=== PATIENT | female | born 1970 | race Caucasian/White ===

== ENCOUNTER → 2018-05-05 13:59 | Outpatient (CLI) | payer OTHER, SELFPAY ==
--- NOTE | 2018-05-05 | DI.MG.S_ITS ---
UNILATERAL RIGHT DIGITAL DIAGNOSTIC MAMMOGRAM 3D/2D SHORT-TERM FOLLOW-UP: 05/05/2018 CLINICAL: Patient returns for a 6 month follow up of the right breast. Comparison is made to exams dated: 11/04/2017 mammogram, 11/02/2017 mammogram, and 08/22/2016 mammogram - [facility]. The tissue of the right breast is heterogeneously dense. This may lower the sensitivity of mammography. There are stable grouped fine punctate calcifications in the right breast at 11 o'clock posterior depth. No other significant masses or calcifications are seen in the breast. IMPRESSION: PROBABLY BENIGN The stable grouped fine punctate calcifications in the right breast are probably benign. A follow-up mammogram in 6 months is recommended. A follow-up mammogram in 6 months is recommended to demonstrate stability. This exam was interpreted at Station ID: [id number]. NOTE: For mammograms, a report in lay terms will be sent to the patient. Approximately 15% of breast malignancies will not be visualized mammographically. In the management of a palpable breast mass, a negative mammogram must not discourage biopsy of a clinically suspicious lesion. Electronically Signed By: Yann vega/uzlma:05/05/2018 15:19:01 letter sent: Followup Recommended ACR BI-RADS Category 3: Probably benign [id number]
== END ==
PROVIDERS: PCP Internal Medicine; Visit Provider Internal Medicine
DX: R92.8 Other abnormal and inconclusive findings on diagnostic imaging of breast (principal)
CPT/HCPCS: 77065; G0279

== ENCOUNTER → 2018-11-08 10:10 | Outpatient (CLI) | payer OTHER, SELFPAY ==
--- NOTE | 2018-11-08 10:12 | DI.MG.S_ITS ---
BILATERAL DIGITAL DIAGNOSTIC MAMMOGRAM 3D/2D: 11/08/2018 CLINICAL: Short term follow up, due bilaterally. Comparison is made to exams dated: 05/05/2018 mammogram - [facility], 11/04/2017 mammogram, and 11/02/2017 mammogram - [facility]. The tissue of both breasts is heterogeneously dense. This may lower the sensitivity of mammography. There are stable grouped fine punctate calcifications in the right breast at 11 o'clock middle depth. No other significant masses, calcifications, or other findings are seen in either breast. IMPRESSION: PROBABLY BENIGN The stable grouped fine punctate calcifications in the right breast for one year and are probably benign. A follow-up mammogram in 12 months is recommended to document 2 years of stability. Screening left breast mammogram will be due at that time as well. This exam was interpreted at Station ID: [id number]. NOTE: For mammograms, a report in lay terms will be sent to the patient. Approximately 15% of breast malignancies will not be visualized mammographically. In the management of a palpable breast mass, a negative mammogram must not discourage biopsy of a clinically suspicious lesion. Electronically Signed By: Anoop Perez M.D. aty/:11/08/2018 11:01:13 letter sent: Followup Recommended ACR BI-RADS Category 3: Probably benign [id number]
== END ==
PROVIDERS: PCP Family Medicine; Visit Provider Family Medicine
DX: R92.1 Mammographic calcification found on diagnostic imaging of breast (principal)
CPT/HCPCS: 77066; G0279

== ENCOUNTER → 2019-03-07 10:20 | Outpatient (CLI) | payer OTHER, SELFPAY ==
[2019-03-07 11:13] LABS: Cholesterol 178 mg/dL (140-199); Glucose 98 mg/dL (70-100); HDL Cholesterol 90 mg/dL (40-60); LDL Cholesterol Calculated 77 mg/dL (<100); Triglycerides 56 mg/dL (35-150)
== END ==
PROVIDERS: PCP Family Medicine; Visit Provider Family Medicine
DX: Z13.220 Encounter for screening for lipoid disorders (principal); Z13.1 Encounter for screening for diabetes mellitus
CPT/HCPCS: 36415; 80061; 82947

== ENCOUNTER 2019-07-15 08:39 | Day surgery (SDC) | payer OTHER, SELFPAY ==
[2019-07-15 09:04] VITALS: BP 127/76; PULSE 94; RESP 18; TEMP 37.2; O2SAT 100; BMI 23.6
[2019-07-15] MEDS: SODIUM CHLORIDE 0.9% 1,000 ML 200 ML IV (09:35)
--- NOTE | 2019-07-15 10:36 | PM.HP.1 ---
History of Present Illness History of Present Illness Date Patient Seen: 07/15/19 Time Patient Seen: 10:36 Chief complaint: [id number] Narrative: This is a 49-year-old woman with personal history of prior colonoscopy which she said was done because her grandfather had colon cancer. She does not have any primary relatives with colon cancer colon polyps that she knows of. She does not know what was found on her prior colonoscopy but she was told to have 1 again in 5 years. She denies any hematochezia, melena, or unexplained weight loss. ROS: Thirteen system review is negative other than as mentioned below and in HPI. PE: GENERAL: Well groomed and cooperative. Appears stated age. Answers questions promptly and appropriately. Vital signs noted. HENT: Normocephalic, atraumatic. Hearing intact. Oral mucosa is pink and moist. EYES: Conjunctiva pink, sclera white, no periorbital swelling. CARDIOVASCULAR: Regular rate. No pedal edema. RESPIRATORY: Normal respiratory rate, breathing comfortably on room air. GASTROINTESTINAL: Abdomen soft and non-distended GENITALURINARY: No flank tenderness. MUSCULOSKELETAL: Equal tone and mass bilaterally. SKIN: Warm, dry, soft, appropriate color for ethnicity. No other lesions, rashes, or wounds. NEURO: Alert and Oriented X 3. No gross sensory deficits, or cognitive issues. PSYCH: Appropriate affect and mood. Patient History Medical History Acne (Chronic 11/22/14) Allergic rhinitis (11/22/14) Asthma (Chronic 11/22/14) Attention deficit disorder (Chronic 11/22/14) Depression (Chronic 11/22/14) Gastroesophageal reflux disease (Chronic 11/22/14) History of chronic back pain (Chronic 11/22/14) Surgical History History of spinal fusion Status post cholecystectomy Status post hysterectomy Family & Social History Family History Father Age: 80 Hypertension FH: prostate cancer Grandfather Disease of colon Grandmother Asthma Mother Age: 77 High cholesterol Sleep apnea Social History: household members none lives independently Yes caregiver/support person No Tobacco & Substance use: Smoking Status Never smoker alcohol intake current Meds Home Medications and Allergies Home Medications Medication Instructions Recorded Confirmed Type docusate sodium 600 mg PO QDAY #0 08/27/11 07/15/19 History sumatriptan succinate 25 mg tablet 25 mg PO PRN PRN #30 tab 03/29/18 07/15/19 Rx atomoxetine [Strattera] 40 mg PO QDAY #90 cap 10/22/18 07/15/19 Rx citalopram [Celexa] 40 mg PO Q DAY #90 tab 10/22/18 07/15/19 Rx albuterol sulfate 90 mcg/actuation 2 puff INHALATION SEE INSTRUCTIONS 11/23/18 07/15/19 Rx aerosol inhaler PRN #1 inh epinephrine 0 IJ PRN PRN #2 dose 11/23/18 02/26/19 Rx minocycline 100 mg capsule 100 mg PO BID #60 cap 01/17/19 07/15/19 Rx albuterol sulfate 1.25 mg/3 mL 1.25 mg INHALATION Q4-6H PRN #75 ml 03/04/19 07/15/19 Rx solution for nebulization disabled parking permit #1 ea 03/04/19 03/04/19 Rx gabapentin 300 mg capsule 300 mg PO QID cap 03/04/19 07/15/19 History ranitidine HCl 150 mg capsule 150 mg PO BID #180 cap 03/04/19 07/15/19 Rx omeprazole 20 mg tablet,delayed 20 mg PO BID #180 tab 04/07/19 Rx release gabapentin [Neurontin] 200 mg PO BID 07/15/19 07/15/19 History naproxen 250 mg PO BID PRN 07/15/19 07/15/19 History Allergies Allergy/AdvReac Type Severity Reaction Status Date / Time peanut [PEANUT] Allergy Severe ANAPHYLAXIS Verified 07/15/19 08:52 Sulfa (Sulfonamide Allergy Severe HIVES Verified 07/15/19 08:52 Antibiotics) [SULFA (SULFONAMIDE ANTIBIOTICS)] propofol [PROPOFOL] Allergy Unknown Verified 07/15/19 08:52 tree nut [TREE NUT] Allergy Unknown Verified 07/15/19 08:52 metoclopramide AdvReac Severe EPS Verified 07/15/19 08:52 [METOCLOPRAMIDE] SYMPTOMS hydrocodone [HYDROCODONE] AdvReac Mild STRANGE Verified 07/15/19 08:52 FEELING meperidine [MEPERIDINE] AdvReac Mild FEELS WEIRD Verified 07/15/19 08:52 morphine [MORPHINE] AdvReac Mild SPACEY Verified 07/15/19 08:52 FRESH FRUIT Allergy Unknown Uncoded 07/15/19 08:52 Exam Vital Signs (past 8 hours): - 07/15/19 09:04 Temperature 98.9 F Pulse Rate 94 H Respiratory Rate 18 Blood Pressure 127/76 Pulse Oximetry 100 Oxygen Delivery Method Room Air Assessment & Plan Assessment and plan (1) Colon cancer screening: Current visit: Yes Status: Acute Assessment & Plan narrative: Risk and benefit of colon cancer screening with colonoscopy and possible polypectomy were discussed. Including risk of bleeding, perforation, need for additional procedures. The patient desires to proceed with her colonoscopy procedure. Time Spent With Patient Time with patient: 15-24 minutes
--- NOTE | 2019-07-15 10:39 | PM.OP.ENDO ---
Operative Date/Time/Diagnoses Date of procedure: 07/15/19 Time of procedure: 10:39 Pre-op diagnosis: Colon cancer screening Procedure & Clinicians Study performed: Colonoscopy Same procedure as scheduled: Yes Indications: Screening for colon cancer Surgeon: Madeline Escalante Procedure Notes SCOAP/Timeout: Performed Procedure in detail: The patient was brought to the room and placed in left lateral decubitus position with all bony prominences padded. A time-out was performed and then the patient was given procedural sedation starting with 3 mg of Versed and 100 mcg of fentanyl. Vitals were monitored throughout the procedure and remained stable. Once adequately sedated the procedure was begun. A rectal exam was performed revealing low-grade external hemorrhoids. The colonoscope was then introduced to the rectum and advanced to the cecum in the usual fashion. The prep was poor in about 40% of the colon. An extra 20 minutes of the procedure was taken up with irrigating and suctioning out clumps of stool. Colon was very tortuous, with many tight turns.The cecum was identified by the appendiceal orifice, the mucosal try fold, and the ileocecal valve. The scope was then retracted while rotating side to side and examining each mucosal fold. Patient had some mild diverticulosis in the sigmoid colon with scattered small mouthed diverticula. At the conclusion procedure retroflexion was performed and grade 2 internal hemorrhoids without stigmata of bleeding were seen. The scope was then withdrawn from the rectum the procedure was concluded. The patient tolerated the procedure well was transferred to the PACU in stable condition. Total of 6 mg of Versed and 250 micro g of fentanyl was used for the procedure. Scope withdrawal time: 13 Sedation minutes: 45 Findings: diverticulosis and internal hemorrhoids Specimen(s): none sent Complications: none Impression: Tortuous colon with areas of poor prep which may reduce visibility of small polyps which could be missed. Post-procedure Recommendations: Colonscopy in 5 years (Due to inadequate prep to visualize small polyps) Plan for aftercare: Repeat colonoscopy in 5 years due to the possibility of missing small polyps due to inadequate prep. I recommended 2 day prep to ensure adequate clean out. Follow up: as needed Disposition: PACU
[2019-07-15] MEDS: MIDAZOLAM 5 MG/5 ML VIAL IV ×2 (10:51→10:59)
[2019-07-15] MEDS: fentaNYL 250 MCG/5 ML INJ IV (10:59)
[2019-07-15 11:20] VITALS: BP 113/68; PULSE 86; RESP 16; TEMP 36.8; O2SAT 100
[2019-07-15 11:25] VITALS: BP 118/67; PULSE 85; RESP 14; O2SAT 100
[2019-07-15 11:29] VITALS: BP 116/67; PULSE 85; RESP 12; TEMP 36.4; O2SAT 100
== END 2019-07-15 11:49 | disposition home or self-care (01) ==
LOC: ENDO 08:41
PROVIDERS: PCP Family Medicine; Visit Provider Surgery
PROC: 0DJD8ZZ Inspection of Lower Intestinal Tract, Via Natural or Artificial Opening Endoscopic (ICD-10-PCS; CPT 45378; principal; 2019-07-15 10:45)
DX: Z12.11 Encounter for screening for malignant neoplasm of colon (principal); K57.30 Diverticulosis of large intestine without perforation or abscess without bleeding; K64.1 Second degree hemorrhoids
CPT/HCPCS: G0121; 99152; 99153; J2250; J3010

== ENCOUNTER → 2019-11-28 09:39 | Outpatient (CLI) | payer OTHER, MEDICAID, SELFPAY ==
--- NOTE | 2019-11-28 09:40 | DI.MG.S_ITS ---
BILATERAL DIGITAL DIAGNOSTIC MAMMOGRAM 3D/2D: 11/28/2019 CLINICAL: Additional evaluation requested from prior study. Comparison is made to exams dated: 11/08/2018 mammogram, 05/05/2018 mammogram - [facility], 11/04/2017 mammogram, 11/02/2017 mammogram, 08/22/2016 mammogram, and 08/21/2015 mammogram - [facility]. The tissue of both breasts is heterogeneously dense. This may lower the sensitivity of mammography. There are stable grouped fine punctate calcifications in the right breast at 11 o'clock middle depth. These are seen in additional views and are stable since 11/02/2017. No other significant masses, calcifications, or other findings are seen in either breast. IMPRESSION: Stable grouped fine punctate calcifications in the right breast since 11/02/2017 are benign. There is no mammographic evidence of malignancy. Return to annual mammogram screening schedule is recommended. This exam was interpreted at Station ID: [id number]. NOTE: For mammograms, a report in lay terms will be sent to the patient. Approximately 15% of breast malignancies will not be visualized mammographically. In the management of a palpable breast mass, a negative mammogram must not discourage biopsy of a clinically suspicious lesion. Electronically Signed By: Jesse Joe M.D. slc/:11/28/2019 10:21:12 letter sent: Normal Exam ACR BI-RADS Category 2: Benign Finding(s) 3342F
== END ==
PROVIDERS: PCP Family Medicine; Referring Provider Family Medicine; Visit Provider Family Medicine
DX: R92.1 Mammographic calcification found on diagnostic imaging of breast (principal)
CPT/HCPCS: 77066; G0279

== ENCOUNTER 2020-06-10 17:42 | Emergency (ER) | payer OTHER, MEDICAID, SELFPAY ==
[2020-06-10 17:50] VITALS: BP 150/80; PULSE 84; RESP 16; O2SAT 100; BMI 22.8
--- NOTE | 2020-06-10 17:56 | DI.RAD.S_ITS ---
PROCEDURE: XR WRIST LT MIN 3V INDICATIONS: injury/swelling TECHNIQUE: 4 views of the wrist were acquired. COMPARISON: None. FINDINGS: Bones: No fractures or dislocations. No suspicious bony lesions. Scaphoid view: The scaphoid is intact. Soft tissues: No suspicious soft tissue calcifications. IMPRESSION: No acute osseous abnormality. If the symptoms persist with conservative management, consider cross sectional imaging such as CT or MRI for further assessment. Dictated by: Obie Edmond M.D. on 06/10/2020 at 18:08 Approved by: Obie Edmond M.D. on 06/10/2020 at 18:09
--- NOTE | 2020-06-10 18:26 | ED_ITS ---
HPI - Extremity Injury (Upper) General Chief Complaint: Extremity Injury, Upper Stated Complaint: fall, left arm injured Time Seen by Provider: 06/10/20 18:08 Source: patient Mode of arrival: Ambulatory Limitations: no limitations History of Present Illness HPI narrative: Patient here for complaints of injury and pain to the left wrist as well as left lower back. History of had back surgery and does have a pain m anagement provider here locally that does pain shortness for her. Today she was hiking and tripped groove use and fell forward posting on her left hand and wrist. Complains of left wrist pain with abrasion to the volar surface. She states she did not hit her back but when she landed she strained her lower back. No numbness tingling or weakness to the legs or feet. No bowel or bladder incontinence. No saddle paresthesia. Has full active range of motion at the wrist. Denies any other injuries. Related Data Home Medications Medication Instructions Recorded Confirmed docusate sodium 600 mg PO QDAY #0 08/27/11 07/15/19 naproxen 250 mg PO BID PRN 07/15/19 07/15/19 famotidine 20 mg tablet 20 mg PO DAILY 11/14/19 11/14/19 gabapentin 100 mg capsule 300 mg PO TID PRN cap 11/14/19 11/14/19 Previous Rx's Medication Instructions Recorded epinephrine 0 IJ PRN PRN #2 dose 11/23/18 minocycline 100 mg capsule 100 mg PO BID #60 cap 01/17/[address] #1 ea 03/04/19 atomoxetine 40 mg capsule 40 mg PO QDAY #90 cap 10/07/19 citalopram 40 mg tablet 40 mg PO Q DAY #90 tab 10/07/19 albuterol sulfate 1.25 mg/3 mL 1.25 mg INHALATION Q4-6H PRN #75 ml 11/14/19 solution for nebulization inhalational spacing device #1 each 11/14/19 sumatriptan succinate 25 mg tablet 25 mg PO PRN PRN #30 tab 12/20/19 albuterol sulfate 90 mcg/actuation See Rx Instructions .ROUTE 03/26/20 aerosol inhaler .COMPLEX #18 gram gabapentin 300 mg capsule See Rx Instructions .ROUTE 06/05/20 .COMPLEX #120 cap baclofen 10 mg PO BEDTIME #7 tab 06/10/20 Allergies Allergy/AdvReac Type Severity Reaction Status Date / Time peanut [PEANUT] Allergy Severe ANAPHYLAXIS Verified 11/14/19 11:07 Sulfa (Sulfonamide Allergy Severe HIVES Verified 11/14/19 11:07 Antibiotics) [SULFA (SULFONAMIDE ANTIBIOTICS)] propofol [PROPOFOL] Allergy Unknown Verified 11/14/19 11:07 tree nut [TREE NUT] Allergy Unknown Verified 11/14/19 11:07 metoclopramide AdvReac Severe EPS Verified 11/14/19 11:07 [METOCLOPRAMIDE] SYMPTOMS hydrocodone [HYDROCODONE] AdvReac Mild STRANGE Verified 11/14/19 11:07 FEELING meperidine [MEPERIDINE] AdvReac Mild FEELS WEIRD Verified 11/14/19 11:07 morphine [MORPHINE] AdvReac Mild SPACEY Verified 11/14/19 11:07 FRESH FRUIT Allergy Unknown Uncoded 11/14/19 11:07 Review of Systems Review of Systems Narrative: GENERAL: Denies chills, fatigue, malaise, fever, sweats. HEENT: Denies sinus pain, ear pain, sore throat, difficulty swallowing, dizziness. RESPIRATORY: Denies dyspnea, cough, wheezing, hemoptysis, sputum. CARDIOVASCULAR: Denies chest pain, palpitations, orthopnea, edema, GASTROINTESTINAL: Denies nausea, vomiting, abdominal pain, diarrhea, constipation, melena. : Denies dysuria, frequency, incontinence, hematuria, urinary retention. MUSCULOSKELETAL: denies weakness, complains of joint pain, or bony pain, complains of muscle strain/pain SKIN: Denies rash, skin lesions, has abrasion NEUROLOGIC: Denies weakness, numbness or tingling PSYCHIATRIC: No concerning psychosocial issues. ROS Unobtainable: All systems reviewed & are unremarkable except as noted in HPI and below Patient History Medical History Acne (Chronic 11/22/14) Allergic rhinitis (11/22/14) Asthma (Chronic 11/22/14) Attention deficit disorder (Chronic 11/22/14) Depression (Chronic 11/22/14) Gastroesophageal reflux disease (Chronic 11/22/14) History of chronic back pain (Chronic 11/22/14) Surgical History History of spinal fusion Status post cholecystectomy Status post hysterectomy Family History Father Age: 81 Hypertension FH: prostate cancer Grandfather Disease of colon Grandmother Asthma Mother Age: 77 High cholesterol Sleep apnea Social History marital status: unmarried,single number of children: 1 household members: none lives independently: Yes caregiver/support person: No housing: house Smoking Status: Never smoker second hand exposure: No alcohol intake: current substance use type: does not use Smoking Status: Never smoker Substance Use Type: does not use Exam Narrative Exam Narrative: GENERAL: patient appears stated age. Well-nourished, well-d eveloped patient, in no distress, not toxic HEAD: Atraumatic. Normocephalic. EYES: Pupils equal round and reactive. Extraocular motions intact. No scleral icterus. No injection or drainage. ENT: Nose without bleeding, purulent drainage. Throat without erythema, tonsillar hypertrophy or exudate. Airway patent. NECK: Trachea midline. Non tender EXTREMITIES: Examination left upper extremity nontender shoulder and elbow. There is small abrasion at the volar surface of the wrist. Strong tugboat mate in radial pulse. Hand is soft and pink. Light touch intact to thumb and fingers. Able to bring thumb across and touch the palm. Full active range of motion at the wrist/supination pronation flexion extension. Mild diffuse tenderness to the wrist, no gross deformity BACK: No midline tenderness or step-off. There is reproducible left low paralumbar/parasacral muscle tenderness. Pain with leaning forward and doing side bends. NEURO: AOx4. SKIN: No rash or erythema of visible areas PSYCH: Not anxious, is cooperative Initial Vital Signs Initial Vital Signs: Vital Signs Pulse Rate 84 06/10/20 17:50 Respiratory Rate 16 06/10/20 17:50 Blood Pressure 150/80 H 06/10/20 17:50 Pulse Oximetry 100 06/10/20 17:50 Procedures Orthopedic Splinting/Casting Injury #1: Side: left Upper Extremity Injury Location: wrist Upper Extremity Immobilizer: wrist splint Post splinting neuro exam: intact Post splinting vascular exam: intact Placed by: Nursing Course Orders Ordered: ED Orders 06/10/20 17:56 XR wrist LT min 3V Stat Discontinued Medications Bacitracin (Bacitracin) 1 applic TOP NOW ONE Stop: 06/10/20 18:24 Last Admin: 06/10/20 18:35 Dose: 1 applic Documented by: JANNA Diphtheria/Tetanus/Acell Pertussis (Adacel) 0.5 ml IM .ONCE ONE Stop: 06/10/20 18:26 Last Admin: 06/10/20 18:35 Dose: 0.5 ml Documented by: JANNA Reevaluation(s) Reevaluation #1: Spoke with patient results, mother at bedside. Understands to return if not improving sent in 10 days or follow-up with her orthopedic surgeon. She does have 1 she states. May need repeat x-ray or MRI Time: 18:36 Vital Signs Vital signs: Vital Signs - 8 hr 06/10/20 17:50 Pulse Rate 84 Respiratory Rate 16 Blood Pressure 150/80 H Pulse Oximetry 100 MDM - Extremity Injury (Upper) Differential Diagnosis Differential diagnosis: Likely sprain and strain of wrist, fracture of wrist and other (Lumbar strain/abrasion) Imaging Data Extremity x-ray #1: Radiologist's Impression: [address] [address] XRay Report Signed Patient: Arabella Hameed [facility]#: [id number] : 1970Acct:[id number] Age/Sex: 50 / FDate of Service: 06/10/20 Loc: ED Accession Number: [id number] Procedure: XR wrist LT min 3V Ordering Provider: Moshe Andino D.O. PROCEDURE: XR WRIST LT MIN 3V INDICATIONS: injury/swelling TECHNIQUE: 4 views of the wrist were acquired. COMPARISON: None. FINDINGS: Bones: No fractures or dislocations. No suspicious bony lesions. Scaphoid view: The scaphoid is intact. Soft tissues: No suspicious soft tissue calcifications. IMPRESSION: No acute osseous abnormality. If the symptoms persist with conservative management, consider cross sectional imaging such as CT or MRI for further assessment. Dictated by: Obie Edmond M.D. on 06/10/2020 at 18:08 Approved by: Obie Edmond M.D. on 06/10/2020 at 18:09 [facility] Narrative Medical decision making narrative: Reviewed with patient and mother x-ray results. They understand occult fracture/small fractures may not be seen on day 1. May need MRI or repeat x-ray if not improved in 7-10 days. Discharge Plan Departure Patient Disposition: Home Clinical Impression: Sprain and strain of wrist Lumbar strain Qualifiers: Encounter type: initial encounter Qualified Code(s): S39.012A - Strain of muscle, fascia and tendon of lower back, initial encounter Discharge Date/Time: 06/10/20 18:42 Instructions: DI for Wrist Sprain, DI for Abrasion, DI for Back Strain or Sprain Activity Restrictions/Additional Instructions: See your orthopedic doctor this week for recheck. Call tomorrow for office time. Return if worse or not improving 7-10 days. May need repeat x-ray or MRI of the wrist. Use wrist splint for comfort. Change dressing twice day with warm soap and water and topical antibiotic for the skin wound. Your prescription for baclofen has been sent to your [facility] Prescriptions: New baclofen 10 mg tablet 10 mg PO BEDTIME Qty: 7 RF: 0 No Action famotidine [Pepcid] 20 mg tablet 20 mg PO DAILY RF: 0 albuterol sulfate 1.25 mg/3 mL solution for nebulization 1.25 mg INHALATION Q4-6H PRN (Reason: shortness of breath or wheezing) Qty: 75 RF: 2 (DME) Babak Aerosol [employer]man Enhancer Spacer See Rx Instructions .ROUTE .MEDSUPPLY Qty: 1 RF: 0 (DME) disabled parking permit Qty: 1 RF: 0 docusate sodium 250 MG capsule 600 mg PO QDAY Qty: 0 RF: 0 epinephrine 0.3 mg/0.3 mL auto-injector 0 IJ PRN PRNQty: 2 RF: 2 minocycline [Minocin] 100 mg capsule 100 mg PO BID Qty: 60 RF: 2 atomoxetine [Strattera] 40 mg capsule 40 mg PO QDAY Qty: 90 RF: 3 citalopram [Celexa] 40 mg tablet 40 mg PO Q DAY Qty: 90 RF: 3 sumatriptan succinate [Imitrex] 25 mg tablet 25 mg PO PRN PRN (Reason: migraine headache) Qty: 30 RF: 2 albuterol sulfate 90 mcg/actuation HFA aerosol inhaler See Rx Instructions .ROUTE .COMPLEX Qty: 18 RF: 1 gabapentin 300 mg capsule See Rx Instructions .ROUTE .COMPLEX Qty: 120 RF: 0 naproxen 250 mg Tablet 250 mg PO BID PRN (Reason: Pain (Scale Score 4-6)) RF: 0 gabapentin [Neurontin] 100 mg capsule 300 mg PO TID PRNRF: 0 Referrals: Svetlana Oliveira MD [Primary Care Provider] -
[2020-06-10] MEDS: TET,DIPH,PERTUSS(ACELL),VAC/PF 0.5 ML SYRINGE IM (18:35)
[2020-06-10] MEDS: BACITRACIN OINT 0.9 GM PCKT 1 APPLIC TOP (18:35)
== END 2020-06-10 18:42 | disposition home or self-care (01) ==
PROVIDERS: Emergency Provider Emergency Medicine; PCP Family Medicine
DX: S63.502A Unspecified sprain of left wrist, initial encounter (principal); S66.912A Strain of unspecified muscle, fascia and tendon at wrist and hand level, left hand, initial encounter; S39.012A Strain of muscle, fascia and tendon of lower back, initial encounter; W19.XXXA Unspecified fall, initial encounter; Z23 Encounter for immunization
CPT/HCPCS: 73110; 90471; 99283; 90715

== ENCOUNTER → 2020-07-31 14:12 | Outpatient (CLI) | payer OTHER, MEDICAID, SELFPAY ==
--- NOTE | 2020-07-31 14:13 | DI.RAD.S_ITS ---
PROCEDURE: XR THORACIC SPINE 3V INDICATIONS: history of chronic back pain TECHNIQUE: 3 views of the thoracic spine were acquired. COMPARISON: [facility], THORACIC SPINE 3 VIEWS, 08/28/2017, 11:21. [facility], THORACIC SPINE 2 VIEWS, 11/05/2008, 21:27. FINDINGS: Bones: No fractures or dislocations. Prior spine fusion crossing the thoracolumbar junction and extending into the lumbar spine is partially visualized, without foreign exchange trader time No suspicious bony lesions. Twelve pairs of ribs are noted, and appear intact where visualized. Soft tissues: No paravertebral stripe thickening. IMPRESSION: Mild degenerative disc disease again noted along the thoracic spine in this patient with prior posterior fusion procedure crossing the thoracolumbar junction. No appreciable change from 08/28/17. Dictated by: Saman Bañuelos M.D. on 08/01/2020 at 12:20 Approved by: Saman Bañuelos M.D. on 08/01/2020 at 12:21
== END ==
PROVIDERS: PCP Family Medicine; Referring Provider Family Medicine; Visit Provider Physical Medicine & Rehabilitation
DX: M54.9 Dorsalgia, unspecified (principal); M51.34 Other intervertebral disc degeneration, thoracic region; G89.29 Other chronic pain; Z98.1 Arthrodesis status
CPT/HCPCS: 72072

== ENCOUNTER 2020-08-08 10:29 | Emergency (ER) | payer OTHER, MEDICAID, SELFPAY ==
[2020-08-08 10:33] VITALS: BP 137/78; PULSE 94; RESP 14; TEMP 36.7; O2SAT 98; BMI 22.8
--- NOTE | 2020-08-08 10:40 | DI.RAD.S_ITS ---
PROCEDURE: XR ANKLE LT MIN 3V INDICATIONS: ankle pain TECHNIQUE: 3 views of the ankle were acquired. COMPARISON: None. FINDINGS: Bones: No fractures or dislocations. Small well corticated ossicle adjacent to the distal fibular tip seen on the frontal projection only. Ankle mortise is normally aligned. No suspicious bony lesions. Soft tissues: No tibiotalar joint effusion. Achilles tendon appears normal. IMPRESSION: No definite acute osseous abnormality. Small well corticated ossicle adjacent to the fibular tip may be sequelae of prior trauma. Dictated by: Jesse Joe M.D. on 08/08/2020 at 11:04 Approved by: Jesse Joe M.D. on 08/08/2020 at 11:07
--- NOTE | 2020-08-08 10:48 | ED_ITS ---
HPI - Extremity Injury (Lower) General Chief Complaint: Extremity Injury, Lower Stated Complaint: left ankle injury x6 days Time Seen by Provider: 08/08/20 10:35 Source: patient Mode of arrival: Ambulatory Limitations: no limitations History of Present Illness HPI Narrative: Patient is a 50-year-old female who presents with left ankle pain ongoing for the last 6 days. She states that she fell off a curb initially she had swelling over the lateral malleoli she ice and took Aleve which seemed to help but now she has noticed some bruising and it is still sore. She denies numbness or tingling or any other injury including her knee. MD complaint: ankle injury Onset (ago): day(s) (6) Related Data Home Medications Medication Instructions Recorded Confirmed docusate sodium 600 mg PO QDAY #0 08/27/11 07/15/19 naproxen 250 mg PO BID PRN 07/15/19 07/15/19 famotidine 20 mg tablet 20 mg PO DAILY 11/14/19 11/14/19 gabapentin 100 mg capsule 300 mg PO TID PRN cap 11/14/19 11/14/19 Previous Rx's Medication Instructions Recorded epinephrine 0 IJ PRN PRN #2 dose 11/23/18 minocycline 100 mg capsule 100 mg PO BID #60 cap 01/17/[address] #1 ea 03/04/19 atomoxetine 40 mg capsule 40 mg PO QDAY #90 cap 10/07/19 citalopram 40 mg tablet 40 mg PO Q DAY #90 tab 10/07/19 albuterol sulfate 1.25 mg/3 mL 1.25 mg INHALATION Q4-6H PRN #75 ml 11/14/19 solution for nebulization inhalational spacing device #1 each 11/14/19 sumatriptan succinate 25 mg tablet 25 mg PO PRN PRN #30 tab 12/20/19 albuterol sulfate 90 mcg/actuation See Rx Instructions .ROUTE 03/26/20 aerosol inhaler .COMPLEX #18 gram baclofen 10 mg PO BEDTIME #7 tab 06/10/20 gabapentin 300 mg capsule See Rx Instructions .ROUTE 08/03/20 .COMPLEX #120 cap Allergies Allergy/AdvReac Type Severity Reaction Status Date / Time peanut [PEANUT] Allergy Severe ANAPHYLAXIS Verified 08/08/20 10:40 Sulfa (Sulfonamide Allergy Severe HIVES Verified 08/08/20 10:40 Antibiotics) [SULFA (SULFONAMIDE ANTIBIOTICS)] propofol [PROPOFOL] Allergy Unknown Verified 08/08/20 10:40 tree nut [TREE NUT] Allergy Unknown Verified 08/08/20 10:40 metoclopramide AdvReac Severe EPS Verified 08/08/20 10:40 [METOCLOPRAMIDE] SYMPTOMS hydrocodone [HYDROCODONE] AdvReac Mild STRANGE Verified 08/08/20 10:40 FEELING meperidine [MEPERIDINE] AdvReac Mild FEELS WEIRD Verified 08/08/20 10:40 morphine [MORPHINE] AdvReac Mild SPACEY Verified 08/08/20 10:40 FRESH FRUIT Allergy Unknown Uncoded 08/02/20 10:52 Review of Systems Review of Systems Narrative: GENERAL: Denies chills,fever HEENT: Denies throat pain RESPIRATORY: Denies dyspnea, cough, wheezing CARDIOVASCULAR: Denies chest pain, palpitations GASTROINTESTINAL: Denies nausea, vomiting MUSCULOSKELETAL: See HPI SKIN: No rash, no laceration, no pruritus NEUROLOGIC: Denies weakness, dizziness, headache, numbness 8 point review of systems is negative except for those stated above and HPI Patient History Medical History (Updated 08/08/20 @ 11:18 by Evelyn Mccrary DO) Acne (11/22/14) Allergic rhinitis (11/22/14) Asthma (11/22/14) Attention deficit disorder (11/22/14) Depression (11/22/14) Gastroesophageal reflux disease (11/22/14) History of chronic back pain (11/22/14) Myofascial pain on left side Surgical History History of spinal fusion Status post cholecystectomy Status post hysterectomy Family History Father Age: 81 Hypertension FH: prostate cancer Grandfather Disease of colon Grandmother Asthma Mother Age: 78 High cholesterol Sleep apnea Social History marital status: unmarried,single number of children: 1 household members: none lives independently: Yes caregiver/support person: No housing: house Smoking Status: Never smoker second hand exposure: No alcohol intake: current substance use type: does not use Smoking Status: Never smoker alcohol intake frequency: holidays/special occasions only Substance Use Type: does not use Exam Initial Vital Signs Initial Vital Signs: Vital Signs Temperature 98.1 F 08/08/20 10:33 Pulse Rate 94 H 08/08/20 10:33 Respiratory Rate 14 08/08/20 10:33 Blood Pressure 137/78 08/08/20 10:33 Pulse Oximetry 98 08/08/20 10:33 GENERAL: Well-appearing, well-nourished and in no acute distress. CARDIOVASCULAR: peripheral pulses in tact, cap refill <2 sec RESPIRATORY: No respiratory distress, speaks in full sentences without difficulty EXTREMITIES: Normal range of motion, no clubbing or edema. Neurovascularly intact Left ankle contusion noted inferior the lateral malleoli no significant swelling distal pedal pulse intact. Able to off plantar and dorsiflex without issue no pain with inversion or eversion. NEUROLOGICAL: Cranial nerves II through XII grossly intact. Normal gait and speech. SKIN: Warm, dry, no petechiae, no rashes or lesions. Course Orders Ordered: ED Orders 08/08/20 10:40 XR ankle LT min 3V Stat Vital Signs Vital signs: Vital Signs - 8 hr 08/08/20 10:33 Temperature 98.1 F Pulse Rate 94 H Respiratory Rate 14 Blood Pressure 137/78 Pulse Oximetry 98 MDM - Extremity Injury (Lower) Imaging Data Extremity x-ray #1: Radiologist's Impression: PROCEDURE: XR ANKLE LT MIN 3V INDICATIONS: ankle pain TECHNIQUE: 3 views of the ankle were acquired. COMPARISON: None. FINDINGS: Bones: No fractures or dislocations. Small well corticated ossicle adjacent to the distal fibular tip seen on the frontal projection only. Ankle mortise is normally aligned. No suspicious bony lesions. Soft tissues: No tibiotalar joint effusion. Achilles tendon appears normal. IMPRESSION: No definite acute osseous abnormality. Small well corticated ossicle adjacent to the fibular tip may be sequelae of prior trauma. Dictated by: Jesse Joe M.D. on 08/08/2020 at 11:04 Discharge Plan Departure Patient Disposition: Home Clinical Impression: Left ankle sprain Qualifiers: Encounter type: initial encounter Involved ligament of ankle: other ligament Qualified Code(s): S93.492A - Sprain of other ligament of left ankle, initial encounter Instructions: Ankle Sprain Activity Restrictions/Additional Instructions: *You have been diagnosed with left ankle sprain *What to do: Increase activity as tolerated wear ankle brace as needed. Elevate, ice 20-30 minutes *Continue to take medications as directed *Follow up with your primary care provider in 2-3 days *Return to ER if you should have inability to walk, increased pain, numbness or tingling or any new, worsening or concerning symptoms Prescriptions: No Action famotidine [Pepcid] 20 mg tablet 20 mg PO DAILY RF: 0 albuterol sulfate 1.25 mg/3 mL solution for nebulization 1.25 mg INHALATION Q4-6H PRN (Reason: shortness of breath or wheezing) Qty: 75 RF: 2 (DME) Babak Aerosol [place] Enhancer Spacer See Rx Instructions .ROUTE .MEDSUPPLY Qty: 1 RF: 0 (DME) disabled parking permit Qty: 1 RF: 0 docusate sodium 250 MG capsule 600 mg PO QDAY Qty: 0 RF: 0 epinephrine 0.3 mg/0.3 mL auto-injector 0 IJ PRN PRNQty: 2 RF: 2 minocycline [Minocin] 100 mg capsule 100 mg PO BID Qty: 60 RF: 2 atomoxetine [Strattera] 40 mg capsule 40 mg PO QDAY Qty: 90 RF: 3 citalopram [Celexa] 40 mg tablet 40 mg PO Q DAY Qty: 90 RF: 3 sumatriptan succinate [Imitrex] 25 mg tablet 25 mg PO PRN PRN (Reason: migraine headache) Qty: 30 RF: 2 albuterol sulfate 90 mcg/actuation HFA aerosol inhaler See Rx Instructions .ROUTE .COMPLEX Qty: 18 RF: 1 gabapentin 300 mg capsule See Rx Instructions .ROUTE .COMPLEX Qty: 120 RF: 0 baclofen 10 mg tablet 10 mg PO BEDTIME Qty: 7 RF: 0 naproxen 250 mg Tablet 250 mg PO BID PRN (Reason: Pain (Scale Score 4-6)) RF: 0 gabapentin [Neurontin] 100 mg capsule 300 mg PO TID PRNRF: 0 Referrals: Svetlana Oliveira MD [Primary Care Provider] -
== END 2020-08-08 11:30 | disposition home or self-care (01) ==
PROVIDERS: Emergency Provider Emergency Medicine; PCP Family Medicine
DX: S93.492A Sprain of other ligament of left ankle, initial encounter (principal); W19.XXXA Unspecified fall, initial encounter
CPT/HCPCS: 73610; 99281; 99283

== ENCOUNTER → 2020-10-31 15:18 | Outpatient (CLI) | payer OTHER, MEDICAID, SELFPAY ==
--- NOTE | 2020-10-31 | DI.MRI.S_ITS ---
PROCEDURE: MR ANKLE LT WO CON INDICATIONS: Sprain of unspecified ligament of left ankle, initial encoun TECHNIQUE: Noncontrast sagittal T1 spin echo and T2 fast spin echo with fat saturation, axial proton density fast spin echo and T2 fast spin echo with fat saturation, coronal T1 spin echo and T2 fast spin echo with fat saturation through the ankle/hindfoot. COMPARISON: None. FINDINGS: Image quality: Excellent. Bones and joints: Mild edema involving lateral periphery of lateral malleolus is seen without discrete fracture line. No other area of abnormal marrow signal. No fracture or dislocation. No hindfoot coalitions. No osteochondral injuries of the talar dome. No pathologic joint effusions. Medial structures: The posterior tibialis, flexor digitorum longus, and flexor hallucis longus tendons are intact. The posterior tibial neurovascular bundle appears normal within the tarsal tunnel, without extrinsic mass effect. The deep layer (anterior and posterior tibiotalar ligaments) and superficial layer (tibionavicular, tibiospring, and tibiocalcaneal ligaments) of the deltoid ligament appear normal. The spring ligament components (superomedial calcaneonavicular, medioplantar oblique calcaneonavicular, and inferoplantar longitudinal ligaments) are intact. Lateral structures: The anterior talofibular is attenuated in appearance with extensive T2 hyperintense signal suggestive of moderate to high-grade partial-thickness tear. The calcaneofibular, and posterior talofibular ligaments appear intact. More superiorly, the anterior and posterior tibiofibular ligaments appear intact, as is the intermalleolar ligament. The tibiofibular syndesmosis is normal in width at 2 mm or less. The peroneus longus and brevis tendons demonstrate normal location and morphology. Adjacent bony peroneal tubercle and retrotrochlear prominence are normal in size. The sinus tarsi demonstrates normal fatty signal, without edema, fibrosis, or cyst formation. Visualized sinus tarsi components (cervical ligament, interosseous talocalcaneal ligament, roots of the inferior extensor retinaculum) appear normal. The calcaneonavicular and calcaneocuboid components of the bifurcate ligament appear intact. The dorsal calcaneocuboid ligament appears intact. Anterior structures: The tibialis anterior, extensor hallucis longus, and extensor digitorum longus tendons appear intact. The dorsal talonavicular ligament appears intact. Posterior and plantar structures: Achilles tendon is intact. Medial and lateral bands of the plantar fascia are of normal thickness. No abductor digiti quinti muscle atrophy to suggest Powell neuropathy. IMPRESSION: 1. Mild contusion involving lateral periphery of lateral malleolus. No acute fracture or dislocation. Small amount of joint fluid, no gross loose body. 2. Medial ankle tendons and ligaments are intact. 3. Lateral ankle tendons are intact. Moderate to high-grade partial-thickness tear involving anterior talofibular ligament is seen. Posterior talofibular ligament and calcaneal fibular ligament are grossly intact. 4. Extensor tendons and Achilles tendon are intact. Plantar fascia is within normal limits. Dictated by: Ernie Lay M.D. on 10/31/2020 at 17:04 Approved by: Ernie Lay M.D. on 10/31/2020 at 17:08
== END ==
PROVIDERS: PCP Family Medicine; Referring Provider Orthopaedic Surgery; Visit Provider Orthopaedic Surgery
DX: S93.492A Sprain of other ligament of left ankle, initial encounter (principal); S90.02XA Contusion of left ankle, initial encounter
CPT/HCPCS: 73721

== ENCOUNTER → 2020-12-03 17:11 | Outpatient (CLI) | payer OTHER, MEDICAID, SELFPAY ==
--- NOTE | 2020-12-03 | DI.MG.S_ITS ---
BILATERAL DIGITAL SCREENING MAMMOGRAM 3D/2D WITH CAD: 12/03/2020 CLINICAL: Routine screening. Comparison is made to exams dated: 11/28/2019 mammogram, 11/08/2018 mammogram, 05/05/2018 mammogram - [facility], and 11/04/2017 mammogram - [facility]. There are scattered fibroglandular elements in both breasts. Current study was also evaluated with a Computer Aided Detection (CAD) system. No significant masses, calcifications, or other findings are seen in either breast. There has been no significant interval change. IMPRESSION: NEGATIVE There is no mammographic evidence of malignancy. A 1 year screening mammogram is recommended. This exam was interpreted at Station ID: [id number]. NOTE: For mammograms, a report in lay terms will be sent to the patient. Approximately 15% of breast malignancies will not be visualized mammographically. In the management of a palpable breast mass, a negative mammogram must not discourage biopsy of a clinically suspicious lesion. Electronically Signed By: Cheryle augustine/zulma:12/04/2020 08:39:46 letter sent: Normal Exam ACR BI-RADS Category 1: Negative [id number]
== END ==
PROVIDERS: PCP Family Medicine; Referring Provider Family Medicine; Visit Provider Family Medicine
DX: Z12.31 Encounter for screening mammogram for malignant neoplasm of breast (principal)
CPT/HCPCS: 77063; 77067

== ENCOUNTER → 2021-03-01 14:34 | Outpatient (CLI) | payer OTHER, MEDICAID, SELFPAY ==
[2021-03-01 15:50] LABS: Add Manual Diff / Slide Review NO; Basophils Absolute Auto 0 /uL (0-100); Basophils Percent Auto 0.9 % (0-2); Eosinophils Absolute Auto 300 /uL (0-450); Eosinophils Percent Auto 5.2 % (2-4); Hematocrit 44.9 % (36-46); Hemoglobin 15.1 g/dL (12.0-16.0); Lymphocytes Absolute Auto 1200 /uL (1100-4500); Lymphocytes Percent Auto 24.4 % (25-40); Mean Corpuscular HGB Conc 33.6 % (30-36); Mean Corpuscular Hemoglobin 31.6 PG (26-34); Mean Corpuscular Volume 93.9 fL (80-100); Monocytes Absolute Auto 300 /uL (0-900); Neutrophils Absolute Auto 3200 /uL (1500-7000); Neutrophils Percent Auto 63.5 % (50-75); Platelet Count 245 X10^3/uL (150-400); Red Blood Cell Count 4.79 X10^6/uL (4.0-5.2); Red Cell Distribution Width 14.1 % (11.6-14.8)
[2021-03-01 16:22] LABS: Alanine Aminotransferase 23 IU/L (<35); Albumin 4.2 g/dL (3.5-5.0); Albumin Globulin Ratio 1.5 (1.0-2.8); Alkaline Phosphatase 62 U/L (38-126); Aspartate Aminotransferase 32 IU/L (14-36); BUN Creatinine Ratio 25.9 (6-22); Bilirubin Total 0.6 mg/dL (0.2-1.3); Blood Urea Nitrogen 14 mg/dL (7-17); Calcium 10.4 mg/dL (8.4-10.2); Carbon Dioxide 31 mmol/L (22-32); Chloride 99 mmol/L (98-107); Estimated Glomerular Filt Rate > 60.0 mL/min (>60); Globulin 2.8 g/dL (1.7-4.1); Glucose 98 mg/dL (70-100); HEMOLYSIS < 15 (0-50); Potassium 4.7 mmol/L (3.4-5.1); Sodium 135 mmol/L (137-145)
== END ==
PROVIDERS: PCP Family Medicine; Referring Provider Family Medicine; Visit Provider Family Medicine
DX: R53.83 Other fatigue (principal); I10 Essential (primary) hypertension
CPT/HCPCS: 80053; 84443; 85025

== ENCOUNTER → 2021-05-09 11:49 | Outpatient (CLI) | payer OTHER, MEDICAID, SELFPAY ==
--- NOTE | 2021-05-09 11:52 | DI.RAD.S_ITS ---
PROCEDURE: XR THORACIC SPINE 3V INDICATIONS: monitoring TECHNIQUE: 3 views of the thoracic spine were acquired. COMPARISON: [facility], CT, L-SPINE WITHOUT CONTRAST, 10/20/2017, 9:27. [facility], CR, XR THORACIC SPINE 3V, 07/31/2020, 13:14. FINDINGS: Bones: L1 corpectomy, strut cage and posterior supporting stephanie and screw instrumentation extending from T11 through L3 all in good position. No evidence of hardware failure loosening. Disc space narrowing and anterior osteophytes present at T9-10 and T10-11. Convex left cervical thoracic scoliotic curvature Soft tissues: No paravertebral stripe thickening. IMPRESSION: L1 corpectomy, cage strut graft, posterior stephanie and screw construct all in good position without evidence of hardware failure or loosening Stable degenerative disc disease at T9-10 and T10-11. Cervical thoracic levoscoliosis stable Approved by: Bhavik Red M.D. on 05/09/2021 at 15:03
--- NOTE | 2021-05-09 11:52 | DI.RAD.S_ITS ---
PROCEDURE: XR LUMBAR SPINE 2-3V INDICATIONS: monitoring TECHNIQUE: 3 views of the lumbar spine were acquired. COMPARISON: [facility], , L-SPINE 2-3 VIEWS, 08/28/2017, 11:22. FINDINGS: Bones: L1 corpectomy and cages strut graft noted in good position. The T12-L1 and L1-L2 discectomy and fusion with good graft incorporation. Posterior stephanie and screw instrumentation extends from T11 through L2. No evidence of hardware failure or loosening. Disc space narrowing and hypertrophic facet joints present at L4-5 and L5-S1. Soft tissues: Overlying bowel gas pattern is normal. No suspicious soft tissue calcifications. Surgical clips noted in the upper quadrant. Moderate fecal debris throughout the colon IMPRESSION: L1 corpectomy and associated instrumentation in good position. No evidence of hardware failure or loosening. Approved by: Bhavik Red M.D. on 05/09/2021 at 15:04
[2021-05-09 14:32] LABS: TSH w/ Reflex to FT4 1.66 uIU/mL (0.47-4.68)
== END ==
PROVIDERS: PCP Nurse Practitioner Family; Referring Provider Nurse Practitioner Family; Visit Provider Nurse Practitioner Family
DX: Z87.39 Personal history of other diseases of the musculoskeletal system and connective tissue (principal); E04.9 Nontoxic goiter, unspecified; Z98.1 Arthrodesis status
CPT/HCPCS: 36415; 72072; 72100; 84443

== ENCOUNTER → 2021-05-30 09:49 | Outpatient (CLI) | payer OTHER, MEDICAID, SELFPAY ==
--- NOTE | 2021-05-30 09:50 | DI.US.S_ITS ---
PROCEDURE: US THYROID INDICATIONS: ENLARGED THYROID TECHNIQUE: Real-time scanning was performed of the thyroid gland, with image documentation. COMPARISON: None. FINDINGS: Right: Thyroid lobe measures 4.6 x 1.2 x 1.3 cm, and is homogeneous in echotexture. Left: Thyroid lobe measures 4.3 x 1.0 x 1.9 cm, and is homogenous in echotexture. Sub 5 mm left thyroid nodule. Isthmus: 1.3 mm thick. Nodule number: 1 Location: Right inferior Size: 1.0 x 0.7 x 0.8 cm. Composition: Solid Echogenicity: Predominantly isoechoic Shape: wider than tall. Margins: Smooth Echogenic foci: Internal punctate echogenic foci Total points: 6 ACR TI-RADS category: Moderately suspicious IMPRESSION: Moderately suspicious 1 cm right thyroid nodule. Recommend continued followup ultrasound as detailed below. ACR TI-RADS definitions and recommendations: TI-RADS 1 (benign): 0 points. FNA not needed. TI-RADS 2 (not suspicious): 2 points. FNA not needed. TI-RADS 3 (mildly suspicious): 3 points. * FNA if 2.5 cm or larger, follow up if 1.5 cm or larger (at 1, 3, and 5 years). TI-RADS 4 (moderately suspicious): 4-6 points. * FNA if 1.5 cm or larger, follow up if 1 cm or larger (at 1, 2, 3, and 5 years). TI-RADS 5 (highly suspicious): 7 points or more. * FNA if 1 cm or larger, follow up if 0.5 cm or larger (every year for 5 years). Dictated by: Roberto Carlos Clinton [facility] Interpreted: Janice Macias MD on 05/30/2021 at 16:44 Transcribed by: DARYN on 05/30/2021 at 16:46 Approved by: Janice Macias M.D. on 05/30/2021 at 21:50
== END ==
PROVIDERS: PCP Nurse Practitioner Family; Referring Provider Nurse Practitioner Family; Visit Provider Nurse Practitioner Family
DX: E04.1 Nontoxic single thyroid nodule (principal)
CPT/HCPCS: 76536

== ENCOUNTER → 2021-11-15 17:14 | Outpatient (CLI) | payer OTHER, MEDICAID, SELFPAY ==
--- NOTE | 2021-11-15 17:16 | DI.MRI.S_ITS ---
PROCEDURE: MR THORACIC SPINE WO CON INDICATIONS: PLEURODYNIA,ARTHRODESIS STATUS,PAIN ABOVE FUSION TECHNIQUE: Noncontrast sagittal T1 spine echo and T2 fast spin echo, sagittal STIR, axial T1 and T2 fast spin echo through the thoracic spine. COMPARISON: [facility], CR, XR THORACIC SPINE 3V, 05/09/2021, 12:16. FINDINGS: Image quality: Excellent. Alignment and Curvature: Convex left cervical thoracic scoliotic curvature. There is normal bony alignment in AP plane. Again noted is L1 corpectomy and posterior lateral fixation hardware extending from T11 through below the level of imaging, which on previous imaging extends through L3. Bone Marrow: Marrow is of normal overall signal. No acute vertebral body compression fractures. Spinal Cord: Visualized spinal cord is normal in size and signal. Paraspinous Soft Tissues: No paravertebral masses. Miscellaneous: On axial images, central canal and foramina appear widely patent at all scanned levels. At T10-T11, there is posterior disc osteophyte complex indenting on the ventral cord without significant canal stenosis. IMPRESSION: 1. Remote L1 corpectomy and posterior lateral fusion hardware extending from T11 through L3. 2. At T10-T11, there is posterior disc plus osteophyte indenting on the cord without canal stenosis. 3. No evidence of canal stenosis or foraminal stenosis in the thoracic spine. Dictated by: Vinay Briseno M.D. on 11/16/2021 at 1:10 Approved by: Vinay Briseno M.D. on 11/16/2021 at 1:16
== END ==
PROVIDERS: PCP Nurse Practitioner Family; Referring Provider Physical Medicine & Rehabilitation; Visit Provider Physical Medicine & Rehabilitation
DX: R07.81 Pleurodynia (principal); Z98.1 Arthrodesis status
CPT/HCPCS: 72146

== ENCOUNTER → 2021-11-27 09:15 | Outpatient (CLI) | payer OTHER, MEDICAID, SELFPAY ==
[2021-11-27 10:42] LABS: Hematocrit 40.3 % (36-46); Hemoglobin 13.3 g/dL (12.0-16.0); Mean Corpuscular Hemoglobin 31.8 PG (26-34); Mean Corpuscular Volume 96.2 fL (80-100); Platelet Count 219 X10^3/uL (150-400); Red Blood Cell Count 4.19 X10^6/uL (4.0-5.2); Red Cell Distribution Width 14.4 % (11.6-14.8)
[2021-11-27 10:57] LABS: Alanine Aminotransferase 23 IU/L (<35); Albumin 4.3 g/dL (3.5-5.0); Albumin Globulin Ratio 1.6 (1.0-2.8); Alkaline Phosphatase 45 U/L (38-126); Aspartate Aminotransferase 28 IU/L (14-36); BUN Creatinine Ratio 25.9 (6-22); Bilirubin Total 0.5 mg/dL (0.2-1.3); Blood Urea Nitrogen 14 mg/dL (7-17); Calcium 9.7 mg/dL (8.4-10.2); Carbon Dioxide 34 mmol/L (22-32); Chloride 102 mmol/L (98-107); Cholesterol 203 mg/dL (140-199); Estimated Glomerular Filt Rate > 60.0 mL/min (>60); Globulin 2.7 g/dL (1.7-4.1); Glucose 91 mg/dL (70-100); HDL Cholesterol 93 mg/dL (40-60); HEMOLYSIS < 15 (0-50); LDL Cholesterol Calculated 99 mg/dL (<100); Potassium 4.1 mmol/L (3.4-5.1); Sodium 138 mmol/L (137-145); Triglycerides 54 mg/dL (35-150)
[2021-11-27 11:25] LABS: TSH w/ Reflex to FT4 1.37 uIU/mL (0.47-4.68)
== END ==
PROVIDERS: PCP Nurse Practitioner Family; Referring Provider Nurse Practitioner Family; Visit Provider Nurse Practitioner Family
DX: F32.9 Major depressive disorder, single episode, unspecified (principal); Z13.6 Encounter for screening for cardiovascular disorders; Z00.00 Encounter for general adult medical examination without abnormal findings; J45.909 Unspecified asthma, uncomplicated
CPT/HCPCS: 36415; 80053; 80061; 84443; 85027

== ENCOUNTER → 2021-12-09 15:01 | Outpatient (CLI) | payer OTHER, MEDICAID, SELFPAY ==
--- NOTE | 2021-12-09 | DI.MG.S_ITS ---
BILATERAL DIGITAL SCREENING MAMMOGRAM 3D/2D WITH CAD: 12/09/2021 CLINICAL: Routine screening. Comparison is made to exams dated: 12/03/2020 mammogram, 11/28/2019 mammogram, and 11/08/2018 mammogram - [facility]. There are scattered fibroglandular elements in both breasts. Current study was also evaluated with a Computer Aided Detection (CAD) system. There is an irregular high density asymmetry in the right breast at 11 o'clock anterior depth. This is increased in size. No other significant masses, calcifications, or other findings are seen in either breast. IMPRESSION: INCOMPLETE: NEEDS ADDITIONAL IMAGING EVALUATION The irregular high density asymmetry in the right breast is indeterminate. Additional views with possible ultrasound are recommended. This exam was interpreted at Station ID: [id number]. NOTE: For mammograms, a report in lay terms will be sent to the patient. Approximately 15% of breast malignancies will not be visualized mammographically. In the management of a palpable breast mass, a negative mammogram must not discourage biopsy of a clinically suspicious lesion. Electronically Signed By: Cheryle augustine/zulma:12/10/2021 08:48:09 letter sent: Additional Imaging Needed ACR BI-RADS Category 0: Incomplete [id number]
== END ==
PROVIDERS: PCP Nurse Practitioner Family; Referring Provider Nurse Practitioner Family; Visit Provider Nurse Practitioner Family
DX: Z12.31 Encounter for screening mammogram for malignant neoplasm of breast (principal)
CPT/HCPCS: 77063; 77067

== ENCOUNTER → 2022-01-23 09:10 | Outpatient (CLI) | payer OTHER, MEDICAID, SELFPAY ==
--- NOTE | 2022-01-23 | DI.MG.S_ITS ---
UNILATERAL RIGHT DIGITAL DIAGNOSTIC MAMMOGRAM 3D/2D WITH ADDITIONAL VIEWS: 01/23/2022 CLINICAL: Additional evaluation requested from prior study. Comparison is made to exams dated: 12/09/2021 mammogram, 12/03/2020 mammogram, and 11/28/2019 mammogram - [facility]. There are scattered fibroglandular elements in right breast. The previously described irregular high density asymmetry in the right breast at 11 o'clock anterior depth is not confirmed in additional views and appears much less prominent and decreased in size. No other significant masses or calcifications are seen in the breast. IMPRESSION: INCOMPLETE: NEEDS ADDITIONAL IMAGING EVALUATION The irregular high density asymmetry in the right breast is indeterminate. An ultrasound is recommended for further evaluation and is scheduled to immediately follow this examination. This exam was interpreted at Station ID: [id number]. NOTE: For mammograms, a report in lay terms will be sent to the patient. Approximately 15% of breast malignancies will not be visualized mammographically. In the management of a palpable breast mass, a negative mammogram must not discourage biopsy of a clinically suspicious lesion. Electronically Signed By: Anoop Perez M.D. aty/:01/23/2022 10:31:59 ACR BI-RADS Category 0: Incomplete [id number]
--- NOTE | 2022-01-23 09:47 | DI.US.S_ITS ---
LIMITED ULTRASOUND OF RIGHT BREAST: 01/23/2022 No prior exams were available for comparison. Real-time ultrasound of the right breast 8-10 o'clock region was performed. Nassar scale images of the real-time examination were reviewed. No significant abnormalities were seen sonographically in the right breast. IMPRESSION: NEGATIVE There is no sonographic evidence of malignancy. There is no abnormality seen in the right breast to correspond with the mammography finding which is consistent with normal fibroglandular tissue. A 1 year screening mammogram is recommended. Findings and recommendations were conveyed to the patient during today's evaluation. This exam was interpreted at Station ID: [id number]. Electronically Signed By: Anoop Perez M.D. aty/:01/23/2022 11:17:57 letter sent: Normal Exam Ultrasound BI-RADS: 1 Negative
== END ==
PROVIDERS: PCP Registered Nurse Diabetes Educator; Referring Provider Nurse Practitioner Family; Visit Provider Nurse Practitioner Family
DX: R92.8 Other abnormal and inconclusive findings on diagnostic imaging of breast (principal); N64.89 Other specified disorders of breast
CPT/HCPCS: 76642; 77065; G0279

== ENCOUNTER → 2022-05-19 09:40 | Outpatient (CLI) | payer OTHER, MEDICAID, SELFPAY ==
--- NOTE | 2022-05-19 09:41 | DI.US.S_ITS ---
PROCEDURE: US THYROID INDICATIONS: monitoring TECHNIQUE: Real-time scanning was performed of the thyroid gland, with image documentation. COMPARISON: [facility], US, US THYROID, 05/30/2021, 10:26. FINDINGS: Right: Thyroid lobe measures 4.7 x 1.1 x 1.6 cm, and is homogeneous in echotexture. Left: Thyroid lobe measures 4.1 x 0.9 x 1.9 cm, and is homogenous in echotexture. Isthmus: 1.5 mm thick. Nodule number: 1 Location: Left superior pole Size: 6 x 3 x 4 mm, previously 5 x 3 x 5 mm. Composition: Predominantly solid Echogenicity: Isoechoic Shape: wider than tall. Margins: Smooth Echogenic foci: Punctate Total points: 6 ACR TI-RADS category: 4. Moderately suspicious. FNA if greater than 1.5 centimeter; follow if greater than 1 centimeter at 1 year. Nodule number: 2 Location: Right inferior Size: 17 x 9 x 10 mm, previously 10 x 7 x 8 mm. Composition: Solid Echogenicity: Hypoechoic Shape: wider than tall. Margins: Lobulated Echogenic foci: Punctate and peripheral calcifications Total points: 11 ACR TI-RADS category: 5. Highly suspicious. FNA if greater than 1 centimeter. IMPRESSION: 1. TI-RADS 5 (highly suspicious) right inferior pole nodule with interval growth and punctate calcifications. Recommend FNA. 2. Recommend continued observation of left superior pole nodule. ACR TI-RADS definitions and recommendations: TI-RADS 1 (benign): 0 points. FNA not needed. TI-RADS 2 (not suspicious): 2 points. FNA not needed. TI-RADS 3 (mildly suspicious): 3 points. * FNA if 2.5 cm or larger, follow up if 1.5 cm or larger (at 1, 3, and 5 years). TI-RADS 4 (moderately suspicious): 4-6 points. * FNA if 1.5 cm or larger, follow up if 1 cm or larger (at 1, 2, 3, and 5 years). TI-RADS 5 (highly suspicious): 7 points or more. * FNA if 1 cm or larger, follow up if 0.5 cm or larger (every year for 5 years). Dictated by: Paul Luu M.D. on 05/19/2022 at 11:16 Approved by: Paul Luu M.D. on 05/19/2022 at 11:22
== END ==
PROVIDERS: PCP Registered Nurse Diabetes Educator; Referring Provider Registered Nurse Diabetes Educator; Visit Provider Nurse Practitioner Family
DX: E04.2 Nontoxic multinodular goiter (principal)
CPT/HCPCS: 76536

== ENCOUNTER → 2022-06-05 13:31 | Outpatient (CLI) | payer OTHER, MEDICAID, SELFPAY ==
--- NOTE | 2022-06-05 13:31 | DI.US.S_ITS ---
PROCEDURE: US SOFT TISSUE HEAD AND NECK INDICATIONS: right inferior pole nodule FNA TECHNIQUE: Real-time scanning was performed of the neck region of interest, with image documentation. COMPARISON: CR, XR THORACIC SPINE 3V, 05/09/2021, 12:16. [facility], US, US THYROID, 05/30/2021, 10:26. [facility], US, US THYROID, 05/19/2022, 10:00. FINDINGS: The patient was here for ultrasound-guided fine-needle aspiration biopsy of a right inferior thyroid nodule. The nodule measures 1.0 x 0.8 x 0.9 cm, and demonstrates isodose echotexture with possible foci of calcification (TI-RADS total point.6). Because of its inferior location and small size, it is challenging to perform ultrasound-guided biopsy. After discussing with the patient, the biopsy is on hold. I will recommend a radionuclide I-123 thyroid scan. IMPRESSION: 1. Because of its inferior location and small size, ultrasound-guided biopsy of the right inferior thyroid nodule would be challenging. The nodule has been stable since the exam dated 05/30/2021. After discussing with the patient, the scheduled biopsy was on hold. I recommend a I-123 radionuclide thyroid scan to further evaluate the nodule. If the nodule is hot, it would suggest a benign nodule such as a thyroid adenoma. In the case, the nodules can be followed by ultrasound in 12 months. If the nodule is cold, it would indicate increased potential for malignancy and ultrasound-guided biopsy can be reconsidered. Dictated by: Janice Macias M.D. on 06/05/2022 at 17:13 Approved by: Janice Macias M.D. on 06/05/2022 at 17:27
== END ==
PROVIDERS: PCP Registered Nurse Diabetes Educator; Referring Provider Registered Nurse Diabetes Educator; Visit Provider Registered Nurse Diabetes Educator
DX: E04.1 Nontoxic single thyroid nodule (principal)
CPT/HCPCS: 76536

== ENCOUNTER → 2022-06-19 09:38 | Outpatient (CLI) | payer OTHER, MEDICAID, SELFPAY ==
--- NOTE | 2022-06-19 | DI.NM.S_ITS ---
PROCEDURE: NM UPTAKE AND SCAN RADIOPHARMACEUTICAL: 0.36 ?Ci I-123 sodium iodide by mouth. INDICATIONS: Nontoxic single thryoid nodule, Nontoxic goiter TECHNIQUE: I-123 sodium iodide was administered orally. Anterior neck images were obtained, and iodine uptake by the thyroid gland calculated using typist's software. COMPARISON: None. FINDINGS: Morphology: The thyroid gland has normal morphology and uniform activity. No 'cold' or 'hot' thyroid nodules are identified. Uptake: 6 hour thyroid uptake is 8.3 % ; normal ranges are from 6-18%. 24 hour thyroid uptake is 16.1% ; normal ranges are from 10-30%. IMPRESSION: Normal 6 and 24 hour uptake. Dictated by: Johanne Ackerman M.D. on 06/20/2022 at 13:21 Approved by: Johanne Ackerman M.D. on 06/20/2022 at 13:22
== END ==
PROVIDERS: PCP Registered Nurse Diabetes Educator; Referring Provider Registered Nurse Diabetes Educator; Visit Provider Registered Nurse Diabetes Educator
DX: E04.1 Nontoxic single thyroid nodule (principal)
CPT/HCPCS: 78014; A9516

== ENCOUNTER → 2022-10-02 14:53 | Outpatient (CLI) | payer OTHER, MEDICAID, SELFPAY ==
--- NOTE | 2022-10-02 14:55 | DI.RAD.S_ITS ---
PROCEDURE: XR CHEST 2V INDICATIONS: post covid chronic cough >2 months TECHNIQUE: 2 views of the chest were acquired. COMPARISON: [facility], , CHEST 2 VIEW, 10/30/2012, 12:43. FINDINGS: Surgical changes and devices: Posterior cervix posterior thoracolumbar fixation hardware is intact. Lungs and pleura: Lungs are clear. No pleural effusions or pneumothorax. Mediastinum: Mediastinal contours are normal. Heart size is normal. Bones and chest wall: No suspicious bony abnormalities. Soft tissues appear unremarkable. IMPRESSION: No acute cardiopulmonary findings. Dictated by: Concha Cavazos M.D. on 10/02/2022 at 16:46 Approved by: Concha Cavazos M.D. on 10/02/2022 at 16:46
== END ==
PROVIDERS: PCP Registered Nurse Diabetes Educator; Referring Provider Registered Nurse Diabetes Educator; Visit Provider Registered Nurse Diabetes Educator
DX: R05.3 Chronic cough (principal); U09.9 Post COVID-19 condition, unspecified
CPT/HCPCS: 71046

== ENCOUNTER → 2022-12-08 10:02 | Outpatient (CLI) | payer OTHER, MEDICAID, SELFPAY ==
[2022-12-08 11:13] LABS: Hematocrit 41.4 % (36-46); Hemoglobin 13.7 g/dL (12.0-16.0); Mean Corpuscular HGB Conc 33.1 % (30-36); Mean Corpuscular Hemoglobin 31.1 PG (26-34); Platelet Count 239 X10^3/uL (150-400); Red Cell Distribution Width 13.8 % (11.6-14.8); White Blood Cell Count 3.5 X10^3/uL (4.5-11.0)
[2022-12-08 11:30] LABS: Alanine Aminotransferase 32 IU/L (<35); Albumin 4.1 g/dL (3.5-5.0); Albumin Globulin Ratio 1.5 (1.0-2.8); Alkaline Phosphatase 61 U/L (38-126); Aspartate Aminotransferase 37 IU/L (14-36); BUN Creatinine Ratio 26.5 (6-22); Bilirubin Total 0.6 mg/dL (0.2-1.3); Blood Urea Nitrogen 13 mg/dL (7-17); Calcium 9.3 mg/dL (8.4-10.2); Carbon Dioxide 31 mmol/L (22-32); Chloride 103 mmol/L (98-107); Cholesterol 198 mg/dL (140-199); Estimated Glomerular Filt Rate > 60 mL/min (>60); Globulin 2.8 g/dL (1.7-4.1); Glucose 82 mg/dL (70-100); HDL Cholesterol 100 mg/dL (40-60); HEMOLYSIS 16 (0-50); LDL Cholesterol Calculated 89 mg/dL (<100); Potassium 4.4 mmol/L (3.4-5.1); Sodium 139 mmol/L (137-145); Total Protein 6.9 g/dL (6.3-8.2); Triglycerides 45 mg/dL (35-150)
[2022-12-08 12:11] LABS: TSH w/ Reflex to FT4 0.99 uIU/mL (0.47-4.68)
== END ==
PROVIDERS: PCP Registered Nurse Diabetes Educator; Referring Provider Registered Nurse Diabetes Educator; Visit Provider Registered Nurse Diabetes Educator
DX: Z51.81 Encounter for therapeutic drug level monitoring (principal); Z00.00 Encounter for general adult medical examination without abnormal findings
CPT/HCPCS: 80053; 80061; 84443; 85027

== ENCOUNTER → 2022-12-22 10:19 | Outpatient (CLI) | payer OTHER, MEDICAID, SELFPAY | PROVIDERS: PCP Registered Nurse Diabetes Educator; Visit Provider Registered Nurse | DX: R30.0 Dysuria (principal) | CPT/HCPCS: 87077; 87086; 87186 ==

== ENCOUNTER → 2023-01-22 13:36 | Outpatient (CLI) | payer OTHER, MEDICAID, SELFPAY ==
--- NOTE | 2023-01-22 13:37 | DI.RAD.S_ITS ---
PROCEDURE: XR THORACIC SPINE 3V INDICATIONS: RIB PAIN TECHNIQUE: 3 views of the thoracic spine were acquired. COMPARISON: [facility], CR, XR LUMBAR SPINE MIN 4V, 01/22/2023, 13:34. [facility], CR, XR THORACIC SPINE 3V, 05/09/2021, 12:16. [facility], CR, XR THORACIC SPINE 3V, 07/31/2020, 13:14. FINDINGS: Bones: T11-L3 pedicle screw fixation with L1 prosthesis. No fractures or dislocations. No suspicious bony lesions. Moderate degenerative changes in the thoracic spine and lower cervical spine. 12 pairs of ribs are noted, and appear intact where visualized. Soft tissues: No paravertebral stripe thickening. Cholecystectomy clips. Visualized portions of the lung are clear. IMPRESSION: No thoracic spine compression fracture. Dictated by: Jesse Joe M.D. on 01/22/2023 at 14:20 Approved by: Jesse Joe M.D. on 01/22/2023 at 14:22
--- NOTE | 2023-01-22 13:37 | DI.RAD.S_ITS ---
PROCEDURE: XR LUMBAR SPINE MIN 4V INDICATIONS: BACK PAIN TECHNIQUE: 5 views of the lumbar spine were acquired, including bilateral oblique views. COMPARISON: [facility], CR, XR THORACIC SPINE 3V, 01/22/2023, 13:34. [facility], CR, XR LUMBAR SPINE 2-3V, 05/09/2021, 12:16. [facility], CR, L-SPINE 2-3 VIEWS, 08/28/2017, 11:22. FINDINGS: Bones: T11-L3 pedicle screw fixation with L1 prosthesis. Hardware is stable. No hardware fracture. 5 nonrib-bearing vertebrae are present. Small vertebral body osteophytes. Minimal scoliosis. No vertebral body compression fractures. No suspicious bony lesions. Soft tissues: Somewhat prominent stool in the colon. No suspicious soft tissue calcifications. Cholecystectomy clips. Oblique images: No pars defects. IMPRESSION: No compression fracture. Stable T11-L3 fixation. Prominent stool in the colon. Dictated by: Jesse Joe M.D. on 01/22/2023 at 14:23 Approved by: Jesse Joe M.D. on 01/22/2023 at 14:25
== END ==
PROVIDERS: PCP Registered Nurse Diabetes Educator; Referring Provider Physical Medicine & Rehabilitation; Visit Provider Physical Medicine & Rehabilitation
DX: M47.814 Spondylosis without myelopathy or radiculopathy, thoracic region (principal); M47.812 Spondylosis without myelopathy or radiculopathy, cervical region; R07.81 Pleurodynia; M54.9 Dorsalgia, unspecified; Z98.1 Arthrodesis status
CPT/HCPCS: 72072; 72110

== ENCOUNTER → 2023-01-28 13:02 | Outpatient (CLI) | payer OTHER, MEDICAID, SELFPAY ==
--- NOTE | 2023-01-28 | DI.MG.S_ITS ---
BILATERAL DIGITAL SCREENING MAMMOGRAM 3D/2D WITH CAD: 01/28/2023 CLINICAL: Routine screening. Comparison is made to exams dated: 01/23/2022 mammogram, 12/09/2021 mammogram, 12/03/2020 mammogram, and 11/28/2019 mammogram - [facility]. There are scattered areas of fibroglandular density in both breasts (category b / 25%-50% glandular tissue). Current study was also evaluated with a Computer Aided Detection (CAD) system. There is an asymmetry in the right breast posterior depth superior region seen on the mediolateral oblique view only. Finding is seen only on tomography. No other significant masses, calcifications, or other findings are seen in either breast. IMPRESSION: INCOMPLETE: NEEDS ADDITIONAL IMAGING EVALUATION The asymmetry in the right breast is indeterminate. Additional views with possible ultrasound are recommended. Based on the Tyrer Cuzick model (a risk assessment model) the patient's lifetime risk is 5.4% and her 10 year risk is 1.5%. According to the ACR, ACS, and NCCN guidelines, an annual breast MRI exam along with mammogram is recommended if the patient's lifetime risk is 20% or greater. This exam was interpreted at Station ID: [id number]. NOTE: For mammograms, a report in lay terms will be sent to the patient. Approximately 15% of breast malignancies will not be visualized mammographically. In the management of a palpable breast mass, a negative mammogram must not discourage biopsy of a clinically suspicious lesion. Electronically Signed By: Guido Villaseñor M.D. lc/:01/28/2023 14:27:33 letter sent: Additional Imaging Needed ACR BI-RADS Category 0: Incomplete 3340F
== END ==
PROVIDERS: PCP Registered Nurse Diabetes Educator; Referring Provider Registered Nurse Diabetes Educator; Visit Provider Registered Nurse Diabetes Educator
DX: Z12.31 Encounter for screening mammogram for malignant neoplasm of breast (principal)
CPT/HCPCS: 77063; 77067

== ENCOUNTER → 2023-02-12 11:43 | Outpatient (CLI) | payer OTHER, MEDICAID, SELFPAY ==
--- NOTE | 2023-02-12 11:44 | DI.US.S_ITS ---
LIMITED ULTRASOUND OF RIGHT BREAST: 02/12/2023 CLINICAL: Additional views of right breast. Comparison is made to exams dated: 02/12/2023 mammogram, 01/28/2023 mammogram, 01/23/2022 ultrasound, 01/23/2022 mammogram, 12/09/2021 mammogram, and 12/03/2020 mammogram - [facility]. Real-time ultrasound of the right breast was performed. Nassar scale images of the real-time examination were reviewed. No significant abnormalities were seen sonographically in the right breast. IMPRESSION: PROBABLY BENIGN There is no abnormality seen in the right breast to correspond with the mammography finding in the upper outer quadrant (asymmetry on screening mammogram on MLO view superior region posterior depth, possibly lower on the true lateral view). A follow-up mammogram in 6 months is recommended to demonstrate stability. This exam was interpreted at Station ID: [id number]. Electronically Signed By: Guido Villaseñor M.D. lc/:02/12/2023 12:42:30 letter sent: Followup Recommended Ultrasound BI-RADS: 3 Probably benign
--- NOTE | 2023-02-12 11:44 | DI.MG.S_ITS ---
UNILATERAL RIGHT DIGITAL DIAGNOSTIC MAMMOGRAM 3D/2D WITH ADDITIONAL VIEWS: 02/12/2023 CLINICAL: Additional evaluation requested from prior study. Comparison is made to exams dated: 01/28/2023 mammogram, 01/23/2022 ultrasound, 01/23/2022 mammogram, 12/09/2021 mammogram, and 12/03/2020 mammogram - [facility]. There are scattered areas of fibroglandular density in the right breast (category b / 25%-50% glandular tissue). There is an asymmetry in the right breast posterior depth superior region seen on the mediolateral oblique view only on screening mammogram, possibly lower on true lateral view. Finding is seen better on tomography. No other significant masses or calcifications are seen in the breast. IMPRESSION: INCOMPLETE: NEEDS ADDITIONAL IMAGING EVALUATION There is an asymmetry in the right breast posterior depth superior region seen on the mediolateral oblique view only on screening mammogram, possibly lower on true lateral view. Finding is seen better on tomography. Ultrasound is recommended. Based on the Tyrer Cuzick model (a risk assessment model) the patient's lifetime risk is 5.4% and her 10 year risk is 1.5%. According to the ACR, ACS, and NCCN guidelines, an annual breast MRI exam along with mammogram is recommended if the patient's lifetime risk is 20% or greater. This exam was interpreted at Station ID: [id number]. NOTE: For mammograms, a report in lay terms will be sent to the patient. Approximately 15% of breast malignancies will not be visualized mammographically. In the management of a palpable breast mass, a negative mammogram must not discourage biopsy of a clinically suspicious lesion. Electronically Signed By: Guido Villaseñor M.D. lc/:02/12/2023 12:40:37 ACR BI-RADS Category 0: Incomplete 3340F
== END ==
PROVIDERS: PCP Registered Nurse Diabetes Educator; Referring Provider Registered Nurse Diabetes Educator; Visit Provider Registered Nurse Diabetes Educator
DX: R92.8 Other abnormal and inconclusive findings on diagnostic imaging of breast (principal)
CPT/HCPCS: 76642; 77065; G0279

== ENCOUNTER → 2023-05-20 11:43 | Outpatient (CLI) | payer OTHER, MEDICAID, SELFPAY ==
--- NOTE | 2023-05-20 11:44 | DI.RAD.S_ITS ---
PROCEDURE: XR THORACIC SPINE 3V INDICATIONS: fall on back 3 days ago, pain posterior ribs TECHNIQUE: 3 views of the thoracic spine were acquired. COMPARISON: [facility], CR, XR THORACIC SPINE 3V, 01/22/2023, 13:34. FINDINGS: Bones: No fractures or dislocations. No suspicious bony lesions. 12 pairs of ribs are noted, and appear intact where visualized. Partially visualized thoracolumbar posterior spinal fusion hardware with inter vertebral body disc spacing. Hardware is intact were visualized. Soft tissues: No paravertebral stripe thickening. Right upper quadrant cholecystectomy clips. IMPRESSION: No acute osseous abnormality. Dictated by: Olena Carranza M.D. on 05/20/2023 at 16:44 Approved by: Olena Carranza M.D. on 05/20/2023 at 16:49
--- NOTE | 2023-05-20 11:44 | DI.RAD.S_ITS ---
PROCEDURE: XR RIBS LT MIN 3V W CXR1V INDICATIONS: fall on back 3 days ago, sharp pain posterior left ribs TECHNIQUE: 3 views of the right ribs were acquired, along with a single view chest. COMPARISON: None. FINDINGS: Surgical changes and devices: None. Bones and chest wall: No fractures or dislocations. No suspicious bony lesions. Overlying soft tissues appear unremarkable. Partially visualized thoracolumbar spinal hardware fusion. Lungs and pleura: No pleural effusions or pneumothorax. Lungs appear clear. Mediastinum: Mediastinal contours appear normal. Heart size is normal. IMPRESSION: No acute displaced rib on the right. Dictated by: Olena Carranza M.D. on 05/20/2023 at 16:49 Approved by: Olena Carranza M.D. on 05/20/2023 at 16:50
== END ==
PROVIDERS: Family Provider Registered Nurse Diabetes Educator; PCP Registered Nurse Diabetes Educator; Referring Provider Physician Assistant; Visit Provider Physician Assistant
DX: S29.9XXA Unspecified injury of thorax, initial encounter (principal); W19.XXXA Unspecified fall, initial encounter
CPT/HCPCS: 71101; 72072

== ENCOUNTER 2023-06-09 08:45 | Outpatient (RCR) | payer OTHER, MEDICAID, SELFPAY ==
--- NOTE | 2023-03-19 17:58 | PT.OIE ---
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) Arthrodesis status (03/17/23) Past Medical History (Last Updated 01/28/23 @ 11:34 by Jose Dyer DO) Abnormal mammogram of right breast (11/2021) Acne (11/22/14) Allergic rhinitis (11/22/14) Ankle pain (~2019) Asthma (11/22/14) Attention deficit disorder (11/22/14) Chicken pox (~1986) Chronic back pain (~2008) Degenerative joint disease of knee Depression (11/22/14) Dyslexia Enlarged thyroid (04/2021) Gastroesophageal reflux disease (11/22/14) Headache (~1986) Heartburn (~1999) History of chronic back pain (11/22/14) History of developmental delay HNP (herniated nucleus pulposus), thoracic Migraines (~2008) Mild persistent asthma Myofascial pain on left side (~1999) Rib pain on left side Thyroid nodule (05/2021) Varicose veins of right lower extremity Past Surgical History (Last Reviewed 01/28/23 @ 11:20 by Jose Dyer DO) Anesthesia History of knee surgery (~1986) History of spinal fusion (~2008) Status post cholecystectomy (~2003) Status post hysterectomy Visit Care Team Role Provider Type RAYA Ruelas Family Provider Advanced Flanger Primary Care Provider Specialty: Medical Address: [address] [place] [address] Email: [email or web address] Jose Dyer DO Attending Provider Physician Referring Provider Specialty: Physiatry Pain Management Address: [address] [place] [address] Email: [email or web address] Physical Therapy Initial Evaluation PT-OP-A Visit Information Start: 03/17/23 09:04 Freq: Status: Active Protocol: Document 03/17/23 12:15 [facility] (Rec: 03/17/23 17:37 [facility] [id number]) Out-Patient Physical Therapy Visit Information Visit Information Visit Type Initial Evaluation Visit Start Time 12:15 Visit Stop Time 13:00 Total Visit Minutes 45 Visit Number 1 Evaluation Information Evaluation Date 03/17/23 PT-OP-B Current Condition Start: 03/17/23 09:04 Freq: Status: Active Protocol: Document 03/17/23 12:15 [facility] (Rec: 03/17/23 13:04 [facility] [id number]) Current Condition History of Current Condition Onset Date 2008 with recent exacerbation of her left-sided thoracic pain Current Complaints left sided thoracic pain and low back pain History of Current Condition In 2008 she fractured her back at L1 from falling while rollar skating. She was flown to [facility] and she underwent two spinal surgeries . She had a chest tube put in and this is where the pain is in her thoracic spine, SHe has scar tissue in this region. Pt notes when it is really irritated and pain ful where the scar tissue is it feels like it feels like her lungs are working hard. She uses an inhaler. Heat feels good on her back. Pt notes with walking if she is walking on the flat surface its okay but hills are not. Sitting for too long will irritate her back or if she is positioned wrong when she is sleeping PT-OP-C Subjective Start: 03/17/23 09:04 Freq: Status: Active Protocol: Document 03/17/23 12:15 [facility] (Rec: 03/19/23 17:40 [facility] [id number]) OP-PT Pain Assessment Location left thoracic pain over incision Intensity 7 Scale Used Numeric (0 - 10) PT-OP-J Posture/Palpation/Skin Start: 03/17/23 09:04 Freq: Status: Active Protocol: Document 03/17/23 12:15 [facility] (Rec: 03/19/23 17:40 [facility] [id number]) Posture Evaluation Comments Posture Comments forward shoulder posture Palpation Assessment Location left thoracic incision Palpation Findings Spasm,Muscle Guarding Palpation Details scar tissue tightness from the scar where chest tube was placed PT-OP-K Range of Motion Start: 03/18/23 11:24 Freq: Status: Active Protocol: Document 03/17/23 12:15 [facility] (Rec: 03/18/23 11:26 [facility] [id number]) Lumbar Spine Range of Motion Lumbar Spine Active Flexion 90 Extension 30 Rotation Left 45 Rotation Right 25 Lateral Flexion Left 30 Lateral Flexion Right 20 Hip Goniometric Range of Motion Hip Left Hip ROM WFL No Testing Position Supine Internal Rotation 5 External Rotation 30 Right Hip ROM WFL No Internal Rotation 8 External Rotation 30 PT-OP-M Strength Start: 03/17/23 09:04 Freq: Status: Active Protocol: Document 03/17/23 12:15 [facility] (Rec: 03/18/23 11:24 [facility] [id number]) Trunk Strength Trunk Manual Muscle Testing Flexion 3 Fair Extension 3 Fair Core Stabilization decreased core stabilization and trunk control Scapula Strength Scapula Manual Muscle Testing Right Adduction 3+ Fair+ Left Adduction 3 Fair Ankle/Foot Strength Ankle and Foot Manual Muscle Testing Right Dorsiflexion (L4) 3+ Fair+ Left Dorsiflexion (L4) 3+ Fair+ PT-OP-Q Treatments Start: 03/17/23 09:04 Freq: Status: Active Protocol: Document 03/17/23 12:15 [facility] (Rec: 03/17/23 17:40 [facility] [id number]) Therapeutic Exercises Sitting Exercises seated scapular retraction Reps/Minutes x 10 reps holding 5 seconds seated sidebend stretch Reps/Minutes x 5 reps holding 30 sec each side Other Exercises quadruped sidebends Reps/Minutes x 10 each tyra pose stretch Comments hold 1-2 min quadruped cat cow Reps/Minutes x 10 reps Manual Therapy Treatment Soft Tissue Mobilization scar tissue massage around the left posterior chest wall along chest tube incision Body Location scar tissue release Mobilization Type Myofascial Release,Other Intensity/Depth Superficial Comments scar tissue surrounding the scar more so distally PT-OP-T Assessment and Plan Start: 03/17/23 09:04 Freq: Status: Active Protocol: Document 03/17/23 12:15 [facility] (Rec: 03/18/23 11:16 [facility] [id number]) Physical Therapy Assessment Rehab Potential Rehabilitation Potential Excellent Evaluation Complexity Number of Personal Factors/Comorbidities 0 Number of Body Systems Impaired 1-2 Clinical Presentation at Evaluation Stable Impairments Impairments Activity Tolerance,Functional Activities,Functional Mobility ,Pain,Posture,Soft Tissue Mobility,Strength,Tone Goals 3 Impairment pain rated 7/10 in the thoracic region of her scar and low back Assisted Goal (LTG) Pt reports a reduction in pain by to 4 or less on the pain scale LTG Duration 12 weeks 2 Impairment Decreased strength of the posterior trunk and postural muscles Assisted Goal (LTG) Arabella presents with improved postural strength LTG Duration 12 weeks 1 Impairment postural habits that may be contributing to pain symptoms Short Term Goal (STG) Arabella is educated on a stretching program for the anterior chest to help reduce forward shoulder posture and stress on the thoracic spine STG Duration 4 weeks Prosthetic Aide Goal (LTG) Arabella is Ind with a HEP for anterior chest opening stretches LTG Duration 12 weeks Assessment Summary Assessment Christa is a 52 year old female referred to PT with lumbar and thoracic pain. Her pain is rated a 7/10. She has recently experienced a flare up of left sided thoracic pain after traveling to [place]. She has a history of a Lumbar fracture L1 with T11- L3 pedicle screw fixation with L1 prosthesis in 2008 resulting from a fall while rollar skating. She was flown to [facility] and underwent two spinal surgeries. She also had a chest tube put in during this time and this scar is currently where her pain is in the left thoracic spine. Arabella reports feeling as if this area becomes painful and restricted her lungs have to work harder. She does use an inhaler. She has been treated by Dr Dyer and has done well with previous left sided thoracic myofascial trigger point injections. With exam today there is tenderness over the left thoracic incision and muscle guarding as well as scar tissue present. Arabella also presents with postural habits creating forward shoulder posture and has weakness of the thoracic extensors and postural muscles as well as core weakness. Treatment will work on MFR techniques for the scar pain she is experiencing as well as working on stretches for her posture and core stabilization to see if we can decrease the myofascial guarding that maybe contributing to her pain . Physical Therapy Plan Frequency and Duration Frequency of Treatment 1x/Week Duration of treatment (weeks) 12 Plan of Care Start Date 03/17/23 Plan of Care End Date 06/09/23 Therapeutic Interventions Therapeutic Interventions Home Exercise Program,Manual Therapy,Neuromuscular Re- education,Patient/Caregiver Education,Self-Care/Home Management,Soft Tissue Mobilization,Therapeutic Exercises Next Visit Focus/Plan Next Note Type Treatment Note Next Visit Plan Review stretches given at initial evaluation, scar tissue massage over the left thoracic scar, begin spinal stabilization exercises
--- NOTE | 2023-03-19 17:58 | PT.OPPOC ---
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) Arthrodesis status (03/17/23) Visit Care Team Role Provider Type RAYA Ruelas Family Provider Advanced Clinical Team Manager Primary Care Provider Specialty: Medical Address: [address] [place] [address], [id number] Email: [email or web address] Jose Dyer DO Attending Provider Physician Referring Provider Specialty: Physiatry Pain Management Address: [address] [place], [address] Email: [email or web address] Plan Of Care PT-OP-T Assessment and Plan Start: 03/17/23 09:04 Freq: Status: Active Protocol: Document 03/17/23 12:15 [facility] (Rec: 03/18/23 11:16 [facility] [id number]) Physical Therapy Assessment Rehab Potential Rehabilitation Potential Excellent Evaluation Complexity Number of Personal Factors/Comorbidities 0 Number of Body Systems Impaired 1-2 Clinical Presentation at Evaluation Stable Impairments Impairments Activity Tolerance,Functional Activities,Functional Mobility ,Pain,Posture,Soft Tissue Mobility,Strength,Tone Goals 3 Impairment pain rated 7/10 in the thoracic region of her scar and low back Supervisor Chemical Goal (LTG) Pt reports a reduction in pain by to 4 or less on the pain scale LTG Duration 12 weeks 2 Impairment Decreased strength of the posterior trunk and postural muscles Supervisor Chemical Goal (LTG) Arabella presents with improved postural strength LTG Duration 12 weeks 1 Impairment postural habits that may be contributing to pain symptoms Short Term Goal (STG) Arabella is educated on a stretching program for the anterior chest to help reduce forward shoulder posture and stress on the thoracic spine STG Duration 4 weeks [facility] Goal (LTG) Arabella is Ind with a HEP for anterior chest opening stretches LTG Duration 12 weeks Assessment Summary Assessment Christa is a 52 year old female referred to PT with lumbar and thoracic pain. Her pain is rated a 7/10. She has recently experienced a flare up of left sided thoracic pain after traveling to [place]. She has a history of a Lumbar fracture L1 with T11- L3 pedicle screw fixation with L1 prosthesis in 2008 resulting from a fall while roller skating. She was flown to [facility] and underwent two spinal surgeries. She also had a chest tube put in during this time and this scar is currently where her pain is in the left thoracic spine. Arabella reports feeling as if this area becomes painful and restricted her lungs have to work harder. She does use an inhaler. She has been treated by Dr Dyer and has done well with previous left sided thoracic myofascial trigger point injections. With exam today there is tenderness over the left thoracic incision and muscle guarding as well as scar tissue present. Arabella also presents with postural habits creating forward shoulder posture and has weakeness of the thoracic extensors and postural muscles as well as core weakness. Treatment will work on MFR techniques for the scar pain she is experiencing as well as working on stretches for her posture and core stabilization to see if we can decrease the myofascial guarding that maybe contributing to her pain . Physical Therapy Plan Frequency and Duration Frequency of Treatment 1x/Week Duration of treatment (weeks) 12 Plan of Care Start Date 03/17/23 Plan of Care End Date 06/09/23 Therapeutic Interventions Therapeutic Interventions Home Exercise Program,Manual Therapy,Neuromuscular Re- education,Patient/Caregiver Education,Self-Care/Home Management,Soft Tissue Mobilization,Therapeutic Exercises Next Visit Focus/Plan Next Note Type Treatment Note Next Visit Plan Review stretches given at initial evaluation, scar tissue massage over the left thoracic scar, begin spinal stabilization exercises Plan of Care Dates Plan of Care Start Date 03/17/23 Plan of Care End Date 06/09/23 Electronically Signed by: Tamika Ascencio, PT 03/19/23 1177 If you are in agreement with this Plan of Care, please return a signed and dated copy. I have reviewed this Plan of Care and certify that the skilled therapy services above are required to meet the patient?s needs. Physician Signature Date Printed Name and Credentials Clinical Instructor Signature Printed Name and Credentials
--- NOTE | 2023-04-09 14:32 | PT.OTN ---
Current Diagnoses Other intervertebral disc displacement, thoracic region (04/09/23) Arthrodesis status (04/09/23) Physical Therapy Treatment Note PT-OP-A Visit Information Start: 03/17/23 09:04 Freq: Status: Active Protocol: Document 04/09/23 12:30 [facility] (Rec: 04/12/23 14:30 [facility] [id number]) Out-Patient Physical Therapy Visit Information Visit Information Visit Type Treatment Note Visit Start Time 12:30 Visit Stop Time 13:15 Total Visit Minutes 45 Visit Number 2 PT-OP-B Current Condition Start: 03/17/23 09:04 Freq: Status: Active Protocol: Document 03/17/23 12:15 [facility] (Rec: 03/17/23 13:04 [facility] [id number]) Current Condition History of Current Condition Onset Date 2008 with recent exacerbation of her left-sided thoracic pain Current Complaints left sided thoracic pain and low back pain History of Current Condition In 2008 she fractured her back at L1 from falling while rollar skating. She was flown to [facility] and she underwent two spinal surgeries . She had a chest tube put in and this is where the pain is in her thoracic spine, SHe has scar tissue in this region. Pt notes when it is really irritated and pain ful where the scar tissue is it feels like it feels like her lungs are working hard. She uses an inhaler. Heat feels good on her back. Pt notes with walking if she is walking on the flat surface its okay but hills are not. Sitting for too long will irritate her back or if she is positioned wrong when she is sleeping PT-OP-C Subjective Start: 03/17/23 09:04 Freq: Status: Active Protocol: Document 04/09/23 12:30 [facility] (Rec: 04/12/23 14:30 [facility] [id number]) OP-PT Subjective Patient Comments Patient Comments Arabella notes she has been trying to do the exercises given to her at her first visit Patient Reported Progress Same PT-OP-J Posture/Palpation/Skin Start: 03/17/23 09:04 Freq: Status: Active Protocol: Document 03/17/23 12:15 [facility] (Rec: 03/19/23 17:40 [facility] [id number]) Posture Evaluation Comments Posture Comments forward shoulder posture Palpation Assessment Location left thoracic incision Palpation Findings Spasm,Muscle Guarding Palpation Details scar tissue tightness from the scar where chest tube was placed PT-OP-K Range of Motion Start: 03/18/23 11:24 Freq: Status: Active Protocol: Document 03/17/23 12:15 [facility] (Rec: 03/18/23 11:26 [facility] [id number]) Lumbar Spine Range of Motion Lumbar Spine Active Flexion 90 Extension 30 Rotation Left 45 Rotation Right 25 Lateral Flexion Left 30 Lateral Flexion Right 20 Hip Goniometric Range of Motion Hip Left Hip ROM WFL No Testing Position Supine Internal Rotation 5 External Rotation 30 Right Hip ROM WFL No Internal Rotation 8 External Rotation 30 PT-OP-M Strength Start: 03/17/23 09:04 Freq: Status: Active Protocol: Document 03/17/23 12:15 [facility] (Rec: 03/18/23 11:24 [facility] [id number]) Trunk Strength Trunk Manual Muscle Testing Flexion 3 Fair Extension 3 Fair Core Stabilization decreased core stabilization and trunk control Scapula Strength Scapula Manual Muscle Testing Right Adduction 3+ Fair+ Left Adduction 3 Fair Ankle/Foot Strength Ankle and Foot Manual Muscle Testing Right Dorsiflexion (L4) 3+ Fair+ Left Dorsiflexion (L4) 3+ Fair+ PT-OP-Q Treatments Start: 03/17/23 09:04 Freq: Status: Active Protocol: Document 04/09/23 12:32 [facility] (Rec: 04/09/23 13:11 [facility] [id number]) Therapeutic Exercises Sitting Exercises seated scapular retraction Reps/Minutes 3 x 10 reps level 1 TB Comments added in resistance level 1 TB seated sidebend stretch Reps/Minutes x 5 reps holding 30 sec each side Other Exercises standing pec stretch in doorway Reps/Minutes 2 xms holding 30 sec each modified down dog Reps/Minutes hold 1-2 min quadruped sidebends Reps/Minutes x 10 each tyra pose stretch Comments hold 1-2 min quadruped cat cow Reps/Minutes x 10 reps Manual Therapy Treatment Soft Tissue Mobilization scar tissue massage around the left posterior chest wall along chest tube incision Body Location scar tissue release Mobilization Type Myofascial Release,Other Intensity/Depth Superficial Comments scar tissue surrounding the scar more so distally Manual Techniques sidelying scapular mobilizations Body Location left scapula Body Position Sidelying Comments worked on scapula upward rotation and protraction/ retraction PT-OP-T Assessment and Plan Start: 03/17/23 09:04 Freq: Status: Active Protocol: Document 04/09/23 12:30 [facility] (Rec: 04/12/23 14:30 [facility] [id number]) Physical Therapy Assessment Goals 3 Impairment pain rated 7/10 in the thoracic region of her scar and low back Intermediate Goal (LTG) Pt reports a reduction in pain by to 4 or less on the pain scale LTG Duration 12 weeks 2 Impairment Decreased strength of the posterior trunk and postural muscles Intermediate Goal (LTG) Arabella presents with improved postural strength LTG Duration 12 weeks 1 Impairment postural habits that may be contributing to pain symptoms Short Term Goal (STG) Arabella is educated on a stretching program for the anterior chest to help reduce forward shoulder posture and stress on the thoracic spine STG Duration 4 weeks Intermediate Goal (LTG) Arabella is Ind with a HEP for anterior chest opening stretches LTG Duration 12 weeks Assessment Summary Assessment I worked on sidelying scapular mobility today and scar tissue work along her incision . I added in exercises for sidebending her body and opening up her anterior chest. She tolerated treatment well today Physical Therapy Plan Frequency and Duration Frequency of Treatment 1x/Week Duration of treatment (weeks) 12 Plan of Care Start Date 03/17/23 Plan of Care End Date 06/09/23 Therapeutic Interventions Therapeutic Interventions Home Exercise Program,Manual Therapy,Neuromuscular Re- education,Patient/Caregiver Education,Self-Care/Home Management,Soft Tissue Mobilization,Therapeutic Exercises Next Visit Focus/Plan Next Note Type Treatment Note Next Visit Plan Review stretches and HEP, scar tissue massage over the left thoracic scar, sidelying scapular mobility for protraction/retraction and scapular upward rotation
--- NOTE | 2023-04-16 10:17 | PT.OTN ---
Current Diagnoses Other intervertebral disc displacement, thoracic region (04/16/23) Arthrodesis status (04/16/23) Physical Therapy Treatment Note PT-OP-A Visit Information Start: 03/17/23 09:04 Freq: Status: Active Protocol: Document 04/16/23 09:32 [facility] (Rec: 04/16/23 10:17 [facility] [id number]) Out-Patient Physical Therapy Visit Information Visit Information Visit Type Treatment Note Visit Start Time 09:30 Visit Stop Time 10:15 Total Visit Minutes 45 Visit Number 3 PT-OP-B Current Condition Start: 03/17/23 09:04 Freq: Status: Active Protocol: Document 03/17/23 12:15 [facility] (Rec: 03/17/23 13:04 [facility] [id number]) Current Condition History of Current Condition Onset Date 2008 with recent exacerbation of her left-sided thoracic pain Current Complaints left sided thoracic pain and low back pain History of Current Condition In 2008 she fractured her back at L1 from falling while rollar skating. She was flown to [facility] and she underwent two spinal surgeries . She had a chest tube put in and this is where the pain is in her thoracic spine, SHe has scar tissue in this region. Pt notes when it is really irritated and pain ful where the scar tissue is it feels like it feels like her lungs are working hard. She uses an inhaler. Heat feels good on her back. Pt notes with walking if she is walking on the flat surface its okay but hills are not. Sitting for too long will irritate her back or if she is positioned wrong when she is sleeping PT-OP-C Subjective Start: 03/17/23 09:04 Freq: Status: Active Protocol: Document 04/16/23 09:32 [facility] (Rec: 04/16/23 10:17 [facility] [id number]) OP-PT Subjective Patient Comments Patient Comments pt notes she woke up early and mornings are rough PT-OP-J Posture/Palpation/Skin Start: 03/17/23 09:04 Freq: Status: Active Protocol: Document 03/17/23 12:15 [facility] (Rec: 03/19/23 17:40 [facility] [id number]) Posture Evaluation Comments Posture Comments forward shoulder posture Palpation Assessment Location left thoracic incision Palpation Findings Spasm,Muscle Guarding Palpation Details scar tissue tightness from the scar where chest tube was placed PT-OP-K Range of Motion Start: 03/18/23 11:24 Freq: Status: Active Protocol: Document 03/17/23 12:15 [facility] (Rec: 03/18/23 11:26 [facility] [id number]) Lumbar Spine Range of Motion Lumbar Spine Active Flexion 90 Extension 30 Rotation Left 45 Rotation Right 25 Lateral Flexion Left 30 Lateral Flexion Right 20 Hip Goniometric Range of Motion Hip Left Hip ROM WFL No Testing Position Supine Internal Rotation 5 External Rotation 30 Right Hip ROM WFL No Internal Rotation 8 External Rotation 30 PT-OP-M Strength Start: 03/17/23 09:04 Freq: Status: Active Protocol: Document 03/17/23 12:15 [facility] (Rec: 03/18/23 11:24 [facility] [id number]) Trunk Strength Trunk Manual Muscle Testing Flexion 3 Fair Extension 3 Fair Core Stabilization decreased core stabilization and trunk control Scapula Strength Scapula Manual Muscle Testing Right Adduction 3+ Fair+ Left Adduction 3 Fair Ankle/Foot Strength Ankle and Foot Manual Muscle Testing Right Dorsiflexion (L4) 3+ Fair+ Left Dorsiflexion (L4) 3+ Fair+ PT-OP-Q Treatments Start: 03/17/23 09:04 Freq: Status: Active Protocol: Document 04/16/23 09:32 [facility] (Rec: 04/16/23 10:17 [facility] [id number]) Therapeutic Exercises Other Exercises standing shoulder extension Reps/Minutes 2 x 10 reps level 1 standing rows Reps/Minutes 2 x 10 level 2 TB quadruped sidebends Reps/Minutes x 10 each quadruped cat cow Reps/Minutes x 10 reps Manual Therapy Treatment Soft Tissue Mobilization scar tissue massage around the left posterior chest wall along chest tube incision Body Location scar tissue release Mobilization Type Myofascial Release,Other Intensity/Depth Superficial Comments scar tissue surrounding the scar more so distally Manual Techniques sidelying scapular mobilizations Body Location left scapula Body Position Sidelying Comments worked on scapula upward rotation and protraction/ retraction PT-OP-T Assessment and Plan Start: 03/17/23 09:04 Freq: Status: Active Protocol: Document 04/16/23 09:32 [facility] (Rec: 04/16/23 10:17 [facility] [id number]) Physical Therapy Assessment Assessment Summary Assessment added in foam roll stretches and Arabella really liked this. SHe has a yoga mat at home that she will roll up for her stretches Physical Therapy Plan Frequency and Duration Frequency of Treatment 1x/Week Duration of treatment (weeks) 12 Plan of Care Start Date 03/17/23 Plan of Care End Date 06/09/23 Next Visit Focus/Plan Next Note Type Treatment Note Next Visit Plan Review stretches and HEP, scar tissue massage over the left thoracic scar, sidelying scapular mobility for protraction/retraction and scapular upward rotation
--- NOTE | 2023-04-28 15:53 | PT.OTN ---
Current Diagnoses Other intervertebral disc displacement, thoracic region (04/28/23) Arthrodesis status (04/28/23) Physical Therapy Treatment Note PT-OP-A Visit Information Start: 03/17/23 09:04 Freq: Status: Active Protocol: Document 04/28/23 15:03 [facility] (Rec: 04/28/23 15:53 [facility] [id number]) Out-Patient Physical Therapy Visit Information Visit Information Visit Type Treatment Note Visit Start Time 13:00 Visit Stop Time 13:45 Total Visit Minutes 45 Visit Number 4 PT-OP-B Current Condition Start: 03/17/23 09:04 Freq: Status: Active Protocol: Document 03/17/23 12:15 [facility] (Rec: 03/17/23 13:04 [facility] [id number]) Current Condition History of Current Condition Onset Date 2008 with recent exacerbation of her left-sided thoracic pain Current Complaints left sided thoracic pain and low back pain History of Current Condition In 2008 she fractured her back at L1 from falling while rollar skating. She was flown to [facility] and she underwent two spinal surgeries . She had a chest tube put in and this is where the pain is in her thoracic spine, SHe has scar tissue in this region. Pt notes when it is really irritated and pain ful where the scar tissue is it feels like it feels like her lungs are working hard. She uses an inhaler. Heat feels good on her back. Pt notes with walking if she is walking on the flat surface its okay but hills are not. 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 She is feeling sore and tired. PT-OP-J Posture/Palpation/Skin Start: 03/17/23 09:04 Freq: Status: Active Protocol: Document 03/17/23 12:15 [facility] (Rec: 03/19/23 17:40 [facility] [id number]) Posture Evaluation Comments Posture Comments forward shoulder posture Palpation Assessment Location left thoracic incision Palpation Findings Spasm,Muscle Guarding Palpation Details scar tissue tightness from the scar where chest tube was placed PT-OP-K Range of Motion Start: 03/18/23 11:24 Freq: Status: Active Protocol: Document 03/17/23 12:15 [facility] (Rec: 03/18/23 11:26 [facility] [id number]) Lumbar Spine Range of Motion Lumbar Spine Active Flexion 90 Extension 30 Rotation Left 45 Rotation Right 25 Lateral Flexion Left 30 Lateral Flexion Right 20 Hip Goniometric Range of Motion Hip Left Hip ROM WFL No Testing Position Supine Internal Rotation 5 External Rotation 30 Right Hip ROM WFL No Internal Rotation 8 External Rotation 30 PT-OP-M Strength Start: 03/17/23 09:04 Freq: Status: Active Protocol: Document 03/17/23 12:15 [facility] (Rec: 03/18/23 11:24 [facility] [id number]) Trunk Strength Trunk Manual Muscle Testing Flexion 3 Fair Extension 3 Fair Core Stabilization decreased core stabilization and trunk control Scapula Strength Scapula Manual Muscle Testing Right Adduction 3+ Fair+ Left Adduction 3 Fair Ankle/Foot Strength Ankle and Foot Manual Muscle Testing Right Dorsiflexion (L4) 3+ Fair+ Left Dorsiflexion (L4) 3+ Fair+ PT-OP-Q Treatments Start: 03/17/23 09:04 Freq: Status: Active Protocol: Document 04/28/23 15:03 [facility] (Rec: 04/28/23 15:53 [facility] [id number]) Therapeutic Exercises Supine Exercises foam roll stretch Reps/Minutes 5 min Comments shoulder flexion, abduction, pec stretch Sitting Exercises seated scapular retraction Reps/Minutes 3 x 10 reps level 1 TB Comments added in resistance level 1 TB Other Exercises standing shoulder extension Reps/Minutes 2 x 10 reps level 1 standing rows Reps/Minutes 2 x 10 level 2 TB quadruped sidebends Reps/Minutes x 10 each tyra pose stretch Comments hold 1-2 min quadruped cat cow Reps/Minutes x 10 reps Manual Therapy Treatment Soft Tissue Mobilization scar tissue massage around the left posterior chest wall along chest tube incision Body Location scar tissue release Mobilization Type Myofascial Release,Other Intensity/Depth Superficial Comments scar tissue surrounding the scar more so distally Manual Techniques sidelying scapular mobilizations Body Location left scapula Body Position Sidelying Comments worked on scapula upward rotation and protraction/ retraction PT-OP-T Assessment and Plan Start: 03/17/23 09:04 Freq: Status: Active Protocol: Document 04/28/23 15:03 [facility] (Rec: 04/28/23 15:53 [facility] [id number]) Physical Therapy Assessment Assessment Summary Assessment 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 She notes she felt good after all the stretches today to open up her chest Physical Therapy Plan Frequency and Duration Frequency of Treatment 1x/Week Duration of treatment (weeks) 12 Plan of Care Start Date 03/17/23 Plan of Care End Date 06/09/23 Therapeutic Interventions Therapeutic Interventions Home Exercise Program,Manual Therapy,Neuromuscular Re- education,Patient/Caregiver Education,Self-Care/Home Management,Soft Tissue Mobilization,Therapeutic Exercises Next Visit Focus/Plan Next Note Type Treatment Note Next Visit Plan continue working on opening up the anterior chest with stretches and thoracic stabilization exercises. Continue with manual therapy work over the scar tissue
--- NOTE | 2023-05-07 11:21 | PT.OTN ---
Current Diagnoses Other intervertebral disc displacement, thoracic region (05/07/23) Arthrodesis status (05/07/23) Physical Therapy Treatment Note PT-OP-A Visit Information Start: 03/17/23 09:04 Freq: Status: Active Protocol: Document 05/07/23 10:34 [facility] (Rec: 05/07/23 11:21 [facility] [id number]) Out-Patient Physical Therapy Visit Information Visit Information Visit Type Treatment Note Visit Start Time 10:30 Visit Stop Time 11:15 Total Visit Minutes 45 Visit Number 5 PT-OP-B Current Condition Start: 03/17/23 09:04 Freq: Status: Active Protocol: Document 03/17/23 12:15 [facility] (Rec: 03/17/23 13:04 [facility] [id number]) Current Condition History of Current Condition Onset Date 2008 with recent exacerbation of her left-sided thoracic pain Current Complaints left sided thoracic pain and low back pain History of Current Condition In 2008 she fractured her back at L1 from falling while rollar skating. She was flown to [facility] and she underwent two spinal surgeries . She had a chest tube put in and this is where the pain is in her thoracic spine, SHe has scar tissue in this region. Pt notes when it is really irritated and pain ful where the scar tissue is it feels like it feels like her lungs are working hard. She uses an inhaler. Heat feels good on her back. Pt notes with walking if she is walking on the flat surface its okay but hills are not. Sitting for too long will irritate her back or if she is positioned wrong when she is sleeping PT-OP-C Subjective Start: 03/17/23 09:04 Freq: Status: Active Protocol: Document 05/07/23 10:34 [facility] (Rec: 05/07/23 11:21 [facility] [id number]) OP-PT Subjective Patient Comments Patient Comments pt hasd been doing her stretches and feels a little looser PT-OP-J Posture/Palpation/Skin Start: 03/17/23 09:04 Freq: Status: Active Protocol: Document 03/17/23 12:15 [facility] (Rec: 03/19/23 17:40 [facility] [id number]) Posture Evaluation Comments Posture Comments forward shoulder posture Palpation Assessment Location left thoracic incision Palpation Findings Spasm,Muscle Guarding Palpation Details scar tissue tightness from the scar where chest tube was placed PT-OP-K Range of Motion Start: 03/18/23 11:24 Freq: Status: Active Protocol: Document 03/17/23 12:15 [facility] (Rec: 03/18/23 11:26 [facility] [id number]) Lumbar Spine Range of Motion Lumbar Spine Active Flexion 90 Extension 30 Rotation Left 45 Rotation Right 25 Lateral Flexion Left 30 Lateral Flexion Right 20 Hip Goniometric Range of Motion Hip Left Hip ROM WFL No Testing Position Supine Internal Rotation 5 External Rotation 30 Right Hip ROM WFL No Internal Rotation 8 External Rotation 30 PT-OP-M Strength Start: 03/17/23 09:04 Freq: Status: Active Protocol: Document 03/17/23 12:15 [facility] (Rec: 03/18/23 11:24 [facility] [id number]) Trunk Strength Trunk Manual Muscle Testing Flexion 3 Fair Extension 3 Fair Core Stabilization decreased core stabilization and trunk control Scapula Strength Scapula Manual Muscle Testing Right Adduction 3+ Fair+ Left Adduction 3 Fair Ankle/Foot Strength Ankle and Foot Manual Muscle Testing Right Dorsiflexion (L4) 3+ Fair+ Left Dorsiflexion (L4) 3+ Fair+ PT-OP-Q Treatments Start: 03/17/23 09:04 Freq: Status: Active Protocol: Document 05/07/23 10:34 [facility] (Rec: 05/07/23 11:21 [facility] [id number]) Therapeutic Exercises Supine Exercises foam roll stretch Reps/Minutes 5 min Comments shoulder flexion, abduction, pec stretch Other Exercises standing shoulder extension Reps/Minutes 2 x 10 reps level 1 standing rows Reps/Minutes 2 x 10 level 2 TB standing pec stretch in doorway Reps/Minutes 2 xms holding 30 sec each modified down dog Reps/Minutes hold 1-2 min quadruped sidebends Reps/Minutes x 10 each tyra pose stretch Comments hold 1-2 min quadruped cat cow Reps/Minutes x 10 reps Manual Therapy Treatment Soft Tissue Mobilization scar tissue massage around the left posterior chest wall along chest tube incision Body Location scar tissue release Mobilization Type Myofascial Release,Other Intensity/Depth Superficial Comments scar tissue surrounding the scar more so distally Manual Techniques sidelying scapular mobilizations Body Location left scapula Body Position Sidelying Comments worked on scapula upward rotation and protraction/ retraction PT-OP-T Assessment and Plan Start: 03/17/23 09:04 Freq: Status: Active Protocol: Document 05/07/23 10:34 [facility] (Rec: 05/07/23 11:21 [facility] [id number]) Physical Therapy Assessment Goals 3 Impairment pain rated 7/10 in the thoracic region of her scar and low back Snf Goal (LTG) Pt reports a reduction in pain by to 4 or less on the pain scale LTG Duration 12 weeks 2 Impairment Decreased strength of the posterior trunk and postural muscles Snf Goal (LTG) Arabella presents with improved postural strength LTG Duration 12 weeks 1 Impairment postural habits that may be contributing to pain symptoms Short Term Goal (STG) Arabella is educated on a stretching program for the anterior chest to help reduce forward shoulder posture and stress on the thoracic spine STG Duration 4 weeks Snf Goal (LTG) Arabella is Ind with a HEP for anterior chest opening stretches LTG Duration 12 weeks Assessment Summary Assessment arabella is doing much better with being able to move through her stretches, 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 but even with that is moving a little better Physical Therapy Plan Frequency and Duration Frequency of Treatment 1x/Week Duration of treatment (weeks) 12 Plan of Care Start Date 03/17/23 Plan of Care End Date 06/09/23 Therapeutic Interventions Therapeutic Interventions Home Exercise Program,Manual Therapy,Neuromuscular Re- education,Patient/Caregiver Education,Self-Care/Home Management,Soft Tissue Mobilization,Therapeutic Exercises Next Visit Focus/Plan Next Note Type Treatment Note Next Visit Plan continue working on opening up the anterior chest with stretches and thoracic stabilization exercises. Continue with manual therapy work over the scar tissue
--- NOTE | 2023-05-12 14:07 | PT.OTN ---
Current Diagnoses Other intervertebral disc displacement, thoracic region (05/12/23) Arthrodesis status (05/12/23) Physical Therapy Treatment Note PT-OP-A Visit Information Start: 03/17/23 09:04 Freq: Status: Active Protocol: Document 05/12/23 13:23 [facility] (Rec: 05/12/23 14:06 [facility] [id number]) Out-Patient Physical Therapy Visit Information Visit Information Visit Type Treatment Note Visit Start Time 15:15 Visit Stop Time 16:00 Total Visit Minutes 45 Visit Number 6 PT-OP-B Current Condition Start: 03/17/23 09:04 Freq: Status: Active Protocol: Document 03/17/23 12:15 [facility] (Rec: 03/17/23 13:04 [facility] [id number]) Current Condition History of Current Condition Onset Date 2008 with recent exacerbation of her left-sided thoracic pain Current Complaints left sided thoracic pain and low back pain History of Current Condition In 2008 she fractured her back at L1 from falling while rollar skating. She was flown to [facility] and she underwent two spinal surgeries . She had a chest tube put in and this is where the pain is in her thoracic spine, SHe has scar tissue in this region. Pt notes when it is really irritated and pain ful where the scar tissue is it feels like it feels like her lungs are working hard. She uses an inhaler. Heat feels good on her back. Pt notes with walking if she is walking on the flat surface its okay but hills are not. Sitting for too long will irritate her back or if she is positioned wrong when she is sleeping PT-OP-C Subjective Start: 03/17/23 09:04 Freq: Status: Active Protocol: Document 05/12/23 13:23 [facility] (Rec: 05/12/23 14:06 [facility] [id number]) OP-PT Subjective Patient Comments Patient Comments pt notes she has asthma and she can feel the lungs working harder with the smoke in the air and making the area on the left side scar over rib cage sore PT-OP-J Posture/Palpation/Skin Start: 03/17/23 09:04 Freq: Status: Active Protocol: Document 03/17/23 12:15 [facility] (Rec: 03/19/23 17:40 [facility] [id number]) Posture Evaluation Comments Posture Comments forward shoulder posture Palpation Assessment Location left thoracic incision Palpation Findings Spasm,Muscle Guarding Palpation Details scar tissue tightness from the scar where chest tube was placed PT-OP-K Range of Motion Start: 03/18/23 11:24 Freq: Status: Active Protocol: Document 03/17/23 12:15 [facility] (Rec: 03/18/23 11:26 [facility] [id number]) Lumbar Spine Range of Motion Lumbar Spine Active Flexion 90 Extension 30 Rotation Left 45 Rotation Right 25 Lateral Flexion Left 30 Lateral Flexion Right 20 Hip Goniometric Range of Motion Hip Left Hip ROM WFL No Testing Position Supine Internal Rotation 5 External Rotation 30 Right Hip ROM WFL No Internal Rotation 8 External Rotation 30 PT-OP-M Strength Start: 03/17/23 09:04 Freq: Status: Active Protocol: Document 03/17/23 12:15 [facility] (Rec: 03/18/23 11:24 [facility] [id number]) Trunk Strength Trunk Manual Muscle Testing Flexion 3 Fair Extension 3 Fair Core Stabilization decreased core stabilization and trunk control Scapula Strength Scapula Manual Muscle Testing Right Adduction 3+ Fair+ Left Adduction 3 Fair Ankle/Foot Strength Ankle and Foot Manual Muscle Testing Right Dorsiflexion (L4) 3+ Fair+ Left Dorsiflexion (L4) 3+ Fair+ PT-OP-Q Treatments Start: 03/17/23 09:04 Freq: Status: Active Protocol: Document 05/12/23 13:23 [facility] (Rec: 05/12/23 14:06 [facility] [id number]) Therapeutic Exercises Supine Exercises diaphragmatic breathing Reps/Minutes x 10 reps Comments cues to let the belly rise foam roll stretch Reps/Minutes 5 min Comments shoulder flexion, abduction, pec stretch Other Exercises standing shoulder extension Reps/Minutes 2 x 10 reps level 1 standing rows Reps/Minutes 2 x 10 level 2 TB standing pec stretch in doorway Reps/Minutes 2 xms holding 30 sec each quadruped sidebends Reps/Minutes x 10 each tyra pose stretch Comments hold 1-2 min quadruped cat cow Reps/Minutes x 10 reps Manual Therapy Treatment Soft Tissue Mobilization scar tissue massage around the left posterior chest wall along chest tube incision Body Location scar tissue release Mobilization Type Myofascial Release,Other Intensity/Depth Superficial Comments scar tissue surrounding the scar more so distally PT-OP-T Assessment and Plan Start: 03/17/23 09:04 Freq: Status: Active Protocol: Document 05/12/23 13:23 [facility] (Rec: 05/12/23 14:06 [facility] [id number]) Physical Therapy Assessment Assessment Summary Assessment Arabella is tolerating addition of new exercises well. I added in diaphragmatic breathing today as she tends to breath with upper chest. THis was challenging for her Physical Therapy Plan Frequency and Duration Frequency of Treatment 1x/Week Duration of treatment (weeks) 12 Plan of Care Start Date 03/17/23 Plan of Care End Date 06/09/23 Therapeutic Interventions Therapeutic Interventions Home Exercise Program,Manual Therapy,Neuromuscular Re- education,Patient/Caregiver Education,Self-Care/Home Management,Soft Tissue Mobilization,Therapeutic Exercises Next Visit Focus/Plan Next Note Type Treatment Note Next Visit Plan review diaphragmatic breathing next visit and continue working on upper chest stretching and scapula stabilization exercises
--- NOTE | 2023-05-20 11:01 | PT.OTN ---
Current Diagnoses Other intervertebral disc displacement, thoracic region (05/20/23) Arthrodesis status (05/20/23) Physical Therapy Treatment Note PT-OP-A Visit Information Start: 03/17/23 09:04 Freq: Status: Active Protocol: Document 05/20/23 10:30 [facility] (Rec: 05/20/23 10:58 [facility] [id number]) Out-Patient Physical Therapy Visit Information Visit Information Visit Type Treatment Note Visit Start Time 10:30 Visit Stop Time 10:50 Total Visit Minutes 20 Visit Number 7 PT-OP-B Current Condition Start: 03/17/23 09:04 Freq: Status: Active Protocol: Document 03/17/23 12:15 [facility] (Rec: 03/17/23 13:04 [facility] [id number]) Current Condition History of Current Condition Onset Date 2008 with recent exacerbation of her left-sided thoracic pain Current Complaints left sided thoracic pain and low back pain History of Current Condition In 2008 she fractured her back at L1 from falling while rollar skating. She was flown to [facility] and she underwent two spinal surgeries . She had a chest tube put in and this is where the pain is in her thoracic spine, SHe has scar tissue in this region. Pt notes when it is really irritated and pain ful where the scar tissue is it feels like it feels like her lungs are working hard. She uses an inhaler. Heat feels good on her back. Pt notes with walking if she is walking on the flat surface its okay but hills are not. Sitting for too long will irritate her back or if she is positioned wrong when she is sleeping PT-OP-C Subjective Start: 03/17/23 09:04 Freq: Status: Active Protocol: Document 05/20/23 10:30 [facility] (Rec: 05/20/23 10:58 [facility] [id number]) OP-PT Subjective Patient Comments Patient Comments pt notes [place] the [place] and was standing on a log with her sister when her sister fell and pulled her hand which caused Arabella to fall landing on her back hitting lose rocks below. She reports she is sore in the area of her scar and feels swollen PT-OP-J Posture/Palpation/Skin Start: 03/17/23 09:04 Freq: Status: Active Protocol: Document 03/17/23 12:15 [facility] (Rec: 03/19/23 17:40 [facility] [id number]) Posture Evaluation Comments Posture Comments forward shoulder posture Palpation Assessment Location left thoracic incision Palpation Findings Spasm,Muscle Guarding Palpation Details scar tissue tightness from the scar where chest tube was placed PT-OP-K Range of Motion Start: 03/18/23 11:24 Freq: Status: Active Protocol: Document 03/17/23 12:15 [facility] (Rec: 03/18/23 11:26 [facility] [id number]) Lumbar Spine Range of Motion Lumbar Spine Active Flexion 90 Extension 30 Rotation Left 45 Rotation Right 25 Lateral Flexion Left 30 Lateral Flexion Right 20 Hip Goniometric Range of Motion Hip Left Hip ROM WFL No Testing Position Supine Internal Rotation 5 External Rotation 30 Right Hip ROM WFL No Internal Rotation 8 External Rotation 30 PT-OP-M Strength Start: 03/17/23 09:04 Freq: Status: Active Protocol: Document 03/17/23 12:15 [facility] (Rec: 03/18/23 11:24 [facility] [id number]) Trunk Strength Trunk Manual Muscle Testing Flexion 3 Fair Extension 3 Fair Core Stabilization decreased core stabilization and trunk control Scapula Strength Scapula Manual Muscle Testing Right Adduction 3+ Fair+ Left Adduction 3 Fair Ankle/Foot Strength Ankle and Foot Manual Muscle Testing Right Dorsiflexion (L4) 3+ Fair+ Left Dorsiflexion (L4) 3+ Fair+ PT-OP-Q Treatments Start: 03/17/23 09:04 Freq: Status: Active Protocol: Document 05/12/23 13:23 [facility] (Rec: 05/12/23 14:06 [facility] [id number]) Therapeutic Exercises Supine Exercises diaphragmatic breathing Reps/Minutes x 10 reps Comments cues to let the belly rise foam roll stretch Reps/Minutes 5 min Comments shoulder flexion, abduction, pec stretch Other Exercises standing shoulder extension Reps/Minutes 2 x 10 reps level 1 standing rows Reps/Minutes 2 x 10 level 2 TB standing pec stretch in doorway Reps/Minutes 2 xms holding 30 sec each quadruped sidebends Reps/Minutes x 10 each tyra pose stretch Comments hold 1-2 min quadruped cat cow Reps/Minutes x 10 reps Manual Therapy Treatment Soft Tissue Mobilization scar tissue massage around the left posterior chest wall along chest tube incision Body Location scar tissue release Mobilization Type Myofascial Release,Other Intensity/Depth Superficial Comments scar tissue surrounding the scar more so distally PT-OP-R Modalities Start: 05/20/23 10:58 Freq: Status: Active Protocol: Document 05/20/23 10:30 [facility] (Rec: 05/20/23 10:59 [facility] [id number]) Ultrasound Therapy Treatment left posterior lateral lats and parspinals Patient Position Sidelying Coupling Medium Ultrasound Gel Applicator Size (cm2) 5 Mode Setting Continuous Duty Cycle 100% Intensity Setting (w/cm2) 1.5 PT-OP-T Assessment and Plan Start: 03/17/23 09:04 Freq: Status: Active Protocol: Document 05/20/23 10:30 [facility] (Rec: 05/20/23 10:58 [facility] [id number]) Physical Therapy Assessment Assessment Summary Assessment Arabella did present with increased swelling over the left posterior lateral rib cage. No bruising noted other than one small 1/2 bruise near incision. A trial of ultrasound was performed to try and relax the posterior left intercostals and paraspinals. Arabella tolerated this well however after the ultrasound she felt she needed to head to the ER for imaging and to hold off on PT. PT was then stopped and pt went to ER. Physical Therapy Plan Frequency and Duration Frequency of Treatment 1x/Week Duration of treatment (weeks) 12 Plan of Care Start Date 03/17/23 Plan of Care End Date 06/09/23 Therapeutic Interventions Therapeutic Interventions Home Exercise Program,Manual Therapy,Neuromuscular Re- education,Patient/Caregiver Education,Self-Care/Home Management,Soft Tissue Mobilization,Therapeutic Exercises Modalities Ultrasound Next Visit Focus/Plan Next Note Type Treatment Note Next Visit Plan Check in with how Arabella is doing after being seen in the ER for her fall and lateral rib cage pain, resume PT if pt is able to next visit
--- NOTE | 2023-05-27 13:05 | PT.OTN ---
Current Diagnoses Other intervertebral disc displacement, thoracic region (05/27/23) Arthrodesis status (05/27/23) Physical Therapy Treatment Note PT-OP-A Visit Information Start: 03/17/23 09:04 Freq: Status: Active Protocol: Document 05/27/23 11:15 [facility] (Rec: 05/27/23 12:56 [facility] [id number]) Out-Patient Physical Therapy Visit Information Visit Information Visit Type Treatment Note Visit Start Time 11:15 Visit Stop Time 12:00 Total Visit Minutes 45 Visit Number 8 Evaluation Information Evaluation Date 03/17/23 PT-OP-B Current Condition Start: 03/17/23 09:04 Freq: Status: Active Protocol: Document 03/17/23 12:15 [facility] (Rec: 03/17/23 13:04 [facility] [id number]) Current Condition History of Current Condition Onset Date 2008 with recent exacerbation of her left-sided thoracic pain Current Complaints left sided thoracic pain and low back pain History of Current Condition In 2008 she fractured her back at L1 from falling while rollar skating. She was flown to [facility] and she underwent two spinal surgeries . She had a chest tube put in and this is where the pain is in her thoracic spine, SHe has scar tissue in this region. Pt notes when it is really irritated and pain ful where the scar tissue is it feels like it feels like her lungs are working hard. She uses an inhaler. Heat feels good on her back. Pt notes with walking if she is walking on the flat surface its okay but hills are not. Sitting for too long will irritate her back or if she is positioned wrong when she is sleeping PT-OP-C Subjective Start: 03/17/23 09:04 Freq: Status: Active Protocol: Document 05/27/23 11:15 [facility] (Rec: 05/27/23 12:56 [facility] [id number]) OP-PT Subjective Patient Comments Patient Comments Arabella reports she was seen in urgent care and Xrays were taken. She was cleared with no fractures or any disruption to her hardware in her back. She is still feeling sore from her fall but is doing better knowing she didn't do any damage PT-OP-J Posture/Palpation/Skin Start: 03/17/23 09:04 Freq: Status: Active Protocol: Document 03/17/23 12:15 [facility] (Rec: 03/19/23 17:40 [facility] [id number]) Posture Evaluation Comments Posture Comments forward shoulder posture Palpation Assessment Location left thoracic incision Palpation Findings Spasm,Muscle Guarding Palpation Details scar tissue tightness from the scar where chest tube was placed PT-OP-K Range of Motion Start: 03/18/23 11:24 Freq: Status: Active Protocol: Document 03/17/23 12:15 [facility] (Rec: 03/18/23 11:26 [facility] [id number]) Lumbar Spine Range of Motion Lumbar Spine Active Flexion 90 Extension 30 Rotation Left 45 Rotation Right 25 Lateral Flexion Left 30 Lateral Flexion Right 20 Hip Goniometric Range of Motion Hip Left Hip ROM WFL No Testing Position Supine Internal Rotation 5 External Rotation 30 Right Hip ROM WFL No Internal Rotation 8 External Rotation 30 PT-OP-M Strength Start: 03/17/23 09:04 Freq: Status: Active Protocol: Document 03/17/23 12:15 [facility] (Rec: 03/18/23 11:24 [facility] [id number]) Trunk Strength Trunk Manual Muscle Testing Flexion 3 Fair Extension 3 Fair Core Stabilization decreased core stabilization and trunk control Scapula Strength Scapula Manual Muscle Testing Right Adduction 3+ Fair+ Left Adduction 3 Fair Ankle/Foot Strength Ankle and Foot Manual Muscle Testing Right Dorsiflexion (L4) 3+ Fair+ Left Dorsiflexion (L4) 3+ Fair+ PT-OP-Q Treatments Start: 03/17/23 09:04 Freq: Status: Active Protocol: Document 05/27/23 11:15 [facility] (Rec: 05/27/23 12:58 [facility] [id number]) Therapeutic Exercises Supine Exercises diaphragmatic breathing Reps/Minutes x 10 reps cues in inhale x 4 exhale x 4 counts Comments worked on lateral rib cage expansion foam roll stretch Reps/Minutes 5 min Comments shoulder flexion, abduction, pec stretch Manual Therapy Treatment Soft Tissue Mobilization scar tissue massage around the left posterior chest wall along chest tube incision Body Location scar tissue release Mobilization Type Myofascial Release,Other Intensity/Depth Superficial Comments scar tissue surrounding the scar more so distally PT-OP-R Modalities Start: 05/20/23 10:58 Freq: Status: Active Protocol: Document 05/20/23 10:30 [facility] (Rec: 05/20/23 10:59 [facility] [id number]) Ultrasound Therapy Treatment left posterior lateral lats and parspinals Patient Position Sidelying Coupling Medium Ultrasound Gel Applicator Size (cm2) 5 Mode Setting Continuous Duty Cycle 100% Intensity Setting (w/cm2) 1.5 PT-OP-T Assessment and Plan Start: 03/17/23 09:04 Freq: Status: Active Protocol: Document 05/27/23 11:15 [facility] (Rec: 05/27/23 12:56 [facility] [id number]) Physical Therapy Assessment Goals 3 Impairment pain rated 7/10 in the thoracic region of her scar and low back Systems Administrator Goal (LTG) Pt reports a reduction in pain by to 4 or less on the pain scale LTG Duration 12 weeks 2 Impairment Decreased strength of the posterior trunk and postural muscles Group Home Goal (LTG) Arabella presents with improved postural strength LTG Duration 12 weeks 1 Impairment postural habits that may be contributing to pain symptoms Short Term Goal (STG) Arabella is educated on a stretching program for the anterior chest to help reduce forward shoulder posture and stress on the thoracic spine STG Duration 4 weeks Systems Administrator Goal (LTG) Arabella is Ind with a HEP for anterior chest opening stretches LTG Duration 12 weeks Assessment Summary Assessment Arabella was doing better today just knowing that she didn't do any damage to her spine with her fall. She still feels sore and is not sure she can go through all her exercises today. I was able to work on soft tissue mobiization of the left lateral rib cage and then we worked on lateral rib cage expansion with diaphragmatic breathing. Arabella tolerated this well and was also able to lay on the soft foam roll for anterior chest stretching Physical Therapy Plan Frequency and Duration Frequency of Treatment 1x/Week Duration of treatment (weeks) 12 Plan of Care Start Date 03/17/23 Plan of Care End Date 06/09/23 Therapeutic Interventions Therapeutic Interventions Home Exercise Program,Manual Therapy,Neuromuscular Re- education,Patient/Caregiver Education,Self-Care/Home Management,Soft Tissue Mobilization,Therapeutic Exercises Modalities Ultrasound Next Visit Focus/Plan Next Note Type Progress Note Next Visit Plan continue to work on rib cage expansion with breath work and postural exercises for Arabella as well as manual therapy techniques for soft tissue
--- NOTE | 2023-06-09 16:20 | PT.OTN ---
Current Diagnoses Other intervertebral disc displacement, thoracic region (06/09/23) Arthrodesis status (06/09/23) Physical Therapy Treatment Note PT-OP-A Visit Information Start: 03/17/23 09:04 Freq: Status: Active Protocol: Document 06/09/23 08:52 [facility] (Rec: 06/09/23 09:30 [facility] [id number]) Out-Patient Physical Therapy Visit Information Visit Information Visit Type Treatment Note Visit Start Time 08:50 Visit Stop Time 09:30 Total Visit Minutes 40 PT-OP-B Current Condition Start: 03/17/23 09:04 Freq: Status: Active Protocol: Document 03/17/23 12:15 [facility] (Rec: 03/17/23 13:04 [facility] [id number]) Current Condition History of Current Condition Onset Date 2008 with recent exacerbation of her left-sided thoracic pain Current Complaints left sided thoracic pain and low back pain History of Current Condition In 2008 she fractured her back at L1 from falling while rollar skating. She was flown to [facility] and she underwent two spinal surgeries . She had a chest tube put in and this is where the pain is in her thoracic spine, SHe has scar tissue in this region. Pt notes when it is really irritated and pain ful where the scar tissue is it feels like it feels like her lungs are working hard. She uses an inhaler. Heat feels good on her back. Pt notes with walking if she is walking on the flat surface its okay but hills are not. Sitting for too long will irritate her back or if she is positioned wrong when she is sleeping PT-OP-C Subjective Start: 03/17/23 09:04 Freq: Status: Active Protocol: Document 06/09/23 08:52 [facility] (Rec: 06/09/23 09:30 [facility] [id number]) OP-PT Subjective Patient Comments Patient Comments Arabella notes she has had a cold and asthma and has had bad coughs and this causes pain in her back. She would like to pause her PT at this time until she has a appointment with Dr Gomez gomez due to her fall and re-injury Patient Reported Progress Same PT-OP-J Posture/Palpation/Skin Start: 03/17/23 09:04 Freq: Status: Active Protocol: Document 03/17/23 12:15 [facility] (Rec: 03/19/23 17:40 [facility] [id number]) Posture Evaluation Comments Posture Comments forward shoulder posture Palpation Assessment Location left thoracic incision Palpation Findings Spasm,Muscle Guarding Palpation Details scar tissue tightness from the scar where chest tube was placed PT-OP-K Range of Motion Start: 03/18/23 11:24 Freq: Status: Active Protocol: Document 03/17/23 12:15 [facility] (Rec: 03/18/23 11:26 [facility] [id number]) Lumbar Spine Range of Motion Lumbar Spine Active Flexion 90 Extension 30 Rotation Left 45 Rotation Right 25 Lateral Flexion Left 30 Lateral Flexion Right 20 Hip Goniometric Range of Motion Hip Left Hip ROM WFL No Testing Position Supine Internal Rotation 5 External Rotation 30 Right Hip ROM WFL No Internal Rotation 8 External Rotation 30 PT-OP-M Strength Start: 03/17/23 09:04 Freq: Status: Active Protocol: Document 03/17/23 12:15 [facility] (Rec: 03/18/23 11:24 [facility] [id number]) Trunk Strength Trunk Manual Muscle Testing Flexion 3 Fair Extension 3 Fair Core Stabilization decreased core stabilization and trunk control Scapula Strength Scapula Manual Muscle Testing Right Adduction 3+ Fair+ Left Adduction 3 Fair Ankle/Foot Strength Ankle and Foot Manual Muscle Testing Right Dorsiflexion (L4) 3+ Fair+ Left Dorsiflexion (L4) 3+ Fair+ PT-OP-Q Treatments Start: 03/17/23 09:04 Freq: Status: Active Protocol: Document 06/09/23 08:52 [facility] (Rec: 06/09/23 09:30 [facility] [id number]) Therapeutic Exercises Supine Exercises diaphragmatic breathing Reps/Minutes x 10 reps cues in inhale x 4 exhale x 4 counts Comments worked on lateral rib cage expansion foam roll stretch Reps/Minutes 5 min Comments shoulder flexion, abduction, pec stretch Other Exercises standing shoulder extension Reps/Minutes 2 x 10 reps level 1 standing rows Reps/Minutes 2 x 10 level 2 TB quadruped sidebends Reps/Minutes x 10 each tyra pose stretch Comments hold 1-2 min quadruped cat cow Reps/Minutes x 10 reps PT-OP-R Modalities Start: 05/20/23 10:58 Freq: Status: Active Protocol: Document 05/20/23 10:30 [facility] (Rec: 05/20/23 10:59 [facility] [id number]) Ultrasound Therapy Treatment left posterior lateral lats and parspinals Patient Position Sidelying Coupling Medium Ultrasound Gel Applicator Size (cm2) 5 Mode Setting Continuous Duty Cycle 100% Intensity Setting (w/cm2) 1.5 PT-OP-T Assessment and Plan Start: 03/17/23 09:04 Freq: Status: Active Protocol: Document 06/09/23 08:52 [facility] (Rec: 06/09/23 09:30 [facility] [id number]) Physical Therapy Assessment Assessment Summary Assessment Arabella had been making great progress before her fall [place]. Her increased pain has been exaccerbated with a cold and asthma symptoms making the incision over her lungs irritated. I have been working on releasing scar tissue and myofascial tightness over the incision as well as working on postural exercises and rib cage expansion. Arabella was not able to return to these exercises after her fall until today. She does feel good about her exercise program for home. At this point per her request we will DC PT but I would be happy to work with her again should she need further PT Physical Therapy Plan Discharge Physical Therapy Discharge Reasons Patient Request Discharge Comments Arabella wants to save her PT visits for after she has a spinal injection but feels Ind with her home program at this time
== END 2023-06-11 11:23 ==
LOC: PHYS 08:45
PROVIDERS: Family Provider Registered Nurse Diabetes Educator; PCP Registered Nurse Diabetes Educator; Referring Provider Physical Medicine & Rehabilitation; Visit Provider Physical Medicine & Rehabilitation
DX: M51.24 Other intervertebral disc displacement, thoracic region (principal); Z98.1 Arthrodesis status
CPT/HCPCS: 97035; 97110; 97140; 97161

== ENCOUNTER → 2023-06-26 14:19 | Outpatient (CLI) | payer OTHER, MEDICAID, SELFPAY ==
--- NOTE | 2023-06-26 14:20 | DI.RAD.S_ITS ---
PROCEDURE: XR KNEE RT 3V INDICATIONS: RIGHT KNEE PAIN TECHNIQUE: 3 views of the knee were acquired. COMPARISON: [facility], CR, XR KNEE 4+ VIEWS RIGHT, 03/27/2021, 15:26. [facility], CR, KNEE 3V RIGHT, 09/23/2016, 14:21. FINDINGS: Bones: No acute fracture or dislocation. Moderate medial compartment narrowing and spurring, mild lateral patellofemoral compartment narrowing and spurring. Soft tissues: No joint effusion. No suspicious soft tissue calcifications. IMPRESSION: No acute fracture identified. Tricompartmental degenerative changes of the knee. If symptoms persist, follow-up radiographs and/or CT or MRI may be helpful for further evaluation. Dictated by: Obie Pagan M.D. on 06/26/2023 at 15:26 Approved by: Obie Pagan M.D. on 06/26/2023 at 15:28
== END ==
PROVIDERS: Family Provider Registered Nurse Diabetes Educator; PCP Registered Nurse Diabetes Educator; Referring Provider Physical Medicine & Rehabilitation; Visit Provider Physical Medicine & Rehabilitation
DX: M17.10 Unilateral primary osteoarthritis, unspecified knee (principal)
CPT/HCPCS: 73562

== ENCOUNTER 2023-07-26 07:33 | Emergency (ER) | payer OTHER, MEDICAID, SELFPAY ==
[2023-07-26] VITALS (11 sets, daily range): BP systolic 131–161; BP diastolic 63–83; PULSE 87–115; RESP 10–18; TEMP 37.6–38.2; O2SAT 97–100
--- NOTE | 2023-07-26 07:42 | ED.ABDPAIN ---
HPI - Abdominal Pain General Chief Complaint: Urogenital-Female Stated Complaint: fever, possible covid Time Seen by Provider: 07/26/23 07:41 Source: patient, EMS, RN notes reviewed and old records reviewed Mode of arrival: EMS Limitations: no limitations History of Present Illness HPI narrative: 53-year-old female with history of asthma, developmental delay, thyroid disorder, chronic back pain with complaint of fever, nasal congestion, ear pain and cough, some chest tightness. Patient also notes some new lower back pain particularly on the left flank and some frequency but no dysuria or sense of urgency. Patient states she had a temperature of 100.7? F at home. She is ambulatory moves without issue. States symptoms really started last night but kept her up overnight particularly the back pain. She states she had nausea some dry heaves but no liquid emesis. Denies any chest pain or pressure. States she feels congested in her chest. States her abdomen feels a little tender lower as well. Denies any diarrhea or constipation. States she had a formed brown stool this morning. No black or bloody stools. No new vaginal bleeding or discharge. Patient states she is on Neurontin, Strattera, albuterol as needed, Advair. Patient states she took her a.m. medications. She notes she is been decreasing her Neurontin 2 tablets twice daily for the past week. Patient states she is had prior back surgery. She states no recent interventions. She states she has multiple allergies. Patient's primary care is Raghavendra Mclean. She follows with Dr. Rosenberg for her back. Related Data Home Medications Medication Instructions Recorded Confirmed naproxen 250 mg tablet 250 mg PO BID PRN Pain (Scale 07/15/19 07/03/23 Score 4-6) docusate sodium 250 mg capsule 750 mg PO BEDTIME #0 caps 05/31/21 07/03/23 Previous Rx's Medication Instructions Recorded disabled parking permit #1 ea 03/04/19 inhalational spacing device (Babak #1 ea 11/14/19 Aerosol Tripp Enhancer spacer) minocycline 100 mg capsule See Rx Instructions .Route 03/28/22 .COMPLEX PRN acne #60 caps albuterol sulfate 1.25 mg/3 mL 1.25 mg (3 mL) inhalation Q4-6H 10/07/22 solution for nebulization PRN shortness of breath or wheezing #75 mL albuterol sulfate 90 mcg/actuation 2 inh inhalation Q4-6H PRN 10/07/22 aerosol inhaler shortness of breath or wheezing #17 grams atomoxetine 40 mg capsule See Rx Instructions .Route 12/11/22 .COMPLEX #90 caps fluticasone 100 mcg-salmeterol 50 See Rx Instructions .Route 12/11/22 mcg/dose blistr powdr for .COMPLEX #180 ea inhalation (Advair Diskus) sumatriptan succinate 25 mg tablet See Rx Instructions .Route 12/11/22 .COMPLEX #30 tabs venlafaxine 37.5 mg 37.5 mg PO DAILY #90 caps 12/11/22 capsule,extended release 24 hr phenazopyridine 200 mg tablet 200 mg PO TID PRN pain 6 doses #6 12/22/22 (Pyridium) tabs omeprazole 20 mg capsule,delayed 20 mg PO DAILY #90 caps 04/15/23 release epinephrine 0.3 mg/0.3 mL 0.3 mg (0.3 mL) IM PRN PRN 06/11/23 injection, auto-injector anaphylaxis #2 doses gabapentin 300 mg capsule See Rx Instructions .Route 06/22/23 .COMPLEX #180 caps amoxicillin 875 mg-potassium 1 tab PO BID #20 tabs 07/26/23 clavulanate 125 mg tablet Allergies Allergy/AdvReac Type Severity Reaction Status Date / Time peanut [PEANUT] Allergy Severe ANAPHYLAXIS Verified 07/26/23 07:47 Sulfa (Sulfonamide Allergy Severe HIVES Verified 07/26/23 07:47 Antibiotics) [SULFA (SULFONAMIDE ANTIBIOTICS)] propofol [PROPOFOL] Allergy Unknown Verified 07/26/23 07:47 tree nut [TREE NUT] Allergy Unknown Verified 07/26/23 07:47 metoclopramide AdvReac Severe EPS Verified 07/26/23 07:47 [METOCLOPRAMIDE] SYMPTOMS hydrocodone [HYDROCODONE] AdvReac Mild STRANGE Verified 07/26/23 07:47 FEELING meperidine [MEPERIDINE] AdvReac Mild FEELS WEIRD Verified 07/26/23 07:47 morphine [MORPHINE] AdvReac Mild SPACEY Verified 07/26/23 07:47 fresh vegetables Allergy Severe itchy, Uncoded 07/26/23 07:47 throat swelling FRESH FRUIT Allergy Unknown Uncoded 11/05/23 07:47 Review of Systems Review of Systems ROS Unobtainable: All systems reviewed & are unremarkable except as noted in HPI and below Patient History Medical History HNP (herniated nucleus pulposus), thoracic Mild persistent asthma Degenerative joint disease of knee Abnormal mammogram of right breast (11/2021) Thyroid nodule (05/2021) Rib pain on left side (~1999) Dyslexia Migraines (~2008) Headache (~1986) History of developmental delay Chronic back pain (~2008) Ankle pain (~2019) Chicken pox (~1986) Heartburn (~1999) Varicose veins of right lower extremity Enlarged thyroid (04/2021) Myofascial pain on left side Acne (11/22/14) Allergic rhinitis (11/22/14) Gastroesophageal reflux disease (11/22/14) Asthma (11/22/14) History of chronic back pain (11/22/14) Depression (11/22/14) Attention deficit disorder (11/22/14) Surgical History Anesthesia History of knee surgery (~1986) History of spinal fusion (~2008) Status post hysterectomy Status post cholecystectomy (~2003) Family History Father Age: 84 Hypertension FH: prostate cancer Cancer Stroke Low iron Grandfather Disease of colon Cancer Grandmother Asthma Cancer Mother Age: 81 High cholesterol Sleep apnea Depression Mental health problem Sister Heart murmur Depression History of heart disease Mental health problem Sister Skin cancer Mental health problem Social History marital status: unmarried,single number of children: 1 household members: none lives independently: Yes caregiver/support person: No housing: house Smoking Status: Never smoker second hand exposure: No alcohol intake: current substance use type: does not use Smoking Status: Never smoker alcohol intake frequency: holidays/special occasions only Substance Use Type: does not use Exam Narrative Exam Narrative: GEN: well nourished, well appearing female, alert and oriented x 3, patient appears to be in mild distress. HEENT: Atraumatic, pupils are equal round reactive to light, extraocular movements are intact, nares are clear, TMs are clear with no fluid, there is no conjunctival pallor. Normal speech. HEART: Regular rate and rhythm without murmur, clicks, rubs. LUNGS:Lungs clear to auscultation, no wheezes, rales, crackles, chest moves symmetrically, no tachypnea or accessory muscle use. Speaks in full sentences. ABD:bowel sounds normal, soft, non-tender, no guarding, rebound, rigidity, no masses noted, no hepatosplenomegaly : Mild left CVA tenderness, no right CVA tenderness. No midline vertebral tenderness. MSCL: Non-tender, no muscle atrophy, muscles strength 5/5 upper and lower extremities, full range of motion, normal gait NEURO:CN 2-12 intact, sensation normal SKIN: No rash, erythema or other skin changes noted Initial Vital Signs Initial Vital Signs: Vital Signs Temperature 99.6 F 07/26/23 07:35 Pulse Rate 108 H 07/26/23 07:35 Respiratory Rate 16 07/26/23 07:35 Blood Pressure 131/83 07/26/23 07:35 Pulse Oximetry 98 07/26/23 07:35 Oxygen Delivery Method Room Air 07/26/23 07:35 Course Orders Ordered: Discontinued Medications Acetaminophen (Acetaminophen 325 Mg Tablet) 975 mg PO NOW ONE Stop: 07/26/23 09:48 Last Admin: 07/26/23 10:06 Dose: 975 mg Documented By: RIGO Amoxicillin/Clavulanate Potassium (Amoxicillin/Clav 875/125 Mg) 1 tab PO NOW ONE Stop: 07/26/23 09:04 Last Admin: 07/26/23 10:06 Dose: 1 tab Documented By: RIGO Sodium Chloride (Normal Saline 0.9%) 1,000 mls @ 1,000 mls/hr IV BOLUS ONE Stop: 07/26/23 08:44 Last Infusion: 07/26/23 10:08 Dose: Infused Documented By: Admin: 07/26/23 08:36 Dose: 1,000 mls/hr Documented By: DAMON Ketorolac Tromethamine (Ketorolac 30 Mg/Ml Vial) 15 mg IV NOW ONE Stop: 07/26/23 07:46 Last Admin: 07/26/23 08:35 Dose: 15 mg Documented By: DAMON Vital Signs Vital signs: Vital Signs - 8 hr 07/26/23 07:35 07/26/23 07:38 07/26/23 07:45 Temperature 99.6 F Pulse Rate 108 H 115 H 92 H Respiratory Rate 16 15 Blood Pressure 131/83 Pulse Oximetry 98 97 98 Oxygen Delivery Method Room Air 07/26/23 07:45 07/26/23 08:00 07/26/23 08:00 Temperature Pulse Rate 93 H Respiratory Rate 17 Blood Pressure 135/71 133/67 Pulse Oximetry 100 Oxygen Delivery Method 07/26/23 08:30 07/26/23 08:52 Temperature 100.7 F H Pulse Rate 99 H Respiratory Rate 18 Blood Pressure Pulse Oximetry Oxygen Delivery Method MDM - Abdominal Pain Lab Data 07/26/23 08:10 07/26/23 08:10 Labs: Lab Results 07/26/23 07/26/23 07/26/23 Range/Units 07:45 08:10 08:46 WBC 5.1 (4.5-11.0) X10^3/uL RBC 4.02 (4.0-5.2) X10^6/uL Hgb 12.9 (12.0-16.0) g/dL Hct 37.5 (36-46) % MCV 93.3 (80-100) fL MCH 32.1 (26-34) PG MCHC 34.4 (30-36) % RDW 15.1 H (11.6-14.8) % Plt Count 177 (150-400) X10^3/uL Neut % (Auto) 84.7 H (50-75) % Lymph % (Auto) 8.4 L (25-40) % [place] % (Auto) 6.5 (3-14) % Eos % (Auto) 0.2 L (2-4) % Baso % (Auto) 0.2 (0-2) % Neut # (Auto) 4300 (3410-2709) /uL Lymph # (Auto) 400 L (8423-8959) /uL [place] # (Auto) 300 (0-900) /uL Eos # (Auto) 0 (0-450) /uL Baso # (Auto) 0 (0-100) /uL Sodium 134 L (137-145) mmol/L Potassium 3.6 (3.4-5.1) mmol/L Chloride 102 (98-107) mmol/L Carbon Dioxide 26 (22-32) mmol/L BUN 14 (7-17) mg/dL Creatinine 0.49 L (0.52-1.04) mg/dL Estimated GFR > 60 (>60) mL/min BUN/Creatinine Ratio 28.6 H (6-22) Glucose 110 H (70-100) mg/dL Lactate 0.9 (0.7-2.1) mmol/L Calcium 9.3 (8.4-10.2) mg/dL Total Bilirubin 0.5 (0.2-1.3) mg/dL AST 53 H (14-36) IU/L ALT 78 H (<35) IU/L Alkaline Phosphatase 138 H (38-126) U/L Total Protein 6.4 (6.3-8.2) g/dL Albumin 3.8 (3.5-5.0) g/dL Globulin 2.6 (1.7-4.1) g/dL Albumin/Globulin Ratio 1.5 (1.0-2.8) Lipase 38 (23-300) U/L Procalcitonin 0.11 (<0.5) ng/mL Urine Color Yellow Urine Appearance Clear Urine pH 6.5 (4.5-8.0) Ur Specific [place] 1.020 (1.000-1.035) Urine Protein Trace H (Negative) Urine Glucose (UA) Negative (Negative) g/dL Urine Ketones 2+ H (NEGATIVE) Urine Occult Blood Trace-intact (Negative) Urine Nitrate Negative (Negative) Urine Bilirubin 1+ H (NEGATIVE) Ur Bilirubin Confirm Negative (Negative) Urine Urobilinogen 1.0 (0.2) E.U./dL Ur Leukocyte Esterase Negative (NEGATIVE) Urine RBC 1-5/hpf (0-5/HPF) Urine WBC 5-10/hpf H (0-5/HPF) Ur Squamous Epith Cells 0-1 /hpf (0-5/HPF) Amorphous Sediment 2+ Urine Bacteria None seen (None) Urine Mucus 3+ H (Negative) Ur Culture Indicated? Specimen cultured SARS-CoV-2 (PCR) Negative (Negative) Influenza A (RT-PCR) Flu a negative (NEGATIVE) Influenza B (RT-PCR) Flu b negative (NEGATIVE) RSV (PCR) Negative (Negative) Point of care testing: Urine Dip Bedside Urine Glucose Negative Bedside Urine Bilirubin + 1 Bedside Urine Ketone +++ 80 Urine Specific [place] 1.020 Bedside Urine Occult Blood - Negative Bedside Urine pH 6.0 Bedside Urine Protein +/- 15 Bedside Urine Urobilinogen - Negative Bedside Urine Nitrite - Negative Bedside Urine Leukocytes +/- 15 Esterase Imaging Data Chest x-ray: Radiologist's Impression: [place] [id number] [place] [id number] XRay Report Signed Patient: Arabella Hameed MR#: [id number] : 1970 Acct:[id number] Age/Sex: 53 / F Date of Service: 07/26/23 Loc: ED Accession Number: [id number] Procedure: XR chest 1V Ordering Provider: Michelle Garza D.O. PROCEDURE: XR CHEST 1V INDICATIONS: cough, fever, back pain TECHNIQUE: One view of the chest was acquired. COMPARISON: [facility], CR, XR CHEST 2V, 10/02/2022, 14:59. FINDINGS: Surgical changes and devices: Thoracolumbar fusion hardware partially seen. Overlying monitoring wires. Lungs and pleura: Hazy left lateral mid and lower lung alveolar opacity. Slight blunting of left costophrenic sulcus but no significant effusion seen. No pneumothorax. The right lung is clear. Mediastinum: Mediastinal contours appear normal. Heart size is normal. Bones and chest wall: No suspicious bony lesions. Overlying soft tissues appear unremarkable. IMPRESSION: 1. Hazy left lower lung alveolar opacity suggestive of pneumonia without significant effusion. Dictated by: Cheryle Aguirre M.D. on 07/26/2023 at 8:30 Approved by: Cheryle Aguirre M.D. on 07/26/2023 at 8:31 ECG Data Attestation: I personally reviewed and interpreted this ECG as follows: Prior ECG tracings: not available for review Interpretation: Sinus rhythm rate of 91 NV 158 QRS of [address] No acute [address] elevation or depression noted. No prior for comparison. MDM Narrative Medical decision making narrative: 53-year-old female with complaint of fevers, patient is 89 F here. Some upper respiratory symptoms with ear pain, nasal congestion, cough and some chest tightness. Patient notes she had COVID in May. She is not tested at home. Patient has also had some lower back/flank pain which is new in the last 24 hours as well and some urinary frequency. She is slightly tachycardic at 118 and came down to 100 shortly thereafter. Patient is ambulatory no tenderness over the mid spine very remote history of interventions on her back. Plan for labs, chest x-ray, [facility] respiratory panel, urine and possibly additional imaging. Patient's left lower lung opacity suggesting pneumonia, patient has had chest congestion and reported fevers 100.7 F at home. No leukocytosis but does have leftward shift, hemoglobin of 12 platelets are 177. Respiratory for Plex was negative., patient's sodium 134 otherwise appropriate electrolytes glucose 110 normal renal function LFT slightly elevated at 53 78 and 138 alk-phos, bilirubin 0.5 with a negative lipase. Lactate negative at 0.9, procalcitonin is negative. Urine shows trace protein 2+ ketones, 1+ bili, no nitrates, no leukocyte esterase 5-10 white cells 1-5 RBCs 0-1 squamous no bacteria specimen was cultured. Patient did have some urinary symptoms. Possible pneumonia. Discussed with patient family at bedside we will cover with antibiotic, urine culture shows resistance can be changed. Discharge Plan Departure Patient Disposition: Home Clinical Impression: Pneumonia Instructions: DI for Pneumonia -- Adult Activity Restrictions/Additional Instructions: Your workup today shows a possible pneumonia on your chest x-ray. Your urine also shows possible infection. Your urine was sent for culture this takes 48-72 hours to result and if it shows resistant to the antibiotics you have been prescribed he will be contacted to change those. Continue your home meds including your albuterol as needed. You may take Tylenol up to a 1000 mg every 6 hours as needed for pain and/or fever. You can take Aleve as prescribed as well with Tylenol as needed. Take oral antibiotics until completed. Prescription sent to [facility] in [place] Please return for worsening symptoms increasing shortness of breath, increasing or new chest pain, passing out, persistent vomiting, or bloody stool or other new or concerning changes. Prescriptions: New amoxicillin-pot clavulanate 875-125 mg tablet 1 tab PO BID Qty: 20 0RF No Action (DME) Babak Aerosol Tripp Enhancer Spacer See Rx Instructions .ROUTE .MEDSUPPLY Qty: 1 0RF Rx Instructions: As directed phenazopyridine [Pyridium] 200 mg tablet 200 mg PO TID PRN (Reason: pain) Qty: 6 0RF (DME) disabled parking permit Qty: 1 0RF Dose Instruction: As directed Rx Instructions: my patient meets the qualifying condition of unable to walk 200 ft without stopping to rest due to orthopedic condition docusate sodium 250 mg capsule 750 mg PO BEDTIME Qty: 0 minocycline 100 mg capsule See Rx Instructions .ROUTE .COMPLEX PRN (Reason: acne) Qty: 60 0RF Dose Instruction: take 1 capsule by mouth twice a day Rx Instructions: take 1 capsule by mouth twice a day PRN; omeprazole 20 mg capsule,delayed release(DR/EC) 20 mg PO DAILY Qty: 90 1RF epinephrine 0.3 mg/0.3 mL auto-injector 0.3 mg IM PRN PRN (Reason: anaphylaxis) Qty: 2 1RF Patient Comments: patient has not taken ever gabapentin 300 mg capsule See Rx Instructions .ROUTE .COMPLEX Qty: 180 1RF Dose Instruction: take 3 capsules by mouth every morning and 3 capsules at bedtime Rx Instructions: take 3 capsules by mouth every morning and 3 capsules at bedtime albuterol sulfate 1.25 mg/3 mL solution for nebulization 1.25 mg INHALATION Q4-6H PRN (Reason: shortness of breath or wheezing) Qty: 75 2RF albuterol sulfate 90 mcg/actuation HFA aerosol inhaler 2 inh inhalation Q4-6H PRN (Reason: shortness of breath or wheezing) Qty: 17 5RF venlafaxine 37.5 mg capsule,extended release 24hr 37.5 mg PO DAILY Qty: 90 3RF sumatriptan succinate 25 mg tablet See Rx Instructions .ROUTE .COMPLEX Qty: 30 3RF Dose Instruction: take 1 tablet by mouth if needed for MIGRAINE HEADACHE, TAKE AT ONSET OF MIGRAINE. MAY REPEAT ONCE IN 2 HOURS Rx Instructions: take 1 tablet by mouth if needed for MIGRAINE HEADACHE, TAKE AT ONSET OF MIGRAINE. MAY REPEAT ONCE IN 2 HOURS fluticasone propion-salmeterol [Advair Diskus] 100-50 mcg/dose blister with device See Rx Instructions .ROUTE .COMPLEX Qty: 180 3RF Hold Instructions: temporary change to higher dose Dose Instruction: inhale 1 puff by mouth twice a day Rx Instructions: inhale 1 puff by mouth twice a day atomoxetine 40 mg capsule See Rx Instructions .ROUTE .COMPLEX Qty: 90 1RF Dose Instruction: take 1 capsule by mouth once daily Rx Instructions: take 1 capsule by mouth once daily naproxen 250 mg Tablet 250 mg PO BID PRN (Reason: Pain (Scale Score 4-6)) Referrals: Raghavendra Esparza ARNP [Primary Care Provider] - Stand Alone Forms: Patient Portal/API
[2023-07-26 08:21] LABS: Add Manual Diff / Slide Review NO; Basophils Absolute Auto 0 /uL (0-100); Basophils Percent Auto 0.2 % (0-2); Eosinophils Absolute Auto 0 /uL (0-450); Eosinophils Percent Auto 0.2 % (2-4); Hematocrit 37.5 % (36-46); Hemoglobin 12.9 g/dL (12.0-16.0); Lymphocytes Absolute Auto 400 /uL (1100-4500); Lymphocytes Percent Auto 8.4 % (25-40); Mean Corpuscular HGB Conc 34.4 % (30-36); Mean Corpuscular Hemoglobin 32.1 PG (26-34); Mean Corpuscular Volume 93.3 fL (80-100); Monocytes Absolute Auto 300 /uL (0-900); Monocytes Percent Auto 6.5 % (3-14); Neutrophils Absolute Auto 4300 /uL (1500-7000); Neutrophils Percent Auto 84.7 % (50-75); Platelet Count 177 X10^3/uL (150-400); Red Blood Cell Count 4.02 X10^6/uL (4.0-5.2); Red Cell Distribution Width 15.1 % (11.6-14.8); White Blood Cell Count 5.1 X10^3/uL (4.5-11.0)
[2023-07-26 08:32] LABS: Alanine Aminotransferase 78 IU/L (<35); Albumin 3.8 g/dL (3.5-5.0); Albumin Globulin Ratio 1.5 (1.0-2.8); Alkaline Phosphatase 138 U/L (38-126); Aspartate Aminotransferase 53 IU/L (14-36); BUN Creatinine Ratio 28.6 (6-22); Bilirubin Total 0.5 mg/dL (0.2-1.3); Blood Urea Nitrogen 14 mg/dL (7-17); Calcium 9.3 mg/dL (8.4-10.2); Carbon Dioxide 26 mmol/L (22-32); Chloride 102 mmol/L (98-107); Estimated Glomerular Filt Rate > 60 mL/min (>60); Globulin 2.6 g/dL (1.7-4.1); Glucose 110 mg/dL (70-100); HEMOLYSIS < 15 (0-50); Lipase 38 U/L (23-300); Potassium 3.6 mmol/L (3.4-5.1); Sodium 134 mmol/L (137-145); Total Protein 6.4 g/dL (6.3-8.2)
[2023-07-26 08:33] LABS: Lactate (Lactic Acid) 0.9 mmol/L (0.7-2.1)
[2023-07-26 08:33] LABS: Influenza A - CEPHEID Flu A NEGATIVE (NEGATIVE); Influenza B - CEPHEID Flu B NEGATIVE (NEGATIVE); Respiratory Syncytial Virus Negative (Negative)
[2023-07-26 08:34] LABS: COVID-19 CEPHEID 4-PLEX PCR Negative (Negative)
[2023-07-26] MEDS: KETOROLAC 30 MG/ML VIAL 15 MG IV (08:35)
[2023-07-26] MEDS: SODIUM CHLORIDE 0.9% 1,000 ML 1000 ML IV (08:36)
[2023-07-26 08:49] LABS: Procalcitonin 0.11 ng/mL (<0.5)
[2023-07-26 08:52] LABS: Appearance Urine UA CLEAR; Bilirubin Urine UA 1+ (NEGATIVE); Color Urine UA YELLOW; Glucose Urine UA NEGATIVE (Negative); Ketones Urine UA 2+ (NEGATIVE); Leukocyte Esterase Urine UA NEGATIVE (NEGATIVE); Nitrite Urine UA NEGATIVE (Negative); Occult Blood Urine UA TRACE-INTACT (Negative); Protein Urine UA TRACE (Negative)
[2023-07-26 08:54] LABS: Ictotest Urine Negative (Negative); pH Urine UA 6.5 (4.5-8.0)
[2023-07-26 09:00] LABS: Bacteria Urine None Seen; RBC Urine 1-5/HPF (0-5/HPF); Squamous Epithelial Cell Urine 0-1 /HPF (0-5/HPF); WBC Urine 5-10/HPF (0-5/HPF)
[2023-07-26 09:01] LABS: Amorphous Sediment Urine 2+; Culture Indicated Urine Specimen Cultured; Mucus Urine 3+ (Negative)
[2023-07-26] MEDS: AMOXICILLIN/CLAV 875/125 MG 1 TAB PO (10:06)
[2023-07-26] MEDS: ACETAMINOPHEN 325 MG TABLET 975 MG PO (10:06)
== END 2023-07-26 10:19 | disposition home or self-care (01) ==
PROVIDERS: Emergency Provider Emergency Medicine; Family Provider Registered Nurse Diabetes Educator; PCP Registered Nurse Diabetes Educator
DX: J18.9 Pneumonia, unspecified organism (principal); Z20.822 Contact with and (suspected) exposure to COVID-19
CPT/HCPCS: 0241U; 36415; 71045; 80053; 81001; 81003; 83605; 83690; 84145; 85025; 87040; 87086; 93005; 96361; 96374; 99284; J1885

== ENCOUNTER 2023-08-01 14:59 | Emergency (ER) | payer OTHER, MEDICAID, SELFPAY ==
[2023-08-01 15:02] VITALS: BP 130/67; PULSE 84; RESP 18; TEMP 36.9; O2SAT 99; BMI 29.4
[2023-08-01 15:13] VITALS: BP 133/62; PULSE 82; O2SAT 98
--- NOTE | 2023-08-01 15:14 | DI.RAD.S_ITS ---
PROCEDURE: XR CHEST 1V INDICATIONS: Shortness of breath TECHNIQUE: One view of the chest was acquired. COMPARISON: [facility], CR, XR CHEST 1V, 07/26/2023, 8:07. FINDINGS: Surgical changes and devices: Thoracolumbar instrumentation with corpectomy spacer Lungs and pleura: Lingular pulmonary infiltrate is slightly increased from the prior exam. Right lung and pleural space clear. Mediastinum: Mediastinal contours appear normal. Heart size is normal. Bones and chest wall: No suspicious bony lesions. Overlying soft tissues appear unremarkable. IMPRESSION: Worsening lingular pulmonary infiltrate Approved by: Bhavik Red M.D. on 08/01/2023 at 15:13
[2023-08-01 15:31] VITALS: PULSE 82; O2SAT 100
[2023-08-01 15:37] LABS: Lactate (Lactic Acid) 1.1 mmol/L (0.7-2.1)
[2023-08-01 15:38] LABS: Alanine Aminotransferase 116 IU/L (<35); Albumin 3.7 g/dL (3.5-5.0); Albumin Globulin Ratio 1.3 (1.0-2.8); Alkaline Phosphatase 204 U/L (38-126); Aspartate Aminotransferase 76 IU/L (14-36); BUN Creatinine Ratio 18.3 (6-22); Bilirubin Total 0.5 mg/dL (0.2-1.3); Blood Urea Nitrogen 11 mg/dL (7-17); Calcium 9.5 mg/dL (8.4-10.2); Carbon Dioxide 31 mmol/L (22-32); Chloride 101 mmol/L (98-107); Estimated Glomerular Filt Rate > 60 mL/min (>60); Globulin 2.9 g/dL (1.7-4.1); Glucose 102 mg/dL (70-100); HEMOLYSIS 30 (0-50); Potassium 3.8 mmol/L (3.4-5.1); Sodium 139 mmol/L (137-145); Total Protein 6.6 g/dL (6.3-8.2)
--- NOTE | 2023-08-01 15:46 | ED_ITS ---
HPI - SOB/Dyspnea <Aurelio Salas PA-C - Last Filed: 08/01/23 16:42> General Chief Complaint: Shortness of Breath/Dyspnea Stated Complaint: SENT BY [facility] PNEMONIA WORSENING Time Seen by Provider: 08/01/23 15:13 Source: patient Mode of arrival: Ambulatory Limitations: no limitations History of Present Illness HPI Narrative: This is a 53-year-old female presents emergency department due to continued symptoms after being diagnosed with pneumonia 6 days ago. She states that she was seen here in the emergency department and prescribed Augmentin which she is been taking as prescribed. She reports continued dull aching chest pain, mild shortness of breath, fatigue, and cough. Denies any worsening chest pain, abdominal pain, or any other concerning signs or symptoms. Denies fevers. Related Data Home Medications Medication Instructions Recorded Confirmed naproxen 250 mg tablet 250 mg PO BID PRN Pain (Scale 07/15/19 07/03/23 Score 4-6) docusate sodium 250 mg capsule 750 mg PO BEDTIME #0 caps 05/31/21 07/03/23 Previous Rx's Medication Instructions Recorded disabled parking permit #1 ea 03/04/19 inhalational spacing device (Babak #1 ea 11/14/19 Aerosol [place] Enhancer spacer) minocycline 100 mg capsule See Rx Instructions .Route 03/28/22 .COMPLEX PRN acne #60 caps albuterol sulfate 1.25 mg/3 mL 1.25 mg (3 mL) inhalation Q4-6H 10/07/22 solution for nebulization PRN shortness of breath or wheezing #75 mL albuterol sulfate 90 mcg/actuation 2 inh inhalation Q4-6H PRN 10/07/22 aerosol inhaler shortness of breath or wheezing #17 grams atomoxetine 40 mg capsule See Rx Instructions .Route 12/11/22 .COMPLEX #90 caps fluticasone 100 mcg-salmeterol 50 See Rx Instructions .Route 12/11/22 mcg/dose blistr powdr for .COMPLEX #180 ea inhalation (Advair Diskus) sumatriptan succinate 25 mg tablet See Rx Instructions .Route 12/11/22 .COMPLEX #30 tabs venlafaxine 37.5 mg 37.5 mg PO DAILY #90 caps 12/11/22 capsule,extended release 24 hr phenazopyridine 200 mg tablet 200 mg PO TID PRN pain 6 doses #6 04/03/23 (Pyridium) tabs omeprazole 20 mg capsule,delayed 20 mg PO DAILY #90 caps 04/15/23 release epinephrine 0.3 mg/0.3 mL 0.3 mg (0.3 mL) IM PRN PRN 06/11/23 injection, auto-injector anaphylaxis #2 doses gabapentin 300 mg capsule See Rx Instructions .Route 06/22/23 .COMPLEX #180 caps amoxicillin 875 mg-potassium 1 tab PO BID #20 tabs 07/26/23 clavulanate 125 mg tablet dextromethorphan HBr 15 mg tablet 30 mg (2 x 15 mg) PO Q8H PRN cough 08/01/23 (Delsym Cough) #30 tabs levofloxacin 750 mg tablet 750 mg PO DAILY 5 days #5 tabs 08/01/23 Allergies Allergy/AdvReac Type Severity Reaction Status Date / Time peanut [PEANUT] Allergy Severe ANAPHYLAXIS Verified 08/01/23 15:08 Sulfa (Sulfonamide Allergy Severe HIVES Verified 08/01/23 15:08 Antibiotics) [SULFA (SULFONAMIDE ANTIBIOTICS)] propofol [PROPOFOL] Allergy Unknown Verified 08/01/23 15:08 tree nut [TREE NUT] Allergy Unknown Verified 08/01/23 15:08 metoclopramide AdvReac Severe EPS Verified 08/01/23 15:08 [METOCLOPRAMIDE] SYMPTOMS hydrocodone [HYDROCODONE] AdvReac Mild STRANGE Verified 08/01/23 15:08 FEELING meperidine [MEPERIDINE] AdvReac Mild FEELS WEIRD Verified 08/01/23 15:08 morphine [MORPHINE] AdvReac Mild SPACEY Verified 08/01/23 15:08 fresh vegetables Allergy Severe itchy, Uncoded 07/26/23 07:47 throat swelling FRESH FRUIT Allergy Unknown Uncoded 07/26/23 07:47 Review of Systems <Aruelio Salas PA-C - Last Filed: 08/01/23 16:42> Review of Systems Narrative: GENERAL: Denies chills, fatigue, malaise, fever, sweats. HEENT: Denies sinus pain, ear pain, sore throat, difficulty swallowing, dizziness. RESPIRATORY: Reports shortness of breath and dull aching chest pain, cough, denies wheezing, hemoptysis, sputum. CARDIOVASCULAR: Denies palpitations, orthopnea, edema, GASTROINTESTINAL: Denies nausea, vomiting, abdominal pain, diarrhea, constipation, melena. : Denies dysuria, frequency, incontinence, hematuria, urinary retention. MUSCULOSKELETAL: denies weakness, joint pain, or bony pain SKIN: Denies rash, skin lesions, or other NEUROLOGIC: Denies weakness, headache, numbness, change in speech, confusion, seizures, incoordination. PSYCHIATRIC: No concerning psychosocial issues. 12 point review of systems is negative except for those stated above Patient History <Aurelio Salas PA-C - Last Filed: 08/01/23 16:42> Medical History HNP (herniated nucleus pulposus), thoracic Mild persistent asthma Degenerative joint disease of knee Abnormal mammogram of right breast (11/2021) Thyroid nodule (05/2021) Rib pain on left side (~1999) Dyslexia Migraines (~2008) Headache (~1986) History of developmental delay Chronic back pain (~2008) Ankle pain (~2019) Chicken pox (~1986) Heartburn (~1999) Varicose veins of right lower extremity Enlarged thyroid (04/2021) Myofascial pain on left side Acne (11/22/14) Allergic rhinitis (11/22/14) Gastroesophageal reflux disease (11/22/14) Asthma (11/22/14) History of chronic back pain (11/22/14) Depression (11/22/14) Attention deficit disorder (11/22/14) Surgical History Anesthesia History of knee surgery (~1986) History of spinal fusion (~2008) Status post hysterectomy Status post cholecystectomy (~2003) Family History Father Age: 84 Hypertension FH: prostate cancer Cancer Stroke Low iron Grandfather Disease of colon Cancer Grandmother Asthma Cancer Mother Age: 81 High cholesterol Sleep apnea Depression Mental health problem Sister Heart murmur Depression History of heart disease Mental health problem Sister Skin cancer Mental health problem Social History marital status: unmarried,single number of children: 1 household members: none lives independently: Yes caregiver/support person: No housing: house Smoking Status: Never smoker second hand exposure: No alcohol intake: current substance use type: does not use Smoking Status: Never smoker alcohol intake frequency: holidays/special occasions only Substance Use Type: does not use Exam <Aurelio Salas PA-C - Last Filed: 08/01/23 16:42> Narrative Exam Narrative: GENERAL: Well-developed patient, in mild distress. HEAD: Atraumatic. Normocephalic. EYES: Pupils equal round and reactive. Extraocular motions intact. No scleral icterus. No injection or drainage. ENT: Nose without bleeding, purulent drainage. Throat without erythema, tonsillar hypertrophy or exudate. Airway patent. NECK: Trachea midline. Non tender CARDIOVASCULAR: Regular rate and rhythm without murmurs, gallops, or rubs. RESPIRATORY: Clear to auscultation. Breath sounds equal bilaterally. No wheezes, rales, or rhonchi. GASTROINTESTINAL: Abdomen soft, non-tender, nondistended. EXTREMITIES: No edema or joint tenderness. BACK: Nontender without deformity or crepitance. No flank tenderness. NEURO: AOx3. SKIN: No rash or erythema of visible areas Initial Vital Signs Initial Vital Signs: Vital Signs Temperature 98.4 F 08/01/23 15:02 Pulse Rate 84 08/01/23 15:02 Respiratory Rate 18 08/01/23 15:02 Blood Pressure 130/67 08/01/23 15:02 Pulse Oximetry 99 08/01/23 15:02 Oxygen Delivery Method Room Air 08/01/23 15:02 <Evelyn Mccrary DO - Last Filed: 08/02/23 07:12> Initial Vital Signs Initial Vital Signs: Vital Signs Temperature 98.4 F 08/01/23 15:02 Pulse Rate 84 08/01/23 15:02 Respiratory Rate 18 08/01/23 15:02 Blood Pressure 130/67 08/01/23 15:02 Pulse Oximetry 99 08/01/23 15:02 Oxygen Delivery Method Room Air 08/01/23 15:02 Course <Aurelio Salas PA-C - Last Filed: 08/01/23 16:42> Orders Ordered: ED Orders 08/01/23 15:14 XR chest 1V Stat Measure peak expiratory flow ONCE RT Consult Eval and Treat NOW 08/01/23 15:18 Complete Blood Count AUTO DIFF Stat Comprehensive Metabolic Panel Stat Lactate (Lactic Acid) Stat Vital Signs Vital signs: Vital Signs - 8 hr 08/01/23 15:02 08/01/23 15:13 08/01/23 15:13 Temperature 98.4 F Pulse Rate 84 82 Respiratory Rate 18 Blood Pressure 130/67 133/62 Pulse Oximetry 99 98 Oxygen Delivery Method Room Air 08/01/23 15:31 08/01/23 16:00 08/01/23 16:01 Temperature Pulse Rate 82 73 Respiratory Rate Blood Pressure 130/67 Pulse Oximetry 100 99 Oxygen Delivery Method 08/01/23 16:01 Temperature Pulse Rate 75 Respiratory Rate Blood Pressure Pulse Oximetry 100 Oxygen Delivery Method Room Air <Evelyn Mccrary DO - Last Filed: 08/02/23 07:12> Orders Ordered: ED Orders 08/01/23 15:14 XR chest 1V Stat Measure peak expiratory flow ONCE RT Consult Eval and Treat NOW 08/01/23 15:18 Complete Blood Count AUTO DIFF Stat Comprehensive Metabolic Panel Stat Lactate (Lactic Acid) Stat Vital Signs Vital signs: Vital Signs - 8 hr 08/01/23 15:02 08/01/23 15:13 08/01/23 15:13 Temperature 98.4 F Pulse Rate 84 82 Respiratory Rate 18 Blood Pressure 130/67 133/62 Pulse Oximetry 99 98 Oxygen Delivery Method Room Air 08/01/23 15:31 08/01/23 16:00 08/01/23 16:01 Temperature Pulse Rate 82 73 Respiratory Rate Blood Pressure 130/67 Pulse Oximetry 100 99 Oxygen Delivery Method 08/01/23 16:01 Temperature Pulse Rate 75 Respiratory Rate Blood Pressure Pulse Oximetry 100 Oxygen Delivery Method Room Air MDM - SOB/Dyspnea <Aurelio Salas PA-C - Last Filed: 08/01/23 16:42> Lab Data 08/01/23 15:18 08/01/23 15:18 Labs: Lab Results 08/01/23 Range/Units 15:18 WBC 4.6 (4.5-11.0) X10^3/uL RBC 3.88 L (4.0-5.2) X10^6/uL Hgb 12.5 (12.0-16.0) g/dL Hct 36.1 (36-46) % MCV 93.0 (80-100) fL MCH 32.3 (26-34) PG MCHC 34.7 (30-36) % RDW 15.0 H (11.6-14.8) % Plt Count 284 (150-400) X10^3/uL Neut % (Auto) Not Reportable Lymph % (Auto) Not Reportable [place] % (Auto) Not Reportable Eos % (Auto) Not Reportable Baso % (Auto) Not Reportable Lymph # (Auto) Not Reportable [place] # (Auto) Not Reportable Baso # (Auto) Not Reportable Total Counted 100 Seg Neutrophils % 76.0 H (38-70) % Lymphocytes % (Manual) 15.0 L (25-45) % Monocytes % (Manual) 7.0 (2-11) % Basophils % (Manual) 1.0 (0-1) % Metamyelocytes % 1.0 H (-0) % Neutrophils # (Manual) 3496 (0096-6976) /uL Smudge Cells 1+ H RBC Morphology See below Anisocytosis 1+ H Sodium 139 (137-145) mmol/L Potassium 3.8 (3.4-5.1) mmol/L Chloride 101 (98-107) mmol/L Carbon Dioxide 31 (22-32) mmol/L BUN 11 (7-17) mg/dL Creatinine 0.60 (0.52-1.04) mg/dL Estimated GFR > 60 (>60) mL/min BUN/Creatinine Ratio 18.3 (6-22) Glucose 102 H (70-100) mg/dL Lactate 1.1 (0.7-2.1) mmol/L Calcium 9.5 (8.4-10.2) mg/dL Total Bilirubin 0.5 (0.2-1.3) mg/dL AST 76 H (14-36) IU/L ALT 116 H (<35) IU/L Alkaline Phosphatase 204 H (38-126) U/L Total Protein 6.6 (6.3-8.2) g/dL Albumin 3.7 (3.5-5.0) g/dL Globulin 2.9 (1.7-4.1) g/dL Albumin/Globulin Ratio 1.3 (1.0-2.8) Imaging Data Chest x-ray: Radiologist's Impression: [address] [address] XRay Report Signed Patient: Arabella Hameed MR#: [id number] : 1970 Acct:[id number] Age/Sex: 53 / F Date of Service: 08/01/23 Loc: ED Accession Number: [id number] Procedure: XR chest 1V Ordering Provider: Aurelio Salas P.A-C PROCEDURE: XR CHEST 1V INDICATIONS: Shortness of breath TECHNIQUE: One view of the chest was acquired. COMPARISON: [facility], , XR CHEST 1V, 07/26/2023, 8:07. FINDINGS: Surgical changes and devices: Thoracolumbar instrumentation with corpectomy spacer Lungs and pleura: Lingular pulmonary infiltrate is slightly increased from the prior exam. Right lung and pleural space clear. Mediastinum: Mediastinal contours appear normal. Heart size is normal. Bones and chest wall: No suspicious bony lesions. Overlying soft tissues appear unremarkable. IMPRESSION: Worsening lingular pulmonary infiltrate Approved by: Bhavik Red M.D. on 08/01/2023 at 15:13 MDM Narrative Medical decision making narrative: MDM * differential diagnosis includes but not limited to pneumonia, COPD, PE, URI * Prior records reviewed: Patient was seen here 6 days ago due to fever. History of asthma, developmental delay, thyroid disorder, chronic back pain. Presented with URI symptoms. Chest x-ray showed a hazy left lower lung opacity suggestive of pneumonia without significant effusion. Patient was discharged with a prescription for Augmentin 1 tab b.i.d. for 10 days. * My lab interpretation: CBC showed no leukocytosis, CMP showed no acute findings. Lactate within normal limit * My imaging interpretation: Chest x-ray showed worsening infiltrate as noted above * Clinical Decision Rules/Scores evaluated: None * Independent discussions with: None ED Course: This is a 53-year-old female presents to the emergency department due to continued symptoms after being prescribed Augmentin 6 days ago after being seen here. Chest x-ray shows worsening infiltrate. After discussion with supervising physician we will discontinue the Augmentin and prescribed Levaquin for treatment. CBC unremarkable. Patient was on room air and afebrile. Not tachycardic. Shared Decision Making: Discussed plan with the patient who is comfortable with the plan. Social Considerations: None Disposition: Discharged to home <Evelyn Mccrary DO - Last Filed: 08/02/23 07:12> Lab Data Labs: Lab Results 08/01/23 Range/Units 15:18 WBC 4.6 (4.5-11.0) X10^3/uL RBC 3.88 L (4.0-5.2) X10^6/uL Hgb 12.5 (12.0-16.0) g/dL Hct 36.1 (36-46) % MCV 93.0 (80-100) fL MCH 32.3 (26-34) PG MCHC 34.7 (30-36) % RDW 15.0 H (11.6-14.8) % Plt Count 284 (150-400) X10^3/uL Neut % (Auto) Not Reportable Lymph % (Auto) Not Reportable [place] % (Auto) Not Reportable Eos % (Auto) Not Reportable Baso % (Auto) Not Reportable Lymph # (Auto) Not Reportable [place] # (Auto) Not Reportable Baso # (Auto) Not Reportable Total Counted 100 Seg Neutrophils % 76.0 H (38-70) % Lymphocytes % (Manual) 15.0 L (25-45) % Monocytes % (Manual) 7.0 (2-11) % Basophils % (Manual) 1.0 (0-1) % Metamyelocytes % 1.0 H (-0) % Neutrophils # (Manual) 3496 (2508-8854) /uL Smudge Cells 1+ H RBC Morphology See below Anisocytosis 1+ H Sodium 139 (137-145) mmol/L Potassium 3.8 (3.4-5.1) mmol/L Chloride 101 (98-107) mmol/L Carbon Dioxide 31 (22-32) mmol/L BUN 11 (7-17) mg/dL Creatinine 0.60 (0.52-1.04) mg/dL Estimated GFR > 60 (>60) mL/min BUN/Creatinine Ratio 18.3 (6-22) Glucose 102 H (70-100) mg/dL Lactate 1.1 (0.7-2.1) mmol/L Calcium 9.5 (8.4-10.2) mg/dL Total Bilirubin 0.5 (0.2-1.3) mg/dL AST 76 H (14-36) IU/L ALT 116 H (<35) IU/L Alkaline Phosphatase 204 H (38-126) U/L Total Protein 6.6 (6.3-8.2) g/dL Albumin 3.7 (3.5-5.0) g/dL Globulin 2.9 (1.7-4.1) g/dL Albumin/Globulin Ratio 1.3 (1.0-2.8) Discharge Plan Departure Patient Disposition: Home Clinical Impression: Pneumonia Activity Restrictions/Additional Instructions: Thank you for coming to the [facility] Emergency Department today. Your chest x-ray continues to show pneumonia. Your labs today were reassuring. Please stop taking the Augmentin and start this new antibiotic. Please take the entire course as prescribed. I hope you feel better soon. Please follow up with your primary care provider within a week if your symptoms continue. If you do not have a primary care provider please contact the [facility] Resource line at [phone]. They will ask some questions about your medical history and help you get set up with a provider in the community. Prescriptions: New levofloxacin 750 mg tablet 750 mg PO DAILY 5 Days Qty: 5 0RF Delsym Cough 15 mg tablet 30 mg PO Q8H PRN (Reason: cough) Qty: 30 0RF No Action (DME) Babak Aerosol [place] Enhancer Spacer See Rx Instructions .ROUTE .MEDSUPPLY Qty: 1 0RF Rx Instructions: As directed phenazopyridine [Pyridium] 200 mg tablet 200 mg PO TID PRN (Reason: pain) Qty: 6 0RF (DME) disabled parking permit Qty: 1 0RF Dose Instruction: As directed Rx Instructions: my patient meets the qualifying condition of unable to walk 200 ft without stopping to rest due to orthopedic condition docusate sodium 250 mg capsule 750 mg PO BEDTIME Qty: 0 minocycline 100 mg capsule See Rx Instructions .ROUTE .COMPLEX PRN (Reason: acne) Qty: 60 0RF Dose Instruction: take 1 capsule by mouth twice a day Rx Instructions: take 1 capsule by mouth twice a day PRN; omeprazole 20 mg capsule,delayed release(DR/EC) 20 mg PO DAILY Qty: 90 1RF epinephrine 0.3 mg/0.3 mL auto-injector 0.3 mg IM PRN PRN (Reason: anaphylaxis) Qty: 2 1RF Patient Comments: patient has not taken ever gabapentin 300 mg capsule See Rx Instructions .ROUTE .COMPLEX Qty: 180 1RF Dose Instruction: take 3 capsules by mouth every morning and 3 capsules at bedtime Rx Instructions: take 3 capsules by mouth every morning and 3 capsules at bedtime albuterol sulfate 1.25 mg/3 mL solution for nebulization 1.25 mg INHALATION Q4-6H PRN (Reason: shortness of breath or wheezing) Qty: 75 2RF albuterol sulfate 90 mcg/actuation HFA aerosol inhaler 2 inh inhalation Q4-6H PRN (Reason: shortness of breath or wheezing) Qty: 17 5RF venlafaxine 37.5 mg capsule,extended release 24hr 37.5 mg PO DAILY Qty: 90 3RF sumatriptan succinate 25 mg tablet See Rx Instructions .ROUTE .COMPLEX Qty: 30 3RF Dose Instruction: take 1 tablet by mouth if needed for MIGRAINE HEADACHE, TAKE AT ONSET OF MIGRAINE. MAY REPEAT ONCE IN 2 HOURS Rx Instructions: take 1 tablet by mouth if needed for MIGRAINE HEADACHE, TAKE AT ONSET OF MIGRAINE. MAY REPEAT ONCE IN 2 HOURS fluticasone propion-salmeterol [Advair Diskus] 100-50 mcg/dose blister with device See Rx Instructions .ROUTE .COMPLEX Qty: 180 3RF Hold Instructions: temporary change to higher dose Dose Instruction: inhale 1 puff by mouth twice a day Rx Instructions: inhale 1 puff by mouth twice a day atomoxetine 40 mg capsule See Rx Instructions .ROUTE .COMPLEX Qty: 90 1RF Dose Instruction: take 1 capsule by mouth once daily Rx Instructions: take 1 capsule by mouth once daily amoxicillin-pot clavulanate 875-125 mg tablet 1 tab PO BID Qty: 20 0RF naproxen 250 mg Tablet 250 mg PO BID PRN (Reason: Pain (Scale Score 4-6)) Referrals: Raghavendra Esparza ARNP [Primary Care Provider] - Stand Alone Forms: Patient Portal/API ED Sign-out <Evelyn Mccrary DO - Last Filed: 08/02/23 07:12> Cosign ED Attending Cosignature Attestation: I was immediately available in the department for consultation. Documentation has been reviewed.
[2023-08-01 15:47] LABS: Hematocrit 36.1 % (36-46); Hemoglobin 12.5 g/dL (12.0-16.0); Mean Corpuscular HGB Conc 34.7 % (30-36); Mean Corpuscular Hemoglobin 32.3 PG (26-34); Platelet Count 284 X10^3/uL (150-400); Red Blood Cell Count 3.88 X10^6/uL (4.0-5.2); White Blood Cell Count 4.6 X10^3/uL (4.5-11.0)
[2023-08-01 15:50] LABS: Add Manual Diff / Slide Review YES
[2023-08-01 16:00] VITALS: PULSE 73; O2SAT 99
[2023-08-01 16:01] VITALS: BP 130/67; PULSE 75; O2SAT 100
[2023-08-01 16:18] LABS: Neutrophils Absolute Manual 3496 /uL (3000-5900); Smudge Cells 1+; Total Cells Counted 100
[2023-08-01 16:19] LABS: Anisocytosis 1+
[2023-08-01 16:30] VITALS: BP 135/65; PULSE 73; O2SAT 100
== END 2023-08-01 16:42 | disposition home or self-care (01) ==
PROVIDERS: Emergency Provider Physician Assistant Medical; Family Provider Registered Nurse Diabetes Educator; PCP Registered Nurse Diabetes Educator
DX: J18.9 Pneumonia, unspecified organism (principal)
CPT/HCPCS: 36415; 71045; 80053; 83605; 85007; 85025; 99284

== ENCOUNTER → 2023-08-10 10:58 | Outpatient (CLI) | payer OTHER, MEDICAID, SELFPAY ==
--- NOTE | 2023-08-10 11:00 | DI.RAD.S_ITS ---
PROCEDURE: XR CHEST 2V INDICATIONS: Follow up L lower lobe pneumonia TECHNIQUE: 2 views of the chest were acquired. COMPARISON: [facility], CR, XR CHEST 1V, 08/01/2023, 15:25. FINDINGS: Surgical changes and devices: Thoracolumbar fusion hardware, cholecystectomy clips. Lungs and pleura: Resolution of left lower lobe airspace consolidation. Minimal patchy residual atelectasis versus scarring. No pleural effusions or pneumothorax. Mediastinum: Mediastinal contours are normal. Heart size is normal. Bones and chest wall: No suspicious bony abnormalities. Soft tissues appear unremarkable. IMPRESSION: Resolution of left lower lobe pneumonia. Minimal residual patchy atelectasis versus scarring. Dictated by: Vinay Briseno M.D. on 08/10/2023 at 11:44 Approved by: Vinay Briseno M.D. on 08/10/2023 at 11:44
== END ==
PROVIDERS: Family Provider Registered Nurse Diabetes Educator; PCP Registered Nurse Diabetes Educator; Referring Provider Physician Assistant; Visit Provider Physician Assistant
DX: J18.9 Pneumonia, unspecified organism (principal)
CPT/HCPCS: 71046

== ENCOUNTER 2023-08-20 08:03 | Outpatient (CLI) | payer OTHER, MEDICAID, SELFPAY ==
[2023-08-20] VITALS (8 sets, daily range): BP systolic 121–133; BP diastolic 65–81; PULSE 15–89; RESP 14–19; TEMP 36.8; O2SAT 98–100
--- NOTE | 2023-08-20 08:45 | DI.RAD.S_ITS ---
PROCEDURE: PAIN C/T INTERLAMINAR INJECT INDICATIONS: SPINAL STENOSIS COMPARISON: None. FINDINGS: Fluoroscopic spot filming was performed to verify placement of spinal needles at the T10-T11 level. Appropriate location(s) of the needle tip(s) was confirmed by injection of iodinated contrast. IMPRESSION: Fluoroscopic images demonstrate spinal needle location T10-T11. Please see separately dictated report by provider performing the procedure. Approved by: Olena Carranza M.D. on 08/20/2023 at 11:29
[2023-08-20] MEDS: MIDAZOLAM 2 MG/2 ML VIAL IV (10:03)
[2023-08-20] MEDS: DEXAMETHASONE 10 MG/ML VIAL 20 MG INJ (10:05)
[2023-08-20] MEDS: BUPIVACAINE 0.25% (PF) VIAL 2 ML INJ (10:06)
[2023-08-20] MEDS: iopamidoL 15 ML VIAL 3 ML INJ (10:06)
--- NOTE | 2023-08-20 10:19 | PM.PROC.IR.1 ---
Date/Time/Diagnoses Date of procedure: 08/20/23 Time of procedure: 10:19 Pre-procedure diagnosis: Thoracic stenosis with HNP Post-procedure diagnosis: same Procedure Notes Procedure: Fluoroscopic guided, contrast controlled T10/11 translaminar epidural steroid injection with conscious sedation. Indications: Arabella is referred by RAYA Esparza for treatment of thoracic DDD/DJD with radiculopathy Physician: Jose Dyer Total Fluoroscopy time (seconds): 17 Total sedation minutes: 11 Complications: none Procedure in detail & Post-procedure care: DESCRIPTION OF PROCEDURE Fluoroscopic guided, contrast controlled T10/11 translaminar epidural steroid injection with conscious sedation. Following review of allergy review potential side effects and complications, including, but not necessarily limited to, infection, allergic reaction, local tissue breakdown, temporary as well as permanent nerve injury, stroke, paralysis and possible , the patient indicated that they understood and agreed to proceed. An informed consent document was signed by the patient, witnessed by the nurse, and placed in the patient's chart. Additionally other treatment options including modalities, medications and physical therapy were reviewed with the patient. After review of previous anaesthesic history and IV conscious sedation the patient was deemed safe to proceed with today's procedure with IV conscious sedation as ASA class II designation. Safety time-out was performed to confirm patient ID, procedure to be performed and site of procedure. IV sedation was accomplished with a combination of 2mg of Versed administered by the RN after DO order, titrated to patient comfort during the course of the procedure while the patient remained responsive to all verbal commands In the prone position, following sterile prep and drape of the thoracic region the T10/11translaminar space was identified fluoroscopically. The skin was anesthetized via 25 gauge 1.5inch needle with 1% lidocaine solution. At this point a 22gauge epidural needle was atraumatically introduced and advanced under fluoroscopic guidance into the region of the T8-9 translaminar space depth was confirmed on lateral view. Radiographic data, including multiple fluoroscopic views of the thoracic spine, reveals spinal needle at the T10/11 translaminar space. Lateral views then showed the placement of the needle in the epidural space. Subsequent view show contrast material flowing superiorly and inferiorly in the epidural space. No vascular or intrathecal uptake is observed. At this point using loss of resistance technique with saline and the epidural space was entered. This was confirmed followed negative aspiration and injection of approximately 1.5cc of Isovue 200 showed excellent epidural flow without vascular or intrathecal uptake. At this point, 1cc of 1% lidocaine solution was admitted as a test dose and the patient was observed for an appropriate period of time without signs or symptoms of complications, including abdominal pain, shortness of breath, bilateral upper and lower extremity weakness, nausea and vomiting, prior to steroid injection. Subsequently, 2cc or 20mg of dexamethasone was then injected without incident. The patient tolerated the procedure well without signs of complications and subsequently was transferred to the recovery room for further monitoring. The patient was then transferred to the recovery area with their observed for an appropriate time after the injection. Patient reported a VAS score of 7 prior to the procedure and post-procedure VAS of 1.
== END 2023-08-20 10:43 | disposition home or self-care (01) ==
LOC: RAD 08:03
PROVIDERS: Family Provider Registered Nurse Diabetes Educator; PCP Registered Nurse Diabetes Educator; Referring Provider Physical Medicine & Rehabilitation; Visit Provider Physical Medicine & Rehabilitation
DX: M48.04 Spinal stenosis, thoracic region (principal); M51.14 Intervertebral disc disorders with radiculopathy, thoracic region; M47.24 Other spondylosis with radiculopathy, thoracic region
CPT/HCPCS: 62321; 99152; J1100; J2250; J3490

== ENCOUNTER → 2023-08-21 13:11 | Outpatient (CLI) | payer OTHER, MEDICAID, SELFPAY ==
--- NOTE | 2023-08-21 13:11 | DI.MG.S_ITS ---
UNILATERAL RIGHT DIGITAL DIAGNOSTIC MAMMOGRAM 3D/2D: 08/21/2023 CLINICAL: Short term follow up of the right breast. Comparison is made to exams dated: 02/12/2023 mammogram, 01/28/2023 mammogram, 01/23/2022 mammogram, 12/09/2021 mammogram, and 12/03/2020 mammogram - [facility]. There are scattered areas of fibroglandular density in the right breast (category b / 25%-50% glandular tissue). The asymmetry seen on prior mammogram is no longer visualized. No other significant masses or calcifications are seen in the breast. IMPRESSION: NEGATIVE Right breast upper posterior depth asymmetry is no longer visualized, likely superimposition of normal breast tissue. No mammographic evidence of malignancy. Return to annual mammogram screening schedule is recommended, which patient will be due for in January 2024. Findings and recommendations were conveyed to the patient during today's evaluation. Based on the Tyrer Cuzick model (a risk assessment model) the patient's lifetime risk is 5.3% and her 10 year risk is 1.6%. According to the ACR, ACS, and NCCN guidelines, an annual breast MRI exam along with mammogram is recommended if the patient's lifetime risk is 20% or greater. This exam was interpreted at Station ID: [id number]. NOTE: For mammograms, a report in lay terms will be sent to the patient. Approximately 15% of breast malignancies will not be visualized mammographically. In the management of a palpable breast mass, a negative mammogram must not discourage biopsy of a clinically suspicious lesion. Electronically Signed By: Olena Carranza M.D., PH.D eb/:08/21/2023 14:11:08 letter sent: Normal Exam ACR BI-RADS Category 1: Negative [id number]
== END ==
PROVIDERS: Family Provider Registered Nurse Diabetes Educator; PCP Registered Nurse Diabetes Educator; Referring Provider Registered Nurse Diabetes Educator; Visit Provider Registered Nurse Diabetes Educator
DX: R92.8 Other abnormal and inconclusive findings on diagnostic imaging of breast (principal)
CPT/HCPCS: 77065; G0279

== ENCOUNTER → 2023-10-19 11:45 | Outpatient (CLI) | payer OTHER, MEDICAID, SELFPAY ==
--- NOTE | 2023-10-19 11:46 | DI.RAD.S_ITS ---
'PROCEDURE: XR KNEE LT 3V INDICATIONS: eval L knee pain s/p trauma TECHNIQUE: 3 views of the knee were acquired. COMPARISON: [facility], CR, XR KNEE RT 3V, 06/26/2023, 14:21. FINDINGS: Bones: No fractures or dislocations. No suspicious bony lesions. Medial compartment joint space narrowing with small marginal osteophyte. Soft tissues: No joint effusion. No suspicious soft tissue calcifications. IMPRESSION: Moderate medial compartment joint space narrowing Approved by: Bhavik Red M.D. on 10/19/2023 at 19:35
[2023-10-19 13:03] LABS: Add Manual Diff / Slide Review NO; Basophils Absolute Auto 0 /uL (0-100); Basophils Percent Auto 0.7 % (0-2); Eosinophils Absolute Auto 300 /uL (0-450); Eosinophils Percent Auto 4.6 % (2-4); Hematocrit 41.8 % (36-46); Lymphocytes Absolute Auto 900 /uL (1100-4500); Lymphocytes Percent Auto 15.7 % (25-40); Mean Corpuscular HGB Conc 33.5 % (30-36); Mean Corpuscular Hemoglobin 31.6 PG (26-34); Mean Corpuscular Volume 94.4 fL (80-100); Monocytes Absolute Auto 400 /uL (0-900); Monocytes Percent Auto 6.3 % (3-14); Neutrophils Absolute Auto 4400 /uL (1500-7000); Neutrophils Percent Auto 72.7 % (50-75); Platelet Count 276 X10^3/uL (150-400); Red Blood Cell Count 4.43 X10^6/uL (4.0-5.2); Red Cell Distribution Width 14.5 % (11.6-14.8)
[2023-10-19 13:24] LABS: Alanine Aminotransferase 35 IU/L (<35); Albumin 4.4 g/dL (3.5-5.0); Albumin Globulin Ratio 1.6 (1.0-2.8); Alkaline Phosphatase 79 U/L (38-126); Aspartate Aminotransferase 35 IU/L (14-36); BUN Creatinine Ratio 31.1 (6-22); Bilirubin Total 0.5 mg/dL (0.2-1.3); Blood Urea Nitrogen 19 mg/dL (7-17); Calcium 10.3 mg/dL (8.4-10.2); Carbon Dioxide 28 mmol/L (22-32); Chloride 100 mmol/L (98-107); Estimated Glomerular Filt Rate > 60 mL/min (>60); Globulin 2.7 g/dL (1.7-4.1); Glucose 99 mg/dL (70-100); HEMOLYSIS < 15 (0-50); Potassium 4.5 mmol/L (3.4-5.1); Sodium 137 mmol/L (137-145); Total Protein 7.1 g/dL (6.3-8.2)
== END ==
PROVIDERS: Family Provider Registered Nurse Diabetes Educator; PCP Registered Nurse Diabetes Educator; Referring Provider Registered Nurse Diabetes Educator; Visit Provider Registered Nurse Diabetes Educator
DX: Z01.818 Encounter for other preprocedural examination (principal); R74.8 Abnormal levels of other serum enzymes; M25.562 Pain in left knee
CPT/HCPCS: 36415; 73562; 80053; 85025

== ENCOUNTER → 2023-12-04 06:54 | Outpatient (CLI) | payer OTHER, MEDICAID, SELFPAY ==
--- NOTE | 2023-12-04 06:55 | DI.US.S_ITS ---
PROCEDURE: US THYROID INDICATIONS: TECHNIQUE: Real-time scanning was performed of the thyroid gland, with image documentation. COMPARISON: [facility], US, US THYROID, 05/19/2022, 10:00. FINDINGS: Thyroid: Right lobe measures 5.4 x 1.5 x 2.0 cm. Left lobe measures 4.5 x 1.1 x 1.9 cm. Isthmus is 1.4 cm thick. Echotexture is homogeneous. Nodule number: 1 Location: Superior left thyroid lobe Size: 0.6 x 0.4 x 0.5 cm. Composition: Predominantly solid Echogenicity: Isoechoic Shape: wider than tall. Margins: Smooth Echogenic foci: Punctate Total points: 6 ACR TI-RADS category: TIRADS 4 (moderately suspicious) Nodule number: 2 Location: Right inferior thyroid lobe Size: 1.1 x 0.6 x 0.8 cm. Composition: Solid Echogenicity: Isoechoic Shape: wider than tall. Margins: Smooth Echogenic foci: Punctate Total points: 6 ACR TI-RADS category: TIRADS 4 (moderately suspicious) IMPRESSION: Relatively stable appearance of 0.6 cm left and 1.1 cm right theTI-RADS 4 (moderately suspicious) thyroid nodules. Based on consensus criteria, recommend follow-up thyroid ultrasound in 1 year document 3-years of stability. ACR TI-RADS definitions and recommendations: TI-RADS 1 (benign): 0 points. FNA not needed. TI-RADS 2 (not suspicious): 2 points. FNA not needed. TI-RADS 3 (mildly suspicious): 3 points. * FNA if 2.5 cm or larger, follow up if 1.5 cm or larger (at 1, 3, and 5 years). TI-RADS 4 (moderately suspicious): 4-6 points. * FNA if 1.5 cm or larger, follow up if 1 cm or larger (at 1, 2, 3, and 5 years). TI-RADS 5 (highly suspicious): 7 points or more. * FNA if 1 cm or larger, follow up if 0.5 cm or larger (every year for 5 years). Dictated by: Anoop Perez M.D. on 12/04/2023 at 13:34 Approved by: Anoop Perez M.D. on 12/04/2023 at 13:41
== END ==
LOC: US 06:54
PROVIDERS: Family Provider Registered Nurse Diabetes Educator; PCP Registered Nurse Diabetes Educator; Referring Provider Registered Nurse Diabetes Educator; Visit Provider Registered Nurse Diabetes Educator
DX: E04.1 Nontoxic single thyroid nodule (principal)
CPT/HCPCS: 76536

== ENCOUNTER → 2024-02-01 11:21 | Outpatient (CLI) | payer OTHER, MEDICAID, SELFPAY ==
--- NOTE | 2024-02-01 11:22 | DI.MG.S_ITS ---
BILATERAL DIGITAL SCREENING MAMMOGRAM 3D/2D WITH CAD: 02/01/2024 CLINICAL: Routine screening. Comparison is made to exams dated: 08/21/2023 mammogram, 02/12/2023 mammogram, 01/28/2023 mammogram, 12/09/2021 mammogram, and 12/03/2020 mammogram - . Both breasts are heterogeneously dense, which may obscure small masses (category c / 51-75% glandular tissue). Current study was also evaluated with a Computer Aided Detection (CAD) system. No significant masses, calcifications, or other findings are seen in either breast. There has been no significant interval change. IMPRESSION: NEGATIVE There is no mammographic evidence of malignancy. A 1 year screening mammogram is recommended. Based on the Tyrer Cuzick model (a risk assessment model) the patient's lifetime risk is 8.0% and her 10 year risk is 2.4%. According to the ACR, ACS, and NCCN guidelines, an annual breast MRI exam along with mammogram is recommended if the patient's lifetime risk is 20% or greater. This exam was interpreted at Station ID: [id number]. NOTE: For mammograms, a report in lay terms will be sent to the patient. Approximately 15% of breast malignancies will not be visualized mammographically. In the management of a palpable breast mass, a negative mammogram must not discourage biopsy of a clinically suspicious lesion. Electronically Signed By: Guido prather/zulma:02/01/2024 12:40:59 letter sent: Normal Exam ACR BI-RADS Category 1: Negative [id number]
== END ==
LOC: MAMMO 11:22
PROVIDERS: Family Provider Registered Nurse Diabetes Educator; PCP Registered Nurse Diabetes Educator; Referring Provider Registered Nurse Diabetes Educator; Visit Provider Registered Nurse Diabetes Educator
DX: Z12.31 Encounter for screening mammogram for malignant neoplasm of breast (principal); R92.333 Mammographic heterogeneous density, bilateral breasts
CPT/HCPCS: 77063; 77067

== ENCOUNTER 2024-03-17 07:30 | Outpatient (RCR) | payer OTHER, MEDICAID, SELFPAY ==
--- NOTE | 2023-12-28 16:36 | PT.OIE ---
Current Diagnoses Bilateral primary osteoarthritis of knee (12/28/23) Encounter for other preprocedural examination (12/28/23) Past Medical History (Last Reviewed 10/22/23 @ 08:50 by RAYA Ruelas) Abnormal mammogram of right breast (11/2021) Acne (11/22/14) Allergic rhinitis (11/22/14) Ankle pain (~2019) Asthma (11/22/14) Attention deficit disorder (11/22/14) Chicken pox (~1986) Chronic back pain (~2008) Degenerative joint disease of knee Depression (11/22/14) Dyslexia Enlarged thyroid (04/2021) Gastroesophageal reflux disease (11/22/14) Headache (~1986) Heartburn (~1999) History of chronic back pain (11/22/14) History of developmental delay HNP (herniated nucleus pulposus), thoracic Migraines (~2008) Mild persistent asthma Myofascial pain on left side (~1999) Rib pain on left side Thyroid nodule (05/2021) Varicose veins of right lower extremity Past Surgical History (Last Reviewed 10/22/23 @ 08:50 by RAYA Ruelas) Anesthesia History of knee surgery (~1986) History of spinal fusion (~2008) Status post cholecystectomy (~2003) Status post hysterectomy Visit Care Team Role Provider Type RAYA Ruelas Family Provider Advanced Shower Room Attendant Primary Care Provider Specialty: Medical Address: [address] [place] [address], [id number] Email: [email or web address] Clemente Patterson PA-C Attending Provider Non-Staff Referring Provider Specialty: Medical Address: [address] [place], [place] [address]tate [place], [place], [address] Email: Physical Therapy Initial Evaluation PT-OP-A Visit Information Start: 12/22/23 18:16 Freq: Status: Active Protocol: Document 12/28/23 07:31 LRN (Rec: 12/28/23 08:21 LRN [id number]) Out-Patient Physical Therapy Visit Information Visit Information Visit Type Initial Evaluation Visit Start Time 07:31 Visit Stop Time 08:20 Visit Number 1 Evaluation Information Evaluation Date 12/28/23 Precautions Precautions Shattered L1 in 2008 with chronick back pain mostly controlled by med (neurotin), depression controlled by meds. PT-OP-B Current Condition Start: 12/22/23 18:16 Freq: Status: Active Protocol: Document 12/28/23 07:31 LRN (Rec: 12/28/23 08:21 LRN [id number]) Current Condition History of Current Condition Onset Date 12/24/23 Current Complaints R partial TKA, pain rated 7/10 , mobility restriction, L knee also painful. History of Current Condition Pt reports she underwent R Partial (lateral) knee arthroplasty and was given no instructions what to do at home, so she has only been walking around. States her sister lives with her and is helping her. Prior Treatments and Tests Pt planning on getting L knee replaced next year. Treatment Goals Patient/Caregiver Goals Pt goals: -HEP -Walk w/o walker -4 steps with 1 railing ( ascending on R side), step by step. -independent with self care. Personal Factors Other Personal Factors That May Effect Shattered L1 in 2008 with Therapy/Recovery chronic back pain mostly controlled by med (neurotin), depression controlled by meds. PT-OP-C Subjective Start: 12/22/23 18:16 Freq: Status: Active Protocol: Document 12/28/23 07:31 LRN (Rec: 12/28/23 08:21 LRN [id number]) Patient Questionnaires Lower Extremity Functional Scale LEFS Score 14 LEFS Impairment 80 to 99% Impaired (Score 1-16 ) OP-PT Pain Assessment Pain Assessment Grid Paper Pain Assessment Grid Completed Yes Location R knee Pain Location Details R lateral aspect of R knee Intensity 7 Scale Used Numeric (0 - 10) Description Burning Frequency Constant Other Pain Aggravating Factors Lying too long in static position. Pain Alleviating Factors Medication Other Pain Alleviating Factors Activity L knee Pain Location Details Front of knee around patella Intensity 7 Scale Used Numeric (0 - 10) Description Burning Frequency Constant Pain Aggravating Factors Activity Other Pain Aggravating Factors Static positioning and WBing Pain Alleviating Factors Medication Other Pain Alleviating Factors Activity. PT-OP-G Mobility & Gait Start: 12/22/23 18:16 Freq: Status: Active Protocol: Document 12/28/23 07:31 LRN (Rec: 12/28/23 08:21 LRN [id number]) OP Gait Assessment Gait Gait Assistance Required: Independent Distance (Feet) 80 Able to Maintain Weight Bearing Status No During Gait Assistive Devices Assistive Device Front Wheeled Walker Gait Deviations General Gait Pattern Antalgic Factors Limiting Gait Function Factors Limiting Gait Function Decreased Strength,Limited Range of Motion,Pain Stair Climbing Evaluation Technique/Endurance Stair Climbing Direction Ascend and Descend Stair Climbing Technique Step to Step Number of Steps Climbed 2 Comments Stair Climbing Comments Short hgt steps ~2 hgt. PT-OP-H Neuro Start: 12/22/23 18:16 Freq: Status: Active Protocol: Document 12/28/23 07:31 LRN (Rec: 12/28/23 08:21 LRN [id number]) Sensation Evaluation Gross Sensation Sensation Description Numbness Comments Summary Comments R knee: Decreased sensation medial slide of and immediately below incision. PT-OP-J Posture/Palpation/Skin Start: 12/22/23 18:16 Freq: Status: Active Protocol: Document 12/28/23 07:31 LRN (Rec: 12/28/23 08:21 LRN [id number]) Posture Evaluation Position Standing Head/C-Spine Posture Neutral Position Pelvis Posture Anteriorly Tilted Weight Distribution Weight Shifted Left Knee Posture (R) Excess Flexion Ankle/Foot Posture (L) Calcaneal Eversion Comments Posture Comments FB hips 22 deg's Palpation Assessment Location R knee Palpation Location Around the patella and the knee joint. Palpation Findings Edema L knee Palpation Location Around the knee Palpation Findings Tenderness PT-OP-K Range of Motion Start: 12/22/23 18:16 Freq: Status: Active Protocol: Document 12/28/23 07:31 LRN (Rec: 12/28/23 08:21 LRN [id number]) Knee Goniometric Range of Motion Knee Right Knee ROM WFL No Patient Position Supine Flexion Active (degrees) 80 Flexion Passive (degrees) 82 Extension Active (degrees) 18 Comments Pt feeling mobility restricted by dressing. Left Knee ROM WFL Yes Patient Position Supine Flexion Active (degrees) 116 Flexion Passive (degrees) 127 Extension Active (degrees) 2 PT-OP-M Strength Start: 12/22/23 18:16 Freq: Status: Active Protocol: Document 12/28/23 07:31 LRN (Rec: 12/28/23 08:21 LRN [id number]) Knee Strength Knee Manual Muscle Testing Right Flexion (S2) 2- Poor- Extension (L3) 2- Poor- PT-OP-Q Treatments Start: 12/22/23 18:16 Freq: Status: Active Protocol: Document 12/28/23 07:31 LRN (Rec: 12/28/23 08:21 LRN [id number]) Therapeutic Exercises Supine Exercises SAQ Side right Reps/Minutes I/S pt in how to perform Comments Pt not able to lift heel, lift entire leg. SLR Supine Exercise Name Assisted Side right Reps/Minutes 5x Comments Pt not able to lift leg on own . Heel slides Supine Exercise Name Assisted heel slide Side right Reps/Minutes 5x Comments Fair tolerance Passive knee ext Supine Exercise Name Pt shown positioning for stretch Side right Comments Not tolerated well. QS Side right Equipment Used Towel roll under knee to push against Reps/Minutes 5 SH x 10 ankle pumps Side right Reps/Minutes 2x to show pt exercise Self-Care/Home Management Treatment Education Patient Education Home Exercise Program Other Education Discussed results of evaluation, goals, and plan of care (POC) with pt, discussed attendance/cx/dns policy; pt agreeable to goals, attendance /cx/dns policy and POC. Educated pt in wear of support hose with I/S to avoid bunching behind the knee. Activities Self-Care/Home Management Activities Issued & reviewed HEP: TKA ex 's: ankle pumps, QS, passive knee extension stretch, modified from pic/written instruction (I/S pt to just lie with nothing under knee), heel slides, SAQ, & sit knee flexion. Hold on SLR until pt able to lift leg independently. PT-OP-T Assessment and Plan Start: 12/22/23 18:16 Freq: Status: Active Protocol: Document 12/28/23 07:31 LRN (Rec: 12/28/23 08:21 [facility] [id number]) Physical Therapy Assessment Rehab Potential Rehabilitation Potential Good Evaluation Complexity Number of Personal Factors/Comorbidities 1-2 Number of Body Systems Impaired 4 or More Clinical Presentation at Evaluation Evolving Impairments Impairments Activity Tolerance,Balance, Edema,Functional Mobility,Gait ,Pain,Posture,ROM,Strength, Transfers Goals 3 Impairment Decreased R knee AROM Short Term Goal (STG) Improve R knee AROM with pt able to perform sit<>stand w/o use of hands with minmal to no pain. STG Duration 6 wks-02/08/24 Longterm Goal (LTG) Pt will be able to ascend/ descend at least 4 steps with 1 rail (ascending on R side), with step over step gait. LTG Duration 12 wks-03/21/24 2 Impairment Decreased R knee strength, requires use of FWW to walk. Short Term Goal (STG) Improve R knee strength with pt able to perform a SLR independently. STG Duration 6 wks-02/08/24 Natural Resource Officer Goal (LTG) Pt will be able to walk w/o a walker on level ground 50' with normal gait pattern and TUG 13 secs or less. LTG Duration 12 wks-03/21/24 1 Impairment Pt lacks self care HEP Short Term Goal (STG) Pt will be educated in self care pain management with use of RICE. STG Duration 6 wks-02/08/24 Natural Resource Officer Goal (LTG) Pt will be independent in self care R knee ROM and strengthening exercise. LTG Duration 12 wks-03/21/24 Assessment Summary Assessment Pt is a 53 yo female, 4 days post-op, s/p R partial knee replacement (pt reports lateral side replaced). Pt attends with R LE swollen and limited R knee AROM/PROM and weakness, as expected, although pt reports being given no instruction of self senior care exercises and she has only been doing walking at home. Pt is quite limited in mobility, but hopefully with ROM and strengthening ex's issued today she will improve as expected. The pt will beneifit from skilled physical therapy to work towards achieving the above stated goals. Physical Therapy Plan Frequency and Duration Frequency of Treatment 2x/Week Duration of treatment (weeks) 12 Plan of Care Start Date 12/28/23 Plan of Care End Date 03/21/24 Therapeutic Interventions Therapeutic Interventions Balance Training,Gait Training ,Home Exercise Program, Lymphedema Management,Manual Therapy,Neuromuscular Re- education,Self-Care/Home Management,Soft Tissue Mobilization,Taping, Therapeutic Activities, Therapeutic Exercises Modalities Cold Pack/Ice Massage,Hot Packs Next Visit Focus/Plan Next Note Type Treatment Note Next Visit Plan POC: R Partial knee replacement rehab. Educate pt in RICE technique for pain management. (Precaution: L knee pain and waiting for TKA) . Next: Review HEP. Focus on increasing R knee ROM and strength. Progress towards independent gait and stair ambulation.
--- NOTE | 2023-12-28 16:37 | PT.OPPOC ---
Physical, Occupational & Speech Therapy At [facility] Current Diagnoses Bilateral primary osteoarthritis of knee (12/28/23) Encounter for other preprocedural examination (12/28/23) Visit Care Team Role Provider Type RAYA Ruelas Family Provider Advanced Inside Sales Person Primary Care Provider Specialty: Medical Address: [address] [place] [address], [address] Email: [email or web address] Clemente Patterson PA-C Attending Provider Non-Staff Referring Provider Specialty: Medical Address: [address] [place] [address] , [place], [address] Email: Plan Of Care PT-OP-T Assessment and Plan Start: 12/22/23 18:16 Freq: Status: Active Protocol: Document 12/28/23 07:31 LRN (Rec: 12/28/23 08:21 LRN [id number]) Physical Therapy Assessment Rehab Potential Rehabilitation Potential Good Evaluation Complexity Number of Personal Factors/Comorbidities 1-2 Number of Body Systems Impaired 4 or More Clinical Presentation at Evaluation Evolving Impairments Impairments Activity Tolerance,Balance, Edema,Functional Mobility,Gait ,Pain,Posture,ROM,Strength, Transfers Goals 3 Impairment Decreased R knee AROM Short Term Goal (STG) Improve R knee AROM with pt able to perform sit<>stand w/o use of hands with minmal to no pain. STG Duration 6 wks-02/08/24 Sleeve Turner Goal (LTG) Pt will be able to ascend/ descend at least 4 steps with 1 rail (ascending on R side), with step over step gait. LTG Duration 12 wks-03/21/24 2 Impairment Decreased R knee strength, requires use of FWW to walk. Short Term Goal (STG) Improve R knee strength with pt able to perform a SLR independently. STG Duration 6 wks-02/08/24 Sleeve Turner Goal (LTG) Pt will be able to walk w/o a walker on level ground 50' with normal gait pattern and TUG 13 secs or less. LTG Duration 12 wks-03/21/24 1 Impairment Pt lacks self care HEP Short Term Goal (STG) Pt will be educated in self care pain management with use of RICE. STG Duration 6 wks-02/08/24 Snf Goal (LTG) Pt will be independent in self care R knee ROM and strengthening exercise. LTG Duration 12 wks-03/21/24 Assessment Summary Assessment Pt is a 53 yo female, 4 days post-op, s/p R partial knee replacement (pt reports lateral side replaced). Pt attends with R LE swollen and limited R knee AROM/PROM and weakness, as expected, although pt reports being given no instruction of self fpc exercises and she has only been doing walking at home. Pt is quite limited in mobility, but hopefully with ROM and strengthening ex's issued today she will improve as expected. The pt will beneifit from skilled physical therapy to work towards achieving the above stated goals. Physical Therapy Plan Frequency and Duration Frequency of Treatment 2x/Week Duration of treatment (weeks) 12 Plan of Care Start Date 12/28/23 Plan of Care End Date 03/21/24 Therapeutic Interventions Therapeutic Interventions Balance Training,Gait Training ,Home Exercise Program, Lymphedema Management,Manual Therapy,Neuromuscular Re- education,Self-Care/Home Management,Soft Tissue Mobilization,Taping, Therapeutic Activities, Therapeutic Exercises Modalities Cold Pack/Ice Massage,Hot Packs Next Visit Focus/Plan Next Note Type Treatment Note Next Visit Plan POC: R Partial knee replacement rehab. Educate pt in RICE technique for pain management. (Precaution: L knee pain and waiting for TKA) . Next: Review HEP. Focus on increasing R knee ROM and strength. Progress towards independent gait and stair ambulation. Plan of Care Dates Plan of Care Start Date 12/28/23 Plan of Care End Date 03/21/24 Electronically Signed by: Concha Lopez, PT 12/29/23 [id number] If you are in agreement with this Plan of Care, please return a signed and dated copy. I have reviewed this Plan of Care and certify that the skilled therapy services above are required to meet the patient?s needs. Physician Signature Date Printed Name and Credentials Clinical Instructor Signature Printed Name and Credentials
--- NOTE | 2024-01-04 11:58 | PT.OTN ---
Current Diagnoses Bilateral primary osteoarthritis of knee (01/04/24) Encounter for other preprocedural examination (01/04/24) Physical Therapy Treatment Note PT-OP-A Visit Information Start: 12/22/23 18:16 Freq: Status: Active Protocol: Document 01/04/24 09:52 LRN (Rec: 01/04/24 10:36 LRN [id number]) Out-Patient Physical Therapy Visit Information Visit Information Visit Type Treatment Note Visit Start Time 09:53 Visit Stop Time 10:31 Visit Number 2 Evaluation Information Evaluation Date 12/28/23 Precautions Precautions Shattered L1 in 2008 with chronick back pain mostly controlled by med (neurotin), depression controlled by meds. PT-OP-B Current Condition Start: 12/22/23 18:16 Freq: Status: Active Protocol: Document 12/28/23 07:31 LRN (Rec: 12/28/23 08:21 LRN [id number]) Current Condition History of Current Condition Onset Date 12/24/23 Current Complaints R partial TKA, pain rated 7/10 , mobility restriction, L knee also painful. History of Current Condition Pt reports she underwent R Partial (lateral) knee arthroplasty and was given no instructions what to do at home, so she has only been walking around. States her sister lives with her and is helping her. Prior Treatments and Tests Pt planning on getting L knee replaced next year. Treatment Goals Patient/Caregiver Goals Pt goals: -HEP -Walk w/o walker -4 steps with 1 railing ( ascending on R side), step by step. -independent with self care. Personal Factors Other Personal Factors That May Effect Shattered L1 in 2008 with Therapy/Recovery chronic back pain mostly controlled by med (neurotin), depression controlled by meds. PT-OP-C Subjective Start: 12/22/23 18:16 Freq: Status: Active Protocol: Document 01/04/24 09:52 LRN (Rec: 01/04/24 10:36 LRN [id number]) OP-PT Subjective Patient Comments Patient Comments Dr. valdez in 4 days States she stopped using the walker because she feels it holds her back. Doing stairs going sideways. States her R knee feels like rattling/looseness is present. PT-OP-G Mobility & Gait Start: 12/22/23 18:16 Freq: Status: Active Protocol: Document 12/28/23 07:31 LRN (Rec: 12/28/23 08:21 LRN [id number]) OP Gait Assessment Gait Gait Assistance Required: Independent Distance (Feet) 80 Able to Maintain Weight Bearing Status No During Gait Assistive Devices Assistive Device Front Wheeled Walker Gait Deviations General Gait Pattern Antalgic Factors Limiting Gait Function Factors Limiting Gait Function Decreased Strength,Limited Range of Motion,Pain Stair Climbing Evaluation Technique/Endurance Stair Climbing Direction Ascend and Descend Stair Climbing Technique Step to Step Number of Steps Climbed 2 Comments Stair Climbing Comments Short hgt steps ~2 hgt. PT-OP-H Neuro Start: 12/22/23 18:16 Freq: Status: Active Protocol: Document 12/28/23 07:31 LRN (Rec: 12/28/23 08:21 LRN [id number]) Sensation Evaluation Gross Sensation Sensation Description Numbness Comments Summary Comments R knee: Decreased sensation medial slide of and immediately below incision. PT-OP-J Posture/Palpation/Skin Start: 12/22/23 18:16 Freq: Status: Active Protocol: Document 12/28/23 07:31 LRN (Rec: 12/28/23 08:21 LRN [id number]) Posture Evaluation Position Standing Head/C-Spine Posture Neutral Position Pelvis Posture Anteriorly Tilted Weight Distribution Weight Shifted Left Knee Posture (R) Excess Flexion Ankle/Foot Posture (L) Calcaneal Eversion Comments Posture Comments FB hips 22 deg's Palpation Assessment Location R knee Palpation Location Around the patella and the knee joint. Palpation Findings Edema L knee Palpation Location Around the knee Palpation Findings Tenderness PT-OP-K Range of Motion Start: 12/22/23 18:16 Freq: Status: Active Protocol: Document 01/04/24 09:52 LRN (Rec: 01/04/24 10:36 LRN [id number]) Knee Goniometric Range of Motion Knee Right Knee ROM WFL No Patient Position Supine Flexion Active (degrees) 96 Extension Active (degrees) 3 PT-OP-M Strength Start: 12/22/23 18:16 Freq: Status: Active Protocol: Document 12/28/23 07:31 LRN (Rec: 12/28/23 08:21 LRN [id number]) Knee Strength Knee Manual Muscle Testing Right Flexion (S2) 2- Poor- Extension (L3) 2- Poor- PT-OP-Q Treatments Start: 04/02/24 18:16 Freq: Status: Active Protocol: Document 01/04/24 09:52 LRN (Rec: 01/04/24 10:36 LRN [id number]) Therapeutic Exercises Supine Exercises SAQ Side right Reps/Minutes 15 x 2 Comments Pt able to perform SAQ SLR Supine Exercise Name Assisted for last 7 reps. Side right Reps/Minutes 10x Comments Cued to exhale on lift and lower. Heel slides Supine Exercise Name Assisted heel slide Side right Reps/Minutes 15x 2 Comments Good tolerance QS Side right Equipment Used Towel roll under knee to push against Reps/Minutes 5 SH, 15x 2 ankle pumps Side right Reps/Minutes 15x 2 to show pt exercise Sitting Exercises Knee flex stretch Side right Reps/Minutes 5' Gait Training Gait Activity Stair amb Description Stairs with rail on L ascending, R descending Device Used SPC Level of Assistance SBA/rail Surface Stairs Distance/Duration 4 steps x 2 Treatment Focus Proper use of SPC & gt mechanics. Gait w/cane Description Gait training Device Used SPC Level of Assistance CGA Surface Level Distance/Duration 5' Treatment Focus Proper use of cane and gt mechanics. Comments Use GB Self-Care/Home Management Treatment Education Other Education Discussed at length pt to limit activity as focus is on edema & pain mgmt, R knee ROM and walking ability. Discussed her endurance and function will return over time . Discussed time frames for recovery (partial vs full knee replacements), and recommended pt use assistive device for gait to decrease WBing stress on R knee. Activities Self-Care/Home Management Activities Issued & reviewed HEP: JACQUELINE for edema management. PT-OP-T Assessment and Plan Start: 12/22/23 18:16 Freq: Status: Active Protocol: Document 01/04/24 09:52 LRN (Rec: 01/04/24 10:36 LRN [id number]) Physical Therapy Assessment Goals 3 Impairment Decreased R knee AROM Impairment AROM: 18-80 PROM: 18-82 Short Term Goal (STG) Improve R knee AROM with pt able to perform sit<>stand w/o use of hands with minmal to no pain. 01/04/24: AROM 3-96 STG Duration 6 wks-02/08/24 progressing Product Safety Test Engineer Goal (LTG) Pt will be able to ascend/ descend at least 4 steps with 1 rail (ascending on R side), with step over step gait. 01/04/24: Pt training on stair amb w/1 rail & SPC LTG Duration 12 wks-03/21/24 progressing 01/04/24 2 Impairment Decreased R knee strength, requires use of FWW to walk. Short Term Goal (STG) Improve R knee strength with pt able to perform a SLR independently. 01/04/24: Independent SLR x 2 reps STG Duration 6 wks-02/08/24 Product Safety Test Engineer Goal (LTG) Pt will be able to walk w/o a walker on level ground 50' with normal gait pattern and TUG 13 secs or less. LTG Duration 12 wks-03/21/24 1 Impairment Pt lacks self care HEP Short Term Goal (STG) Pt will be educated in self care pain management with use of RICE. 01/04/24: Educated pt in RICE technique for edema/pain management. STG Duration 6 wks-02/08/24 (01/04/24: MET GOAL) Half-Way Goal (LTG) Pt will be independent in self care R knee ROM and strengthening exercise. 01/04/24 HEP: reviewed s/p TKA ex's, handout issed 12/28/23 . LTG Duration 12 wks-03/21/24 progressed 01/04/24 Assessment Summary Assessment 53 yo female, 11 days s/p R partial knee replacement (? lateral side on 12/24/23). Today pt attends w/o as assist device for gait. High pain tolerance and is too aggressive. She shows concern she is not progressing as she should with pain after [employer] shopping. Pt may be progressing too quickly as she reports loosening feeling of component. Physical Therapy Plan Frequency and Duration Frequency of Treatment 2x/Week Duration of treatment (weeks) 12 Plan of Care Start Date 12/28/23 Plan of Care End Date 03/21/24 Next Visit Focus/Plan Next Note Type Treatment Note Next Visit Plan POC: R Partial knee replacement rehab. ( Precaution: L knee pain and waiting for TKA). Next: Focus on increasing R knee ROM and strength. Progress slowly towards independent gait and stair ambulation, as pt tends to be more aggressive with self care due to high pain tolerance .
--- NOTE | 2024-01-11 12:06 | PT.OTN ---
Current Diagnoses Bilateral primary osteoarthritis of knee (01/11/24) Encounter for other preprocedural examination (01/11/24) Physical Therapy Treatment Note PT-OP-A Visit Information Start: 12/22/23 18:16 Freq: Status: Active Protocol: Document 01/11/24 09:50 LRN (Rec: 01/11/24 10:32 LRN [id number]) Out-Patient Physical Therapy Visit Information Visit Information Visit Type Treatment Note Visit Start Time 09:50 Visit Stop Time 10:30 Visit Number 3 Evaluation Information Evaluation Date 12/28/23 Precautions Precautions Shattered L1 in 2008 with chronick back pain mostly controlled by med (neurotin), depression controlled by meds. PT-OP-B Current Condition Start: 12/22/23 18:16 Freq: Status: Active Protocol: Document 12/28/23 07:31 LRN (Rec: 12/28/23 08:21 LRN [id number]) Current Condition History of Current Condition Onset Date 12/24/23 Current Complaints R partial TKA, pain rated 7/10 , mobility restriction, L knee also painful. History of Current Condition Pt reports she underwent R Partial (lateral) knee arthroplasty and was given no instructions what to do at home, so she has only been walking around. States her sister lives with her and is helping her. Prior Treatments and Tests Pt planning on getting L knee replaced next year. Treatment Goals Patient/Caregiver Goals Pt goals: -HEP -Walk w/o walker -4 steps with 1 railing ( ascending on R side), step by step. -independent with self care. Personal Factors Other Personal Factors That May Effect Shattered L1 in 2008 with Therapy/Recovery chronic back pain mostly controlled by med (neurotin), depression controlled by meds. PT-OP-C Subjective Start: 12/22/23 18:16 Freq: Status: Active Protocol: Document 01/11/24 09:50 LRN (Rec: 01/11/24 10:32 LRN [id number]) OP-PT Subjective Patient Comments Patient Comments States the MD was happy with her progress. Forgot to ask about the clicking in her knee . PT-OP-G Mobility & Gait Start: 12/22/23 18:16 Freq: Status: Active Protocol: Document 12/28/23 07:31 LRN (Rec: 12/28/23 08:21 LRN [id number]) OP Gait Assessment Gait Gait Assistance Required: Independent Distance (Feet) 80 Able to Maintain Weight Bearing Status No During Gait Assistive Devices Assistive Device Front Wheeled Walker Gait Deviations General Gait Pattern Antalgic Factors Limiting Gait Function Factors Limiting Gait Function Decreased Strength,Limited Range of Motion,Pain Stair Climbing Evaluation Technique/Endurance Stair Climbing Direction Ascend and Descend Stair Climbing Technique Step to Step Number of Steps Climbed 2 Comments Stair Climbing Comments Short hgt steps ~2 hgt. PT-OP-H Neuro Start: 12/22/23 18:16 Freq: Status: Active Protocol: Document 12/28/23 07:31 LRN (Rec: 12/28/23 08:21 LRN [id number]) Sensation Evaluation Gross Sensation Sensation Description Numbness Comments Summary Comments R knee: Decreased sensation medial slide of and immediately below incision. PT-OP-J Posture/Palpation/Skin Start: 12/22/23 18:16 Freq: Status: Active Protocol: Document 12/28/23 07:31 LRN (Rec: 12/28/23 08:21 LRN [id number]) Posture Evaluation Position Standing Head/C-Spine Posture Neutral Position Pelvis Posture Anteriorly Tilted Weight Distribution Weight Shifted Left Knee Posture (R) Excess Flexion Ankle/Foot Posture (L) Calcaneal Eversion Comments Posture Comments FB hips 22 deg's Palpation Assessment Location R knee Palpation Location Around the patella and the knee joint. Palpation Findings Edema L knee Palpation Location Around the knee Palpation Findings Tenderness PT-OP-K Range of Motion Start: 12/22/23 18:16 Freq: Status: Active Protocol: Document 01/11/24 09:50 LRN (Rec: 01/11/24 10:32 LRN [id number]) Knee Goniometric Range of Motion Knee Right Knee ROM WFL No Patient Position Supine Flexion Active (degrees) 110 Extension Active (degrees) 5 PT-OP-M Strength Start: 12/22/23 18:16 Freq: Status: Active Protocol: Document 12/28/23 07:31 LRN (Rec: 12/28/23 08:21 LRN [id number]) Knee Strength Knee Manual Muscle Testing Right Flexion (S2) 2- Poor- Extension (L3) 2- Poor- PT-OP-Q Treatments Start: 12/22/23 18:16 Freq: Status: Active Protocol: Document 01/11/24 09:50 LRN (Rec: 01/11/24 10:32 LRN [id number]) Cardio Equipment Recumbent Stepper (Sci-Fit) Duration (Minutes) 2 Resistance 0 Seat Position 13 Therapeutic Exercises Supine Exercises SAQ Supine Exercise Name SAQ & knee flexion Side right Reps/Minutes 2-3 SH each direction, 10 x 1 Comments Pt able to perform SAQ SLR Supine Exercise Name Independent SLR Side right Reps/Minutes 10x, rest, 5x Comments Cued to exhale on lift and lower. Heel slides Supine Exercise Name Independent heel slide Side right Reps/Minutes 15x 2 w/rest btn sets. Comments Good tolerance QS Supine Exercise Name QS with knee in mild hang ( towel roll under lower leg) Side right Reps/Minutes 3 SH, 15x ankle pumps Side right Reps/Minutes 15x Standing Exercises Shallow squats Side bilateral Reps/Minutes 15x Gait Training Gait Activity Gait w/cane Description Gait training walking to treatment room from waiting room Device Used SPC Level of Assistance CGA Surface Level Distance/Duration 2' Treatment Focus Proper gt mechanics (R knee flex/toe off). PT-OP-T Assessment and Plan Start: 12/22/23 18:16 Freq: Status: Active Protocol: Document 01/11/24 09:50 LRN (Rec: 01/11/24 10:32 LRN [id number]) Physical Therapy Assessment Goals 3 Impairment Decreased R knee AROM Impairment AROM: 18-80 PROM: 18-82 Short Term Goal (STG) Improve R knee AROM with pt able to perform sit<>stand w/o use of hands with minmal to no pain. 01/04/24: AROM 3-96 01/11/24: AROM 5-110 STG Duration 6 wks-02/08/24 progressing Area Field Worker Goal (LTG) Pt will be able to ascend/ descend at least 4 steps with 1 rail (ascending on R side), with step over step gait. 01/04/24: Pt training on stair amb w/1 rail & SPC LTG Duration 12 wks-03/21/24 progressing 01/04/24 2 Impairment Decreased R knee strength, requires use of FWW to walk. Short Term Goal (STG) Improve R knee strength with pt able to perform a SLR independently. 01/04/24: Independent SLR x 2 reps 01/11/24: Independent SLR x 10 reps, rest x5 reps. STG Duration 6 wks-02/08/24 (01/11/24: MET GOAL) Area Field Worker Goal (LTG) Pt will be able to walk w/o a walker on level ground 50' with normal gait pattern and TUG 13 secs or less. LTG Duration 12 wks-03/21/24 1 Impairment Pt lacks self care HEP Short Term Goal (STG) Pt will be educated in self care pain management with use of RICE. 01/04/24: Educated pt in RICE technique for edema/pain management. STG Duration 6 wks-02/08/24 (01/04/24: MET GOAL) Detention Goal (LTG) Pt will be independent in self care R knee ROM and strengthening exercise. 01/04/24 HEP: reviewed s/p TKA ex's, handout issed 12/28/23 . LTG Duration 12 wks-03/21/24 progressed 01/04/24 Assessment Summary Assessment 53 yo female, 18 days s/p R partial knee replacement ( lateral side on 12/24/23). Today pt attends w/a SPC and an antalgic gait. She is improving in strength with ability for independent SLR & heel slides R knee AROM is 5- 110 degs. Gait mechanics improved with training. Physical Therapy Plan Frequency and Duration Frequency of Treatment 2x/Week Duration of treatment (weeks) 12 Plan of Care Start Date 12/28/23 Plan of Care End Date 03/21/24 Next Visit Focus/Plan Next Note Type Treatment Note Next Visit Plan POC: R Partial knee replacement rehab. ( Precaution: L knee pain and planning TKA). Next: Start with ex bike or stepper. Focus on increasing R knee ROM and strength. Progress slowly (ex & HEP) towards independent gait and stair ambulation, as pt tends to be more aggressive with self care due to high pain tolerance.
--- NOTE | 2024-01-14 11:05 | PT.OTN ---
Current Diagnoses Bilateral primary osteoarthritis of knee (01/14/24) Encounter for other preprocedural examination (01/14/24) Physical Therapy Treatment Note PT-OP-A Visit Information Start: 12/22/23 18:16 Freq: Status: Active Protocol: Document 01/14/24 08:13 AB (Rec: 01/14/24 11:03 AB [id number]) Out-Patient Physical Therapy Visit Information Visit Information Visit Type Treatment Note Visit Start Time 09:02 Visit Stop Time 09:44 Visit Number 4 Number of SEWER CONTRACTOR Visits 1 Evaluation Information Evaluation Date 12/28/23 Precautions Precautions Shattered L1 in 2008 with chronick back pain mostly controlled by med (neurotin), depression controlled by meds. PT-OP-B Current Condition Start: 12/22/23 18:16 Freq: Status: Active Protocol: Document 12/28/23 07:31 LRN (Rec: 12/28/23 08:21 LRN [id number]) Current Condition History of Current Condition Onset Date 12/24/23 Current Complaints R partial TKA, pain rated 7/10 , mobility restriction, L knee also painful. History of Current Condition Pt reports she underwent R Partial (lateral) knee arthroplasty and was given no instructions what to do at home, so she has only been walking around. States her sister lives with her and is helping her. Prior Treatments and Tests Pt planning on getting L knee replaced next year. Treatment Goals Patient/Caregiver Goals Pt goals: -HEP -Walk w/o walker -4 steps with 1 railing ( ascending on R side), step by step. -independent with self care. Personal Factors Other Personal Factors That May Effect Shattered L1 in 2008 with Therapy/Recovery chronic back pain mostly controlled by med (neurotin), depression controlled by meds. PT-OP-C Subjective Start: 12/22/23 18:16 Freq: Status: Active Protocol: Document 01/14/24 08:13 AB (Rec: 01/14/24 11:05 AB [id number]) OP-PT Subjective Patient Comments Patient Comments Patient reports the knee is the same, reports performing exercises 2-3 X a day. Patient transfers sit to stand with UE use right knee extended. PT-OP-G Mobility & Gait Start: 12/22/23 18:16 Freq: Status: Active Protocol: Document 12/28/23 07:31 LRN (Rec: 12/28/23 08:21 LRN [id number]) OP Gait Assessment Gait Gait Assistance Required: Independent Distance (Feet) 80 Able to Maintain Weight Bearing Status No During Gait Assistive Devices Assistive Device Front Wheeled Walker Gait Deviations General Gait Pattern Antalgic Factors Limiting Gait Function Factors Limiting Gait Function Decreased Strength,Limited Range of Motion,Pain Stair Climbing Evaluation Technique/Endurance Stair Climbing Direction Ascend and Descend Stair Climbing Technique Step to Step Number of Steps Climbed 2 Comments Stair Climbing Comments Short hgt steps ~2 hgt. PT-OP-H Neuro Start: 12/22/23 18:16 Freq: Status: Active Protocol: Document 12/28/23 07:31 LRN (Rec: 12/28/23 08:21 LRN [id number]) Sensation Evaluation Gross Sensation Sensation Description Numbness Comments Summary Comments R knee: Decreased sensation medial slide of and immediately below incision. PT-OP-J Posture/Palpation/Skin Start: 12/22/23 18:16 Freq: Status: Active Protocol: Document 12/28/23 07:31 LRN (Rec: 12/28/23 08:21 LRN [id number]) Posture Evaluation Position Standing Head/C-Spine Posture Neutral Position Pelvis Posture Anteriorly Tilted Weight Distribution Weight Shifted Left Knee Posture (R) Excess Flexion Ankle/Foot Posture (L) Calcaneal Eversion Comments Posture Comments FB hips 22 deg's Palpation Assessment Location R knee Palpation Location Around the patella and the knee joint. Palpation Findings Edema L knee Palpation Location Around the knee Palpation Findings Tenderness PT-OP-K Range of Motion Start: 12/22/23 18:16 Freq: Status: Active Protocol: Document 01/11/24 09:50 LRN (Rec: 01/11/24 10:32 LRN [id number]) Knee Goniometric Range of Motion Knee Right Knee ROM WFL No Patient Position Supine Flexion Active (degrees) 110 Extension Active (degrees) 5 PT-OP-M Strength Start: 12/22/23 18:16 Freq: Status: Active Protocol: Document 12/28/23 07:31 LRN (Rec: 12/28/23 08:21 LRN [id number]) Knee Strength Knee Manual Muscle Testing Right Flexion (S2) 2- Poor- Extension (L3) 2- Poor- PT-OP-Q Treatments Start: 12/22/23 18:16 Freq: Status: Active Protocol: Document 01/14/24 08:13 AB (Rec: 01/14/24 11:03 AB [id number]) Cardio Equipment Recumbent Stepper (Sci-Fit) Duration (Minutes) 5 Resistance 0 Seat Position 16 Therapeutic Exercises Supine Exercises hamstring stretch from hooklying Side right Reps/Minutes X3 60 seconds Comments verbal cues SAQ Supine Exercise Name saq Side right Reps/Minutes X10 SLR Side right Reps/Minutes X10 Comments Verbal cues to relax a moment between each rep and hold knee straight w/lif QS Side right Equipment Used towel roll under ankle Reps/Minutes X10 Comments verbal cues, good quad activation noted Sitting Exercises long arc quad Side right Reps/Minutes X10 Comments verbal cues Therapeutic Activity Therapeutic Activity sit to stand Reps/Minutes X2 Comments Patient ed mechanics of sit to stand and to bend right knee just past 90 deg prior to standing up from a chair. Manual Therapy Treatment Soft Tissue Mobilization STM for swelling and to hamstring Body Location right knee Mobilization Type Cross-Friction,Rolling,Other Intensity/Depth Moderate Body Position Hooklying Comments upward strokes to medial and lateral right knee for swelling and to hamstring ( prior to hamstring stretch ) with right calf resting on bolster. Self-Care/Home Management Treatment Education Other Education Patient ed to use SPC at all times Activities Self-Care/Home Management Activities Hooklying hamstring stretch added to HEP with advice to perform quad strengthening post hamstring stretch. PT-OP-T Assessment and Plan Start: 12/22/23 18:16 Freq: Status: Active Protocol: Document 01/14/24 08:13 AB (Rec: 01/14/24 11:03 AB [id number]) Physical Therapy Assessment Goals 3 Impairment Decreased R knee AROM Impairment AROM: 18-80 PROM: 18-82 Short Term Goal (STG) Improve R knee AROM with pt able to perform sit<>stand w/o use of hands with minmal to no pain. 01/04/24: AROM 3-96 01/11/24: AROM 5-110 01/14/24: AROM right knee lacking 10 deg ext to 122 flex start of session lacking 5 deg extension post manual and ther ex. STG Duration 6 wks-02/08/24 progressing Detention Goal (LTG) Pt will be able to ascend/ descend at least 4 steps with 1 rail (ascending on R side), with step over step gait. 01/04/24: Pt training on stair amb w/1 rail & SPC LTG Duration 12 wks-03/21/24 progressing 01/04/24 2 Impairment Decreased R knee strength, requires use of FWW to walk. Short Term Goal (STG) Improve R knee strength with pt able to perform a SLR independently. 01/04/24: Independent SLR x 2 reps 01/11/24: Independent SLR x 10 reps, rest x5 reps. STG Duration 6 wks-02/08/24 (01/11/24: MET GOAL) Skein Straightener Goal (LTG) Pt will be able to walk w/o a walker on level ground 50' with normal gait pattern and TUG 13 secs or less. LTG Duration 12 wks-03/21/24 1 Impairment Pt lacks self care HEP Short Term Goal (STG) Pt will be educated in self care pain management with use of RICE. 01/04/24: Educated pt in RICE technique for edema/pain management. STG Duration 6 wks-02/08/24 (01/04/24: MET GOAL) Skein Straightener Goal (LTG) Pt will be independent in self care R knee ROM and strengthening exercise. 01/04/24 HEP: reviewed s/p TKA ex's, handout issed 12/28/23 . 01/14/2024 Patient to to perform hamstring stretch prior to quad strengthening exercises. LTG Duration 12 wks-03/21/24 progressed 01/04/24 Assessment Summary Assessment Patient reports having no increased pain and feeling loser end of session. Right knee extension AROM improved 5 deg with manual therapy and exercise, and patient transfers sit to stand with improved mechanics right knee flexed just past 90 deg. Physical Therapy Plan Frequency and Duration Frequency of Treatment 2x/Week Duration of treatment (weeks) 12 Plan of Care Start Date 12/28/23 Plan of Care End Date 03/21/24 Next Visit Focus/Plan Next Note Type Treatment Note Next Visit Plan POC: R Partial knee replacement rehab. ( Precaution: L knee pain and planning TKA). Next: Start with ex bike or stepper. Focus on increasing R knee ROM and strength. Progress slowly (ex & HEP) towards independent gait and stair ambulation, as pt tends to be more aggressive with self care due to high pain tolerance.
--- NOTE | 2024-01-19 13:44 | PT.OTN ---
Current Diagnoses Bilateral primary osteoarthritis of knee (01/19/24) Encounter for other preprocedural examination (01/19/24) Physical Therapy Treatment Note PT-OP-A Visit Information Start: 12/22/23 18:16 Freq: Status: Active Protocol: Document 01/19/24 12:36 LRN (Rec: 01/19/24 13:43 LRN [id number]) Out-Patient Physical Therapy Visit Information Visit Information Visit Type Treatment Note Visit Start Time 13:02 Visit Stop Time 14:42 Visit Number 5 Evaluation Information Evaluation Date 12/28/23 Precautions Precautions Shattered L1 in 2008 with chronick back pain mostly controlled by med (neurotin), depression controlled by meds. PT-OP-B Current Condition Start: 12/22/23 18:16 Freq: Status: Active Protocol: Document 12/28/23 07:31 LRN (Rec: 12/28/23 08:21 LRN [id number]) Current Condition History of Current Condition Onset Date 12/24/23 Current Complaints R partial TKA, pain rated 7/10 , mobility restriction, L knee also painful. History of Current Condition Pt reports she underwent R Partial (lateral) knee arthroplasty and was given no instructions what to do at home, so she has only been walking around. States her sister lives with her and is helping her. Prior Treatments and Tests Pt planning on getting L knee replaced next year. Treatment Goals Patient/Caregiver Goals Pt goals: -HEP -Walk w/o walker -4 steps with 1 railing ( ascending on R side), step by step. -independent with self care. Personal Factors Other Personal Factors That May Effect Shattered L1 in 2008 with Therapy/Recovery chronic back pain mostly controlled by med (neurotin), depression controlled by meds. PT-OP-C Subjective Start: 12/22/23 18:16 Freq: Status: Active Protocol: Document 01/19/24 12:36 LRN (Rec: 01/19/24 13:43 LRN [id number]) OP-PT Subjective Patient Comments Patient Comments States one strip came off R Knee, so has 2x4 on top to keep her compression socks from catching on it. A little pain on lateral knee joint. Did a lot of icing on Thursday because of weekend of sitting. PT-OP-G Mobility & Gait Start: 12/22/23 18:16 Freq: Status: Active Protocol: Document 12/28/23 07:31 LRN (Rec: 12/28/23 08:21 LRN [id number]) OP Gait Assessment Gait Gait Assistance Required: Independent Distance (Feet) 80 Able to Maintain Weight Bearing Status No During Gait Assistive Devices Assistive Device Front Wheeled Walker Gait Deviations General Gait Pattern Antalgic Factors Limiting Gait Function Factors Limiting Gait Function Decreased Strength,Limited Range of Motion,Pain Stair Climbing Evaluation Technique/Endurance Stair Climbing Direction Ascend and Descend Stair Climbing Technique Step to Step Number of Steps Climbed 2 Comments Stair Climbing Comments Short hgt steps ~2 hgt. PT-OP-H Neuro Start: 12/22/23 18:16 Freq: Status: Active Protocol: Document 12/28/23 07:31 LRN (Rec: 12/28/23 08:21 LRN [id number]) Sensation Evaluation Gross Sensation Sensation Description Numbness Comments Summary Comments R knee: Decreased sensation medial slide of and immediately below incision. PT-OP-J Posture/Palpation/Skin Start: 12/22/23 18:16 Freq: Status: Active Protocol: Document 12/28/23 07:31 LRN (Rec: 12/28/23 08:21 LRN [id number]) Posture Evaluation Position Standing Head/C-Spine Posture Neutral Position Pelvis Posture Anteriorly Tilted Weight Distribution Weight Shifted Left Knee Posture (R) Excess Flexion Ankle/Foot Posture (L) Calcaneal Eversion Comments Posture Comments FB hips 22 deg's Palpation Assessment Location R knee Palpation Location Around the patella and the knee joint. Palpation Findings Edema L knee Palpation Location Around the knee Palpation Findings Tenderness PT-OP-K Range of Motion Start: 12/22/23 18:16 Freq: Status: Active Protocol: Document 01/19/24 12:36 LRN (Rec: 01/19/24 13:43 LRN [id number]) Knee Goniometric Range of Motion Knee Right Knee ROM WFL No Patient Position Supine Flexion Active (degrees) 122 Extension Active (degrees) 2 Left Knee ROM WFL Yes Patient Position Supine Flexion Active (degrees) 131 Extension Active (degrees) 0 PT-OP-M Strength Start: 12/22/23 18:16 Freq: Status: Active Protocol: Document 12/28/23 07:31 LRN (Rec: 12/28/23 08:21 LRN [id number]) Knee Strength Knee Manual Muscle Testing Right Flexion (S2) 2- Poor- Extension (L3) 2- Poor- PT-OP-Q Treatments Start: 12/22/23 18:16 Freq: Status: Active Protocol: Document 01/19/24 12:36 LRN (Rec: 01/19/24 13:43 LRN [id number]) Cardio Equipment Recumbent Stepper (Sci-Fit) Duration (Minutes) 8 Resistance 0 Seat Position 13 Gym Equipment Shuttle Recovery Bilateral Squats Resistance 25# Shuttle Recovery Platform Stable Reps/Time 15x Therapeutic Exercises Supine Exercises SAQ Side right Reps/Minutes 1n SH x 30 SLR Side right Reps/Minutes 30x Comments Verbal cues to relax a moment between each rep and hold knee straight w/lif Heel slides Supine Exercise Name Independent heel slide Side right Reps/Minutes 15x 2 w/rest btn sets. Comments AROM taken Good tolerance. Passive knee ext Supine Exercise Name Pt shown positioning for stretch Side right Equipment Used towel roll under ankle Comments Pt tolerated well QS Side right Equipment Used towel roll under ankle Reps/Minutes 6' Comments AROM taken. verbal cues, good quad activation noted Sitting Exercises Long-sit Hamstring stretch Sitting Exercise Name Long-sit Hamstring stretch Side bilateral Reps/Minutes 60 SH x 1 long arc quad Side right Reps/Minutes X15 Comments verbal cues PT-OP-T Assessment and Plan Start: 12/22/23 18:16 Freq: Status: Active Protocol: Document 01/19/24 12:36 LRN (Rec: 01/19/24 13:43 LRN [id number]) Physical Therapy Assessment Goals 3 Impairment Decreased R knee AROM Impairment AROM: 18-80 PROM: 18-82 Short Term Goal (STG) Improve R knee AROM with pt able to perform sit<>stand w/o use of hands with minmal to no pain. 01/04/24: AROM 3-96 01/11/24: AROM 5-110 01/14/24: AROM right knee lacking 10 deg ext to 122 flex start of session lacking 5 deg extension post manual and ther ex. 01/19/24: AROM R knee: lacking 2 deg's - 122 deg's. STG Duration 6 wks-02/08/24 progressing [employer] Goal (LTG) Pt will be able to ascend/ descend at least 4 steps with 1 rail (ascending on R side), with step over step gait. 01/04/24: Pt training on stair amb w/1 rail & SPC LTG Duration 12 wks-03/21/24 progressing 01/04/24 2 Impairment Decreased R knee strength, requires use of FWW to walk. Short Term Goal (STG) Improve R knee strength with pt able to perform a SLR independently. 01/04/24: Independent SLR x 2 reps 01/11/24: Independent SLR x 10 reps, rest x5 reps. STG Duration (01/11/24: MET GOAL) Mcfp Goal (LTG) Pt will be able to walk w/o a walker on level ground 50' with normal gait pattern and TUG 13 secs or less. LTG Duration 12 wks-03/21/24 1 Impairment Pt lacks self care HEP Short Term Goal (STG) Pt will be educated in self care pain management with use of RICE. 01/04/24: Educated pt in RICE technique for edema/pain management. STG Duration (01/04/24: MET GOAL) [employer] Goal (LTG) Pt will be independent in self care R knee ROM and strengthening exercise. 01/04/24 HEP: reviewed s/p TKA ex's, handout issed 12/28/23 . 01/14/2024 Patient to to perform hamstring stretch prior to quad strengthening exercises. LTG Duration 12 wks-03/21/24 progressed 01/04/24 Assessment Summary Assessment 53 yo female, 18 days s/p R partial knee replacement ( lateral side on 12/24/23). Today pt is able to perform 30 reps of some ex's showing improved strength. R knee AROM improved to 2-122 deg's. She ambs w/a SPC and a mild antalgic gait. No c/o discomfort after treatment. Pt to use cryotherapy at home. Physical Therapy Plan Frequency and Duration Frequency of Treatment 2x/Week Duration of treatment (weeks) 12 Plan of Care Start Date 12/28/23 Plan of Care End Date 03/21/24 Next Visit Focus/Plan Next Note Type Treatment Note Next Visit Plan POC: R Partial knee replacement rehab. ( Precaution: L knee pain and planning TKA). Next: Assess TUG (LTG 2). Start with ex bike or stepper. Focus on increasing R knee ROM and strength. Progress slowly (ex & HEP) towards independent gait and stair ambulation, as pt tends to be more aggressive with self care due to high pain tolerance.
--- NOTE | 2024-01-21 16:46 | PT.OTN ---
Current Diagnoses Bilateral primary osteoarthritis of knee (01/21/24) Encounter for other preprocedural examination (01/21/24) Physical Therapy Treatment Note PT-OP-A Visit Information Start: 12/22/23 18:16 Freq: Status: Active Protocol: Document 01/21/24 12:57 AB (Rec: 01/21/24 13:47 AB [id number]) Out-Patient Physical Therapy Visit Information Visit Information Visit Type Treatment Note Visit Note [id number] access code Visit Start Time 13:01 Visit Stop Time 13:45 Visit Number 6 Number of BALL MAKER Visits 1 Evaluation Information Evaluation Date 12/28/23 Precautions Precautions Shattered L1 in 2008 with chronick back pain mostly controlled by med (neurotin), depression controlled by meds. PT-OP-B Current Condition Start: 12/22/23 18:16 Freq: Status: Active Protocol: Document 12/28/23 07:31 LRN (Rec: 12/28/23 08:21 LRN [id number]) Current Condition History of Current Condition Onset Date 12/24/23 Current Complaints R partial TKA, pain rated 7/10 , mobility restriction, L knee also painful. History of Current Condition Pt reports she underwent R Partial (lateral) knee arthroplasty and was given no instructions what to do at home, so she has only been walking around. States her sister lives with her and is helping her. Prior Treatments and Tests Pt planning on getting L knee replaced next year. Treatment Goals Patient/Caregiver Goals Pt goals: -HEP -Walk w/o walker -4 steps with 1 railing ( ascending on R side), step by step. -independent with self care. Personal Factors Other Personal Factors That May Effect Shattered L1 in 2008 with Therapy/Recovery chronic back pain mostly controlled by med (neurotin), depression controlled by meds. PT-OP-C Subjective Start: 12/22/23 18:16 Freq: Status: Active Protocol: Document 01/21/24 12:57 AB (Rec: 01/21/24 13:47 AB [id number]) OP-PT Subjective Patient Comments Patient Comments Patient reports the knee is stiff and swollen, rates pain 6/10 right knee comments that she did too much yesterday. Start of session lacking 6 to 125 deg, 4 sec then 14 sec left LE SLS without UE use, left LE 15+ seconds TUG 15.14 PT-OP-E Functional Tests Start: 01/21/24 16:44 Freq: Status: Active Protocol: Document 01/21/24 12:57 AB (Rec: 01/21/24 16:45 AB [id number]) Functional Tests Timed Up and Go (TUG) Score TUG 15.14 Comments without device TUG Impairment Rating 40 to <60% Impaired (Score 14- 15) PT-OP-G Mobility & Gait Start: 12/22/23 18:16 Freq: Status: Active Protocol: Document 12/28/23 07:31 LRN (Rec: 12/28/23 08:21 LRN [id number]) OP Gait Assessment Gait Gait Assistance Required: Independent Distance (Feet) 80 Able to Maintain Weight Bearing Status No During Gait Assistive Devices Assistive Device Front Wheeled Walker Gait Deviations General Gait Pattern Antalgic Factors Limiting Gait Function Factors Limiting Gait Function Decreased Strength,Limited Range of Motion,Pain Stair Climbing Evaluation Technique/Endurance Stair Climbing Direction Ascend and Descend Stair Climbing Technique Step to Step Number of Steps Climbed 2 Comments Stair Climbing Comments Short hgt steps ~2 hgt. PT-OP-H Neuro Start: 12/22/23 18:16 Freq: Status: Active Protocol: Document 12/28/23 07:31 LRN (Rec: 12/28/23 08:21 LRN [id number]) Sensation Evaluation Gross Sensation Sensation Description Numbness Comments Summary Comments R knee: Decreased sensation medial slide of and immediately below incision. PT-OP-J Posture/Palpation/Skin Start: 12/22/23 18:16 Freq: Status: Active Protocol: Document 12/28/23 07:31 LRN (Rec: 12/28/23 08:21 LRN [id number]) Posture Evaluation Position Standing Head/C-Spine Posture Neutral Position Pelvis Posture Anteriorly Tilted Weight Distribution Weight Shifted Left Knee Posture (R) Excess Flexion Ankle/Foot Posture (L) Calcaneal Eversion Comments Posture Comments FB hips 22 deg's Palpation Assessment Location R knee Palpation Location Around the patella and the knee joint. Palpation Findings Edema L knee Palpation Location Around the knee Palpation Findings Tenderness PT-OP-K Range of Motion Start: 12/22/23 18:16 Freq: Status: Active Protocol: Document 01/19/24 12:36 LRN (Rec: 01/19/24 13:43 LRN [id number]) Knee Goniometric Range of Motion Knee Right Knee ROM WFL No Patient Position Supine Flexion Active (degrees) 122 Extension Active (degrees) 2 Left Knee ROM WFL Yes Patient Position Supine Flexion Active (degrees) 131 Extension Active (degrees) 0 PT-OP-M Strength Start: 12/22/23 18:16 Freq: Status: Active Protocol: Document 12/28/23 07:31 LRN (Rec: 12/28/23 08:21 LRN [id number]) Knee Strength Knee Manual Muscle Testing Right Flexion (S2) 2- Poor- Extension (L3) 2- Poor- PT-OP-Q Treatments Start: 12/22/23 18:16 Freq: Status: Active Protocol: Document 01/21/24 12:57 AB (Rec: 01/21/24 13:47 AB [id number]) Cardio Equipment Recumbent Stepper (Sci-Fit) Duration (Minutes) 8 Resistance 0 Seat Position 13 Other seat adjusted to 14 at 3 minutes Therapeutic Exercises Supine Exercises hamstring stretch Reps/Minutes X3 Comments post manual therapy due to lacking 6 deg ext SLR Side right Reps/Minutes [id number] Comments Verbal cues to relax a moment between each rep and hold knee straight w/lif Standing Exercises Shallow squats Reps/Minutes 2X10 Comments VC and patient ed self tactile cues for hip hinge Manual Therapy Treatment Soft Tissue Mobilization STM for swelling and to hamstring Body Location right knee Mobilization Type Cross-Friction,Rolling,Other Intensity/Depth Moderate Body Position Hooklying Comments upward strokes to medial and lateral right knee for swelling and to hamstring ( prior to hamstring stretch ) with right calf resting on bolster. Neuro Re-Education Treatment Balance Activities TUG Surface Tug performed this session Self-Care/Home Management Treatment Education Other Education Patient ed to use SPC at all times Activities Self-Care/Home Management Activities squat 1/2 to chair added to HEP PT-OP-T Assessment and Plan Start: 12/22/23 18:16 Freq: Status: Active Protocol: Document 01/21/24 12:57 AB (Rec: 01/21/24 13:47 AB [id number]) Physical Therapy Assessment Goals 3 Impairment Decreased R knee AROM Impairment AROM: 18-80 PROM: 18-82 Short Term Goal (STG) Improve R knee AROM with pt able to perform sit<>stand w/o use of hands with minmal to no pain. 01/04/24: AROM 3-96 01/11/24: AROM 5-110 01/14/24: AROM right knee lacking 10 deg ext to 122 flex start of session lacking 5 deg extension post manual and ther ex. 01/19/24: AROM R knee: lacking 2 deg's - 122 deg's. STG Duration 6 wks-02/08/24 progressing Custodial Goal (LTG) Pt will be able to ascend/ descend at least 4 steps with 1 rail (ascending on R side), with step over step gait. 01/04/24: Pt training on stair amb w/1 rail & SPC LTG Duration 12 wks-03/21/24 progressing 01/04/24 2 Impairment Decreased R knee strength, requires use of FWW to walk. Impairment Decreased strength of the posterior trunk and postural muscles Short Term Goal (STG) Improve R knee strength with pt able to perform a SLR independently. 01/04/24: Independent SLR x 2 reps 01/11/24: Independent SLR x 10 reps, rest x5 reps. STG Duration (01/11/24: MET GOAL) Custodial Goal (LTG) Pt will be able to walk w/o a walker on level ground 50' with normal gait pattern and TUG 13 secs or less. 01/21/2024: TUG 15.14 without device LTG Duration 12 wks-03/21/24 1 Impairment Pt lacks self care HEP Impairment postural habits that may be contributing to pain symptoms Short Term Goal (STG) Pt will be educated in self care pain management with use of RICE. 01/04/24: Educated pt in RICE technique for edema/pain management. STG Duration (01/04/24: MET GOAL) Asphalt Paving Machine Operator Goal (LTG) Pt will be independent in self care R knee ROM and strengthening exercise. 01/04/24 HEP: reviewed s/p TKA ex's, handout issed 12/28/23 . 01/14/2024 Patient to to perform hamstring stretch prior to quad strengthening exercises. LTG Duration 12 wks-03/21/24 progressed 01/04/24 Assessment Summary Assessment Pt reports feeling looser end of session. SLS without UE use , left LE 15+ seconds TUG 15. 14 sec without device Physical Therapy Plan Frequency and Duration Frequency of Treatment 2x/Week Duration of treatment (weeks) 12 Plan of Care Start Date 12/28/23 Plan of Care End Date 03/21/24 Next Visit Focus/Plan Next Note Type Treatment Note Next Visit Plan POC: R Partial knee replacement rehab. ( Precaution: L knee pain and planning TKA). Next: Start with ex bike or stepper. Focus on increasing R knee ROM and strength. Progress slowly (ex & HEP) towards independent gait and stair ambulation, as pt tends to be more aggressive with self care due to high pain tolerance.
--- NOTE | 2024-01-25 10:35 | PT.OTN ---
Current Diagnoses Bilateral primary osteoarthritis of knee (01/25/24) Encounter for other preprocedural examination (01/25/24) Physical Therapy Treatment Note PT-OP-A Visit Information Start: 12/22/23 18:16 Freq: Status: Active Protocol: Document 01/25/24 09:54 LRN (Rec: 01/25/24 10:35 LRN [id number]) Out-Patient Physical Therapy Visit Information Visit Information Visit Type Treatment Note Visit Start Time 09:54 Visit Stop Time 10:34 Visit Number 7 Evaluation Information Evaluation Date 12/28/23 Precautions Precautions Shattered L1 in 2008 with chronick back pain mostly controlled by med (neurotin), depression controlled by meds. PT-OP-B Current Condition Start: 12/22/23 18:16 Freq: Status: Active Protocol: Document 12/28/23 07:31 LRN (Rec: 12/28/23 08:21 LRN [id number]) Current Condition History of Current Condition Onset Date 12/24/23 Current Complaints R partial TKA, pain rated 7/10 , mobility restriction, L knee also painful. History of Current Condition Pt reports she underwent R Partial (lateral) knee arthroplasty and was given no instructions what to do at home, so she has only been walking around. States her sister lives with her and is helping her. Prior Treatments and Tests Pt planning on getting L knee replaced next year. Treatment Goals Patient/Caregiver Goals Pt goals: -HEP -Walk w/o walker -4 steps with 1 railing ( ascending on R side), step by step. -independent with self care. Personal Factors Other Personal Factors That May Effect Shattered L1 in 2008 with Therapy/Recovery chronic back pain mostly controlled by med (neurotin), depression controlled by meds. PT-OP-C Subjective Start: 12/22/23 18:16 Freq: Status: Active Protocol: Document 01/25/24 09:54 LRN (Rec: 01/25/24 10:35 LRN [id number]) OP-PT Subjective Patient Comments Patient Comments Pain rating in R knee is 4/10 after taking alleve. PT-OP-E Functional Tests Start: 01/21/24 16:44 Freq: Status: Active Protocol: Document 01/21/24 12:57 AB (Rec: 01/21/24 16:45 AB [id number]) Functional Tests Timed Up and Go (TUG) Score TUG 15.14 Comments without device TUG Impairment Rating 40 to <60% Impaired (Score 14- 15) PT-OP-G Mobility & Gait Start: 12/22/23 18:16 Freq: Status: Active Protocol: Document 12/28/23 07:31 LRN (Rec: 12/28/23 08:21 LRN [id number]) OP Gait Assessment Gait Gait Assistance Required: Independent Distance (Feet) 80 Able to Maintain Weight Bearing Status No During Gait Assistive Devices Assistive Device Front Wheeled Walker Gait Deviations General Gait Pattern Antalgic Factors Limiting Gait Function Factors Limiting Gait Function Decreased Strength,Limited Range of Motion,Pain Stair Climbing Evaluation Technique/Endurance Stair Climbing Direction Ascend and Descend Stair Climbing Technique Step to Step Number of Steps Climbed 2 Comments Stair Climbing Comments Short hgt steps ~2 hgt. PT-OP-H Neuro Start: 12/22/23 18:16 Freq: Status: Active Protocol: Document 12/28/23 07:31 LRN (Rec: 12/28/23 08:21 LRN [id number]) Sensation Evaluation Gross Sensation Sensation Description Numbness Comments Summary Comments R knee: Decreased sensation medial slide of and immediately below incision. PT-OP-J Posture/Palpation/Skin Start: 12/22/23 18:16 Freq: Status: Active Protocol: Document 12/28/23 07:31 LRN (Rec: 12/28/23 08:21 LRN [id number]) Posture Evaluation Position Standing Head/C-Spine Posture Neutral Position Pelvis Posture Anteriorly Tilted Weight Distribution Weight Shifted Left Knee Posture (R) Excess Flexion Ankle/Foot Posture (L) Calcaneal Eversion Comments Posture Comments FB hips 22 deg's Palpation Assessment Location R knee Palpation Location Around the patella and the knee joint. Palpation Findings Edema L knee Palpation Location Around the knee Palpation Findings Tenderness PT-OP-K Range of Motion Start: 12/22/23 18:16 Freq: Status: Active Protocol: Document 01/25/24 09:54 LRN (Rec: 01/25/24 10:35 LRN [id number]) Knee Goniometric Range of Motion Knee Right Patient Position Supine Flexion Active (degrees) 125 Extension Active (degrees) 0 Left Knee ROM WFL Yes Patient Position Supine Flexion Active (degrees) 131 Extension Active (degrees) 0 PT-OP-M Strength Start: 12/22/23 18:16 Freq: Status: Active Protocol: Document 12/28/23 07:31 LRN (Rec: 12/28/23 08:21 LRN [id number]) Knee Strength Knee Manual Muscle Testing Right Flexion (S2) 2- Poor- Extension (L3) 2- Poor- PT-OP-Q Treatments Start: 12/22/23 18:16 Freq: Status: Active Protocol: Document 01/25/24 09:54 LRN (Rec: 01/25/24 10:35 LRN [id number]) Cardio Equipment Recumbent Stepper (Sci-Fit) Duration (Minutes) 8 Resistance 0 Seat Position 12 Therapeutic Exercises Supine Exercises SLR Side right Reps/Minutes 15x 2 Comments Verbal cues to relax a moment between each rep and relax ankle Heel slides Supine Exercise Name Independent heel slide Side right Reps/Minutes 15x 2 w/rest btn sets. Comments AROM taken Good tolerance. QS Side right Equipment Used towel roll under ankle Reps/Minutes 4'' Comments AROM taken. verbal cues, good quad activation noted Sitting Exercises long arc quad Side right Equipment Used 1# Reps/Minutes 25x Comments Cued to hold flex 1-2 secs. Standing Exercises Knee flexion Standing Exercise Name Active flex Side right Comments Cued to kick buttocks, and keeping knees in alignment. Shallow squats Reps/Minutes 2X10 (alternating with active knee flexion) Comments VC and patient ed self tactile cues for hip hinge Manual Therapy Treatment Soft Tissue Mobilization R knee Body Location R knee into extension Mobilization Type Oscillations Intensity/Depth Superficial Body Position Supine Comments 3' PT-OP-T Assessment and Plan Start: 12/22/23 18:16 Freq: Status: Active Protocol: Document 01/25/24 09:54 LRN (Rec: 01/25/24 10:35 LRN [id number]) Physical Therapy Assessment Goals 3 Impairment Decreased R knee AROM Impairment AROM: 18-80 PROM: 18-82 Short Term Goal (STG) Improve R knee AROM with pt able to perform sit<>stand w/o use of hands with minmal to no pain. 01/04/24: AROM 3-96 01/11/24: AROM 5-110 01/14/24: AROM right knee lacking 10 deg ext to 122 flex start of session lacking 5 deg extension post manual and ther ex. 01/19/24: AROM R knee: lacking 2 deg's - 122 deg's. 01/25/24: AROM R knee: 0-125 deg's. STG Duration 6 wks-02/08/24 progressing Chair Upholsterer Goal (LTG) Pt will be able to ascend/ descend at least 4 steps with 1 rail (ascending on R side), with step over step gait. 01/04/24: Pt training on stair amb w/1 rail & SPC LTG Duration 12 wks-03/21/24 progressing 01/04/24 2 Impairment Decreased R knee strength, requires use of FWW to walk. Impairment Decreased strength of the posterior trunk and postural muscles Short Term Goal (STG) Improve R knee strength with pt able to perform a SLR independently. 01/04/24: Independent SLR x 2 reps 01/11/24: Independent SLR x 10 reps, rest x5 reps. STG Duration (01/11/24: MET GOAL) Fpc Goal (LTG) Pt will be able to walk w/o a walker on level ground 50' with normal gait pattern and TUG 13 secs or less. 01/21/2024: TUG 15.14 without device LTG Duration 12 wks-03/21/24 1 Impairment Pt lacks self care HEP Impairment postural habits that may be contributing to pain symptoms Short Term Goal (STG) Pt will be educated in self care pain management with use of RICE. 01/04/24: Educated pt in RICE technique for edema/pain management. STG Duration (01/04/24: MET GOAL) Fpc Goal (LTG) Pt will be independent in self care R knee ROM and strengthening exercise. 01/04/24 HEP: reviewed s/p TKA ex's, handout issed 12/28/23 . 01/14/2024 Patient to to perform hamstring stretch prior to quad strengthening exercises. LTG Duration 12 wks-03/21/24 progressed 01/04/24 Assessment Summary Assessment 53 yo female, 18 days s/p R partial knee replacement ( lateral side on 12/24/23). Today pt has increased 3 deg active knee flex in supine. Pt R knee pain is less than last session; tolerated more ex, although tried to limit pt due to her high pain tolerance. Physical Therapy Plan Frequency and Duration Frequency of Treatment 2x/Week Duration of treatment (weeks) 12 Plan of Care Start Date 12/28/23 Plan of Care End Date 03/21/24 Next Visit Focus/Plan Next Note Type Treatment Note Next Visit Plan POC: R Partial knee replacement rehab. ( Precaution: L knee pain and planning TKA). Next: Start with ex bike or stepper. Focus on increasing R knee ROM and strength. Progress slowly (ex & HEP) towards independent gait and stair ambulation, as pt tends to be more aggressive with self care due to high pain tolerance.
--- NOTE | 2024-01-29 12:35 | PT.OTN ---
Current Diagnoses Bilateral primary osteoarthritis of knee (01/29/24) Encounter for other preprocedural examination (01/29/24) Physical Therapy Treatment Note PT-OP-A Visit Information Start: 12/22/23 18:16 Freq: Status: Active Protocol: Document 01/29/24 10:22 AB (Rec: 01/29/24 12:34 AB [id number]) Out-Patient Physical Therapy Visit Information Visit Information Visit Type Treatment Note Visit Note [email or web address] access code Visit Start Time 10:33 Visit Stop Time 11:14 Visit Number 8 Number of VP ANALYSIS Visits 1 Evaluation Information Evaluation Date 12/28/23 Precautions Precautions Shattered L1 in 2008 with chronick back pain mostly controlled by med (neurotin), depression controlled by meds. PT-OP-B Current Condition Start: 12/22/23 18:16 Freq: Status: Active Protocol: Document 12/28/23 07:31 LRN (Rec: 12/28/23 08:21 LRN [id number]) Current Condition History of Current Condition Onset Date 12/24/23 Current Complaints R partial TKA, pain rated 7/10 , mobility restriction, L knee also painful. History of Current Condition Pt reports she underwent R Partial (lateral) knee arthroplasty and was given no instructions what to do at home, so she has only been walking around. States her sister lives with her and is helping her. Prior Treatments and Tests Pt planning on getting L knee replaced next year. Treatment Goals Patient/Caregiver Goals Pt goals: -HEP -Walk w/o walker -4 steps with 1 railing ( ascending on R side), step by step. -independent with self care. Personal Factors Other Personal Factors That May Effect Shattered L1 in 2008 with Therapy/Recovery chronic back pain mostly controlled by med (neurotin), depression controlled by meds. PT-OP-C Subjective Start: 12/22/23 18:16 Freq: Status: Active Protocol: Document 01/29/24 10:22 AB (Rec: 01/29/24 12:34 AB [id number]) OP-PT Subjective Patient Comments Patient Comments Patient reports the knee is better, but is waking her up from sleep and is stiff in the morning. Lacking 7 deg ext to 122 deg flexion AROM right knee. SLS 1,3 seconds without UE use with ipsilateral trunk sidebend right LE PT-OP-E Functional Tests Start: 01/21/24 16:44 Freq: Status: Active Protocol: Document 01/21/24 12:57 AB (Rec: 01/21/24 16:45 AB [id number]) Functional Tests Timed Up and Go (TUG) Score TUG 15.14 Comments without device TUG Impairment Rating 40 to <60% Impaired (Score 14- 15) PT-OP-G Mobility & Gait Start: 12/22/23 18:16 Freq: Status: Active Protocol: Document 12/28/23 07:31 LRN (Rec: 12/28/23 08:21 LRN [id number]) OP Gait Assessment Gait Gait Assistance Required: Independent Distance (Feet) 80 Able to Maintain Weight Bearing Status No During Gait Assistive Devices Assistive Device Front Wheeled Walker Gait Deviations General Gait Pattern Antalgic Factors Limiting Gait Function Factors Limiting Gait Function Decreased Strength,Limited Range of Motion,Pain Stair Climbing Evaluation Technique/Endurance Stair Climbing Direction Ascend and Descend Stair Climbing Technique Step to Step Number of Steps Climbed 2 Comments Stair Climbing Comments Short hgt steps ~2 hgt. PT-OP-H Neuro Start: 12/22/23 18:16 Freq: Status: Active Protocol: Document 12/28/23 07:31 LRN (Rec: 12/28/23 08:21 LRN [id number]) Sensation Evaluation Gross Sensation Sensation Description Numbness Comments Summary Comments R knee: Decreased sensation medial slide of and immediately below incision. PT-OP-J Posture/Palpation/Skin Start: 12/22/23 18:16 Freq: Status: Active Protocol: Document 12/28/23 07:31 LRN (Rec: 12/28/23 08:21 LRN [id number]) Posture Evaluation Position Standing Head/C-Spine Posture Neutral Position Pelvis Posture Anteriorly Tilted Weight Distribution Weight Shifted Left Knee Posture (R) Excess Flexion Ankle/Foot Posture (L) Calcaneal Eversion Comments Posture Comments FB hips 22 deg's Palpation Assessment Location R knee Palpation Location Around the patella and the knee joint. Palpation Findings Edema L knee Palpation Location Around the knee Palpation Findings Tenderness PT-OP-K Range of Motion Start: 12/22/23 18:16 Freq: Status: Active Protocol: Document 01/25/24 09:54 LRN (Rec: 01/25/24 10:35 LRN [id number]) Knee Goniometric Range of Motion Knee Right Patient Position Supine Flexion Active (degrees) 125 Extension Active (degrees) 0 Left Knee ROM WFL Yes Patient Position Supine Flexion Active (degrees) 131 Extension Active (degrees) 0 PT-OP-M Strength Start: 12/22/23 18:16 Freq: Status: Active Protocol: Document 12/28/23 07:31 LRN (Rec: 12/28/23 08:21 LRN [id number]) Knee Strength Knee Manual Muscle Testing Right Flexion (S2) 2- Poor- Extension (L3) 2- Poor- PT-OP-Q Treatments Start: 12/22/23 18:16 Freq: Status: Active Protocol: Document 01/29/24 10:22 AB (Rec: 01/29/24 12:34 AB [id number]) Cardio Equipment Recumbent Stepper (Sci-Fit) Duration (Minutes) 6 Resistance 0 Seat Position 11 and 12 Therapeutic Exercises Supine Exercises SLR Side right Reps/Minutes 15x Comments Verbal cues to relax a moment between each rep and relax ankle Sitting Exercises seated hip abduction with band Side bilateral Resistance level 3 green band Reps/Minutes one minute X 1 Standing Exercises Shallow squats Equipment Used level 3 green band Reps/Minutes 2X10 Other Exercises hooklying HS stretch Other Exercise Name Performed post manual and pre quad ex due to lacking 7 deg ext Reps/Minutes 60 X 3 Manual Therapy Treatment Soft Tissue Mobilization R knee Body Location scar tissue Mobilization Type Cross-Friction Intensity/Depth Superficial Body Position Hooklying STM for swelling and to hamstring Body Location right knee hamstring only this session Mobilization Type Cross-Friction,Rolling,Other Intensity/Depth Moderate Body Position Hooklying with right knee off bolster Self-Care/Home Management Treatment Activities Self-Care/Home Management Activities band added to squat 1/2 to chair, and seated hip abduction with green band one minute hold (glute med activation )added to HEP. PT-OP-T Assessment and Plan Start: 12/22/23 18:16 Freq: Status: Active Protocol: Document 01/29/24 10:22 AB (Rec: 01/29/24 12:34 AB [id number]) Physical Therapy Assessment Goals 3 Impairment Decreased R knee AROM Impairment AROM: 18-80 PROM: 18-82 Short Term Goal (STG) Improve R knee AROM with pt able to perform sit<>stand w/o use of hands with minmal to no pain. 01/04/24: AROM 3-96 01/11/24: AROM 5-110 01/14/24: AROM right knee lacking 10 deg ext to 122 flex start of session lacking 5 deg extension post manual and ther ex. 01/19/24: AROM R knee: lacking 2 deg's - 122 deg's. 01/25/24: AROM R knee: 0-125 deg's. STG Duration 6 wks-02/08/24 progressing Detention Goal (LTG) Pt will be able to ascend/ descend at least 4 steps with 1 rail (ascending on R side), with step over step gait. 01/04/24: Pt training on stair amb w/1 rail & SPC LTG Duration 12 wks-03/21/24 progressing 01/04/24 2 Impairment Decreased R knee strength, requires use of FWW to walk. Impairment Decreased strength of the posterior trunk and postural muscles Short Term Goal (STG) Improve R knee strength with pt able to perform a SLR independently. 01/04/24: Independent SLR x 2 reps 01/11/24: Independent SLR x 10 reps, rest x5 reps. STG Duration (01/11/24: MET GOAL) Management Accounts Manager Goal (LTG) Pt will be able to walk w/o a walker on level ground 50' with normal gait pattern and TUG 13 secs or less. 01/21/2024: TUG 15.14 without device LTG Duration 12 wks-03/21/24 1 Impairment Pt lacks self care HEP Impairment postural habits that may be contributing to pain symptoms Short Term Goal (STG) Pt will be educated in self care pain management with use of RICE. 01/04/24: Educated pt in RICE technique for edema/pain management. STG Duration (01/04/24: MET GOAL) Detention Goal (LTG) Pt will be independent in self care R knee ROM and strengthening exercise. 01/04/24 HEP: reviewed s/p TKA ex's, handout issed 12/28/23 . 01/14/2024 Patient to to perform hamstring stretch prior to quad strengthening exercises. LTG Duration 12 wks-03/21/24 progressed 01/04/24 Assessment Summary Assessment SLS right LE without UE use 15 + seconds post glute med activation. AROM right knee extension lacking 3 deg post manual therapy and exercise. Physical Therapy Plan Frequency and Duration Frequency of Treatment 2x/Week Duration of treatment (weeks) 12 Plan of Care Start Date 12/28/23 Plan of Care End Date 03/21/24 Next Visit Focus/Plan Next Note Type Treatment Note Next Visit Plan POC: R Partial knee replacement rehab. ( Precaution: L knee pain and planning TKA). Next: Start with ex bike or stepper. Focus on increasing R knee ROM and strength. Progress slowly (ex & HEP) towards independent gait and stair ambulation, as pt tends to be more aggressive with self care due to high pain tolerance. Next session: balance, assess tolerance to step ups
--- NOTE | 2024-02-01 12:44 | PT.OTN ---
Current Diagnoses Bilateral primary osteoarthritis of knee (02/01/24) Encounter for other preprocedural examination (02/01/24) Physical Therapy Treatment Note PT-OP-A Visit Information Start: 12/22/23 18:16 Freq: Status: Active Protocol: Document 02/01/24 08:08 AB (Rec: 02/01/24 12:44 AB [id number]) Out-Patient Physical Therapy Visit Information Visit Information Visit Type Treatment Note Visit Note [email or web address] access code Visit Start Time 10:33 Visit Stop Time 11:17 Visit Number 9 Number of CHLORINE PLANT OPERATOR Visits 2 Evaluation Information Evaluation Date 12/28/23 Precautions Precautions Shattered L1 in 2008 with chronick back pain mostly controlled by med (neurotin), depression controlled by meds. PT-OP-B Current Condition Start: 12/22/23 18:16 Freq: Status: Active Protocol: Document 12/28/23 07:31 LRN (Rec: 12/28/23 08:21 LRN [id number]) Current Condition History of Current Condition Onset Date 12/24/23 Current Complaints R partial TKA, pain rated 7/10 , mobility restriction, L knee also painful. History of Current Condition Pt reports she underwent R Partial (lateral) knee arthroplasty and was given no instructions what to do at home, so she has only been walking around. States her sister lives with her and is helping her. Prior Treatments and Tests Pt planning on getting L knee replaced next year. Treatment Goals Patient/Caregiver Goals Pt goals: -HEP -Walk w/o walker -4 steps with 1 railing ( ascending on R side), step by step. -independent with self care. Personal Factors Other Personal Factors That May Effect Shattered L1 in 2008 with Therapy/Recovery chronic back pain mostly controlled by med (neurotin), depression controlled by meds. PT-OP-C Subjective Start: 12/22/23 18:16 Freq: Status: Active Protocol: Document 02/01/24 08:08 AB (Rec: 02/01/24 12:44 AB [id number]) OP-PT Subjective Patient Comments Patient Comments Patient reports she is a little bit better. Patient reports she is tender and swollen proximal scar tisssue area. Patient transfers sit to stand right LE fwd with UE use. AROM lacking 5 deg extension to 122 deg flexion. SLS right LE 9 seconds without UE use right LE start of session. PT-OP-E Functional Tests Start: 01/21/24 16:44 Freq: Status: Active Protocol: Document 01/21/24 12:57 AB (Rec: 01/21/24 16:45 AB [id number]) Functional Tests Timed Up and Go (TUG) Score TUG 15.14 Comments without device TUG Impairment Rating 40 to <60% Impaired (Score 14- 15) PT-OP-G Mobility & Gait Start: 12/22/23 18:16 Freq: Status: Active Protocol: Document 12/28/23 07:31 LRN (Rec: 12/28/23 08:21 LRN [id number]) OP Gait Assessment Gait Gait Assistance Required: Independent Distance (Feet) 80 Able to Maintain Weight Bearing Status No During Gait Assistive Devices Assistive Device Front Wheeled Walker Gait Deviations General Gait Pattern Antalgic Factors Limiting Gait Function Factors Limiting Gait Function Decreased Strength,Limited Range of Motion,Pain Stair Climbing Evaluation Technique/Endurance Stair Climbing Direction Ascend and Descend Stair Climbing Technique Step to Step Number of Steps Climbed 2 Comments Stair Climbing Comments Short hgt steps ~2 hgt. PT-OP-H Neuro Start: 12/22/23 18:16 Freq: Status: Active Protocol: Document 12/28/23 07:31 LRN (Rec: 12/28/23 08:21 LRN [id number]) Sensation Evaluation Gross Sensation Sensation Description Numbness Comments Summary Comments R knee: Decreased sensation medial slide of and immediately below incision. PT-OP-J Posture/Palpation/Skin Start: 12/22/23 18:16 Freq: Status: Active Protocol: Document 12/28/23 07:31 LRN (Rec: 12/28/23 08:21 LRN [id number]) Posture Evaluation Position Standing Head/C-Spine Posture Neutral Position Pelvis Posture Anteriorly Tilted Weight Distribution Weight Shifted Left Knee Posture (R) Excess Flexion Ankle/Foot Posture (L) Calcaneal Eversion Comments Posture Comments FB hips 22 deg's Palpation Assessment Location R knee Palpation Location Around the patella and the knee joint. Palpation Findings Edema L knee Palpation Location Around the knee Palpation Findings Tenderness PT-OP-K Range of Motion Start: 12/22/23 18:16 Freq: Status: Active Protocol: Document 01/25/24 09:54 LRN (Rec: 01/25/24 10:35 LRN [id number]) Knee Goniometric Range of Motion Knee Right Patient Position Supine Flexion Active (degrees) 125 Extension Active (degrees) 0 Left Knee ROM WFL Yes Patient Position Supine Flexion Active (degrees) 131 Extension Active (degrees) 0 PT-OP-M Strength Start: 12/22/23 18:16 Freq: Status: Active Protocol: Document 12/28/23 07:31 LRN (Rec: 12/28/23 08:21 LRN [id number]) Knee Strength Knee Manual Muscle Testing Right Flexion (S2) 2- Poor- Extension (L3) 2- Poor- PT-OP-Q Treatments Start: 12/22/23 18:16 Freq: Status: Active Protocol: Document 02/01/24 08:08 AB (Rec: 02/01/24 12:44 AB [id number]) Therapeutic Exercises Supine Exercises Heel slides Supine Exercise Name Independent heel slide Side right Reps/Minutes X15 Comments post manual therapy to scar tissue Sitting Exercises seated hip abduction with band Side bilateral Resistance level 4 blue band Reps/Minutes one minute X 1 then 2 X 10 without UE use Other Exercises hooklying HS stretch Other Exercise Name Performed post manual and pre quad ex due to lacking 7 deg ext Reps/Minutes 60 X 3 Therapeutic Activity Therapeutic Activity sit to stand Comments Patient ed mechanics of sit to stand, and self tactile cues for hip hinge. Patient made aware she is extending right knee during sit to stand past 90 deg. Gait Training Gait Activity Stair amb Description Stairs with rail on L ascending, R descending Device Used SPC Level of Assistance distant supervision Surface Stairs Distance/Duration 4 steps 4 with B rails, cane and rail and SPC only Comments able to ascend and descend with SPC using a reciprocal pattern, Patient ed position of SPC descending Manual Therapy Treatment Soft Tissue Mobilization R knee Body Location scar tissue Mobilization Type Cross-Friction Intensity/Depth Superficial Body Position Hooklying STM for swelling and to hamstring Body Location right knee hamstring only this session Mobilization Type Cross-Friction,Rolling,Other Intensity/Depth Moderate Body Position Hooklying with right knee off bolster Self-Care/Home Management Treatment Activities Self-Care/Home Management Activities Blue band for seated hip abd exercises. PT-OP-T Assessment and Plan Start: 12/22/23 18:16 Freq: Status: Active Protocol: Document 02/01/24 08:08 AB (Rec: 02/01/24 12:44 AB [id number]) Physical Therapy Assessment Goals 3 Impairment Decreased R knee AROM Impairment AROM: 18-80 PROM: 18-82 Short Term Goal (STG) Improve R knee AROM with pt able to perform sit<>stand w/o use of hands with minmal to no pain. 01/04/24: AROM 3-96 01/11/24: AROM 5-110 01/14/24: AROM right knee lacking 10 deg ext to 122 flex start of session lacking 5 deg extension post manual and ther ex. 01/19/24: AROM R knee: lacking 2 deg's - 122 deg's. 01/25/24: AROM R knee: 0-125 deg's. 02/01/2024 lacking 1 deg ext to 127 deg flexion AROM STG Duration 6 wks-02/08/24 progressing Snf Goal (LTG) Pt will be able to ascend/ descend at least 4 steps with 1 rail (ascending on R side), with step over step gait. 01/04/24: Pt training on stair amb w/1 rail & SPC 02/01/2024 Patient ascends and descends 6 inch steps with rail reports no increase in pain LTG Duration 12 wks-03/21/24 progressing 01/04/24 2 Impairment Decreased R knee strength, requires use of FWW to walk. Impairment Decreased strength of the posterior trunk and postural muscles Short Term Goal (STG) Improve R knee strength with pt able to perform a SLR independently. 01/04/24: Independent SLR x 2 reps 01/11/24: Independent SLR x 10 reps, rest x5 reps. STG Duration (01/11/24: MET GOAL) Department Operations Manager Goal (LTG) Pt will be able to walk w/o a walker on level ground 50' with normal gait pattern and TUG 13 secs or less. 01/21/2024: TUG 15.14 without device LTG Duration 12 wks-03/21/24 1 Impairment Pt lacks self care HEP Impairment postural habits that may be contributing to pain symptoms Short Term Goal (STG) Pt will be educated in self care pain management with use of RICE. 01/04/24: Educated pt in RICE technique for edema/pain management. STG Duration (01/04/24: MET GOAL) Snf Goal (LTG) Pt will be independent in self care R knee ROM and strengthening exercise. 01/04/24 HEP: reviewed s/p TKA ex's, handout issed 12/28/23 . 01/14/2024 Patient to to perform hamstring stretch prior to quad strengthening exercises. LTG Duration 12 wks-03/21/24 progressed 01/04/24 Assessment Summary Assessment lacking 1 deg extension to 127 deg AROM right knee flexion post manual therapy and exercise. Patient reports the knee feels good end of session . Physical Therapy Plan Frequency and Duration Frequency of Treatment 2x/Week Duration of treatment (weeks) 12 Plan of Care Start Date 12/28/23 Plan of Care End Date 03/21/24 Next Visit Focus/Plan Next Note Type Treatment Note Next Visit Plan POC: R Partial knee replacement rehab. ( Precaution: L knee pain and planning TKA). Next: Start with ex bike or stepper. Focus on increasing R knee ROM and strength. Progress slowly (ex & HEP) towards independent gait and stair ambulation, as pt tends to be more aggressive with self care due to high pain tolerance. Next session: balance, assess tolerance to step ups/ possibly progress to step downs
--- NOTE | 2024-02-04 12:08 | PT.OTN ---
Current Diagnoses Bilateral primary osteoarthritis of knee (02/04/24) Encounter for other preprocedural examination (02/04/24) Physical Therapy Treatment Note PT-OP-A Visit Information Start: 12/22/23 18:16 Freq: Status: Active Protocol: Document 02/04/24 11:00 LRN (Rec: 02/04/24 12:07 LRN [id number]) Out-Patient Physical Therapy Visit Information Visit Information Visit Type Progress Note Visit Start Time 11:00 Visit Stop Time 11:46 Visit Number 10 Number of WAREHOUSE ADMINISTRATOR Visits 2 Evaluation Information Evaluation Date 12/28/23 Precautions Precautions Shattered L1 in 2008 with chronick back pain mostly controlled by med (neurotin), depression controlled by meds. PT-OP-B Current Condition Start: 12/22/23 18:16 Freq: Status: Active Protocol: Document 12/28/23 07:31 LRN (Rec: 12/28/23 08:21 LRN [id number]) Current Condition History of Current Condition Onset Date 12/24/23 Current Complaints R partial TKA, pain rated 7/10 , mobility restriction, L knee also painful. History of Current Condition Pt reports she underwent R Partial (lateral) knee arthroplasty and was given no instructions what to do at home, so she has only been walking around. States her sister lives with her and is helping her. Prior Treatments and Tests Pt planning on getting L knee replaced next year. Treatment Goals Patient/Caregiver Goals Pt goals: -HEP -Walk w/o walker -4 steps with 1 railing ( ascending on R side), step by step. -independent with self care. Personal Factors Other Personal Factors That May Effect Shattered L1 in 2008 with Therapy/Recovery chronic back pain mostly controlled by med (neurotin), depression controlled by meds. PT-OP-C Subjective Start: 12/22/23 18:16 Freq: Status: Active Protocol: Document 02/04/24 11:00 LRN (Rec: 02/04/24 12:07 LRN [id number]) OP-PT Subjective Patient Comments Patient Comments Seeing Ortho surgeon 02/09/24. Feels she is doing well. Going up/down steps is a little easier (less stiff and using cane) and is not as stiff in the morning. PT-OP-E Functional Tests Start: 01/21/24 16:44 Freq: Status: Active Protocol: Document 02/04/24 11:00 LRN (Rec: 02/04/24 12:07 LRN [id number]) Functional Tests Timed Up and Go (TUG) Score 11 Comments No device, used hands to push off of chair TUG Impairment Rating 1 to <20% Impaired (Score 11) PT-OP-G Mobility & Gait Start: 12/22/23 18:16 Freq: Status: Active Protocol: Document 12/28/23 07:31 LRN (Rec: 12/28/23 08:21 LRN [id number]) OP Gait Assessment Gait Gait Assistance Required: Independent Distance (Feet) 80 Able to Maintain Weight Bearing Status No During Gait Assistive Devices Assistive Device Front Wheeled Walker Gait Deviations General Gait Pattern Antalgic Factors Limiting Gait Function Factors Limiting Gait Function Decreased Strength,Limited Range of Motion,Pain Stair Climbing Evaluation Technique/Endurance Stair Climbing Direction Ascend and Descend Stair Climbing Technique Step to Step Number of Steps Climbed 2 Comments Stair Climbing Comments Short hgt steps ~2 hgt. PT-OP-H Neuro Start: 12/22/23 18:16 Freq: Status: Active Protocol: Document 12/28/23 07:31 LRN (Rec: 12/28/23 08:21 LRN [id number]) Sensation Evaluation Gross Sensation Sensation Description Numbness Comments Summary Comments R knee: Decreased sensation medial slide of and immediately below incision. PT-OP-J Posture/Palpation/Skin Start: 12/22/23 18:16 Freq: Status: Active Protocol: Document 12/28/23 07:31 LRN (Rec: 12/28/23 08:21 LRN [id number]) Posture Evaluation Position Standing Head/C-Spine Posture Neutral Position Pelvis Posture Anteriorly Tilted Weight Distribution Weight Shifted Left Knee Posture (R) Excess Flexion Ankle/Foot Posture (L) Calcaneal Eversion Comments Posture Comments FB hips 22 deg's Palpation Assessment Location R knee Palpation Location Around the patella and the knee joint. Palpation Findings Edema L knee Palpation Location Around the knee Palpation Findings Tenderness PT-OP-K Range of Motion Start: 12/22/23 18:16 Freq: Status: Active Protocol: Document 02/04/24 11:00 LRN (Rec: 02/04/24 12:07 LRN [id number]) Knee Goniometric Range of Motion Knee Right Patient Position Supine Flexion Active (degrees) 130 Extension Active (degrees) 0 Left Patient Position Supine Flexion Active (degrees) 131 Hyper-Extension Active 4 PT-OP-M Strength Start: 12/22/23 18:16 Freq: Status: Active Protocol: Document 12/28/23 07:31 LRN (Rec: 12/28/23 08:21 LR [id number]) Knee Strength Knee Manual Muscle Testing Right Flexion (S2) 2- Poor- Extension (L3) 2- Poor- PT-OP-Q Treatments Start: 12/22/23 18:16 Freq: Status: Active Protocol: Document 02/04/24 11:00 LRN (Rec: 02/04/24 12:07 [facility] [id number]) Cardio Equipment Recumbent Stepper (Sci-Fit) Duration (Minutes) 8 Resistance 1 Seat Position 10 Therapeutic Exercises Supine Exercises SLR Side right Reps/Minutes 20x Heel slides Supine Exercise Name Independent heel slide Side right Reps/Minutes X15 Comments ROM taken bilaterally QS Side right Equipment Used towel roll under ankle Reps/Minutes 4' Comments AROM taken. verbal cues, good quad activation Sitting Exercises Sit<>stand Equipment Used Webbed chair Reps/Minutes 2x Comments cued to use hands due to difficulty in performing Manual Therapy Treatment Soft Tissue Mobilization R knee Body Location scar tissue Mobilization Type Cross-Friction Intensity/Depth Superficial Body Position Hooklying Comments Mob while on scar and with use of cups-along scar line. Self-Care/Home Management Treatment Activities Self-Care/Home Management Activities Pt I/S to perform self scar tissue mob. PT-OP-T Assessment and Plan Start: 12/22/23 18:16 Freq: Status: Active Protocol: Document 02/04/24 11:00 LRN (Rec: 02/04/24 12:07 [facility] [id number]) Physical Therapy Assessment Goals 3 Impairment Decreased R knee AROM Impairment AROM: 18-80 PROM: 18-82 Short Term Goal (STG) Improve R knee AROM with pt able to perform sit<>stand w/o use of hands with minmal to no pain. 01/04/24: AROM 3-96 01/11/24: AROM 5-110 01/14/24: AROM right knee lacking 10 deg ext to 122 flex start of session lacking 5 deg extension post manual and ther ex. 01/19/24: AROM R knee: lacking 2 deg's - 122 deg's. 01/25/24: AROM R knee: 0-125 deg's. 02/01/2024 lacking 1 deg ext to 127 deg flexion AROM 02/04/24: AROM R knee: 0-130 deg's (L knee: hyper 4 to 140 deg's). Not able to sit<> stand w/o use of hands. STG Duration 6 wks-02/08/24 progressing Nursing Home Goal (LTG) Pt will be able to ascend/ descend at least 4 steps with 1 rail (ascending on R side), with step over step gait. 01/04/24: Pt training on stair amb w/1 rail & SPC 02/01/2024 Patient ascends and descends 6 inch steps with rail reports no increase in pain LTG Duration 12 wks-03/21/24 progressing 01/04/24 2 Impairment Decreased R knee strength, requires use of FWW to walk. Impairment Decreased strength of the posterior trunk and postural muscles Short Term Goal (STG) Improve R knee strength with pt able to perform a SLR independently. 01/04/24: Independent SLR x 2 reps 01/11/24: Independent SLR x 10 reps, rest x5 reps. STG Duration (01/11/24: MET GOAL) Nursing Home Goal (LTG) Pt will be able to walk w/o a walker on level ground 50' with normal gait pattern and TUG 13 secs or less. 01/21/2024: TUG 15.14 without device. 02/04/24: TUG 11 secs w/o device, using hands for sit<> stand, webbed chair. LTG Duration 12 wks-03/21/24 progressed 02/04/24 (assess gt 50+ft & for normal gt) 1 Impairment Pt lacks self care HEP Impairment postural habits that may be contributing to pain symptoms Short Term Goal (STG) Pt will be educated in self care pain management with use of RICE. 01/04/24: Educated pt in RICE technique for edema/pain management. STG Duration (01/04/24: MET GOAL) Nursing Home Goal (LTG) Pt will be independent in self care R knee ROM and strengthening exercise. 01/04/24 HEP: reviewed s/p TKA ex's, handout issed 12/28/23 . 01/14/2024 Patient to to perform hamstring stretch prior to quad strengthening exercises. 02/03/24: I/S pt in HEP: sit< >stands LTG Duration 12 wks-03/21/24 progressed 02/04/24 Assessment Summary Assessment 53 yo female, 4 wks s/p R partial knee replacement ( lateral side on 12/24/23). Pt is walking with SPC although she appears to be doing well and may be able to wean off cane with gait training for proper mechanics. Pt needs LE strengthening since having difficulty with sit<>stand. TUG improved from 15 secs (40< 60% impaired) w/o hands to 11 secs, but using hands to stand /sit (1<20% impaired). Physical Therapy Plan Frequency and Duration Frequency of Treatment 2x/Week Duration of treatment (weeks) 12 Plan of Care Start Date 12/28/23 Plan of Care End Date 03/21/24 Next Visit Focus/Plan Next Note Type Treatment Note Next Visit Plan POC: R Partial knee replacement rehab. ( Precaution: L knee pain and planning TKA). Next: Assess TUG w/o use of hands. Try upright ex bike vs stepper and shuttle recovery for strengthening. Focus on strength of R knee but cautiously due to pt's high pain tolerance. Strengthen 1- 2 visits before balance ex's, gait training & assess tolerance to step ups/& possibly progress to step downs. Progress (ex & HEP) towards independent gait and stair ambulation (caution: pt tends to be aggressive with self care due to high pain tolerance).
--- NOTE | 2024-02-04 13:30 | PT.OPPN ---
Current Diagnoses Bilateral primary osteoarthritis of knee (02/04/24) Encounter for other preprocedural examination (02/04/24) Physical Therapy Progress Note PT-OP-A Visit Information Start: 12/22/23 18:16 Freq: Status: Active Protocol: Document 02/04/24 11:00 LRN (Rec: 02/04/24 12:07 LRN [id number]) Out-Patient Physical Therapy Visit Information Visit Information Visit Type Progress Note Visit Start Time 11:00 Visit Stop Time 11:46 Visit Number 10 Number of BENEFITS SPECIALIST RECRUITER Visits 2 Evaluation Information Evaluation Date 12/28/23 Precautions Precautions Shattered L1 in 2008 with chronick back pain mostly controlled by med (neurotin), depression controlled by meds. PT-OP-B Current Condition Start: 12/22/23 18:16 Freq: Status: Active Protocol: Document 12/28/23 07:31 LRN (Rec: 12/28/23 08:21 LRN [id number]) Current Condition History of Current Condition Onset Date 12/24/23 Current Complaints R partial TKA, pain rated 7/10 , mobility restriction, L knee also painful. History of Current Condition Pt reports she underwent R Partial (lateral) knee arthroplasty and was given no instructions what to do at home, so she has only been walking around. States her sister lives with her and is helping her. Prior Treatments and Tests Pt planning on getting L knee replaced next year. Treatment Goals Patient/Caregiver Goals Pt goals: -HEP -Walk w/o walker -4 steps with 1 railing ( ascending on R side), step by step. -independent with self care. Personal Factors Other Personal Factors That May Effect Shattered L1 in 2008 with Therapy/Recovery chronic back pain mostly controlled by med (neurotin), depression controlled by meds. PT-OP-C Subjective Start: 12/22/23 18:16 Freq: Status: Active Protocol: Document 02/04/24 11:00 LRN (Rec: 02/04/24 12:07 LRN [id number]) OP-PT Subjective Patient Comments Patient Comments Seeing Ortho surgeon 02/09/24. Feels she is doing well. Going up/down steps is a little easier (less stiff and using cane) and is not as stiff in the morning. PT-OP-E Functional Tests Start: 01/21/24 16:44 Freq: Status: Active Protocol: Document 02/04/24 11:00 LRN (Rec: 02/04/24 12:07 LRN [id number]) Functional Tests Timed Up and Go (TUG) Score 11 Comments No device, used hands to push off of chair TUG Impairment Rating 1 to <20% Impaired (Score 11) PT-OP-G Mobility & Gait Start: 12/22/23 18:16 Freq: Status: Active Protocol: Document 12/28/23 07:31 LRN (Rec: 12/28/23 08:21 LRN [id number]) OP Gait Assessment Gait Gait Assistance Required: Independent Distance (Feet) 80 Able to Maintain Weight Bearing Status No During Gait Assistive Devices Assistive Device Front Wheeled Walker Gait Deviations General Gait Pattern Antalgic Factors Limiting Gait Function Factors Limiting Gait Function Decreased Strength,Limited Range of Motion,Pain Stair Climbing Evaluation Technique/Endurance Stair Climbing Direction Ascend and Descend Stair Climbing Technique Step to Step Number of Steps Climbed 2 Comments Stair Climbing Comments Short hgt steps ~2 hgt. PT-OP-H Neuro Start: 12/22/23 18:16 Freq: Status: Active Protocol: Document 12/28/23 07:31 LRN (Rec: 12/28/23 08:21 LRN [id number]) Sensation Evaluation Gross Sensation Sensation Description Numbness Comments Summary Comments R knee: Decreased sensation medial slide of and immediately below incision. PT-OP-J Posture/Palpation/Skin Start: 12/22/23 18:16 Freq: Status: Active Protocol: Document 12/28/23 07:31 LRN (Rec: 12/28/23 08:21 LRN [id number]) Posture Evaluation Position Standing Head/C-Spine Posture Neutral Position Pelvis Posture Anteriorly Tilted Weight Distribution Weight Shifted Left Knee Posture (R) Excess Flexion Ankle/Foot Posture (L) Calcaneal Eversion Comments Posture Comments FB hips 22 deg's Palpation Assessment Location R knee Palpation Location Around the patella and the knee joint. Palpation Findings Edema L knee Palpation Location Around the knee Palpation Findings Tenderness PT-OP-K Range of Motion Start: 12/22/23 18:16 Freq: Status: Active Protocol: Document 02/04/24 11:00 LRN (Rec: 02/04/24 12:07 LRN [id number]) Knee Goniometric Range of Motion Knee Measured in Degrees Right Patient Position Supine Flexion Active (degrees) 130 Extension Active (degrees) 0 Left Patient Position Supine Flexion Active (degrees) 131 Hyper-Extension Active 4 PT-OP-M Strength Start: 12/22/23 18:16 Freq: Status: Active Protocol: Document 12/28/23 07:31 LRN (Rec: 12/28/23 08:21 LRN [id number]) Knee Strength Knee Manual Muscle Testing Right Flexion (S2) 2- Poor- Extension (L3) 2- Poor- PT-OP-T Assessment and Plan Start: 12/22/23 18:16 Freq: Status: Active Protocol: Document 02/04/24 13:28 LRN (Rec: 02/04/24 13:30 LRN [id number]) Physical Therapy Assessment Rehab Potential Rehabilitation Potential Good Evaluation Complexity Number of Personal Factors/Comorbidities 1-2 Number of Body Systems Impaired 4 or More Clinical Presentation at Evaluation Evolving Impairments Impairments Activity Tolerance,Balance, Edema,Functional Mobility,Gait ,Pain,Posture,ROM,Strength, Transfers Goals 3 Impairment Decreased R knee AROM Impairment AROM: 18-80 PROM: 18-82 Short Term Goal (STG) Improve R knee AROM with pt able to perform sit<>stand w/o use of hands with minmal to no pain. 01/04/24: AROM 3-96 01/11/24: AROM 5-110 01/14/24: AROM right knee lacking 10 deg ext to 122 flex start of session lacking 5 deg extension post manual and ther ex. 01/19/24: AROM R knee: lacking 2 deg's - 122 deg's. 01/25/24: AROM R knee: 0-125 deg's. 02/01/2024 lacking 1 deg ext to 127 deg flexion AROM 02/04/24: AROM R knee: 0-130 deg's (L knee: hyper 4 to 140 deg's). Not able to sit<> stand w/o use of hands. STG Duration 6 wks-02/08/24 progressing Final Assembly Inspector Goal (LTG) Pt will be able to ascend/ descend at least 4 steps with 1 rail (ascending on R side), with step over step gait. 01/04/24: Pt training on stair amb w/1 rail & SPC 02/01/2024 Patient ascends and descends 6 inch steps with rail reports no increase in pain LTG Duration 12 wks-03/21/24 progressing 01/04/24 2 Impairment Decreased R knee strength, requires use of FWW to walk. Impairment Decreased strength of the posterior trunk and postural muscles Short Term Goal (STG) Improve R knee strength with pt able to perform a SLR independently. 01/04/24: Independent SLR x 2 reps 01/11/24: Independent SLR x 10 reps, rest x5 reps. STG Duration (01/11/24: MET GOAL) Final Assembly Inspector Goal (LTG) Pt will be able to walk w/o a walker on level ground 50' with normal gait pattern and TUG 13 secs or less. 01/21/2024: TUG 15.14 without device. 02/04/24: TUG 11 secs w/o device, using hands for sit<> stand, webbed chair. LTG Duration 12 wks-03/21/24 progressed 02/04/24 (assess gt 50+ft & for normal gt) 1 Impairment Pt lacks self care HEP Impairment postural habits that may be contributing to pain symptoms Short Term Goal (STG) Pt will be educated in self care pain management with use of RICE. 01/04/24: Educated pt in RICE technique for edema/pain management. STG Duration (01/04/24: MET GOAL) [facility] Goal (LTG) Pt will be independent in self care R knee ROM and strengthening exercise. 01/04/24 HEP: reviewed s/p TKA ex's, handout issed 12/28/23 . 01/14/2024 Patient to to perform hamstring stretch prior to quad strengthening exercises. 02/03/24: I/S pt in HEP: sit< >stands LTG Duration 12 wks-03/21/24 progressed 02/04/24 Assessment Summary Assessment 53 yo female, 4 wks s/p R partial knee replacement ( lateral side on 12/24/23). Pt is walking with SPC although she appears to be doing well and may be able to wean off cane with gait training for proper mechanics. Pt needs LE strengthening since having difficulty with sit<>stand. TUG improved from 15 secs (40< 60% impaired) w/o hands to 11 secs, but using hands to stand /sit (1<20% impaired). Pt will benefit from continued skilled physical therapy to achieve the above stated goals . Physical Therapy Plan Frequency and Duration Frequency of Treatment 2x/Week Duration of treatment (weeks) 12 Plan of Care Start Date 12/28/23 Plan of Care End Date 03/21/24 Therapeutic Interventions Therapeutic Interventions Balance Training,Gait Training ,Home Exercise Program,Manual Therapy,Neuromuscular Re- education,Self-Care/Home Management,Soft Tissue Mobilization,Therapeutic Activities,Therapeutic Exercises Modalities Cold Pack/Ice Massage Next Visit Focus/Plan Next Note Type Treatment Note Next Visit Plan POC: R Partial knee replacement rehab. ( Precaution: L knee pain and planning TKA). Next: Assess TUG w/o use of hands. Try upright ex bike vs stepper and shuttle recovery for strengthening. Focus on strength of R knee but cautiously due to pt's high pain tolerance. Strengthen 1- 2 visits before balance ex's, gait training & assess tolerance to step ups/& possibly progress to step downs. Progress (ex & HEP) towards independent gait and stair ambulation (caution: pt tends to be aggressive with self care due to high pain tolerance).
--- NOTE | 2024-02-09 13:37 | PT.OTN ---
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 PT-OP-B Current Condition Start: 12/22/23 18:16 Freq: Status: Active Protocol: Document 12/28/23 07:31 LRN (Rec: 12/28/23 08:21 LRN [id number]) Current Condition History of Current Condition Onset Date 12/24/23 Current Complaints R partial TKA, pain rated 7/10 , mobility restriction, L knee also painful. History of Current Condition Pt reports she underwent R Partial (lateral) knee arthroplasty and was given no instructions what to do at home, so she has only been walking around. States her sister lives with her and is helping her. Prior Treatments and Tests Pt planning on getting L knee replaced next year. Treatment Goals Patient/Caregiver Goals Pt goals: -HEP -Walk w/o walker -4 steps with 1 railing ( ascending on R side), step by step. -independent with self care. Personal Factors Other Personal Factors That May Effect Shattered L1 in 2008 with Therapy/Recovery chronic back pain mostly controlled by med (neurotin), depression controlled by meds. PT-OP-C Subjective Start: 12/22/23 18:16 Freq: Status: Active Protocol: Document 02/09/24 09:44 AB (Rec: 02/09/24 13:37 AB [id number]) OP-PT Subjective Patient Comments Patient Comments Patient reports the knee feels tight at the incision. Patient to see MD later today. Patient comments she needs to practice more of the getting up from a chair. Lacking 3 deg extension to 123 deg flexion AROM right knee start of session PT-OP-E Functional Tests Start: 01/21/24 16:44 Freq: Status: Active Protocol: Document 02/04/24 11:00 LRN (Rec: 02/04/24 12:07 LRN [id number]) Functional Tests Timed Up and Go (TUG) Score 11 Comments No device, used hands to push off of chair TUG Impairment Rating 1 to <20% Impaired (Score 11) PT-OP-G Mobility & Gait Start: 12/22/23 18:16 Freq: Status: Active Protocol: Document 12/28/23 07:31 LRN (Rec: 12/28/23 08:21 LRN [id number]) OP Gait Assessment Gait Gait Assistance Required: Independent Distance (Feet) 80 Able to Maintain Weight Bearing Status No During Gait Assistive Devices Assistive Device Front Wheeled Walker Gait Deviations General Gait Pattern Antalgic Factors Limiting Gait Function Factors Limiting Gait Function Decreased Strength,Limited Range of Motion,Pain Stair Climbing Evaluation Technique/Endurance Stair Climbing Direction Ascend and Descend Stair Climbing Technique Step to Step Number of Steps Climbed 2 Comments Stair Climbing Comments Short hgt steps ~2 hgt. PT-OP-H Neuro Start: 12/22/23 18:16 Freq: Status: Active Protocol: Document 12/28/23 07:31 LRN (Rec: 12/28/23 08:21 LRN [id number]) Sensation Evaluation Gross Sensation Sensation Description Numbness Comments Summary Comments R knee: Decreased sensation medial slide of and immediately below incision. PT-OP-J Posture/Palpation/Skin Start: 12/22/23 18:16 Freq: Status: Active Protocol: Document 12/28/23 07:31 LRN (Rec: 12/28/23 08:21 LRN [id number]) Posture Evaluation Position Standing Head/C-Spine Posture Neutral Position Pelvis Posture Anteriorly Tilted Weight Distribution Weight Shifted Left Knee Posture (R) Excess Flexion Ankle/Foot Posture (L) Calcaneal Eversion Comments Posture Comments FB hips 22 deg's Palpation Assessment Location R knee Palpation Location Around the patella and the knee joint. Palpation Findings Edema L knee Palpation Location Around the knee Palpation Findings Tenderness PT-OP-K Range of Motion Start: 12/22/23 18:16 Freq: Status: Active Protocol: Document 02/09/24 09:44 AB (Rec: 02/09/24 13:37 AB [id number]) Knee Goniometric Range of Motion Knee Right Patient Position Supine Flexion Active (degrees) 134 Extension Active (degrees) 1 Comments end of session lacking 1 deg extension to 134 deg flexion ARROM supine PT-OP-M Strength Start: 12/22/23 18:16 Freq: Status: Active Protocol: Document 12/28/23 07:31 LRN (Rec: 12/28/23 08:21 LRN [id number]) Knee Strength Knee Manual Muscle Testing Right Flexion (S2) 2- Poor- Extension (L3) 2- Poor- PT-OP-Q Treatments Start: 12/22/23 18:16 Freq: Status: Active Protocol: Document 02/09/24 09:44 AB (Rec: 02/09/24 13:37 AB [id number]) Cardio Equipment Recumbent Stepper (Sci-Fit) Duration (Minutes) 8 Resistance 3 Seat Position 12 Therapeutic Exercises Supine Exercises SLR Side right Reps/Minutes X12 Heel slides Supine Exercise Name Independent heel slide Side right Reps/Minutes X10 Sitting Exercises Sit<>stand Sitting Exercise Name unable from mat at lowest height Equipment Used mat at Reps/Minutes X4 at 21 inch seat height Comments cued to use hands due to difficulty in performing seated hip abduction with band Reps/Minutes one minute X 1 then 1 X 10 without UE use Standing Exercises 4 inch step down Standing Exercise Name with UE support Reps/Minutes X10 Comments VC for buttocks back, monitored for pain Shallow squats Equipment Used level 4 blue band Reps/Minutes X10 Other Exercises hooklying HS stretch Other Exercise Name Performed post manual and pre quad ex due to lacking 7 deg ext Reps/Minutes 60 X 3 Manual Therapy Treatment Soft Tissue Mobilization R knee Body Location scar tissue Mobilization Type Cross-Friction Intensity/Depth Superficial Body Position Hooklying Comments Mob while on scar and with use of cups-along scar line. STM for swelling and to hamstring Body Location right knee hamstring only this session Mobilization Type Cross-Friction,Rolling,Other Intensity/Depth Moderate Body Position Hooklying with right knee off bolster Comments prior to stretch PT-OP-T Assessment and Plan Start: 12/22/23 18:16 Freq: Status: Active Protocol: Document 02/09/24 09:44 AB (Rec: 02/09/24 13:37 AB [id number]) Physical Therapy Assessment Goals 3 Impairment Decreased R knee AROM Impairment AROM: 18-80 PROM: 18-82 Short Term Goal (STG) Improve R knee AROM with pt able to perform sit<>stand w/o use of hands with minmal to no pain. 01/04/24: AROM 3-96 01/11/24: AROM 5-110 01/14/24: AROM right knee lacking 10 deg ext to 122 flex start of session lacking 5 deg extension post manual and ther ex. 01/19/24: AROM R knee: lacking 2 deg's - 122 deg's. 01/25/24: AROM R knee: 0-125 deg's. 02/01/2024 lacking 1 deg ext to 127 deg flexion AROM 02/04/24: AROM R knee: 0-130 deg's (L knee: hyper 4 to 140 deg's). Not able to sit<> stand w/o use of hands. STG Duration 6 wks-02/08/24 progressing Senior Living Goal (LTG) Pt will be able to ascend/ descend at least 4 steps with 1 rail (ascending on R side), with step over step gait. 01/04/24: Pt training on stair amb w/1 rail & SPC 02/01/2024 Patient ascends and descends 6 inch steps with rail reports no increase in pain LTG Duration 12 wks-03/21/24 progressing 01/04/24 2 Impairment Decreased R knee strength, requires use of FWW to walk. Impairment Decreased strength of the posterior trunk and postural muscles Short Term Goal (STG) Improve R knee strength with pt able to perform a SLR independently. 01/04/24: Independent SLR x 2 reps 01/11/24: Independent SLR x 10 reps, rest x5 reps. STG Duration (01/11/24: MET GOAL) Senior Living Goal (LTG) Pt will be able to walk w/o a walker on level ground 50' with normal gait pattern and TUG 13 secs or less. 01/21/2024: TUG 15.14 without device. 02/04/24: TUG 11 secs w/o device, using hands for sit<> stand, webbed chair. LTG Duration 12 wks-03/21/24 progressed 02/04/24 (assess gt 50+ft & for normal gt) 1 Impairment Pt lacks self care HEP Impairment postural habits that may be contributing to pain symptoms Short Term Goal (STG) Pt will be educated in self care pain management with use of RICE. 01/04/24: Educated pt in RICE technique for edema/pain management. STG Duration (01/04/24: MET GOAL) Senior Living Goal (LTG) Pt will be independent in self care R knee ROM and strengthening exercise. 01/04/24 HEP: reviewed s/p TKA ex's, handout issed 12/28/23 . 01/14/2024 Patient to to perform hamstring stretch prior to quad strengthening exercises. 02/03/24: I/S pt in HEP: sit< >stands LTG Duration 12 wks-03/21/24 progressed 02/04/24 Assessment Summary Assessment 53 yo female 6 weeks 5 days post op. Post manual therapy and exercise AROM 134 deg flexion to lacking 1 deg extension right knee. Arabella able to perform 4 inch step down with good form and reports of no pain with UE support, but sit to stand from a standard chair seat height without UE use continues to require increased effort and use of momentum to complete task. Physical Therapy Plan Frequency and Duration Frequency of Treatment 2x/Week Duration of treatment (weeks) 12 Plan of Care Start Date 12/28/23 Plan of Care End Date 03/21/24 Next Visit Focus/Plan Next Note Type Treatment Note Next Visit Plan POC: R Partial knee replacement rehab. ( Precaution: L knee pain and planning TKA). Next: Assess TUG w/o use of hands. Try upright ex bike vs stepper and shuttle recovery for strengthening. Focus on strength of R knee but cautiously due to pt's high pain tolerance. Strengthen 1- 2 visits before balance ex's, gait training & assess tolerance to step ups/& possibly progress to step downs. Progress (ex & HEP) towards independent gait and stair ambulation (caution: pt tends to be aggressive with self care due to high pain tolerance).
--- NOTE | 2024-02-11 11:17 | PT.OTN ---
Current Diagnoses Bilateral primary osteoarthritis of knee (02/11/24) Encounter for other preprocedural examination (02/11/24) Physical Therapy Treatment Note PT-OP-A Visit Information Start: 12/22/23 18:16 Freq: Status: Active Protocol: Document 02/11/24 10:35 SP (Rec: 02/11/24 16:10 SP [id number]) Out-Patient Physical Therapy Visit Information Visit Information Visit Type Treatment Note Visit Start Time 10:35 Visit Stop Time 11:17 Visit Number 11 Number of LOC[employer]IVER Visits 1 Evaluation Information Evaluation Date 12/28/23 Precautions Precautions Shattered L1 in 2008 with chronick back pain mostly controlled by med (neurotin), depression controlled by meds. PT-OP-B Current Condition Start: 12/22/23 18:16 Freq: Status: Active Protocol: Document 12/28/23 07:31 LRN (Rec: 12/28/23 08:21 LRN [id number]) Current Condition History of Current Condition Onset Date 12/24/23 Current Complaints R partial TKA, pain rated 7/10 , mobility restriction, L knee also painful. History of Current Condition Pt reports she underwent R Partial (lateral) knee arthroplasty and was given no instructions what to do at home, so she has only been walking around. States her sister lives with her and is helping her. Prior Treatments and Tests Pt planning on getting L knee replaced next year. Treatment Goals Patient/Caregiver Goals Pt goals: -HEP -Walk w/o walker -4 steps with 1 railing ( ascending on R side), step by step. -independent with self care. Personal Factors Other Personal Factors That May Effect Shattered L1 in 2008 with Therapy/Recovery chronic back pain mostly controlled by med (neurotin), depression controlled by meds. PT-OP-C Subjective Start: 12/22/23 18:16 Freq: Status: Active Protocol: Document 02/11/24 10:35 SP (Rec: 02/11/24 16:10 SP [id number]) OP-PT Subjective Patient Comments Patient Comments Patient reports the knee feels tight at the incision. pleased with ROM but feels need to progress strengthening quad, has a lag. She reports only uses SPC in community. PT-OP-E Functional Tests Start: 01/21/24 16:44 Freq: Status: Active Protocol: Document 02/04/24 11:00 LRN (Rec: 02/04/24 12:07 LRN [id number]) Functional Tests Timed Up and Go (TUG) Score 11 Comments No device, used hands to push off of chair TUG Impairment Rating 1 to <20% Impaired (Score 11) PT-OP-G Mobility & Gait Start: 12/22/23 18:16 Freq: Status: Active Protocol: Document 12/28/23 07:31 LRN (Rec: 12/28/23 08:21 LRN [id number]) OP Gait Assessment Gait Gait Assistance Required: Independent Distance (Feet) 80 Able to Maintain Weight Bearing Status No During Gait Assistive Devices Assistive Device Front Wheeled Walker Gait Deviations General Gait Pattern Antalgic Factors Limiting Gait Function Factors Limiting Gait Function Decreased Strength,Limited Range of Motion,Pain Stair Climbing Evaluation Technique/Endurance Stair Climbing Direction Ascend and Descend Stair Climbing Technique Step to Step Number of Steps Climbed 2 Comments Stair Climbing Comments Short hgt steps ~2 hgt. PT-OP-H Neuro Start: 12/22/23 18:16 Freq: Status: Active Protocol: Document 12/28/23 07:31 LRN (Rec: 12/28/23 08:21 LRN [id number]) Sensation Evaluation Gross Sensation Sensation Description Numbness Comments Summary Comments R knee: Decreased sensation medial slide of and immediately below incision. PT-OP-J Posture/Palpation/Skin Start: 12/22/23 18:16 Freq: Status: Active Protocol: Document 12/28/23 07:31 LRN (Rec: 12/28/23 08:21 LRN [id number]) Posture Evaluation Position Standing Head/C-Spine Posture Neutral Position Pelvis Posture Anteriorly Tilted Weight Distribution Weight Shifted Left Knee Posture (R) Excess Flexion Ankle/Foot Posture (L) Calcaneal Eversion Comments Posture Comments FB hips 22 deg's Palpation Assessment Location R knee Palpation Location Around the patella and the knee joint. Palpation Findings Edema L knee Palpation Location Around the knee Palpation Findings Tenderness PT-OP-K Range of Motion Start: 12/22/23 18:16 Freq: Status: Active Protocol: Document 02/09/24 09:44 AB (Rec: 02/09/24 13:37 AB [id number]) Knee Goniometric Range of Motion Knee Right Patient Position Supine Flexion Active (degrees) 134 Extension Active (degrees) 1 Comments end of session lacking 1 deg extension to 134 deg flexion ARROM supine PT-OP-M Strength Start: 12/22/23 18:16 Freq: Status: Active Protocol: Document 12/28/23 07:31 LRN (Rec: 12/28/23 08:21 LRN [id number]) Knee Strength Knee Manual Muscle Testing Right Flexion (S2) 2- Poor- Extension (L3) 2- Poor- PT-OP-Q Treatments Start: 12/22/23 18:16 Freq: Status: Active Protocol: Document 02/11/24 10:35 SP (Rec: 02/11/24 16:10 SP [id number]) Cardio Equipment Recumbent Stepper (Sci-Fit) Duration (Minutes) 8 Resistance 3 Seat Position 12>9>7>5 Other cued slow pacing, R ankle AROM Gym Equipment Shuttle Recovery Bilateral Squats Details cued knees out with forefoot Resistance 50# (1 teal, 1 navy) Shuttle Recovery Platform Stable Reps/Time 3x10 Therapeutic Exercises Standing Exercises step up Side right Equipment Used 4>6>8 step, light rail only 8step Reps/Minutes x10 Comments cued no momentum, heel drive glut fac lateral step down Standing Exercise Name trialed in PT Side right Equipment Used 4>6 step, L HR light contact Reps/Minutes 10> 2x10 Comments cued step down Standing Exercise Name step up Side right Resistance 4>6 step, light contact Equipment Used Min rail support 8 step only on L Reps/Minutes x10 Comments cued slow pacing, level pelvis Manual Therapy Treatment Soft Tissue Mobilization R knee Body Location scar tissue Mobilization Type Cross-Friction,Instrument Assisted Intensity/Depth Superficial Comments between last 2 set of shuttle recovery. Mob while on scar and with use of cups-along scar line. PT-OP-T Assessment and Plan Start: 12/22/23 18:16 Freq: Status: Active Protocol: Document 02/11/24 10:35 SP (Rec: 02/11/24 16:10 SP [id number]) Physical Therapy Assessment Assessment Summary Assessment Pt improved functional ROM with supported equipment. Slight increase scar mobility with cupping. No UE support needed for repeated 4- step up and min L rail support 8 step (height home), improved wt shift over RLE stance with cues glut drive not use momentum, improved with reps less UE support, except on 8 step. She states only uses SPC in community. Physical Therapy Plan Frequency and Duration Frequency of Treatment 2x/Week Duration of treatment (weeks) 12 Plan of Care Start Date 12/28/23 Plan of Care End Date 03/21/24 Therapeutic Interventions Therapeutic Interventions Balance Training,Gait Training ,Home Exercise Program,Manual Therapy,Neuromuscular Re- education,Self-Care/Home Management,Soft Tissue Mobilization,Therapeutic Activities,Therapeutic Exercises Modalities Cold Pack/Ice Massage Next Visit Focus/Plan Next Note Type Treatment Note Next Visit Plan Check step ups fwd, lateral, down. Continue shuttle recovery and quad strengthening. POC: R Partial knee replacement rehab. ( Precaution: L knee pain and planning TKA). Next: Assess TUG w/o use of hands. Try upright ex bike vs stepper and shuttle recovery for strengthening. Focus on strength of R knee but cautiously due to pt's high pain tolerance. Strengthen 1- 2 visits before balance ex's, gait training & assess tolerance to step ups/& possibly progress to step downs. Progress (ex & HEP) towards independent gait and stair ambulation (caution: pt tends to be aggressive with self care due to high pain tolerance).
--- NOTE | 2024-02-23 10:25 | PT.OTN ---
Current Diagnoses Bilateral primary osteoarthritis of knee (02/23/24) Encounter for other preprocedural examination (02/23/24) Physical Therapy Treatment Note PT-OP-A Visit Information Start: 12/22/23 18:16 Freq: Status: Active Protocol: Document 02/23/24 09:51 SP (Rec: 02/23/24 10:32 SP [id number]) Out-Patient Physical Therapy Visit Information Visit Information Visit Type Treatment Note Visit Start Time 09:51 Visit Stop Time 10:25 Visit Number 12 Number of [employer] OPERATOR Visits 2 Evaluation Information Evaluation Date 12/28/23 Precautions Precautions Shattered L1 in 2008 with chronick back pain mostly controlled by med (neurotin), depression controlled by meds. * S/P R partial TKA 12/24/23. PT-OP-B Current Condition Start: 12/22/23 18:16 Freq: Status: Active Protocol: Document 12/28/23 07:31 LRN (Rec: 12/28/23 08:21 LRN [id number]) Current Condition History of Current Condition Onset Date 12/24/23 Current Complaints R partial TKA, pain rated 7/10 , mobility restriction, L knee also painful. History of Current Condition Pt reports she underwent R Partial (lateral) knee arthroplasty and was given no instructions what to do at home, so she has only been walking around. States her sister lives with her and is helping her. Prior Treatments and Tests Pt planning on getting L knee replaced next year. Treatment Goals Patient/Caregiver Goals Pt goals: -HEP -Walk w/o walker -4 steps with 1 railing ( ascending on R side), step by step. -independent with self care. Personal Factors Other Personal Factors That May Effect Shattered L1 in 2008 with Therapy/Recovery chronic back pain mostly controlled by med (neurotin), depression controlled by meds. PT-OP-C Subjective Start: 12/22/23 18:16 Freq: Status: Active Protocol: Document 02/23/24 09:51 SP (Rec: 02/23/24 10:32 SP [id number]) OP-PT Subjective Patient Comments Patient Comments Pt reports did well after last appt. She reports is almost 8 weeks s/p in few days. Pt reports need leave by 1025 due to getting mom at dr appt. PT-OP-E Functional Tests Start: 01/21/24 16:44 Freq: Status: Active Protocol: Document 02/04/24 11:00 LRN (Rec: 02/04/24 12:07 LRN [id number]) Functional Tests Timed Up and Go (TUG) Score 11 Comments No device, used hands to push off of chair TUG Impairment Rating 1 to <20% Impaired (Score 11) PT-OP-G Mobility & Gait Start: 12/22/23 18:16 Freq: Status: Active Protocol: Document 12/28/23 07:31 LRN (Rec: 12/28/23 08:21 LRN [id number]) OP Gait Assessment Gait Gait Assistance Required: Independent Distance (Feet) 80 Able to Maintain Weight Bearing Status No During Gait Assistive Devices Assistive Device Front Wheeled Walker Gait Deviations General Gait Pattern Antalgic Factors Limiting Gait Function Factors Limiting Gait Function Decreased Strength,Limited Range of Motion,Pain Stair Climbing Evaluation Technique/Endurance Stair Climbing Direction Ascend and Descend Stair Climbing Technique Step to Step Number of Steps Climbed 2 Comments Stair Climbing Comments Short hgt steps ~2 hgt. PT-OP-H Neuro Start: 12/22/23 18:16 Freq: Status: Active Protocol: Document 12/28/23 07:31 LRN (Rec: 12/28/23 08:21 LRN [id number]) Sensation Evaluation Gross Sensation Sensation Description Numbness Comments Summary Comments R knee: Decreased sensation medial slide of and immediately below incision. PT-OP-J Posture/Palpation/Skin Start: 12/22/23 18:16 Freq: Status: Active Protocol: Document 12/28/23 07:31 LRN (Rec: 12/28/23 08:21 LRN [id number]) Posture Evaluation Position Standing Head/C-Spine Posture Neutral Position Pelvis Posture Anteriorly Tilted Weight Distribution Weight Shifted Left Knee Posture (R) Excess Flexion Ankle/Foot Posture (L) Calcaneal Eversion Comments Posture Comments FB hips 22 deg's Palpation Assessment Location R knee Palpation Location Around the patella and the knee joint. Palpation Findings Edema L knee Palpation Location Around the knee Palpation Findings Tenderness PT-OP-K Range of Motion Start: 12/22/23 18:16 Freq: Status: Active Protocol: Document 02/09/24 09:44 AB (Rec: 02/09/24 13:37 AB [id number]) Knee Goniometric Range of Motion Knee Right Patient Position Supine Flexion Active (degrees) 134 Extension Active (degrees) 1 Comments end of session lacking 1 deg extension to 134 deg flexion ARROM supine PT-OP-M Strength Start: 12/22/23 18:16 Freq: Status: Active Protocol: Document 12/28/23 07:31 LRN (Rec: 12/28/23 08:21 LRN [id number]) Knee Strength Knee Manual Muscle Testing Right Flexion (S2) 2- Poor- Extension (L3) 2- Poor- PT-OP-Q Treatments Start: 12/22/23 18:16 Freq: Status: Active Protocol: Document 02/23/24 09:51 SP (Rec: 02/23/24 10:32 SP [id number]) Cardio Equipment Recumbent Bicycle Duration (Minutes) 6 Resistance 4 Seat Position see 7>6 Gym Equipment Shuttle Recovery Bilateral Squats Details cued knees out with forefoot Resistance 50# (1 teal, 1 navy) Shuttle Recovery Platform Stable Reps/Time 2x15 reps- ROM tolerant ( unblocked) Therapeutic Exercises Sitting Exercises HS curl Sitting Exercise Name added to HEP-declined HO Side right Resistance Tb #3 green anchored door Equipment Used fully sit back in chair Reps/Minutes 5 Sh x10 Comments good feedback HS tiring, pnfree long arc quad Sitting Exercise Name added to HEP-declined HO Side right Resistance TB #2 around ankles Equipment Used seated femur fully supported on plinth, R foot on step stool Reps/Minutes 5 SH x10 Comments reported good quad tiring, pnfree- very little knee click femur supported Standing Exercises resisted stepping Standing Exercise Name future appt PT-OP-T Assessment and Plan Start: 12/22/23 18:16 Freq: Status: Active Protocol: Document 02/23/24 09:51 SP (Rec: 02/23/24 10:32 SP [id number]) Physical Therapy Assessment Goals 3 Impairment Decreased R knee AROM Impairment AROM: 18-80 PROM: 18-82 Short Term Goal (STG) Improve R knee AROM with pt able to perform sit<>stand w/o use of hands with minmal to no pain. 01/04/24: AROM 3-96 01/11/24: AROM 5-110 01/14/24: AROM right knee lacking 10 deg ext to 122 flex start of session lacking 5 deg extension post manual and ther ex. 01/19/24: AROM R knee: lacking 2 deg's - 122 deg's. 01/25/24: AROM R knee: 0-125 deg's. 02/01/2024 lacking 1 deg ext to 127 deg flexion AROM 02/04/24: AROM R knee: 0-130 deg's (L knee: hyper 4 to 140 deg's). Not able to sit<> stand w/o use of hands. STG Duration 6 wks-02/08/24 progressing Jail Goal (LTG) Pt will be able to ascend/ descend at least 4 steps with 1 rail (ascending on R side), with step over step gait. 01/04/24: Pt training on stair amb w/1 rail & SPC 02/01/2024 Patient ascends and descends 6 inch steps with rail reports no increase in pain LTG Duration 12 wks-03/21/24 progressing 01/04/24 2 Impairment Decreased R knee strength, requires use of FWW to walk. Impairment Decreased strength of the posterior trunk and postural muscles Short Term Goal (STG) Improve R knee strength with pt able to perform a SLR independently. 01/04/24: Independent SLR x 2 reps 01/11/24: Independent SLR x 10 reps, rest x5 reps. STG Duration (01/11/24: MET GOAL) Jail Goal (LTG) Pt will be able to walk w/o a walker on level ground 50' with normal gait pattern and TUG 13 secs or less. 01/21/2024: TUG 15.14 without device. 02/04/24: TUG 11 secs w/o device, using hands for sit<> stand, webbed chair. 02/23/24: gait no AD, slow pacing good mechanics. LTG Duration 12 wks-03/21/24 progressed 02/04/24 (assess gt 50+ft & for normal gt) 1 Impairment Pt lacks self care HEP Impairment postural habits that may be contributing to pain symptoms Short Term Goal (STG) Pt will be educated in self care pain management with use of RICE. 01/04/24: Educated pt in RICE technique for edema/pain management. STG Duration (01/04/24: MET GOAL) Jail Goal (LTG) Pt will be independent in self care R knee ROM and strengthening exercise. 01/04/24 HEP: reviewed s/p TKA ex's, handout issed 12/28/23 . 01/14/2024 Patient to to perform hamstring stretch prior to quad strengthening exercises. 02/03/24: I/S pt in HEP: sit< >stands 02/23/24: added resisted LAQ and HS curl. LTG Duration 12 wks-03/21/24 progressed 02/23/24 Assessment Summary Assessment Pt arrives without SPC noted and discussed with slow pacing good mechanics. Progressed quad and HS strengthening for stability in R knee with good muscle tiring effort reported, declined HOs. With femur fully supported LAQ holds, very few clicking noted in R knee vs repeated ext. Pt stated felt better end tx with more efforted ex for home. Continues to perform step ups f/b/ l/ stepping home. Limited time due to medicinal plant picker parent at appt today. Physical Therapy Plan Frequency and Duration Frequency of Treatment 2x/Week Duration of treatment (weeks) 12 Plan of Care Start Date 12/28/23 Plan of Care End Date 03/21/24 Therapeutic Interventions Therapeutic Interventions Balance Training,Gait Training ,Home Exercise Program,Manual Therapy,Neuromuscular Re- education,Self-Care/Home Management,Soft Tissue Mobilization,Therapeutic Activities,Therapeutic Exercises Modalities Cold Pack/Ice Massage Next Visit Focus/Plan Next Note Type Treatment Note Next Visit Plan Check step ups fwd, lateral, down, added LAQ and HS with TB . Continue shuttle recovery and quad strengthening. Cardio recumbent bike. POC: R Partial knee replacement rehab. ( Precaution: L knee pain and planning TKA). Next: Assess TUG w/o use of hands. Try upright ex bike vs stepper and shuttle recovery for strengthening. Focus on strength of R knee but cautiously due to pt's high pain tolerance. Strengthen 1- 2 visits before balance ex's, gait training & assess tolerance to step ups/& possibly progress to step downs. Progress (ex & HEP) towards independent gait and stair ambulation (caution: pt tends to be aggressive with self care due to high pain tolerance).
--- NOTE | 2024-02-25 17:12 | PT.OTN ---
Current Diagnoses Bilateral primary osteoarthritis of knee (02/25/24) Encounter for other preprocedural examination (02/25/24) Physical Therapy Treatment Note PT-OP-A Visit Information Start: 12/22/23 18:16 Freq: Status: Active Protocol: Document 02/25/24 10:39 LRN (Rec: 02/25/24 11:20 LRN [id number]) Out-Patient Physical Therapy Visit Information Visit Information Visit Type Progress Note Visit Note 20 more visits approved on . Visit Start Time 10:39 Visit Stop Time 11:18 Visit Number 13 Evaluation Information Evaluation Date 12/28/23 Precautions Precautions Shattered L1 in 2008 with chronick back pain mostly controlled by med (neurotin), depression controlled by meds. * S/P R partial TKA 12/24/23. PT-OP-B Current Condition Start: 12/22/23 18:16 Freq: Status: Active Protocol: Document 12/28/23 07:31 LRN (Rec: 12/28/23 08:21 LRN [id number]) Current Condition History of Current Condition Onset Date 12/24/23 Current Complaints R partial TKA, pain rated 7/10 , mobility restriction, L knee also painful. History of Current Condition Pt reports she underwent R Partial (lateral) knee arthroplasty and was given no instructions what to do at home, so she has only been walking around. States her sister lives with her and is helping her. Prior Treatments and Tests Pt planning on getting L knee replaced next year. Treatment Goals Patient/Caregiver Goals Pt goals: -HEP -Walk w/o walker -4 steps with 1 railing ( ascending on R side), step by step. -independent with self care. Personal Factors Other Personal Factors That May Effect Shattered L1 in 2008 with Therapy/Recovery chronic back pain mostly controlled by med (neurotin), depression controlled by meds. PT-OP-C Subjective Start: 12/22/23 18:16 Freq: Status: Active Protocol: Document 02/25/24 10:39 LRN (Rec: 02/25/24 11:20 LRN [id number]) OP-PT Subjective Patient Comments Patient Comments States she keeps forgetting her cane. Walking 4x around the dog park on gravel track. Driving w/o problems. Prior to surgery pt was walking ~3 miles with dog on leash. Not yet able to walk dog on leash because she pulls to hard and had a few times of partial LOB . PT-OP-D Balance Start: 02/25/24 16:31 Freq: Status: Active Protocol: Document 02/25/24 10:39 LRN (Rec: 02/25/24 16:32 LRN [id number]) Balance Tests Single Limb Standing Single Limb- Right 38 secs Single Limb- Left 46 secs PT-OP-E Functional Tests Start: 01/21/24 16:44 Freq: Status: Active Protocol: Document 02/25/24 10:39 LRN (Rec: 02/25/24 17:06 LRN [id number]) Functional Tests Timed Up and Go (TUG) Score 12 secs Comments No use of hands from webbed chair TUG Impairment Rating 20 to <40% Impaired (Score 12- 13) PT-OP-G Mobility & Gait Start: 12/22/23 18:16 Freq: Status: Active Protocol: Document 12/28/23 07:31 LRN (Rec: 12/28/23 08:21 LRN [id number]) OP Gait Assessment Gait Gait Assistance Required: Independent Distance (Feet) 80 Able to Maintain Weight Bearing Status No During Gait Assistive Devices Assistive Device Front Wheeled Walker Gait Deviations General Gait Pattern Antalgic Factors Limiting Gait Function Factors Limiting Gait Function Decreased Strength,Limited Range of Motion,Pain Stair Climbing Evaluation Technique/Endurance Stair Climbing Direction Ascend and Descend Stair Climbing Technique Step to Step Number of Steps Climbed 2 Comments Stair Climbing Comments Short hgt steps ~2 hgt. PT-OP-H Neuro Start: 12/22/23 18:16 Freq: Status: Active Protocol: Document 12/28/23 07:31 LRN (Rec: 12/28/23 08:21 LRN [id number]) Sensation Evaluation Gross Sensation Sensation Description Numbness Comments Summary Comments R knee: Decreased sensation medial slide of and immediately below incision. PT-OP-J Posture/Palpation/Skin Start: 12/22/23 18:16 Freq: Status: Active Protocol: Document 02/25/24 10:39 LRN (Rec: 02/25/24 16:30 LRN [id number]) Palpation Assessment Location R knee Palpation Location Around knee at level of patella and joint line and healed scar. Palpation Details Increased temp at anterior knee. Visible swelling at knee joint . Visible mobility restriction at well healed scar PT-OP-K Range of Motion Start: 12/22/23 18:16 Freq: Status: Active Protocol: Document 02/25/24 10:39 LRN (Rec: 02/25/24 11:20 LRN [id number]) Knee Goniometric Range of Motion Knee Right Knee ROM WFL Yes Patient Position Supine Flexion Active (degrees) 130 Left Patient Position Supine Flexion Active (degrees) 131 Hyper-Extension Active 4 PT-OP-M Strength Start: 12/22/23 18:16 Freq: Status: Active Protocol: Document 12/28/23 07:31 LRN (Rec: 12/28/23 08:21 LRN [id number]) Knee Strength Knee Manual Muscle Testing Right Flexion (S2) 2- Poor- Extension (L3) 2- Poor- PT-OP-Q Treatments Start: 12/22/23 18:16 Freq: Status: Active Protocol: Document 02/25/24 10:39 LRN (Rec: 02/25/24 11:20 LRN [id number]) Cardio Equipment Recumbent Bicycle Duration (Minutes) 8 Resistance 4 Seat Position 6 Therapeutic Exercises Supine Exercises Heel slides Supine Exercise Name Independent heel slide Side right Reps/Minutes X10 Standing Exercises resisted stepping Standing Exercise Name Resisted side stepping Side bilateral Equipment Used Red Sport cord step up Side right Equipment Used 6>8 step, no railing Reps/Minutes 15x Comments cued no momentum, heel drive glut fac Shallow squats Standing Exercise Name with and w/o railing Reps/Minutes 15x each Gait Training Gait Activity Gait Description Gait w/o assistive device Device Used None Level of Assistance None Surface Level Distance/Duration 40' x 2 & 10' x 2 Treatment Focus Normal gait Comments Pt demonstrated normal gait pattern w/o pain. TUG test in 12 secs. Stair amb Description Stairs without railing Device Used None Level of Assistance None Treatment Focus Safety with gait on stairs Comments Pt able to perform x 2 w/o LOB or fear of falling Neuro Re-Education Treatment Balance Activities SLS Details Navi - SLS with arms across chest Surface Level Equipment Tennis shoes Reps/Duration 2' Comments 46 secs L. 38 secs R. Side stepping with Sport cord. Details Side stepping - bilateral Surface Level Equipment sport cord - red Comments 3 steps at a time TUG Details TUG 12 secs Surface Level Equipment None Reps/Duration 3' Comments Extra time for demonstration and I/S. PT-OP-T Assessment and Plan Start: 12/22/23 18:16 Freq: Status: Active Protocol: Document 02/25/24 10:39 LRN (Rec: 02/25/24 11:20 LRN [id number]) Physical Therapy Assessment Rehab Potential Rehabilitation Potential Excellent Evaluation Complexity Number of Personal Factors/Comorbidities 1-2 Number of Body Systems Impaired 4 or More Clinical Presentation at Evaluation Evolving Impairments Impairments Activity Tolerance,Balance, Coordination,Edema,Pain,Soft Tissue Mobility,Strength, Transfers Goals 5 Impairment Decreased scar mobility Assisted Goal (LTG) Pt's well healed scar mobility will improve at proximal and distal ends with no c/o pain on standing quad contraction by pt and there will be visible mobility with decrease in redness at proximal end of scar. LTG Duration 2 wks-03/10/24 4 Impairment Decreased balance Impairment SLS: L-46 secs, R-38 secs Short Term Goal (STG) Improve safety with gait with TUG score 11 secs or less STG Duration 2 wks-03/10/24 Ticket Puller Goal (LTG) Improve SLS with pt able to walk her dog while on leash without partial loss of balance (LOB). LTG Duration 4 wks-03/25/24 3 Impairment Decreased R knee AROM Impairment AROM: 18-80 PROM: 18-82 Short Term Goal (STG) Improve R knee AROM with pt able to perform sit<>stand w/o use of hands with minimal to no pain. 01/04/24: AROM 3-96 01/11/24: AROM 5-110 01/14/24: AROM right knee lacking 10 deg ext to 122 flex start of session lacking 5 deg extension post manual and ther ex. 01/19/24: AROM R knee: lacking 2 deg's - 122 deg's. 01/25/24: AROM R knee: 0-125 deg's. 02/01/2024 lacking 1 deg ext to 127 deg flexion AROM 02/04/24: AROM R knee: 0-130 deg's (L knee: hyper 4 to 140 deg's). Not able to sit<> stand w/o use of hands. 02/25/24: Pt able to sit<> stand w/o use of hands and no knee pain. STG Duration 6 wks-02/08/24 (02/25/24: MET GOAL) Assisted Goal (LTG) Pt will be able to ascend/ descend at least 4 steps with 1 rail (ascending on R side), with step over step gait. 01/04/24: Pt training on stair amb w/1 rail & SPC 02/01/2024 Patient ascends and descends 6 inch steps with rail reports no increase in pain. 02/25/24: Pt able to ambulate up/down 6 & 8 inch steps w/o use of railing. LTG Duration 12 wks-03/21/24 (02/25/24: MET GOAL) 2 Impairment Decreased R knee strength, requires use of FWW to walk. Impairment Decreased strength of the posterior trunk and postural muscles Short Term Goal (STG) Improve R knee strength with pt able to perform a SLR independently. 01/04/24: Independent SLR x 2 reps 01/11/24: Independent SLR x 10 reps, rest x5 reps. STG Duration (01/11/24: MET GOAL) Assisted Goal (LTG) Pt will be able to walk w/o a walker on level ground 50' with normal gait pattern and TUG 13 secs or less. 01/21/2024: TUG 15.14 without device. 02/04/24: TUG 11 secs w/o device, using hands for sit<> stand, webbed chair. 02/23/24: gait no AD, slow pacing good mechanics. 02/25/24: Gait w/o AD for TUG score of 12 secs. LTG Duration 12 wks-03/21/24 (02/25/24 MET GOAL) 1 Impairment Pt lacks self care HEP Impairment postural habits that may be contributing to pain symptoms Short Term Goal (STG) Pt will be educated in self care pain management with use of RICE. 01/04/24: Educated pt in RICE technique for edema/pain management. STG Duration (01/04/24: MET GOAL) Ticket Puller Goal (LTG) Pt will be independent in self care R knee ROM and strengthening exercise. 01/04/24 HEP: reviewed s/p TKA ex's, handout issed 12/28/23 . 01/14/2024 Patient to to perform hamstring stretch prior to quad strengthening exercises. 02/03/24: I/S pt in HEP: sit< >stands 02/23/24: added resisted LAQ and HS curl. LTG Duration 4 wks-03/25/24 progressed Assessment Summary Assessment 53 yo female, 6 wks/2 days s/p R partial knee replacement ( lateral side on 12/24/23). Today she shows her gait w/o asst'd device as normal (no limp) on level. She is improving in endurance as she is walking 4x around dog park. There is loseness at the R knee joint with small audible clicking at the knee joint with extension. The pt has reduced single leg stance balance ability and has not been able to return to walking her dog on a leash due to fear of loss of balance. The pt also notes pain with standing quad set due to restricted mobility of her well healed scar, especially at distal and proximal ends. Physical Therapy Plan Frequency and Duration Frequency of Treatment 2x/Week Duration of treatment (weeks) 4 Plan of Care Start Date 02/25/24 Plan of Care End Date 03/25/24 Therapeutic Interventions Therapeutic Interventions Balance Training,Home Exercise Program,Manual Therapy, Neuromuscular Re-education, Self-Care/Home Management,Soft Tissue Mobilization, Therapeutic Activities, Therapeutic Exercises Modalities Cold Pack/Ice Massage Next Visit Focus/Plan Next Note Type Treatment Note Next Visit Plan Check step ups: fwd, lateral, down, can try to work cordination/balance drills. Cardio recumbent bike for endurance and strengthening ( work up to 10 min & progressively incr resistance) . Add HEP: ankle TB strengthening ex's. Next: Try upright ex bike vs stepper. Focus on strength of R>L knee (monitor closely due to pt's high pain tolerance) ex-shuttle recovery and quad strengthening. Start balance ex's and scar mob. LE strengthening (can progress LAQ and HS with TB if time permits and needed). HEP progression as needed. POC: R Partial knee replacement rehab. ( Precaution: L knee pain and planning TKA).
--- NOTE | 2024-03-01 13:15 | PT.OTN ---
Current Diagnoses Bilateral primary osteoarthritis of knee (03/01/24) Encounter for other preprocedural examination (03/01/24) Physical Therapy Treatment Note PT-OP-A Visit Information Start: 12/22/23 18:16 Freq: Status: Active Protocol: Document 03/01/24 08:05 AB (Rec: 03/01/24 09:03 AB [id number]) Out-Patient Physical Therapy Visit Information Visit Information Visit Type Treatment Note Visit Note 20 more visits approved on . Visit Start Time 08:16 Visit Stop Time 08:58 Visit Number 14 Number of WHEEL GRINDER Visits 1 Evaluation Information Evaluation Date 12/28/23 Precautions Precautions Shattered L1 in 2008 with chronick back pain mostly controlled by med (neurotin), depression controlled by meds. * S/P R partial TKA 12/24/23. PT-OP-B Current Condition Start: 12/22/23 18:16 Freq: Status: Active Protocol: Document 12/28/23 07:31 LRN (Rec: 12/28/23 08:21 LRN [id number]) Current Condition History of Current Condition Onset Date 12/24/23 Current Complaints R partial TKA, pain rated 7/10 , mobility restriction, L knee also painful. History of Current Condition Pt reports she underwent R Partial (lateral) knee arthroplasty and was given no instructions what to do at home, so she has only been walking around. States her sister lives with her and is helping her. Prior Treatments and Tests Pt planning on getting L knee replaced next year. Treatment Goals Patient/Caregiver Goals Pt goals: -HEP -Walk w/o walker -4 steps with 1 railing ( ascending on R side), step by step. -independent with self care. Personal Factors Other Personal Factors That May Effect Shattered L1 in 2008 with Therapy/Recovery chronic back pain mostly controlled by med (neurotin), depression controlled by meds. PT-OP-C Subjective Start: 12/22/23 18:16 Freq: Status: Active Protocol: Document 03/01/24 08:05 AB (Rec: 03/01/24 09:03 AB [id number]) OP-PT Subjective Patient Comments Patient Comments Patient reports she is able to get a good stride going when at the dog park, also comments the right knee is a little sore/every morning is a little tender. Single leg stance right LE without UE use 15+ seconds with visual scanning added no significant increase in sway, slight femoral IR and ipsilateral trunk sidebend noted. PT-OP-D Balance Start: 02/25/24 16:31 Freq: Status: Active Protocol: Document 02/25/24 10:39 LRN (Rec: 02/25/24 16:32 LRN [id number]) Balance Tests Single Limb Standing Single Limb- Right 38 secs Single Limb- Left 46 secs PT-OP-E Functional Tests Start: 01/21/24 16:44 Freq: Status: Active Protocol: Document 02/25/24 10:39 LRN (Rec: 02/25/24 17:06 LRN [id number]) Functional Tests Timed Up and Go (TUG) Score 12 secs Comments No use of hands from webbed chair TUG Impairment Rating 20 to <40% Impaired (Score 12- 13) PT-OP-G Mobility & Gait Start: 12/22/23 18:16 Freq: Status: Active Protocol: Document 12/28/23 07:31 LRN (Rec: 12/28/23 08:21 LRN [id number]) OP Gait Assessment Gait Gait Assistance Required: Independent Distance (Feet) 80 Able to Maintain Weight Bearing Status No During Gait Assistive Devices Assistive Device Front Wheeled Walker Gait Deviations General Gait Pattern Antalgic Factors Limiting Gait Function Factors Limiting Gait Function Decreased Strength,Limited Range of Motion,Pain Stair Climbing Evaluation Technique/Endurance Stair Climbing Direction Ascend and Descend Stair Climbing Technique Step to Step Number of Steps Climbed 2 Comments Stair Climbing Comments Short hgt steps ~2 hgt. PT-OP-H Neuro Start: 12/22/23 18:16 Freq: Status: Active Protocol: Document 12/28/23 07:31 LRN (Rec: 12/28/23 08:21 LRN [id number]) Sensation Evaluation Gross Sensation Sensation Description Numbness Comments Summary Comments R knee: Decreased sensation medial slide of and immediately below incision. PT-OP-J Posture/Palpation/Skin Start: 12/22/23 18:16 Freq: Status: Active Protocol: Document 02/25/24 10:39 LRN (Rec: 02/25/24 16:30 LRN [id number]) Palpation Assessment Location R knee Palpation Location Around knee at level of patella and joint line and healed scar. Palpation Details Increased temp at anterior knee. Visible swelling at knee joint . Visible mobility restriction at well healed scar PT-OP-K Range of Motion Start: 12/22/23 18:16 Freq: Status: Active Protocol: Document 02/25/24 10:39 LRN (Rec: 02/25/24 11:20 LRN [id number]) Knee Goniometric Range of Motion Knee Right Knee ROM WFL Yes Patient Position Supine Flexion Active (degrees) 130 Left Patient Position Supine Flexion Active (degrees) 131 Hyper-Extension Active 4 PT-OP-M Strength Start: 12/22/23 18:16 Freq: Status: Active Protocol: Document 12/28/23 07:31 LRN (Rec: 12/28/23 08:21 LRN [id number]) Knee Strength Knee Manual Muscle Testing Right Flexion (S2) 2- Poor- Extension (L3) 2- Poor- PT-OP-Q Treatments Start: 12/22/23 18:16 Freq: Status: Active Protocol: Document 03/01/24 08:05 AB (Rec: 03/01/24 09:03 AB [id number]) Cardio Equipment Bicycle (Upright) Duration (Minutes) 8 Resistance 2,4,2 Seat Position 8 Gym Equipment Shuttle Balance red Details WBOS, stagger stance with visual scanning and head turns Reps/Duration 3 min Therapeutic Exercises Sitting Exercises Dorsiflexion Sitting Exercise Name AROM and with band added to HEP Side right Resistance level one light blue band Reps/Minutes X15X 2 Comments verbal cues, without band X15 with band X 15 long arc quad Sitting Exercise Name HEP band upgrade, declined written HEP Side right Resistance TB #3 around ankles Reps/Minutes 15 X2 Standing Exercises step downs Standing Exercise Name 6 inch and 4 inch step ( 4 inch lateral step down to HEP with UE support) Side right Equipment Used 3X4 step down fwd trials then 2X 15 lateral step down on 4 inch step Comments fwd on 6 and 4 then 4inch lateral all with UE support Neuro Re-Education Treatment Balance Activities marching on blue cushion Details CGA Equipment blue cushion Reps/Duration X10 step up tap Details CGA Equipment 8 inch step Reps/Duration X10 tandem stepping Details with head turns and visual scanning Reps/Duration 10 feet X 6 Comments CGA SLS Details with visual scanning and head turns Surface Level Reps/Duration ~2 min PT-OP-T Assessment and Plan Start: 12/22/23 18:16 Freq: Status: Active Protocol: Document 03/01/24 08:05 AB (Rec: 03/01/24 09:03 AB [id number]) Physical Therapy Assessment Goals 5 Impairment Decreased scar mobility Orthopedic Designer Goal (LTG) Pt's well healed scar mobility will improve at proximal and distal ends with no c/o pain on standing quad contraction by pt and there will be visible mobility with decrease in redness at proximal end of scar. LTG Duration 2 wks-03/10/24 4 Impairment Decreased balance Impairment SLS: L-46 secs, R-38 secs Short Term Goal (STG) Improve safety with gait with TUG score 11 secs or less STG Duration 2 wks-03/10/24 Orthopedic Designer Goal (LTG) Improve SLS with pt able to walk her dog while on leash without partial loss of balance (LOB). LTG Duration 4 wks-03/25/24 3 Impairment Decreased R knee AROM Impairment AROM: 18-80 PROM: 18-82 Short Term Goal (STG) Improve R knee AROM with pt able to perform sit<>stand w/o use of hands with minimal to no pain. 01/04/24: AROM 3-96 01/11/24: AROM 5-110 01/14/24: AROM right knee lacking 10 deg ext to 122 flex start of session lacking 5 deg extension post manual and ther ex. 01/19/24: AROM R knee: lacking 2 deg's - 122 deg's. 01/25/24: AROM R knee: 0-125 deg's. 02/01/2024 lacking 1 deg ext to 127 deg flexion AROM 02/04/24: AROM R knee: 0-130 deg's (L knee: hyper 4 to 140 deg's). Not able to sit<> stand w/o use of hands. 02/25/24: Pt able to sit<> stand w/o use of hands and no knee pain. STG Duration 6 wks-02/08/24 (02/25/24: MET GOAL) Orthopedic Designer Goal (LTG) Pt will be able to ascend/ descend at least 4 steps with 1 rail (ascending on R side), with step over step gait. 01/04/24: Pt training on stair amb w/1 rail & SPC 02/01/2024 Patient ascends and descends 6 inch steps with rail reports no increase in pain. 02/25/24: Pt able to ambulate up/down 6 & 8 inch steps w/o use of railing. LTG Duration 12 wks-03/21/24 (02/25/24: MET GOAL) 2 Impairment Decreased R knee strength, requires use of FWW to walk. Impairment Decreased strength of the posterior trunk and postural muscles Short Term Goal (STG) Improve R knee strength with pt able to perform a SLR independently. 01/04/24: Independent SLR x 2 reps 01/11/24: Independent SLR x 10 reps, rest x5 reps. 03/01/2024 lateral step down with UE support on 4 inch step added to HEP STG Duration (01/11/24: MET GOAL) Orthopedic Designer Goal (LTG) Pt will be able to walk w/o a walker on level ground 50' with normal gait pattern and TUG 13 secs or less. 01/21/2024: TUG 15.14 without device. 02/04/24: TUG 11 secs w/o device, using hands for sit<> stand, webbed chair. 02/23/24: gait no AD, slow pacing good mechanics. 02/25/24: Gait w/o AD for TUG score of 12 secs. LTG Duration 12 wks-03/21/24 (02/25/24 MET GOAL) 1 Impairment Pt lacks self care HEP Impairment postural habits that may be contributing to pain symptoms Short Term Goal (STG) Pt will be educated in self care pain management with use of RICE. 01/04/24: Educated pt in RICE technique for edema/pain management. STG Duration (01/04/24: MET GOAL) Orthopedic Designer Goal (LTG) Pt will be independent in self care R knee ROM and strengthening exercise. 01/04/24 HEP: reviewed s/p TKA ex's, handout issed 12/28/23 . 01/14/2024 Patient to to perform hamstring stretch prior to quad strengthening exercises. 02/03/24: I/S pt in HEP: sit< >stands 02/23/24: added resisted LAQ and HS curl. 03/01/2024 HEP additions lateral step down, DF with band, and progressed to level 3 band to LAQ LTG Duration 4 wks-03/25/24 progressed Assessment Summary Assessment 53 yo female, 9 wks/5 days s/p R partial knee replacement ( lateral side on 12/24/23). Arabella into session with 15+ seconds single leg stance right LE without UE use. Difficulty progression to fwd step down on 6 and 4 inch step with UE use, significant pelvic drop, but was able to perform lateral step down on 4 inch step with fair to good control and pelvis and no dynamic valgus with UE support . Physical Therapy Plan Frequency and Duration Frequency of Treatment 2x/Week Duration of treatment (weeks) 4 Plan of Care Start Date 02/25/24 Plan of Care End Date 03/25/24 Next Visit Focus/Plan Next Note Type Treatment Note Next Visit Plan Check step ups: fwd, vs lateral to 6 inch, down, can try to work cordination/ balance drills. Cardio recumbent bike for endurance and strengthening ( work up to 10 min & progressively incr resistance) . Add HEP: ankle TB strengthening ex's. Next: Try upright ex bike vs stepper. Focus on strength of R>L knee (monitor closely due to pt's high pain tolerance) ex-shuttle recovery and quad strengthening. Start balance ex's and scar mob. LE strengthening (can progress LAQ and HS with TB if time permits and needed). HEP progression as needed. POC: R Partial knee replacement rehab. ( Precaution: L knee pain and planning TKA).
--- NOTE | 2024-03-03 16:54 | PT.OTN ---
Current Diagnoses Bilateral primary osteoarthritis of knee (03/03/24) Encounter for other preprocedural examination (03/03/24) Physical Therapy Treatment Note PT-OP-A Visit Information Start: 12/22/23 18:16 Freq: Status: Active Protocol: Document 03/03/24 10:34 LRN (Rec: 03/03/24 11:23 LRN [id number]) Out-Patient Physical Therapy Visit Information Visit Information Visit Type Treatment Note Visit Note 20 more visits approved on . Visit Start Time 10:34 Visit Stop Time 11:23 Visit Number 15 Number of CAR LOT ATTENDANT Visits 1 Evaluation Information Evaluation Date 12/28/23 Precautions Precautions Shattered L1 in 2008 with chronick back pain mostly controlled by med (neurotin), depression controlled by meds. * S/P R partial TKA 12/24/23. PT-OP-B Current Condition Start: 12/22/23 18:16 Freq: Status: Active Protocol: Document 12/28/23 07:31 LRN (Rec: 12/28/23 08:21 LRN [id number]) Current Condition History of Current Condition Onset Date 12/24/23 Current Complaints R partial TKA, pain rated 7/10 , mobility restriction, L knee also painful. History of Current Condition Pt reports she underwent R Partial (lateral) knee arthroplasty and was given no instructions what to do at home, so she has only been walking around. States her sister lives with her and is helping her. Prior Treatments and Tests Pt planning on getting L knee replaced next year. Treatment Goals Patient/Caregiver Goals Pt goals: -HEP -Walk w/o walker -4 steps with 1 railing ( ascending on R side), step by step. -independent with self care. Personal Factors Other Personal Factors That May Effect Shattered L1 in 2008 with Therapy/Recovery chronic back pain mostly controlled by med (neurotin), depression controlled by meds. PT-OP-C Subjective Start: 12/22/23 18:16 Freq: Status: Active Protocol: Document 03/03/24 10:34 LRN (Rec: 03/03/24 11:23 LRN [id number]) OP-PT Subjective Patient Comments Patient Comments States she feels confident with her status. States surgery for L knee is in June. Patient Questionnaires Lower Extremity Functional Scale LEFS Score 55 LEFS Impairment 20 to 39% Impaired (Score 48- 62) OP-PT Pain Assessment Pain Assessment Grid Paper Pain Assessment Grid Completed No Location R knee Intensity 0 PT-OP-D Balance Start: 02/25/24 16:31 Freq: Status: Active Protocol: Document 02/25/24 10:39 LRN (Rec: 02/25/24 16:32 LRN [id number]) Balance Tests Single Limb Standing Single Limb- Right 38 secs Single Limb- Left 46 secs PT-OP-E Functional Tests Start: 01/21/24 16:44 Freq: Status: Active Protocol: Document 02/25/24 10:39 LRN (Rec: 02/25/24 17:06 LRN [id number]) Functional Tests Timed Up and Go (TUG) Score 12 secs Comments No use of hands from webbed chair TUG Impairment Rating 20 to <40% Impaired (Score 12- 13) PT-OP-G Mobility & Gait Start: 12/22/23 18:16 Freq: Status: Active Protocol: Document 12/28/23 07:31 LRN (Rec: 12/28/23 08:21 LRN [id number]) OP Gait Assessment Gait Gait Assistance Required: Independent Distance (Feet) 80 Able to Maintain Weight Bearing Status No During Gait Assistive Devices Assistive Device Front Wheeled Walker Gait Deviations General Gait Pattern Antalgic Factors Limiting Gait Function Factors Limiting Gait Function Decreased Strength,Limited Range of Motion,Pain Stair Climbing Evaluation Technique/Endurance Stair Climbing Direction Ascend and Descend Stair Climbing Technique Step to Step Number of Steps Climbed 2 Comments Stair Climbing Comments Short hgt steps ~2 hgt. PT-OP-H Neuro Start: 12/22/23 18:16 Freq: Status: Active Protocol: Document 12/28/23 07:31 LRN (Rec: 12/28/23 08:21 LRN [id number]) Sensation Evaluation Gross Sensation Sensation Description Numbness Comments Summary Comments R knee: Decreased sensation medial slide of and immediately below incision. PT-OP-J Posture/Palpation/Skin Start: 12/22/23 18:16 Freq: Status: Active Protocol: Document 02/25/24 10:39 LRN (Rec: 02/25/24 16:30 LRN [id number]) Palpation Assessment Location R knee Palpation Location Around knee at level of patella and joint line and healed scar. Palpation Details Increased temp at anterior knee. Visible swelling at knee joint . Visible mobility restriction at well healed scar PT-OP-K Range of Motion Start: 12/22/23 18:16 Freq: Status: Active Protocol: Document 03/03/24 10:34 LRN (Rec: 03/03/24 11:23 LRN [id number]) Knee Goniometric Range of Motion Knee Right Knee ROM WFL Yes Patient Position Supine Flexion Active (degrees) 130 Extension Active (degrees) 2 Extension Passive (degrees) 0 Left Knee ROM WFL Yes Patient Position Supine Flexion Active (degrees) 130 Extension Active (degrees) 0 Hyper-Extension Active 4 PT-OP-M Strength Start: 12/22/23 18:16 Freq: Status: Active Protocol: Document 12/28/23 07:31 LRN (Rec: 12/28/23 08:21 LRN [id number]) Knee Strength Knee Manual Muscle Testing Right Flexion (S2) 2- Poor- Extension (L3) 2- Poor- PT-OP-Q Treatments Start: 12/22/23 18:16 Freq: Status: Active Protocol: Document 03/03/24 10:34 LRN (Rec: 03/03/24 11:23 LRN [id number]) Cardio Equipment Recumbent Bicycle Duration (Minutes) 10 Resistance 5 Seat Position 6 Therapeutic Exercises Supine Exercises Heel slides Side bilateral Reps/Minutes 3x Comments ROM taken QS Supine Exercise Name QS review Side right Reps/Minutes 3x Sitting Exercises long arc quad Side bilateral Reps/Minutes 2x Comments Extension ROM taken Standing Exercises Lateral Step ups Standing Exercise Name 6 inch step ups (step ups and step taps) Side bilateral Reps/Minutes 15x each Comments Less coordination with step ups 2/RLE. Step ups Standing Exercise Name 6 inch steps: 1) coordination, 2) speed Side bilateral Reps/Minutes 15x, 10x, 5x each Comments Less coordination with step ups w/RLE. Manual Therapy Treatment Soft Tissue Mobilization R knee Body Location Scar Mobilization Type Instrument Assisted Body Position Supine Comments Cupping. PT-OP-T Assessment and Plan Start: 12/22/23 18:16 Freq: Status: Active Protocol: Document 03/03/24 10:34 LRN (Rec: 03/03/24 11:23 LRN [id number]) Physical Therapy Assessment Goals 5 Impairment Decreased scar mobility [facility]ci Goal (LTG) Pt's well healed scar mobility will improve at proximal and distal ends with no c/o pain on standing quad contraction by pt and there will be visible mobility with decrease in redness at proximal end of scar. LTG Duration 2 wks-03/10/24 4 Impairment Decreased balance Impairment SLS: L-46 secs, R-38 secs Short Term Goal (STG) Improve safety with gait with TUG score 11 secs or less STG Duration 2 wks-03/10/24 [facility]ci Goal (LTG) Improve SLS with pt able to walk her dog while on leash without partial loss of balance (LOB). LTG Duration 4 wks-03/25/24 3 Impairment Decreased R knee AROM Impairment AROM: 18-80 PROM: 18-82 Short Term Goal (STG) Improve R knee AROM with pt able to perform sit<>stand w/o use of hands with minimal to no pain. 01/04/24: AROM 3-96 01/11/24: AROM 5-110 01/14/24: AROM right knee lacking 10 deg ext to 122 flex start of session lacking 5 deg extension post manual and ther ex. 01/19/24: AROM R knee: lacking 2 deg's - 122 deg's. 01/25/24: AROM R knee: 0-125 deg's. 02/01/2024 lacking 1 deg ext to 127 deg flexion AROM 02/04/24: AROM R knee: 0-130 deg's (L knee: hyper 4 to 140 deg's). Not able to sit<> stand w/o use of hands. 02/25/24: Pt able to sit<> stand w/o use of hands and no knee pain. STG Duration 6 wks-02/08/24 (02/25/24: MET GOAL) [facility] Goal (LTG) Pt will be able to ascend/ descend at least 4 steps with 1 rail (ascending on R side), with step over step gait. 01/04/24: Pt training on stair amb w/1 rail & SPC 02/01/2024 Patient ascends and descends 6 inch steps with rail reports no increase in pain. 02/25/24: Pt able to ambulate up/down 6 & 8 inch steps w/o use of railing. LTG Duration 12 wks-03/21/24 (02/25/24: MET GOAL) 2 Impairment Decreased R knee strength, requires use of FWW to walk. Impairment Decreased strength of the posterior trunk and postural muscles Short Term Goal (STG) Improve R knee strength with pt able to perform a SLR independently. 01/04/24: Independent SLR x 2 reps 01/11/24: Independent SLR x 10 reps, rest x5 reps. 03/01/2024 lateral step down with UE support on 4 inch step added to HEP STG Duration (01/11/24: MET GOAL) [facility] Goal (LTG) Pt will be able to walk w/o a walker on level ground 50' with normal gait pattern and TUG 13 secs or less. 01/21/2024: TUG 15.14 without device. 02/04/24: TUG 11 secs w/o device, using hands for sit<> stand, webbed chair. 02/23/24: gait no AD, slow pacing good mechanics. 02/25/24: Gait w/o AD for TUG score of 12 secs. LTG Duration 12 wks-03/21/24 (02/25/24 MET GOAL) 1 Impairment Pt lacks self care HEP Impairment postural habits that may be contributing to pain symptoms Short Term Goal (STG) Pt will be educated in self care pain management with use of RICE. 01/04/24: Educated pt in RICE technique for edema/pain management. STG Duration (01/04/24: MET GOAL) [facility] Goal (LTG) Pt will be independent in self care R knee ROM and strengthening exercise. 01/04/24 HEP: reviewed s/p TKA ex's, handout issed 12/28/23 . 01/14/2024 Patient to to perform hamstring stretch prior to quad strengthening exercises. 02/03/24: I/S pt in HEP: sit< >stands 02/23/24: added resisted LAQ and HS curl. 03/01/2024 HEP additions lateral step down, DF with band, and progressed to level 3 band to LAQ LTG Duration 4 wks-03/25/24 progressed Assessment Summary Assessment 53 yo female, 9 wks/5 days s/p R partial knee replacement ( lateral side on 12/24/23). Note previous session: 15+ seconds single leg stance right LE without UE use. Today , no difficulty with fwd step down on 6 inch step without UE use and good lateral step down on 6 inch step with fair to good control without UE support. Did not notice significant pelvic drop with step exercises. Physical Therapy Plan Frequency and Duration Frequency of Treatment 2x/Week Duration of treatment (weeks) 4 Plan of Care Start Date 02/25/24 Plan of Care End Date 03/25/24 Next Visit Focus/Plan Next Note Type Treatment Note Next Visit Plan Next: At end, can try upright ex bike vs stepper. Scar mob . Assess goals for discharge. HEP: ankle TB strengthening & if needed balance ex's. LE strengthening (can progress LAQ and HS with TB if time permits and needed, ex- shuttle recovery and quad strengthening). POC: R Partial knee replacement rehab. ( Precaution: L knee pain and planning TKA). Focus on strength of R>L knee (monitor closely due to pt's high pain tolerance)
--- NOTE | 2024-03-17 10:16 | PT.OTN ---
Current Diagnoses Bilateral primary osteoarthritis of knee (03/17/24) Encounter for other preprocedural examination (03/17/24) Physical Therapy Treatment Note PT-OP-A Visit Information Start: 12/22/23 18:16 Freq: Status: Active Protocol: Document 03/17/24 07:32 LRN (Rec: 03/17/24 08:20 LRN [id number]) Out-Patient Physical Therapy Visit Information Visit Information Visit Type Treatment Note Visit Note L knee surgery planned Jun 22, 2024 Visit Start Time 07:32 Visit Stop Time 08:19 Visit Number 16 Evaluation Information Evaluation Date 12/28/23 Precautions Precautions Shattered L1 in 2008 with chronick back pain mostly controlled by med (neurotin), depression controlled by meds. * S/P R partial TKA 12/24/23. PT-OP-B Current Condition Start: 12/22/23 18:16 Freq: Status: Active Protocol: Document 12/28/23 07:31 LRN (Rec: 12/28/23 08:21 LRN [id number]) Current Condition History of Current Condition Onset Date 12/24/23 Current Complaints R partial TKA, pain rated 7/10 , mobility restriction, L knee also painful. History of Current Condition Pt reports she underwent R Partial (lateral) knee arthroplasty and was given no instructions what to do at home, so she has only been walking around. States her sister lives with her and is helping her. Prior Treatments and Tests Pt planning on getting L knee replaced next year. Treatment Goals Patient/Caregiver Goals Pt goals: -HEP -Walk w/o walker -4 steps with 1 railing ( ascending on R side), step by step. -independent with self care. Personal Factors Other Personal Factors That May Effect Shattered L1 in 2008 with Therapy/Recovery chronic back pain mostly controlled by med (neurotin), depression controlled by meds. PT-OP-C Subjective Start: 12/22/23 18:16 Freq: Status: Active Protocol: Document 03/17/24 07:32 LRN (Rec: 03/17/24 08:20 LRN [id number]) OP-PT Subjective Patient Comments Patient Comments Ready for discharge. Going to see daughter last April. Reports no pain with ROM and walking, no problems exept if sitting too long in car the knee gets sore and stiff. PT-OP-D Balance Start: 02/25/24 16:31 Freq: Status: Active Protocol: Document 02/25/24 10:39 LRN (Rec: 02/25/24 16:32 LRN [id number]) Balance Tests Single Limb Standing Single Limb- Right 38 secs Single Limb- Left 46 secs PT-OP-E Functional Tests Start: 01/21/24 16:44 Freq: Status: Active Protocol: Document 02/25/24 10:39 LRN (Rec: 02/25/24 17:06 LRN [id number]) Functional Tests Timed Up and Go (TUG) Score 12 secs Comments No use of hands from webbed chair TUG Impairment Rating 20 to <40% Impaired (Score 12- 13) PT-OP-G Mobility & Gait Start: 12/22/23 18:16 Freq: Status: Active Protocol: Document 12/28/23 07:31 LRN (Rec: 12/28/23 08:21 LRN [id number]) OP Gait Assessment Gait Gait Assistance Required: Independent Distance (Feet) 80 Able to Maintain Weight Bearing Status No During Gait Assistive Devices Assistive Device Front Wheeled Walker Gait Deviations General Gait Pattern Antalgic Factors Limiting Gait Function Factors Limiting Gait Function Decreased Strength,Limited Range of Motion,Pain Stair Climbing Evaluation Technique/Endurance Stair Climbing Direction Ascend and Descend Stair Climbing Technique Step to Step Number of Steps Climbed 2 Comments Stair Climbing Comments Short hgt steps ~2 hgt. PT-OP-H Neuro Start: 12/22/23 18:16 Freq: Status: Active Protocol: Document 12/28/23 07:31 LRN (Rec: 12/28/23 08:21 LRN [id number]) Sensation Evaluation Gross Sensation Sensation Description Numbness Comments Summary Comments R knee: Decreased sensation medial slide of and immediately below incision. PT-OP-J Posture/Palpation/Skin Start: 12/22/23 18:16 Freq: Status: Active Protocol: Document 02/25/24 10:39 LRN (Rec: 02/25/24 16:30 LRN [id number]) Palpation Assessment Location R knee Palpation Location Around knee at level of patella and joint line and healed scar. Palpation Details Increased temp at anterior knee. Visible swelling at knee joint . Visible mobility restriction at well healed scar PT-OP-K Range of Motion Start: 12/22/23 18:16 Freq: Status: Active Protocol: Document 03/17/24 07:32 LRN (Rec: 03/17/24 08:20 LRN [id number]) Knee Goniometric Range of Motion Knee Right Knee ROM WFL Yes Patient Position Supine Flexion Active (degrees) 130 Extension Active (degrees) 2 Extension Passive (degrees) 0 Left Knee ROM WFL Yes Patient Position Supine Flexion Active (degrees) 130 Extension Active (degrees) 0 Hyper-Extension Active 4 PT-OP-M Strength Start: 12/22/23 18:16 Freq: Status: Active Protocol: Document 12/28/23 07:31 LRN (Rec: 12/28/23 08:21 LRN [id number]) Knee Strength Knee Manual Muscle Testing Right Flexion (S2) 2- Poor- Extension (L3) 2- Poor- PT-OP-Q Treatments Start: 12/22/23 18:16 Freq: Status: Active Protocol: Document 03/17/24 07:32 LRN (Rec: 03/17/24 08:20 LRN [id number]) Cardio Equipment Recumbent Bicycle Duration (Minutes) 6 Resistance 5 Seat Position 6 Bicycle (Upright) Duration (Minutes) 4 Resistance 3 Seat Position 8 Therapeutic Exercises Supine Exercises SAQ Supine Exercise Name R & andrea Reps/Minutes 5 SH x 10 each Heel slides Side bilateral Reps/Minutes 15x Comments ROM taken QS Supine Exercise Name QS Side right Reps/Minutes 5 SH x 10 Sitting Exercises long arc quad Side bilateral Reps/Minutes 10x Comments Extension ROM taken Manual Therapy Treatment Soft Tissue Mobilization R knee Body Location Scar Mobilization Type Instrument Assisted,Sustained Pressure Body Position Supine Comments Cupping. PT-OP-T Assessment and Plan Start: 12/22/23 18:16 Freq: Status: Active Protocol: Document 03/17/24 07:32 LRN (Rec: 03/17/24 08:20 LRN [id number]) Physical Therapy Assessment Goals 5 Impairment Decreased scar mobility Relays Draftsperson Goal (LTG) Pt's well healed scar mobility will improve at proximal and distal ends with no c/o pain on standing quad contraction by pt and there will be visible mobility with decrease in redness at proximal end of scar. LTG Duration 2 wks-03/10/24 (03/17/24: MET GOAL) 4 Impairment Decreased balance Impairment SLS: L-46 secs, R-38 secs Short Term Goal (STG) Improve safety with gait with TUG score 11 secs or less. 03/17/24: TUG score is 10 secs STG Duration 2 wks-03/10/24 (03/17/24: MET GOAL) Relays Draftsperson Goal (LTG) Improve SLS with pt able to walk her dog while on leash without partial loss of balance (LOB). 03/17/24: Pt states her dog pulls too much and makes her feel unbalanced. Pt states she has always felt unbalanced walking her dog. LTG Duration 4 wks-03/25/24 (03/17/24: Improved, not met goal) 3 Impairment Decreased R knee AROM Impairment AROM: 18-80 PROM: 18-82 Short Term Goal (STG) Improve R knee AROM with pt able to perform sit<>stand w/o use of hands with minimal to no pain. 01/04/24: AROM 3-96 01/11/24: AROM 5-110 01/14/24: AROM right knee lacking 10 deg ext to 122 flex start of session lacking 5 deg extension post manual and ther ex. 01/19/24: AROM R knee: lacking 2 deg's - 122 deg's. 01/25/24: AROM R knee: 0-125 deg's. 02/01/2024 lacking 1 deg ext to 127 deg flexion AROM 02/04/24: AROM R knee: 0-130 deg's (L knee: hyper 4 to 140 deg's). Not able to sit<> stand w/o use of hands. 02/25/24: Pt able to sit<> stand w/o use of hands and no knee pain. STG Duration 6 wks-02/08/24 (02/25/24: MET GOAL) Fdc Goal (LTG) Pt will be able to ascend/ descend at least 4 steps with 1 rail (ascending on R side), with step over step gait. 01/04/24: Pt training on stair amb w/1 rail & SPC 02/01/2024 Patient ascends and descends 6 inch steps with rail reports no increase in pain. 02/25/24: Pt able to ambulate up/down 6 & 8 inch steps w/o use of railing. LTG Duration 12 wks-03/21/24 (02/25/24: MET GOAL) 2 Impairment Decreased R knee strength, requires use of FWW to walk. Impairment Decreased strength of the posterior trunk and postural muscles Short Term Goal (STG) Improve R knee strength with pt able to perform a SLR independently. 01/04/24: Independent SLR x 2 reps 01/11/24: Independent SLR x 10 reps, rest x5 reps. 03/01/2024 lateral step down with UE support on 4 inch step added to HEP STG Duration (01/11/24: MET GOAL) Relays Draftsperson Goal (LTG) Pt will be able to walk w/o a walker on level ground 50' with normal gait pattern and TUG 13 secs or less. 01/21/2024: TUG 15.14 without device. 02/04/24: TUG 11 secs w/o device, using hands for sit<> stand, webbed chair. 02/23/24: gait no AD, slow pacing good mechanics. 02/25/24: Gait w/o AD for TUG score of 12 secs. LTG Duration 12 wks-03/21/24 (02/25/24 MET GOAL) 1 Impairment Pt lacks self care HEP Impairment postural habits that may be contributing to pain symptoms Short Term Goal (STG) Pt will be educated in self care pain management with use of RICE. 01/04/24: Educated pt in RICE technique for edema/pain management. STG Duration (01/04/24: MET GOAL) Fdc Goal (LTG) Pt will be independent in self care R knee ROM and strengthening exercise. 01/04/24 HEP: reviewed s/p TKA ex's, handout issed 12/28/23 . 01/14/2024 Patient to to perform hamstring stretch prior to quad strengthening exercises. 02/03/24: I/S pt in HEP: sit< >stands 02/23/24: added resisted LAQ and HS curl. 03/01/2024 HEP additions lateral step down, DF with band, and progressed to level 3 band to LAQ LTG Duration 4 wks-03/25/24 (03/17/24: MET GOAL) Assessment Summary Assessment Pt is a 53 yo female, s/p R partial knee replacement ( lateral side on 12/24/23) who has done very well with therapy. She has demonstrated a high pain tolerance and has progressed very quickly. She has normal painfree R knee PROM. She lacks ~2 deg's active extension and is aware to work on this on her HEP. The pt has no pain with R knee ROM and only has pain after sitting for long periods of time, probably due to swelling . The pt is aware of areas to focus on with her HEP and feels ready for discharge from therapy. She has met her goals except for walking of her dog with stability; but she now discloses that prior to therapy her dog would pull her off balance if she tugs hard; therefore pt appears to be at her prior level of function. The pt is ready for discharge to her HEP. Physical Therapy Plan Discharge Physical Therapy Discharge Comments Pt feels ready for discharge from therapy. All goals met except for walking her dog but is walking her dog at her prior level of function. I would be more than happy to work with this pleasant individual again, thank you for your referral. Next Visit Focus/Plan Next Note Type Treatment Note Next Visit Plan Next: At end, can try upright ex bike vs stepper. Scar mob . Assess goals for discharge. HEP: ankle TB strengthening & if needed balance ex's. LE strengthening (can progress LAQ and HS with TB if time permits and needed, ex- shuttle recovery and quad strengthening). POC: R Partial knee replacement rehab. ( Precaution: L knee pain and planning TKA). Focus on strength of R>L knee (monitor closely due to pt's high pain tolerance)
== END 2024-03-29 14:41 | disposition home or self-care (01) ==
LOC: PHYS 07:30
PROVIDERS: Family Provider Registered Nurse Diabetes Educator; PCP Registered Nurse Diabetes Educator; Referring Provider Physician Assistant; Visit Provider Physician Assistant
DX: Z01.818 Encounter for other preprocedural examination (principal); M17.0 Bilateral primary osteoarthritis of knee
CPT/HCPCS: 97110; 97112; 97116; 97140; 97162; 97535

== ENCOUNTER 2024-08-09 11:30 | Outpatient (RCR) | payer OTHER, MEDICAID, SELFPAY ==
--- NOTE | 2024-06-30 16:00 | PT.OPPOC ---
Physical, Occupational & Speech Therapy At [facility] Current Diagnoses Unilateral primary osteoarthritis, left knee (06/30/24) Other instability, left knee (06/30/24) Pain in left knee (06/30/24) Stiffness of unspecified knee, not elsewhere classified (06/30/24) Muscle weakness (generalized) (06/30/24) Visit Care Team Role Provider Type RAYA Ruelas Family Provider Advanced Document Control Coordinator Primary Care Provider Specialty: Medical Address: [address] [place] [address], [id number] Email: [email or web address] Harris PA-C Attending Provider Non-Staff Referring Provider Specialty: Medical Address: [address] [place] [address], [id number] Phone: Email: Plan Of Care PT-OP-B Current Condition Start: 06/30/24 13:01 Freq: Status: Active Protocol: Document 06/30/24 13:00 [facility] (Rec: 06/30/24 13:11 [facility] [id number]) Current Condition History of Current Condition Onset Date 06/23/24 Current Complaints Left knee pain, decreased ROM, decreased strength History of Current Condition history of left partial knee replacement 1 week ago She has a history of right partial knee replacement in December 2023 She notes more pain and isn't as moble as after her right knee surgery. Pain is rated as a 7 in the front of her left knee. She is on Tylenol and 2 aleves per day as the oxycontin was too much. SHe is icing her knee 2 times per day. Walking increases pain and she has not yet tried stairs. She does have a step to go down to garage with a left sided hand rail. Treatment Goals Patient/Caregiver Goals Patients goals include reducing pain and improving ROM and strength Prior Functional Status Baseline Function- ADL's Independent Baseline Function- Mobility Independent Current Functional Impairments (Reported) Functional Limitations- ADL's limited with ADL's that require bending and lifting and walking Functional Limitations- Mobility/Gait limited in walking distance to household walking at this time and pt has not yet tried stairs PT-OP-T Assessment and Plan Start: 06/30/24 13:01 Freq: Status: Active Protocol: Document 06/30/24 13:00 [facility] (Rec: 07/05/24 08:20 [facility] [id number]) Physical Therapy Assessment Goals 4 Impairment left knee pain rated 6/10 Penitentiary Goal (LTG) Arabella reports a overall reduction in pain levels from 6/10 to 1-2/10 LTG Duration 8 weeks 3 Impairment Decreased L knee ROM Short Term Goal (STG) Arabella is able to tolerated a knee ROM and stretching program STG Duration 4 weeks Penitentiary Goal (LTG) Arabella presents with left knee ROM WFL 2 Impairment Decreased left LE strength Penitentiary Goal (LTG) Arabella presents with improved functional strength to ascend and descend stairs and perform sit-stand with hand support LTG Duration 8 weeks 1 Impairment Arabella lacks a HEP for left knee rehab Wearing Apparel Shaker Goal (LTG) Arabella is Ind with a HEP for her left knee strength, ROM, and conditioning LTG Duration 8 weeks Assessment Summary Assessment Arabella is a 54 year old female referred to PT s/p Left partial knee replacement on 06/23/24. She has a history of her right knee partial knee replacement in December of 2023. Arabella notes she is in more pain on her left knee than she was for her right knee. She has been icing her knee at home 2 times per day. She is ambulating with a fww and is able to take full weight bearing through her left knee. Her AROM of the left knee is 90 deg flexion and 8 deg extension. She presents with weakness of her left LE. She was able to tolerate a HEP today as well as the biodex for knee ROM. I also assessed her on the stairs and she was able to perform step over step for ascending 4 stairs and step to step for descending both with left sided hand rail. Arabella is a good candidate for PT and tolerated today's treatment well. Goals include improving knee ROM, strength, functional mobility, and decreasing pain Physical Therapy Plan Frequency and Duration Frequency of Treatment 2x/Week Duration of treatment (weeks) 8 Plan of Care Start Date 06/30/24 Plan of Care End Date 08/25/24 Therapeutic Interventions Therapeutic Interventions Balance Training,Gait Training ,Home Exercise Program,Manual Therapy,Neuromuscular Re- education,Patient/Caregiver Education,Self-Care/Home Management,Soft Tissue Mobilization,Therapeutic Exercises Next Visit Focus/Plan Next Note Type Treatment Note Next Visit Plan Warm up on biodex next visit, review HEP and progress exercises as tolerated Plan of Care Dates Plan of Care Start Date 06/30/24 Plan of Care End Date 08/25/24 Electronically Signed by: Tamika Ascencio, PT 07/05/24 0844 If you are in agreement with this Plan of Care, please return a signed and dated copy. I have reviewed this Plan of Care and certify that the skilled therapy services above are required to meet the patient?s needs. Physician Signature Date Printed Name and Credentials Clinical Instructor Signature Printed Name and Credentials
--- NOTE | 2024-06-30 16:00 | PT.OIE ---
Current Diagnoses Unilateral primary osteoarthritis, left knee (06/30/24) Other instability, left knee (06/30/24) Pain in left knee (06/30/24) Stiffness of unspecified knee, not elsewhere classified (06/30/24) Muscle weakness (generalized) (06/30/24) Past Medical History (Last Reviewed 03/23/24 @ 08:48 by Jose Dyer DO) Abnormal mammogram of right breast (11/2021) Acne (11/22/14) Allergic rhinitis (11/22/14) Ankle pain (~2019) Asthma (11/22/14) Attention deficit disorder (11/22/14) Chicken pox (~1986) Chronic back pain (~2008) Degenerative joint disease of knee Depression (11/22/14) Dyslexia Enlarged thyroid (04/2021) Gastroesophageal reflux disease (11/22/14) Headache (~1986) Heartburn (~1999) History of chronic back pain (11/22/14) History of developmental delay HNP (herniated nucleus pulposus), thoracic Lumbar radiculopathy Migraines (~2008) Mild persistent asthma Myofascial pain on left side (~1999) Rib pain on left side Thyroid nodule (05/2021) Varicose veins of right lower extremity Past Surgical History (Last Reviewed 03/23/24 @ 08:48 by Jose Dyer DO) Anesthesia History of knee surgery (~1986) History of spinal fusion (~2008) Status post cholecystectomy (~2003) Status post hysterectomy Visit Care Team Role Provider Type RAYA Ruelas Family Provider Advanced Siding Coreboard Inspector Primary Care Provider Specialty: Medical Address: [address] [place] [address], [id number] Email: [email or web address] Harris PA-C Attending Provider Non-Staff Referring Provider Specialty: Medical Address: [address] [place] [address], [address] Phone: Email: Physical Therapy Initial Evaluation PT-OP-A Visit Information Start: 06/30/24 13:01 Freq: Status: Active Protocol: Document 06/30/24 13:00 [facility] (Rec: 06/30/24 16:54 [facility] [id number]) Out-Patient Physical Therapy Visit Information Visit Information Visit Type Initial Evaluation Visit Start Time 13:00 Visit Stop Time 13:45 Visit Number 1 Evaluation Information Evaluation Date 06/30/24 PT-OP-B Current Condition Start: 06/30/24 13:01 Freq: Status: Active Protocol: Document 06/30/24 13:00 [facility] (Rec: 06/30/24 13:11 [facility] [id number]) Current Condition History of Current Condition Onset Date 06/23/24 Current Complaints Left knee pain, decreased ROM, decreased strength History of Current Condition history of left partial knee replacement 1 week ago She has a history of right partial knee replacement in December 2023 She notes more pain and isn't as moble as after her right knee surgery. Pain is rated as a 7 in the front of her left knee. She is on tynelol and 2 alieves per day as the oxycontin was too much. SHe is icing her knee 2 times per day. Walking increases pain and she has not yet tried stairs. She does have a step to go down to garage with a left sided hand rail. Treatment Goals Patient/Caregiver Goals Patients goals include reducing pain and improving ROM and strength Prior Functional Status Baseline Function- ADL's Independent Baseline Function- Mobility Independent Current Functional Impairments (Reported) Functional Limitations- ADL's limited with ADL's that require bending and lifting and walking Functional Limitations- Mobility/Gait limited in walking distance to household walking at this time and pt has not yet tried stairs PT-OP-C Subjective Start: 06/30/24 13:01 Freq: Status: Active Protocol: Document 06/30/24 13:00 [facility] (Rec: 07/05/24 08:20 [facility] [id number]) Patient Questionnaires Lower Extremity Functional Scale LEFS Score 21 LEFS Impairment 60 to 79% Impaired (Score 17- 31) OP-PT Pain Assessment Location left knee Pain Location Details left knee pain Intensity 6 Scale Used Numeric (0 - 10) Description Aching,With Movement Frequency Frequent Pain Aggravating Factors Changing Position,ADL's, Activity,Exercise,Walking PT-OP-F Manual Assessment Start: 06/30/24 13:01 Freq: Status: Active Protocol: Document 06/30/24 13:00 [facility] (Rec: 07/05/24 08:20 [facility] [id number]) Manual Assessments Soft Tissue Assessment Soft Tissue Mobility Assessment left quad and hamstring tightness with decreased mobility scar not yet assessed due to bandaging PT-OP-G Mobility & Gait Start: 06/30/24 13:01 Freq: Status: Active Protocol: Document 06/30/24 13:00 [facility] (Rec: 07/05/24 08:20 [facility] [id number]) OP Gait Assessment Assistive Devices Assistive Device Front Wheeled Walker Factors Limiting Gait Function Factors Limiting Gait Function Decreased Strength,Limited Range of Motion,Pain Stair Climbing Evaluation Evaluation Level of Assist On Stairs Standby Assistance Devices Stair Climbing Assistive Devices Left Railing Technique/Endurance Stair Climbing Direction Ascend and Descend Stair Climbing Technique Step Over Step,Step to Step Number of Steps Climbed 4 Comments Stair Climbing Comments step over step for ascending and step to step for descending PT-OP-K Range of Motion Start: 06/30/24 13:01 Freq: Status: Active Protocol: Document 06/30/24 13:00 [facility] (Rec: 06/30/24 13:37 [facility] [id number]) Knee Goniometric Range of Motion Knee Left Knee ROM WFL No Patient Position Supine Flexion Active (degrees) 95 Extension Active (degrees) 8 Knee ROM Limitations Knee ROM Limitations Soft Tissue Tightness,Pain, Swelling PT-OP-M Strength Start: 06/30/24 13:01 Freq: Status: Active Protocol: Document 06/30/24 13:00 [facility] (Rec: 07/05/24 08:25 [facility] [id number]) Knee Strength Knee Manual Muscle Testing Left Flexion (S2) 3- Fair- Extension (L3) 3- Fair- PT-OP-Q Treatments Start: 06/30/24 13:01 Freq: Status: Active Protocol: Document 06/30/24 13:00 [facility] (Rec: 06/30/24 16:54 [facility] [id number]) Cardio Equipment Recumbent Elliptical (Biodex) Duration (Minutes) 5 Resistance 0 Seat Position 7 Therapeutic Exercises Supine Exercises seated knee flexion Side left Reps/Minutes x 10 Comments used a towel under her foot to help decrease drag with pulling the foot zia heel slides Side left Reps/Minutes x 10 reps quad sets Supine Exercise Name HEP Side left Reps/Minutes 10 reps holding 5 seconds PT-OP-T Assessment and Plan Start: 06/30/24 13:01 Freq: Status: Active Protocol: Document 06/30/24 13:00 [facility] (Rec: 07/05/24 08:20 [facility] [id number]) Physical Therapy Assessment Goals 4 Impairment left knee pain rated 6/10 Rack Loader Goal (LTG) Arabella reports a overall reduction in pain levels from 6/10 to 1-2/10 LTG Duration 8 weeks 3 Impairment Decreased L knee ROM Short Term Goal (STG) Arabella is able to tolerated a knee ROM and stretching program STG Duration 4 weeks Rack Loader Goal (LTG) Arabella presents with left knee ROM WFL 2 Impairment Decreased left LE strength Rack Loader Goal (LTG) Arabella presents with improved functional strength to ascend and decend stairs and perform sit-stand with hand support LTG Duration 8 weeks 1 Impairment Arabella lacks a HEP for left knee rehab Nursing Home Goal (LTG) Arabella is Ind with a HEP for her left knee strength, ROM, and conditioning LTG Duration 8 weeks Assessment Summary Assessment Arabella is a 54 year old female referred to PT s/p Left partial knee replacement on 06/23/24. She has a history of her right knee partial knee replacement in December of 2023. Arabella notes she is in more pain on her left knee than she was for her right knee. She has been icing her knee at home 2 times per day. She is ambulating with a fww and is able to take full weight bearing through her left knee. Her AROM of the left knee is 90 deg flexion and 8 deg extension. She presents with weakness of her left LE. She was able to tolerate a HEP today as well as the biodex for knee ROM. I also assessed her on the stairs and she was able to perform step over step for ascending 4 stairs and step to step for descending both with left sided hand rail. Arabella is a good candidate for PT and tolerated today's treatment well. Goals include improving knee ROM, strength, functional mobility, and decreasing pain Physical Therapy Plan Frequency and Duration Frequency of Treatment 2x/Week Duration of treatment (weeks) 8 Plan of Care Start Date 06/30/24 Plan of Care End Date 08/25/24 Therapeutic Interventions Therapeutic Interventions Balance Training,Gait Training ,Home Exercise Program,Manual Therapy,Neuromuscular Re- education,Patient/Caregiver Education,Self-Care/Home Management,Soft Tissue Mobilization,Therapeutic Exercises Next Visit Focus/Plan Next Note Type Treatment Note Next Visit Plan Warm up on biodex next visit, review HEP and progress exercises as tolerated
--- NOTE | 2024-07-08 10:28 | PT-OP ANOTE ---
Phoned patient regarding no show. Patient reports she was phoned by [facility] and told there was and insurance problem and appts were canceled. Patient made aware next appt is [id number]/12/2024 at 9:00 am, and transferred to front office java developer for more information on appointments and possible reschedule for later this day.
--- NOTE | 2024-07-12 10:44 | PT.OTN ---
Current Diagnoses Unilateral primary osteoarthritis, left knee (07/12/24) Other instability, left knee (07/12/24) Pain in left knee (07/12/24) Stiffness of unspecified knee, not elsewhere classified (07/12/24) Muscle weakness (generalized) (07/12/24) Physical Therapy Treatment Note PT-OP-A Visit Information Start: 06/30/24 13:01 Freq: Status: Active Protocol: Document 07/12/24 08:12 AB (Rec: 07/12/24 10:44 AB [id number]) Out-Patient Physical Therapy Visit Information Visit Information Visit Type Treatment Note Visit Start Time 09:04 Visit Stop Time 09:46 Visit Number 2 Number of MANAGER PLACEMENT Visits 1 Evaluation Information Evaluation Date 06/30/24 PT-OP-B Current Condition Start: 06/30/24 13:01 Freq: Status: Active Protocol: Document 06/30/24 13:00 [facility] (Rec: 06/30/24 13:11 [facility] [id number]) Current Condition History of Current Condition Onset Date 06/23/24 Current Complaints Left knee pain, decreased ROM, decreased strength History of Current Condition history of left partial knee replacement 1 week ago She has a history of right partial knee replacement in December 2023 She notes more pain and isn't as moble as after her right knee surgery. Pain is rated as a 7 in the front of her left knee. She is on tynelol and 2 alieves per day as the oxycontin was too much. SHe is icing her knee 2 times per day. Walking increases pain and she has not yet tried stairs. She does have a step to go down to garage with a left sided hand rail. Treatment Goals Patient/Caregiver Goals Patients goals include reducing pain and improving ROM and strength Prior Functional Status Baseline Function- ADL's Independent Baseline Function- Mobility Independent Current Functional Impairments (Reported) Functional Limitations- ADL's limited with ADL's that require bending and lifting and walking Functional Limitations- Mobility/Gait limited in walking distance to household walking at this time and pt has not yet tried stairs PT-OP-C Subjective Start: 06/30/24 13:01 Freq: Status: Active Protocol: Document 07/12/24 08:12 [facility] (Rec: 07/12/24 10:44 AB [id number]) OP-PT Subjective Patient Comments Patient Comments Patient reports she went to the dog park yesterday, and is performing her exercises in the home. Patient rates left knee pain 6/10 start of session ambulating into session with SPC. Lacking 2 deg extension 115 deg flexion AROM left knee. SLS left LE 15 + seconds without UE use, LOB within 2 seconds of head turns initiated at just post 15 sec left LE. Patient reports having no pain with SLS trial. PT-OP-F Manual Assessment Start: 06/30/24 13:01 Freq: Status: Active Protocol: Document 06/30/24 13:00 [facility] (Rec: 07/05/24 08:20 [facility] [id number]) Manual Assessments Soft Tissue Assessment Soft Tissue Mobility Assessment left quad and hamstring tightness with decreased mobility scar not yet assessed due to bandaging PT-OP-G Mobility & Gait Start: 06/30/24 13:01 Freq: Status: Active Protocol: Document 06/30/24 13:00 [facility] (Rec: 07/05/24 08:20 [facility] [id number]) OP Gait Assessment Assistive Devices Assistive Device Front Wheeled Walker Factors Limiting Gait Function Factors Limiting Gait Function Decreased Strength,Limited Range of Motion,Pain Stair Climbing Evaluation Evaluation Level of Assist On Stairs Standby Assistance Devices Stair Climbing Assistive Devices Left Railing Technique/Endurance Stair Climbing Direction Ascend and Descend Stair Climbing Technique Step Over Step,Step to Step Number of Steps Climbed 4 Comments Stair Climbing Comments step over step for ascending and step to step for descending PT-OP-K Range of Motion Start: 06/30/24 13:01 Freq: Status: Active Protocol: Document 06/30/24 13:00 [facility] (Rec: 06/30/24 13:37 [facility] [id number]) Knee Goniometric Range of Motion Knee Left Knee ROM WFL No Patient Position Supine Flexion Active (degrees) 95 Extension Active (degrees) 8 Knee ROM Limitations Knee ROM Limitations Soft Tissue Tightness,Pain, Swelling PT-OP-M Strength Start: 06/30/24 13:01 Freq: Status: Active Protocol: Document 06/30/24 13:00 [facility] (Rec: 07/05/24 08:25 [facility] [id number]) Knee Strength Knee Manual Muscle Testing Left Flexion (S2) 3- Fair- Extension (L3) 3- Fair- PT-OP-Q Treatments Start: 06/30/24 13:01 Freq: Status: Active Protocol: Document 07/12/24 08:12 AB (Rec: 07/12/24 10:44 AB [id number]) Cardio Equipment Recumbent Elliptical (Biodex) Duration (Minutes) 7 Resistance 1 (none added ) Seat Position 11, 12 Gym Equipment Shuttle Recovery single leg Resistance 32# navy and lutz Reps/Time X15 each LE Bilateral Squats Details cued knees out with forefoot Resistance 50# (2navy) Shuttle Recovery Platform Stable Reps/Time 2x15 reps- ROM tolerant ( unblocked) Therapeutic Exercises Supine Exercises knee flexion on ball Supine Exercise Name green [place] ball Reps/Minutes 2 min hamstring stretch Supine Exercise Name from hooklying Side left Reps/Minutes 60 seconds X 2 quad sets Supine Exercise Name HEP review also performed post manual and HS stretch Side left Reps/Minutes 10 reps holding 5 seconds X10 Manual Therapy Treatment Consent Patient gave verbal consent for manual Yes treatment Soft Tissue Mobilization left knee Body Location quad and HS Mobilization Type Cross-Friction,Rolling,Other Intensity/Depth Moderate Body Position Hooklying PT-OP-T Assessment and Plan Start: 06/30/24 13:01 Freq: Status: Active Protocol: Document 07/12/24 08:12 AB (Rec: 07/12/24 10:44 AB [id number]) Physical Therapy Assessment Goals 4 Impairment left knee pain rated 6/10 Impairment SLS: L-46 secs, R-38 secs [facility] Goal (LTG) Arabella reports a overall reduction in pain levels from 6/10 to 1-2/10 LTG Duration 8 weeks 3 Impairment Decreased L knee ROM Short Term Goal (STG) Arabella is able to tolerated a knee ROM and stretching program STG Duration 4 weeks [facility] Goal (LTG) Arabella presents with left knee ROM WFL 2 Impairment Decreased left LE strength Impairment Decreased strength of the posterior trunk and postural muscles [facility]dc Goal (LTG) Arabella presents with improved functional strength to ascend and decend stairs and perform sit-stand with hand support LTG Duration 8 weeks 1 Impairment Arabella lacks a HEP for left knee rehab Impairment postural habits that may be contributing to pain symptoms [facility] Goal (LTG) Arabella is Ind with a HEP for her left knee strength, ROM, and conditioning LTG Duration 8 weeks Assessment Summary Assessment Lacking 1 deg ext to 119 deg flexion AROM left knee post exercise and manual therapy. Patient rates pain left knee 5 /10 end of session. Physical Therapy Plan Frequency and Duration Frequency of Treatment 2x/Week Duration of treatment (weeks) 8 Plan of Care Start Date 06/30/24 Plan of Care End Date 08/25/24 Next Visit Focus/Plan Next Note Type Treatment Note Next Visit Plan Warm up on biodex next visit, review HEP and progress exercises as tolerated, possibly mini squat vs sit to stand
--- NOTE | 2024-07-14 17:22 | PT.OTN ---
Current Diagnoses Unilateral primary osteoarthritis, left knee (07/14/24) Other instability, left knee (07/14/24) Pain in left knee (07/14/24) Stiffness of unspecified knee, not elsewhere classified (07/14/24) Muscle weakness (generalized) (07/14/24) Physical Therapy Treatment Note PT-OP-A Visit Information Start: 06/30/24 13:01 Freq: Status: Active Protocol: Document 07/14/24 08:20 [facility] (Rec: 07/14/24 09:02 [facility] [id number]) Out-Patient Physical Therapy Visit Information Visit Information Visit Type Treatment Note Visit Start Time 08:15 Visit Stop Time 09:00 Visit Number 3 Number of BUSINESS DEVELOPMENT AGENT Visits 0 PT-OP-B Current Condition Start: 06/30/24 13:01 Freq: Status: Active Protocol: Document 06/30/24 13:00 [facility] (Rec: 06/30/24 13:11 [facility] [id number]) Current Condition History of Current Condition Onset Date 06/23/24 Current Complaints Left knee pain, decreased ROM, decreased strength History of Current Condition history of left partial knee replacement 1 week ago She has a history of right partial knee replacement in December 2023 She notes more pain and isn't as moble as after her right knee surgery. Pain is rated as a 7 in the front of her left knee. She is on tynelol and 2 alieves per day as the oxycontin was too much. SHe is icing her knee 2 times per day. Walking increases pain and she has not yet tried stairs. She does have a step to go down to garage with a left sided hand rail. Treatment Goals Patient/Caregiver Goals Patients goals include reducing pain and improving ROM and strength Prior Functional Status Baseline Function- ADL's Independent Baseline Function- Mobility Independent Current Functional Impairments (Reported) Functional Limitations- ADL's limited with ADL's that require bending and lifting and walking Functional Limitations- Mobility/Gait limited in walking distance to household walking at this time and pt has not yet tried stairs PT-OP-C Subjective Start: 06/30/24 13:01 Freq: Status: Active Protocol: Document 07/14/24 08:20 [facility] (Rec: 07/14/24 09:02 [facility] [id number]) OP-PT Subjective Patient Comments Patient Comments pt notes she is a 6/10 knee pain, morning is the hardest but feels like she is making really good progress Patient Reported Progress Improving PT-OP-F Manual Assessment Start: 06/30/24 13:01 Freq: Status: Active Protocol: Document 06/30/24 13:00 [facility] (Rec: 07/05/24 08:20 [facility] [id number]) Manual Assessments Soft Tissue Assessment Soft Tissue Mobility Assessment left quad and hamstring tightness with decreased mobility scar not yet assessed due to bandaging PT-OP-G Mobility & Gait Start: 06/30/24 13:01 Freq: Status: Active Protocol: Document 06/30/24 13:00 [facility] (Rec: 07/05/24 08:20 [facility] [id number]) OP Gait Assessment Assistive Devices Assistive Device Front Wheeled Walker Factors Limiting Gait Function Factors Limiting Gait Function Decreased Strength,Limited Range of Motion,Pain Stair Climbing Evaluation Evaluation Level of Assist On Stairs Standby Assistance Devices Stair Climbing Assistive Devices Left Railing Technique/Endurance Stair Climbing Direction Ascend and Descend Stair Climbing Technique Step Over Step,Step to Step Number of Steps Climbed 4 Comments Stair Climbing Comments step over step for ascending and step to step for descending PT-OP-K Range of Motion Start: 06/30/24 13:01 Freq: Status: Active Protocol: Document 06/30/24 13:00 [facility] (Rec: 06/30/24 13:37 [facility] [id number]) Knee Goniometric Range of Motion Knee Left Knee ROM WFL No Patient Position Supine Flexion Active (degrees) 95 Extension Active (degrees) 8 Knee ROM Limitations Knee ROM Limitations Soft Tissue Tightness,Pain, Swelling PT-OP-M Strength Start: 06/30/24 13:01 Freq: Status: Active Protocol: Document 06/30/24 13:00 [facility] (Rec: 07/05/24 08:25 [facility] [id number]) Knee Strength Knee Manual Muscle Testing Left Flexion (S2) 3- Fair- Extension (L3) 3- Fair- PT-OP-Q Treatments Start: 06/30/24 13:01 Freq: Status: Active Protocol: Document 07/14/24 08:20 [facility] (Rec: 07/14/24 09:02 [facility] [id number]) Cardio Equipment Recumbent Elliptical (BiodElectronifie) Duration (Minutes) 6 Resistance 1 (none added ) Seat Position 11, 12 Gym Equipment Shuttle Recovery Bilateral Squats Details cued knees out with forefoot Resistance 50# (2navy) Shuttle Recovery Platform Stable Reps/Time 2x15 reps- ROM tolerant ( unblocked) Therapeutic Exercises Supine Exercises TKE Supine Exercise Name gave for HEP Reps/Minutes 6bolster 2 x 10 reps bridges Supine Exercise Name gave for HEP Reps/Minutes x 10 reps knee flexion on ball Supine Exercise Name green [place] ball Reps/Minutes 2 min Standing Exercises standing hamstring stretch in stairwell Reps/Minutes hold 30 sec x 2 standing calf stretch Reps/Minutes hold 30 sec x 2 reps standing emmy stretch Reps/Minutes static x 1 min then dynamic x 20 reps PT-OP-T Assessment and Plan Start: 06/30/24 13:01 Freq: Status: Active Protocol: Document 07/14/24 08:20 [facility] (Rec: 07/14/24 09:02 [facility] [id number]) Physical Therapy Assessment Assessment Summary Assessment 120 degrees knee flexion after warm up and knee flexion exercise and full knee extension today. Good tolerance on shuttle leg press and is tolerating her exercises really well Physical Therapy Plan Frequency and Duration Frequency of Treatment 2x/Week Duration of treatment (weeks) 8 Plan of Care Start Date 06/30/24 Plan of Care End Date 08/25/24 Therapeutic Interventions Therapeutic Interventions Balance Training,Gait Training ,Home Exercise Program,Manual Therapy,Neuromuscular Re- education,Patient/Caregiver Education,Self-Care/Home Management,Soft Tissue Mobilization,Therapeutic Exercises Next Visit Focus/Plan Next Note Type Treatment Note Next Visit Plan trial of recumbent bike for full knee resolutions, continue progressing strength as tolerated
--- NOTE | 2024-07-20 13:43 | PT.OTN ---
Current Diagnoses Unilateral primary osteoarthritis, left knee (07/20/24) Other instability, left knee (07/20/24) Pain in left knee (07/20/24) Stiffness of unspecified knee, not elsewhere classified (07/20/24) Muscle weakness (generalized) (07/20/24) Physical Therapy Treatment Note PT-OP-A Visit Information Start: 06/30/24 13:01 Freq: Status: Active Protocol: Document 07/20/24 13:03 SP (Rec: 07/20/24 13:47 SP [id number]) Out-Patient Physical Therapy Visit Information Visit Information Visit Type Treatment Note Visit Start Time 13:03 Visit Stop Time 13:43 Visit Number 4 (12/29 with eval) Number of [employer] Visits 1 Evaluation Information Evaluation Date 06/30/24 PT-OP-B Current Condition Start: 06/30/24 13:01 Freq: Status: Active Protocol: Document 06/30/24 13:00 AM[facility] (Rec: 06/30/24 13:11 AMH [id number]) Current Condition History of Current Condition Onset Date 06/23/24 Current Complaints Left knee pain, decreased ROM, decreased strength History of Current Condition history of left partial knee replacement 1 week ago She has a history of right partial knee replacement in December 2023 She notes more pain and isn't as moble as after her right knee surgery. Pain is rated as a 7 in the front of her left knee. She is on tynelol and 2 alieves per day as the oxycontin was too much. SHe is icing her knee 2 times per day. Walking increases pain and she has not yet tried stairs. She does have a step to go down to garage with a left sided hand rail. Treatment Goals Patient/Caregiver Goals Patients goals include reducing pain and improving ROM and strength Prior Functional Status Baseline Function- ADL's Independent Baseline Function- Mobility Independent Current Functional Impairments (Reported) Functional Limitations- ADL's limited with ADL's that require bending and lifting and walking Functional Limitations- Mobility/Gait limited in walking distance to household walking at this time and pt has not yet tried stairs PT-OP-C Subjective Start: 06/30/24 13:01 Freq: Status: Active Protocol: Document 07/20/24 13:03 SP (Rec: 07/20/24 13:47 SP [id number]) OP-PT Subjective Patient Comments Patient Comments Pt reports PT-OP-F Manual Assessment Start: 06/30/24 13:01 Freq: Status: Active Protocol: Document 06/30/24 13:00 AMH (Rec: 07/05/24 08:20 AMH [id number]) Manual Assessments Soft Tissue Assessment Soft Tissue Mobility Assessment left quad and hamstring tightness with decreased mobility scar not yet assessed due to bandaging PT-OP-G Mobility & Gait Start: 06/30/24 13:01 Freq: Status: Active Protocol: Document 06/30/24 13:00 AMH (Rec: 07/05/24 08:20 AMH [id number]) OP Gait Assessment Assistive Devices Assistive Device Front Wheeled Walker Factors Limiting Gait Function Factors Limiting Gait Function Decreased Strength,Limited Range of Motion,Pain Stair Climbing Evaluation Evaluation Level of Assist On Stairs Standby Assistance Devices Stair Climbing Assistive Devices Left Railing Technique/Endurance Stair Climbing Direction Ascend and Descend Stair Climbing Technique Step Over Step,Step to Step Number of Steps Climbed 4 Comments Stair Climbing Comments step over step for ascending and step to step for descending PT-OP-K Range of Motion Start: 06/30/24 13:01 Freq: Status: Active Protocol: Document 06/30/24 13:00 AMH (Rec: 06/30/24 13:37 AMH [id number]) Knee Goniometric Range of Motion Knee Left Knee ROM WFL No Patient Position Supine Flexion Active (degrees) 95 Extension Active (degrees) 8 Knee ROM Limitations Knee ROM Limitations Soft Tissue Tightness,Pain, Swelling PT-OP-M Strength Start: 06/30/24 13:01 Freq: Status: Active Protocol: Document 06/30/24 13:00 AMH (Rec: 07/05/24 08:25 AMH [id number]) Knee Strength Knee Manual Muscle Testing Left Flexion (S2) 3- Fair- Extension (L3) 3- Fair- PT-OP-Q Treatments Start: 06/30/24 13:01 Freq: Status: Active Protocol: Document 07/20/24 13:03 SP (Rec: 07/20/24 13:47 SP [id number]) Cardio Equipment Recumbent Bicycle Duration (Minutes) 6 Resistance 5 Seat Position 8 Gym Equipment Shuttle Recovery single leg Resistance 25# navy Reps/Time X15 each LLE Bilateral Squats Details good knee alignment Resistance 50# (2navy) Shuttle Recovery Platform Stable Reps/Time [id number]- ROM tolerant ( unblocked) Therapeutic Exercises Supine Exercises TKE Supine Exercise Name SAQ Resistance AROM> 2# leg wt Equipment Used 6 bolster Reps/Minutes 2 x 10 reps Comments tactile cue ankle neutral, decrease invsersion bridges Reps/Minutes x 20 reps Comments cued little more knee flexion, inhibit HS tension. glut drive knee flexion on ball Supine Exercise Name green jamaican ball Reps/Minutes 2 min Comments 125 deg hamstring stretch Supine Exercise Name from hooklying Side left Reps/Minutes 60 seconds X 2 heel slides Supine Exercise Name AROM 131 deg, AAROM with strap 135 deg Side left Sitting Exercises STS Sitting Exercise Name added to HEP /c HO Equipment Used mesh chair + 1 pillow Reps/Minutes x8 reps Comments R UE support cued midline trunk, decreased Lateral Trunk lean R Standing Exercises TKE /c band Standing Exercise Name added to HEP Side left Resistance TB #2 anchored approx above knee height Reps/Minutes 10 SH x10 Comments cued for set up anchored in door, good maintain body/opp LE stationary PT-OP-T Assessment and Plan Start: 06/30/24 13:01 Freq: Status: Active Protocol: Document 07/20/24 13:03 SP (Rec: 07/20/24 13:47 SP [id number]) Physical Therapy Assessment Goals 4 Impairment left knee pain rated 6/10 Impairment SLS: L-46 secs, R-38 secs Electrochemist Goal (LTG) Arabella reports a overall reduction in pain levels from 6/10 to 1-2/10 LTG Duration 8 weeks 3 Impairment Decreased L knee ROM Short Term Goal (STG) Arabella is able to tolerated a knee ROM and stretching program STG Duration 4 weeks [facility] Goal (LTG) Arabella presents with left knee ROM WFL 2 Impairment Decreased left LE strength Impairment Decreased strength of the posterior trunk and postural muscles Electrochemist Goal (LTG) Arabella presents with improved functional strength to ascend and decend stairs and perform sit-stand with hand support LTG Duration 8 weeks 1 Impairment Arabella lacks a HEP for left knee rehab Impairment postural habits that may be contributing to pain symptoms Electrochemist Goal (LTG) Arabella is Ind with a HEP for her left knee strength, ROM, and conditioning LTG Duration 8 weeks Assessment Summary Assessment Pt making gains in L knee AROM 0-131 deg, AAROM with strap 135 deg. She has good tolerance to ther ex today, was able to increase resistance during SAQ and added resisted TKE in standing for quad strengthening progression with HO for HEP. Physical Therapy Plan Frequency and Duration Frequency of Treatment 2x/Week Duration of treatment (weeks) 8 Plan of Care Start Date 06/30/24 Plan of Care End Date 08/25/24 Therapeutic Interventions Therapeutic Interventions Balance Training,Gait Training ,Home Exercise Program,Manual Therapy,Neuromuscular Re- education,Patient/Caregiver Education,Self-Care/Home Management,Soft Tissue Mobilization,Therapeutic Exercises Next Visit Focus/Plan Next Note Type Treatment Note Next Visit Plan REcheck HEP. Conintue warm up recumbent bike. POC: continue progressing strength as tolerated
--- NOTE | 2024-07-26 10:41 | PT.OTN ---
Current Diagnoses Unilateral primary osteoarthritis, left knee (07/26/24) Other instability, left knee (07/26/24) Pain in left knee (07/26/24) Stiffness of unspecified knee, not elsewhere classified (07/26/24) Muscle weakness (generalized) (07/26/24) Physical Therapy Treatment Note PT-OP-A Visit Information Start: 06/30/24 13:01 Freq: Status: Active Protocol: Document 07/26/24 08:13 AB (Rec: 07/26/24 10:41 AB [id number]) Out-Patient Physical Therapy Visit Information Visit Information Visit Type Treatment Note Visit Note Access Code: [email or web address] Visit Start Time 09:50 Visit Stop Time 10:31 Visit Number 5 Number of PROOF LOAD MECHANIC Visits 2 Evaluation Information Evaluation Date 06/30/24 PT-OP-B Current Condition Start: 06/30/24 13:01 Freq: Status: Active Protocol: Document 06/30/24 13:00 AMH (Rec: 06/30/24 13:11 AMH [id number]) Current Condition History of Current Condition Onset Date 06/23/24 Current Complaints Left knee pain, decreased ROM, decreased strength History of Current Condition history of left partial knee replacement 1 week ago She has a history of right partial knee replacement in December 2023 She notes more pain and isn't as moble as after her right knee surgery. Pain is rated as a 7 in the front of her left knee. She is on tynelol and 2 alieves per day as the oxycontin was too much. SHe is icing her knee 2 times per day. Walking increases pain and she has not yet tried stairs. She does have a step to go down to garage with a left sided hand rail. Treatment Goals Patient/Caregiver Goals Patients goals include reducing pain and improving ROM and strength Prior Functional Status Baseline Function- ADL's Independent Baseline Function- Mobility Independent Current Functional Impairments (Reported) Functional Limitations- ADL's limited with ADL's that require bending and lifting and walking Functional Limitations- Mobility/Gait limited in walking distance to household walking at this time and pt has not yet tried stairs PT-OP-C Subjective Start: 06/30/24 13:01 Freq: Status: Active Protocol: Document 07/26/24 08:13 AB (Rec: 07/26/24 10:41 AB [id number]) OP-PT Subjective Patient Comments Patient Comments Patient rates left knee pain start of session, comments pain is worse in the morning and comments the cold weather is bothering. Patient comments she was standing for a long time yesterday. AROM left knee 0 to 122 deg flex start of session. PT-OP-F Manual Assessment Start: 06/30/24 13:01 Freq: Status: Active Protocol: Document 06/30/24 13:00 AMH (Rec: 07/05/24 08:20 AMH [id number]) Manual Assessments Soft Tissue Assessment Soft Tissue Mobility Assessment left quad and hamstring tightness with decreased mobility scar not yet assessed due to bandaging PT-OP-G Mobility & Gait Start: 06/30/24 13:01 Freq: Status: Active Protocol: Document 06/30/24 13:00 AMH (Rec: 07/05/24 08:20 AMH [id number]) OP Gait Assessment Assistive Devices Assistive Device Front Wheeled Walker Factors Limiting Gait Function Factors Limiting Gait Function Decreased Strength,Limited Range of Motion,Pain Stair Climbing Evaluation Evaluation Level of Assist On Stairs Standby Assistance Devices Stair Climbing Assistive Devices Left Railing Technique/Endurance Stair Climbing Direction Ascend and Descend Stair Climbing Technique Step Over Step,Step to Step Number of Steps Climbed 4 Comments Stair Climbing Comments step over step for ascending and step to step for descending PT-OP-K Range of Motion Start: 06/30/24 13:01 Freq: Status: Active Protocol: Document 06/30/24 13:00 AMH (Rec: 06/30/24 13:37 AMH [id number]) Knee Goniometric Range of Motion Knee Left Knee ROM WFL No Patient Position Supine Flexion Active (degrees) 95 Extension Active (degrees) 8 Knee ROM Limitations Knee ROM Limitations Soft Tissue Tightness,Pain, Swelling PT-OP-M Strength Start: 06/30/24 13:01 Freq: Status: Active Protocol: Document 06/30/24 13:00 AMH (Rec: 07/05/24 08:25 AMH [id number]) Knee Strength Knee Manual Muscle Testing Left Flexion (S2) 3- Fair- Extension (L3) 3- Fair- PT-OP-Q Treatments Start: 06/30/24 13:01 Freq: Status: Active Protocol: Document 07/26/24 08:13 AB (Rec: 07/26/24 10:41 AB [id number]) Cardio Equipment Recumbent Bicycle Duration (Minutes) 6 Resistance 5 Seat Position 6 Therapeutic Exercises Supine Exercises piriformis stretch Side left Reps/Minutes 60 sec X 1 Comments verbal cues knee flexion on ball Supine Exercise Name green vietnamese ball Reps/Minutes 2 min Comments post manual heel slides Side left Reps/Minutes X10 Comments Verbal cues Sitting Exercises seated hip abduction with band Sitting Exercise Name HEP Side bilateral Resistance false pass green band Reps/Minutes one minute one time Comments verbal cues STS Sitting Exercise Name with UE use HEP progressed to with band Resistance false pass green band tied above knees Equipment Used mesh chair Reps/Minutes X10 X2 Manual Therapy Treatment Consent Patient gave verbal consent for manual Yes treatment Soft Tissue Mobilization left knee Body Location quad , med, lat, peripatellar area and for swelling Mobilization Type Cross-Friction,Rolling,Other Intensity/Depth Moderate Body Position Hooklying Comments post STM, Patient seated for self tactile cues for self massage. Joint Mobilizations left patella Direction inf, sup, med, lat, CW and CCW Reps/Duration X10 each direction PT-OP-T Assessment and Plan Start: 06/30/24 13:01 Freq: Status: Active Protocol: Document 07/26/24 08:13 AB (Rec: 07/26/24 10:41 AB [id number]) Physical Therapy Assessment Goals 4 Impairment left knee pain rated 6/10 Impairment SLS: L-46 secs, R-38 secs Milieu Manager Goal (LTG) Arabella reports a overall reduction in pain levels from 6/10 to 1-2/10 LTG Duration 8 weeks 3 Impairment Decreased L knee ROM Short Term Goal (STG) Arabella is able to tolerated a knee ROM and stretching program STG Duration 4 weeks Group Home Goal (LTG) Arabella presents with left knee ROM WFL 2 Impairment Decreased left LE strength Impairment Decreased strength of the posterior trunk and postural muscles Group Home Goal (LTG) Arabella presents with improved functional strength to ascend and decend stairs and perform sit-stand with hand support LTG Duration 8 weeks 1 Impairment Arabella lacks a HEP for left knee rehab Impairment postural habits that may be contributing to pain symptoms Group Home Goal (LTG) Arabella is Ind with a HEP for her left knee strength, ROM, and conditioning LTG Duration 8 weeks Assessment Summary Assessment AROM to 129 deg flexion post manual therapy and exercise. SLS left LE to 15 sec without UE use post seated hip abd with band/glute med activation . Physical Therapy Plan Frequency and Duration Frequency of Treatment 2x/Week Duration of treatment (weeks) 8 Plan of Care Start Date 06/30/24 Plan of Care End Date 08/25/24 Next Visit Focus/Plan Next Note Type Treatment Note Next Visit Plan REcheck HEP. Conintue warm up recumbent bike. POC: continue progressing strength as tolerated
--- NOTE | 2024-07-28 15:07 | PT.OTN ---
Current Diagnoses Unilateral primary osteoarthritis, left knee (07/28/24) Other instability, left knee (07/28/24) Pain in left knee (07/28/24) Stiffness of unspecified knee, not elsewhere classified (07/28/24) Muscle weakness (generalized) (07/28/24) Physical Therapy Treatment Note PT-OP-A Visit Information Start: 06/30/24 13:01 Freq: Status: Active Protocol: Document 07/28/24 10:46 AMH (Rec: 07/28/24 11:31 [facility] [id number]) Out-Patient Physical Therapy Visit Information Visit Information Visit Type Progress Note Visit Start Time 10:45 Visit Stop Time 11:30 Visit Number 6 Number of SAFEMAKER Visits 0 PT-OP-B Current Condition Start: 06/30/24 13:01 Freq: Status: Active Protocol: Document 06/30/24 13:00 AMH (Rec: 06/30/24 13:11 AMH [id number]) Current Condition History of Current Condition Onset Date 06/23/24 Current Complaints Left knee pain, decreased ROM, decreased strength History of Current Condition history of left partial knee replacement 1 week ago She has a history of right partial knee replacement in December 2023 She notes more pain and isn't as moble as after her right knee surgery. Pain is rated as a 7 in the front of her left knee. She is on tynelol and 2 alieves per day as the oxycontin was too much. SHe is icing her knee 2 times per day. Walking increases pain and she has not yet tried stairs. She does have a step to go down to garage with a left sided hand rail. Treatment Goals Patient/Caregiver Goals Patients goals include reducing pain and improving ROM and strength Prior Functional Status Baseline Function- ADL's Independent Baseline Function- Mobility Independent Current Functional Impairments (Reported) Functional Limitations- ADL's limited with ADL's that require bending and lifting and walking Functional Limitations- Mobility/Gait limited in walking distance to household walking at this time and pt has not yet tried stairs PT-OP-C Subjective Start: 06/30/24 13:01 Freq: Status: Active Protocol: Document 07/28/24 10:46 AMH (Rec: 07/28/24 11:31 [facility] [id number]) OP-PT Subjective Patient Comments Patient Comments pt notes she is a 5/10 today for pain, she is only taking Alieve 2 times per day and pain is usually only in the am and then in the evening , she has a appointment with her orthopedic doctor on August 04 Patient Reported Progress Improving PT-OP-F Manual Assessment Start: 06/30/24 13:01 Freq: Status: Active Protocol: Document 06/30/24 13:00 AMH (Rec: 07/05/24 08:20 [facility] [id number]) Manual Assessments Soft Tissue Assessment Soft Tissue Mobility Assessment left quad and hamstring tightness with decreased mobility scar not yet assessed due to bandaging PT-OP-G Mobility & Gait Start: 06/30/24 13:01 Freq: Status: Active Protocol: Document 06/30/24 13:00 AMH (Rec: 07/05/24 08:20 [facility] [id number]) OP Gait Assessment Assistive Devices Assistive Device Front Wheeled Walker Factors Limiting Gait Function Factors Limiting Gait Function Decreased Strength,Limited Range of Motion,Pain Stair Climbing Evaluation Evaluation Level of Assist On Stairs Standby Assistance Devices Stair Climbing Assistive Devices Left Railing Technique/Endurance Stair Climbing Direction Ascend and Descend Stair Climbing Technique Step Over Step,Step to Step Number of Steps Climbed 4 Comments Stair Climbing Comments step over step for ascending and step to step for descending PT-OP-K Range of Motion Start: 06/30/24 13:01 Freq: Status: Active Protocol: Document 06/30/24 13:00 AMH (Rec: 06/30/24 13:37 [facility] [id number]) Knee Goniometric Range of Motion Knee Left Knee ROM WFL No Patient Position Supine Flexion Active (degrees) 95 Extension Active (degrees) 8 Knee ROM Limitations Knee ROM Limitations Soft Tissue Tightness,Pain, Swelling PT-OP-M Strength Start: 06/30/24 13:01 Freq: Status: Active Protocol: Document 06/30/24 13:00 AMH (Rec: 07/05/24 08:25 [facility] [id number]) Knee Strength Knee Manual Muscle Testing Left Flexion (S2) 3- Fair- Extension (L3) 3- Fair- PT-OP-Q Treatments Start: 06/30/24 13:01 Freq: Status: Active Protocol: Document 07/28/24 10:46 AMH (Rec: 07/28/24 11:31 [facility] [id number]) Cardio Equipment Recumbent Bicycle Duration (Minutes) 6 Resistance 5 Seat Position 6 Gym Equipment Shuttle Recovery single leg Resistance 25# navy Reps/Time 2 x 15 reps Bilateral Squats Details good knee alignment Resistance 50# (2navy) Shuttle Recovery Platform Stable Reps/Time [id number]- ROM tolerant ( unblocked) Therapeutic Exercises Supine Exercises SLR with quad squeeze Reps/Minutes 2 x 10 reps bridges Reps/Minutes x 20 reps Comments cued little more knee flexion, inhibit HS tension. glut drive quad sets Reps/Minutes x 10 reps Sitting Exercises seated hip abduction with band Sitting Exercise Name HEP Side bilateral Resistance [place] green band Reps/Minutes one minute one time Comments verbal cues Standing Exercises standing squats Reps/Minutes 2 x 10 reps at counter top standing quad stretch using the green ball Reps/Minutes dynamic stretch x 20 reps standing hamstring stretch in stairwell Reps/Minutes hold 30 sec x 2 standing calf stretch Reps/Minutes hold 30 sec x 2 reps standing emmy stretch Reps/Minutes static x 1 min then dynamic x 20 reps PT-OP-T Assessment and Plan Start: 06/30/24 13:01 Freq: Status: Active Protocol: Document 07/28/24 10:46 [facility] (Rec: 07/28/24 11:31 [facility] [id number]) Physical Therapy Assessment Goals 4 Impairment left knee pain rated 6/10 Resident In Diagnostic Radiology Goal (LTG) Arabella reports a overall reduction in pain levels from 6/10 to 1-2/10 good progress, pain is 5/10 in the am usually only and sometimes before she goes to bed at night. LTG Duration 8 weeks 3 Impairment Decreased L knee ROM Short Term Goal (STG) Arabella is able to tolerated a knee ROM and stretching program Goal met STG Duration 4 weeks Assisted Goal (LTG) Arabella presents with left knee ROM WFL goal met 125 deg flexion and 0 deg extension 2 Impairment Decreased left LE strength Resident In Diagnostic Radiology Goal (LTG) Arabella presents with improved functional strength to ascend and decend stairs and perform sit-stand with hand support Arabella is able to go up and down stairs with railing, she does still need hands to push up from a chair and would benefit from continued strengthening LTG Duration 8 weeks 1 Impairment Arabella lacks a HEP for left knee rehab Resident In Diagnostic Radiology Goal (LTG) Arabella is Ind with a HEP for her left knee strength, ROM, and conditioning good progress LTG Duration 8 weeks Assessment Summary Assessment Arabella is making great progress in PT. Her pain levels are slowly decreasing and her knee ROM is 125 flexion and 0 degrees extension. At this point we are focusing on strength for Arabella with goals of being able to stand up from her chair without use of hands. She is progressing well and has two weeks of PT left Physical Therapy Plan Frequency and Duration Frequency of Treatment 2x/Week Duration of treatment (weeks) 8 Plan of Care Start Date 06/30/24 Plan of Care End Date 08/25/24 Therapeutic Interventions Therapeutic Interventions Balance Training,Gait Training ,Home Exercise Program,Manual Therapy,Neuromuscular Re- education,Patient/Caregiver Education,Self-Care/Home Management,Soft Tissue Mobilization,Therapeutic Exercises Next Visit Focus/Plan Next Note Type Treatment Note Next Visit Plan warm up on recumbant bike, review standing squats and continue to work towards goal of sit-stand without hand use
--- NOTE | 2024-07-28 15:07 | PT.OPPOC ---
Physical, Occupational & Speech Therapy At [facility] [facility] Current Diagnoses Unilateral primary osteoarthritis, left knee (07/28/24) Other instability, left knee (07/28/24) Pain in left knee (07/28/24) Stiffness of unspecified knee, not elsewhere classified (07/28/24) Muscle weakness (generalized) (07/28/24) Visit Care Team Role Provider Type RAYA Ruelas Family Provider [employer] Representative Primary Care Provider Specialty: Medical Address: [address] [place] [address], [id number] Email: [email or web address] Lee Harris PA-C Attending Provider Non-Staff Referring Provider Specialty: Medical Address: [address] [place] [address], [phone] Email: Plan Of Care PT-OP-B Current Condition Start: 06/30/24 13:01 Freq: Status: Active Protocol: Document 06/30/24 13:00 [facility] (Rec: 06/30/24 13:11 [facility] [id number]) Current Condition History of Current Condition Onset Date 06/23/24 Current Complaints Left knee pain, decreased ROM, decreased strength History of Current Condition history of left partial knee replacement 1 week ago She has a history of right partial knee replacement in December 2023 She notes more pain and isn't as mobile as after her right knee surgery. Pain is rated as a 7 in the front of her left knee. She is on Tylenol and 2 alieves per day as the oxycontin was too much. SHe is icing her knee 2 times per day. Walking increases pain and she has not yet tried stairs. She does have a step to go down to garage with a left sided hand rail. Treatment Goals Patient/Caregiver Goals Patients goals include reducing pain and improving ROM and strength Prior Functional Status Baseline Function- ADL's Independent Baseline Function- Mobility Independent Current Functional Impairments (Reported) Functional Limitations- ADL's limited with ADL's that require bending and lifting and walking Functional Limitations- Mobility/Gait limited in walking distance to household walking at this time and pt has not yet tried stairs PT-OP-T Assessment and Plan Start: 06/30/24 13:01 Freq: Status: Active Protocol: Document 07/28/24 10:46 [facility] (Rec: 07/28/24 11:31 [facility] [id number]) Physical Therapy Assessment Goals 4 Impairment left knee pain rated 6/10 Yarn Carrier Goal (LTG) Arabella reports a overall reduction in pain levels from 6/10 to 1-2/10 good progress, pain is 5/10 in the am usually only and sometimes before she goes to bed at night. LTG Duration 8 weeks 3 Impairment Decreased L knee ROM Short Term Goal (STG) Arabella is able to tolerated a knee ROM and stretching program Goal met STG Duration 4 weeks Yarn Carrier Goal (LTG) Arabella presents with left knee ROM WFL goal met 125 deg flexion and 0 deg extension 2 Impairment Decreased left LE strength Yarn Carrier Goal (LTG) Arabella presents with improved functional strength to ascend and descend stairs and perform sit-stand with hand support Arabella is able to go up and down stairs with railing, she does still need hands to push up from a chair and would benefit from continued strengthening LTG Duration 8 weeks 1 Impairment Arabella lacks a HEP for left knee rehab Yarn Carrier Goal (LTG) Arabella is Ind with a HEP for her left knee strength, ROM, and conditioning good progress LTG Duration 8 weeks Assessment Summary Assessment Arabella is making great progress in PT. Her pain levels are slowly decreasing and her knee ROM is 125 flexion and 0 degrees extension. At this point we are focusing on strength for Arabella with goals of being able to stand up from her chair without use of hands. She is progressing well and has two weeks of PT left Physical Therapy Plan Frequency and Duration Frequency of Treatment 2x/Week Duration of treatment (weeks) 8 Plan of Care Start Date 06/30/24 Plan of Care End Date 08/25/24 Therapeutic Interventions Therapeutic Interventions Balance Training,Gait Training ,Home Exercise Program,Manual Therapy,Neuromuscular Re- education,Patient/Caregiver Education,Self-Care/Home Management,Soft Tissue Mobilization,Therapeutic Exercises Next Visit Focus/Plan Next Note Type Treatment Note Next Visit Plan warm up on recumbent bike, review standing squats and continue to work towards goal of sit-stand without hand use Plan of Care Dates Plan of Care Start Date 06/30/24 Plan of Care End Date 08/25/24 Electronically Signed by: Tamika Ascencio, PT 07/28/24 1267 If you are in agreement with this Plan of Care, please return a signed and dated copy. I have reviewed this Plan of Care and certify that the skilled therapy services above are required to meet the patient?s needs. Physician Signature Date Printed Name and Credentials Clinical Instructor Signature Printed Name and Credentials
--- NOTE | 2024-08-09 12:24 | PT.OTN ---
Current Diagnoses Unilateral primary osteoarthritis, left knee (08/09/24) Other instability, left knee (08/09/24) Pain in left knee (08/09/24) Stiffness of unspecified knee, not elsewhere classified (08/09/24) Muscle weakness (generalized) (08/09/24) Physical Therapy Treatment Note PT-OP-A Visit Information Start: 06/30/24 13:01 Freq: Status: Active Protocol: Document 08/09/24 10:41 AB (Rec: 08/09/24 12:22 AB [id number]) Out-Patient Physical Therapy Visit Information Visit Information Visit Type Treatment Note Visit Note Access Code: [email or web address] Visit Start Time 11:32 Visit Stop Time 12:17 Visit Number 7 Number of PRODUCTION GENERALIST Visits 1 Evaluation Information Evaluation Date 06/30/24 PT-OP-B Current Condition Start: 06/30/24 13:01 Freq: Status: Active Protocol: Document 06/30/24 13:00 [facility] (Rec: 06/30/24 13:11 [facility] [id number]) Current Condition History of Current Condition Onset Date 06/23/24 Current Complaints Left knee pain, decreased ROM, decreased strength History of Current Condition history of left partial knee replacement 1 week ago She has a history of right partial knee replacement in December 2023 She notes more pain and isn't as moble as after her right knee surgery. Pain is rated as a 7 in the front of her left knee. She is on tynelol and 2 alieves per day as the oxycontin was too much. SHe is icing her knee 2 times per day. Walking increases pain and she has not yet tried stairs. She does have a step to go down to garage with a left sided hand rail. Treatment Goals Patient/Caregiver Goals Patients goals include reducing pain and improving ROM and strength Prior Functional Status Baseline Function- ADL's Independent Baseline Function- Mobility Independent Current Functional Impairments (Reported) Functional Limitations- ADL's limited with ADL's that require bending and lifting and walking Functional Limitations- Mobility/Gait limited in walking distance to household walking at this time and pt has not yet tried stairs PT-OP-C Subjective Start: 06/30/24 13:01 Freq: Status: Active Protocol: Document 08/09/24 10:41 AB (Rec: 08/09/24 12:22 AB [id number]) OP-PT Subjective Patient Comments Patient Comments Arabella reports she saw Ortho MD and was told she is doing really good does not need to continue PT. Patient reports she cancelled the next appointment. PT made aware. Patient reports sitting in [employer] with LE down last weekend caused pitting edema left katz. Patient reports mother is a RN and has been advising her to keep legs elevated. AROM left knee 0 to 139 deg flexion. Patient rates pain 0/10. PT-OP-F Manual Assessment Start: 06/30/24 13:01 Freq: Status: Active Protocol: Document 06/30/24 13:00 [facility] (Rec: 07/05/24 08:20 [facility] [id number]) Manual Assessments Soft Tissue Assessment Soft Tissue Mobility Assessment left quad and hamstring tightness with decreased mobility scar not yet assessed due to bandaging PT-OP-G Mobility & Gait Start: 06/30/24 13:01 Freq: Status: Active Protocol: Document 06/30/24 13:00 [facility] (Rec: 07/05/24 08:20 [facility] [id number]) OP Gait Assessment Assistive Devices Assistive Device Front Wheeled Walker Factors Limiting Gait Function Factors Limiting Gait Function Decreased Strength,Limited Range of Motion,Pain Stair Climbing Evaluation Evaluation Level of Assist On Stairs Standby Assistance Devices Stair Climbing Assistive Devices Left Railing Technique/Endurance Stair Climbing Direction Ascend and Descend Stair Climbing Technique Step Over Step,Step to Step Number of Steps Climbed 4 Comments Stair Climbing Comments step over step for ascending and step to step for descending PT-OP-K Range of Motion Start: 06/30/24 13:01 Freq: Status: Active Protocol: Document 06/30/24 13:00 [facility] (Rec: 06/30/24 13:37 [facility] [id number]) Knee Goniometric Range of Motion Knee Left Knee ROM WFL No Patient Position Supine Flexion Active (degrees) 95 Extension Active (degrees) 8 Knee ROM Limitations Knee ROM Limitations Soft Tissue Tightness,Pain, Swelling PT-OP-M Strength Start: 06/30/24 13:01 Freq: Status: Active Protocol: Document 06/30/24 13:00 [facility] (Rec: 07/05/24 08:25 [facility] [id number]) Knee Strength Knee Manual Muscle Testing Left Flexion (S2) 3- Fair- Extension (L3) 3- Fair- PT-OP-Q Treatments Start: 06/30/24 13:01 Freq: Status: Active Protocol: Document 08/09/24 10:41 [facility] (Rec: 08/09/24 12:22 AB [id number]) Cardio Equipment Recumbent Bicycle Duration (Minutes) 8 Resistance 1-3 Seat Position 8 Therapeutic Exercises Supine Exercises Breathing from diaphgragm Supine Exercise Name Initaited prior to STM and performed throughout STM Comments Verbal and tactile cues Sitting Exercises step down 4 inch step Sitting Exercise Name with UE use HEP Side left Reps/Minutes X15 Comments monitored for pain step up Sitting Exercise Name 6 inch step 8 inch step HEP Side left Reps/Minutes X15 each step Comments monitored for pain seated hip abduction with band Sitting Exercise Name HEP Side bilateral Resistance [place] blue level 4 band Reps/Minutes one minute one time Comments monitored for pain STS Sitting Exercise Name first 5 to chair then 3X 5 1/2 to chair Resistance levle 4 royal blue band Equipment Used mesh chair Reps/Minutes X5 X4 Comments Limited by back pain, attributes to weather ( for full sit to stand) Manual Therapy Treatment Consent Patient gave verbal consent for manual Yes treatment Soft Tissue Mobilization left knee Body Location scar tissue Mobilization Type Cross-Friction,Sustained Pressure Intensity/Depth Superficial Body Position Hooklying Comments with LE elvated PT-OP-T Assessment and Plan Start: 06/30/24 13:01 Freq: Status: Active Protocol: Document 08/09/24 10:41 [facility] (Rec: 08/09/24 12:22 AB [id number]) Physical Therapy Assessment Goals 4 Impairment left knee pain rated 6/10 Impairment SLS: L-46 secs, R-38 secs Mcc Goal (LTG) Arabella reports a overall reduction in pain levels from 6/10 to 1-2/10 good progress, pain is 5/10 in the am usually only and sometimes before she goes to bed at night. LTG Duration 8 weeks 3 Impairment Decreased L knee ROM Short Term Goal (STG) Arabella is able to tolerated a knee ROM and stretching program Goal met STG Duration 4 weeks Mcc Goal (LTG) Arabella presents with left knee ROM WFL goal met 125 deg flexion and 0 deg extension 2 Impairment Decreased left LE strength Impairment Decreased strength of the posterior trunk and postural muscles Dish Technician Goal (LTG) Arabella presents with improved functional strength to ascend and decend stairs and perform sit-stand with hand support Arabella is able to go up and down stairs with railing, she does still need hands to push up from a chair and would benefit from continued strengthening 08/09/2024 Patient transfers sit to stand from webbed chair without UE use good mechanics , reports no pain with sit to and from stand. Patient ascends and descends 4 six inch steps without UE use reporting no increase in pain. LTG Duration 8 weeks 1 Impairment Arabella lacks a HEP for left knee rehab Impairment postural habits that may be contributing to pain symptoms Dish Technician Goal (LTG) Arabella is Ind with a HEP for her left knee strength, ROM, and conditioning good progress LTG Duration 8 weeks Assessment Summary Assessment Arabella rates pain 0/10 end of session, was able to ascend and descend 6 inch steps without UE use reporting no pain, comments stairs at home are a little higher and is more careful at home. Patient able to perform step up X 15 on 8 inch block with UE use with reports of no pain. HEP condensed and progressed for maintenance. Physical Therapy Plan Frequency and Duration Frequency of Treatment 2x/Week Duration of treatment (weeks) 8 Plan of Care Start Date 06/30/24 Plan of Care End Date 08/25/24 Next Visit Focus/Plan Next Note Type Treatment Note Next Visit Plan warm up on recumbant bike, review standing squats and continue to work towards goal of sit-stand without hand use
--- NOTE | 2024-08-09 17:00 | PT.OPDS ---
Current Diagnoses Unilateral primary osteoarthritis, left knee (08/09/24) Other instability, left knee (08/09/24) Pain in left knee (08/09/24) Stiffness of unspecified knee, not elsewhere classified (08/09/24) Muscle weakness (generalized) (08/09/24) Visit Care Team Role Provider Type RAYA Ruelas Family Provider Advanced [employer] Polisher Primary Care Provider Specialty: Medical Address: [address] [place] [address], [address] Email: [email or web address] Lee Harris PA-C Attending Provider Non-Staff Referring Provider Specialty: Medical Address: [address] [place] [address], [address] Email: Visit Number Visit Number 7 Discharge Summary PT-OP-B Current Condition Start: 06/30/24 13:01 Freq: Status: Active Protocol: Document 06/30/24 13:00 [facility] (Rec: 06/30/24 13:11 [facility] [id number]) Current Condition History of Current Condition Onset Date 06/23/24 Current Complaints Left knee pain, decreased ROM, decreased strength History of Current Condition history of left partial knee replacement 1 week ago She has a history of right partial knee replacement in December 2023 She notes more pain and isn't as moble as after her right knee surgery. Pain is rated as a 7 in the front of her left knee. She is on tynelol and 2 alieves per day as the oxycontin was too much. SHe is icing her knee 2 times per day. Walking increases pain and she has not yet tried stairs. She does have a step to go down to garage with a left sided hand rail. Treatment Goals Patient/Caregiver Goals Patients goals include reducing pain and improving ROM and strength Prior Functional Status Baseline Function- ADL's Independent Baseline Function- Mobility Independent Current Functional Impairments (Reported) Functional Limitations- ADL's limited with ADL's that require bending and lifting and walking Functional Limitations- Mobility/Gait limited in walking distance to household walking at this time and pt has not yet tried stairs PT-OP-C Subjective Start: 06/30/24 13:01 Freq: Status: Active Protocol: Document 08/09/24 10:41 [facility] (Rec: 08/09/24 12:22 [facility] [id number]) OP-PT Subjective Patient Comments Patient Comments Arabella reports she saw Ortho MD and was told she is doing really good does not need to continue PT. Patient reports she cancelled the next appointment. PT made aware. Patient reports sitting in [employer] with LE down last weekend caused pitting edema left katz. Patient reports mother is a RN and has been advising her to keep legs elevated. AROM left knee 0 to 139 deg flexion. Patient rates pain 0/10. PT-OP-F Manual Assessment Start: 06/30/24 13:01 Freq: Status: Active Protocol: Document 06/30/24 13:00 [facility] (Rec: 07/05/24 08:20 [facility] [id number]) Manual Assessments Soft Tissue Assessment Soft Tissue Mobility Assessment left quad and hamstring tightness with decreased mobility scar not yet assessed due to bandaging PT-OP-G Mobility & Gait Start: 06/30/24 13:01 Freq: Status: Active Protocol: Document 06/30/24 13:00 [facility] (Rec: 07/05/24 08:20 [facility] [id number]) OP Gait Assessment Assistive Devices Assistive Device Front Wheeled Walker Factors Limiting Gait Function Factors Limiting Gait Function Decreased Strength,Limited Range of Motion,Pain Stair Climbing Evaluation Evaluation Level of Assist On Stairs Standby Assistance Devices Stair Climbing Assistive Devices Left Railing Technique/Endurance Stair Climbing Direction Ascend and Descend Stair Climbing Technique Step Over Step,Step to Step Number of Steps Climbed 4 Comments Stair Climbing Comments step over step for ascending and step to step for descending PT-OP-K Range of Motion Start: 06/30/24 13:01 Freq: Status: Active Protocol: Document 06/30/24 13:00 [facility] (Rec: 06/30/24 13:37 [facility] [id number]) Knee Goniometric Range of Motion Knee Left Knee ROM WFL No Patient Position Supine Flexion Active (degrees) 95 Extension Active (degrees) 8 Knee ROM Limitations Knee ROM Limitations Soft Tissue Tightness,Pain, Swelling PT-OP-M Strength Start: 06/30/24 13:01 Freq: Status: Active Protocol: Document 06/30/24 13:00 [facility] (Rec: 07/05/24 08:25 [facility] [id number]) Knee Strength Knee Manual Muscle Testing Left Flexion (S2) 3- Fair- Extension (L3) 3- Fair- PT-OP-T Assessment and Plan Start: 06/30/24 13:01 Freq: Status: Active Protocol: Document 08/09/24 16:59 [facility] (Rec: 08/09/24 17:00 [facility] [id number]) Physical Therapy Assessment Goals 4 Impairment left knee pain rated 6/10 Impairment SLS: L-46 secs, R-38 secs Longterm Goal (LTG) Arabella reports a overall reduction in pain levels from 6/10 to 1-2/10 good progress, pain is 5/10 in the am usually only and sometimes before she goes to bed at night. LTG Duration 8 weeks 3 Impairment Decreased L knee ROM Short Term Goal (STG) Arabella is able to tolerated a knee ROM and stretching program Goal met STG Duration 4 weeks Security Patrol Officer Goal (LTG) Arabella presents with left knee ROM WFL goal met 125 deg flexion and 0 deg extension 2 Impairment Decreased left LE strength Impairment Decreased strength of the posterior trunk and postural muscles Longterm Goal (LTG) Arabella presents with improved functional strength to ascend and decend stairs and perform sit-stand with hand support Arabella is able to go up and down stairs with railing, she does still need hands to push up from a chair and would benefit from continued strengthening 08/09/2024 Patient transfers sit to stand from webbed chair without UE use good mechanics , reports no pain with sit to and from stand. Patient ascends and descends 4 six inch steps without UE use reporting no increase in pain. LTG Duration 8 weeks 1 Impairment Arabella lacks a HEP for left knee rehab Impairment postural habits that may be contributing to pain symptoms Security Patrol Officer Goal (LTG) Arabella is Ind with a HEP for her left knee strength, ROM, and conditioning good progress LTG Duration 8 weeks Assessment Summary Assessment pt has met all established goals and will be dishcarged at this time Physical Therapy Plan Discharge Physical Therapy Discharge Reasons Goals Met
== END 2024-08-12 09:53 | disposition home or self-care (01) ==
LOC: PHYS 11:30
PROVIDERS: Family Provider Registered Nurse Diabetes Educator; PCP Registered Nurse Diabetes Educator; Referring Provider Physician Assistant; Visit Provider Physician Assistant
DX: M17.12 Unilateral primary osteoarthritis, left knee (principal); M25.562 Pain in left knee; M25.669 Stiffness of unspecified knee, not elsewhere classified; M25.362 Other instability, left knee; M62.81 Muscle weakness (generalized)
CPT/HCPCS: 97110; 97140; 97161

== ENCOUNTER → 2024-11-24 10:22 | Outpatient (CLI) | payer OTHER, SELFPAY ==
[2024-11-24 10:52] LABS: Hematocrit 40.8 % (36-46); Hemoglobin 13.9 g/dL (12.0-16.0); Mean Corpuscular Hemoglobin 31.6 PG (26-34); Mean Corpuscular Volume 92.9 fL (80-100); Platelet Count 274 X10^3/uL (150-400); Red Blood Cell Count 4.39 X10^6/uL (4.0-5.2); White Blood Cell Count 3.3 X10^3/uL (4.5-11.0)
[2024-11-24 11:30] LABS: Alanine Aminotransferase 29 IU/L (<35); Albumin 4.5 g/dL (3.5-5.0); Alkaline Phosphatase 61 U/L (38-126); Aspartate Aminotransferase 35 IU/L (14-36); Bilirubin Total 0.5 mg/dL (0.2-1.3); Blood Urea Nitrogen 12 mg/dL (7-17); Calcium 9.6 mg/dL (8.4-10.2); Carbon Dioxide 27 mmol/L (22-32); Chloride 103 mmol/L (98-107); Cholesterol 221 mg/dL (140-199); Estimated Glomerular Filt Rate > 60 mL/min (>60); Globulin 2.3 g/dL (1.7-4.1); Glucose 96 mg/dL (70-100); HDL Cholesterol 109 mg/dL (40-60); HEMOLYSIS < 15 (0-50); LDL Cholesterol Calculated 100 mg/dL (<100); Potassium 4.8 mmol/L (3.4-5.1); Sodium 138 mmol/L (137-145); Total Protein 6.8 g/dL (6.3-8.2); Triglycerides 62 mg/dL (35-150)
[2024-11-24 11:59] LABS: TSH w/ Reflex to FT4 1.24 uIU/mL (0.47-4.68)
== END ==
PROVIDERS: Family Provider Registered Nurse Diabetes Educator; PCP Registered Nurse Diabetes Educator; Referring Provider Registered Nurse Diabetes Educator; Visit Provider Registered Nurse Diabetes Educator
DX: Z00.00 Encounter for general adult medical examination without abnormal findings (principal); E04.1 Nontoxic single thyroid nodule; R74.8 Abnormal levels of other serum enzymes
CPT/HCPCS: 36415; 80053; 80061; 84443; 85027

== ENCOUNTER 2024-11-30 08:43 | Day surgery (SDC) | payer OTHER, SELFPAY ==
[2024-11-30 10:01] VITALS: BP 129/87; PULSE 97; RESP 16; TEMP 36.4; O2SAT 100
[2024-11-30] MEDS: LACTATED RINGERS 1,000 ML 42 ML IV (10:08)
--- NOTE | 2024-11-30 10:46 | PM.HP.IH.1 ---
History of Present Illness History of Present Illness Date Patient Seen: 11/30/24 Chief complaint: [facility] Medical History (Updated 10/06/24 @ 14:58 by RAYA Ruelas) On hormone replacement therapy Lumbar radiculopathy HNP (herniated nucleus pulposus), thoracic Mild persistent asthma Degenerative joint disease of knee Abnormal mammogram of right breast (11/2021) Thyroid nodule (05/2021) Rib pain on left side (~1999) Dyslexia Migraines (~2008) Headache (~1986) History of developmental delay Chronic back pain (~2008) Ankle pain (~2019) Chicken pox (~1986) Heartburn (~1999) Varicose veins of right lower extremity Enlarged thyroid (04/2021) Myofascial pain on left side Acne (11/22/14) Allergic rhinitis (11/22/14) Gastroesophageal reflux disease (11/22/14) Asthma (11/22/14) History of chronic back pain (11/22/14) Depression (11/22/14) Attention deficit disorder (11/22/14) Surgical History Anesthesia History of knee surgery (~1986) History of spinal fusion (~2008) Status post hysterectomy Status post cholecystectomy (~2003) Family History Father Age: 85 Hypertension FH: prostate cancer Cancer Stroke Low iron Grandfather Disease of colon Cancer Grandmother Asthma Cancer Mother Age: 82 High cholesterol Sleep apnea Depression Mental health problem Sister Heart murmur Depression History of heart disease Mental health problem Sister Skin cancer Mental health problem Social History marital status: unmarried,single number of children: 1 household members: none lives independently: Yes caregiver/support person: No housing: house Smoking Status: Never smoker second hand exposure: No alcohol intake: never substance use type: does not use Meds Home Medications and Allergies Home Medications Medication Instructions Recorded Confirmed Type naproxen 250 mg tablet 250 mg PO BID PRN Pain (Scale 07/15/19 11/29/24 History Score 4-6) inhalational spacing device (Babak #1 ea 11/14/19 11/29/24 Rx Aerosol [place] Enhancer spacer) albuterol sulfate 1.25 mg/3 mL 1.25 mg (3 mL) inhalation Q4-6H 10/07/22 11/30/24 Rx solution for nebulization PRN shortness of breath or wheezing #75 mL albuterol sulfate 90 mcg/actuation 2 inh inhalation Q4-6H PRN 11/25/23 11/29/24 Rx aerosol inhaler shortness of breath or wheezing #17 grams fluticasone 100 mcg-salmeterol 50 See Rx Instructions .Route 11/25/23 11/29/24 Rx mcg/dose blistr powdr for .COMPLEX #180 ea inhalation (Advair Diskus) omeprazole 20 mg capsule,delayed 20 mg PO DAILY #90 caps 11/25/23 11/29/24 Rx release sumatriptan succinate 25 mg tablet See Rx Instructions .Route 11/25/23 11/29/24 Rx .COMPLEX #30 tabs minocycline 100 mg capsule See Rx Instructions .Route 05/12/24 11/29/24 Rx .COMPLEX PRN acne #30 caps Disabled Parking Permit #1 ea 05/26/24 11/29/24 Rx calcium carbonate 500 mg PO DAILY 10/03/24 11/30/24 History estradiol 0.025 mg/24 hr weekly 1 patch transdermal QWEEK #4 ea 10/03/24 11/30/24 Rx transdermal patch magnesium 200 mg tablet 100 mg PO DAILY 10/03/24 11/30/24 History gabapentin 300 mg capsule 600 mg (2 x 300 mg) PO BID #180 10/31/24 11/30/24 Rx caps peg 3350-electrolytes 236 240 ml PO Q10M #4,000 mL 11/15/24 11/29/24 Rx gram-22.74 gram-6.74 gram-5.86 gram solution (Golytely) atomoxetine 60 mg capsule 60 mg PO QAM #90 caps 11/29/24 11/29/24 Rx epinephrine 0.3 mg/0.3 mL 0.3 mg (0.3 mL) IM PRN PRN 11/29/24 11/29/24 Rx injection, auto-injector anaphylaxis #2 doses estradiol 0.5 mg/0.5 gram (0.1 %) 1 packet transdermal DAILY #30 ea 11/29/24 11/29/24 Rx transdermal gel packet (Divigel) venlafaxine 75 mg capsule,extended 75 mg PO QAM #90 caps 11/29/24 11/30/24 Rx release 24 hr Allergies Allergy/AdvReac Type Severity Reaction Status Date / Time peanut [PEANUT] Allergy Severe ANAPHYLAXIS Verified 11/29/24 11:37 Sulfa (Sulfonamide Allergy Severe HIVES Verified 11/29/24 11:37 Antibiotics) [SULFA (SULFONAMIDE ANTIBIOTICS)] propofol [PROPOFOL] Allergy Unknown Verified 11/29/24 11:37 tree nut [TREE NUT] Allergy Unknown Verified 11/29/24 11:37 metoclopramide AdvReac Severe EPS Verified 11/29/24 11:37 [METOCLOPRAMIDE] SYMPTOMS hydrocodone [HYDROCODONE] AdvReac Mild STRANGE Verified 11/29/24 11:37 FEELING meperidine [MEPERIDINE] AdvReac Mild FEELS WEIRD Verified 11/29/24 11:37 morphine [MORPHINE] AdvReac Mild SPACEY Verified 11/29/24 11:37 fresh vegetables Allergy Severe itchy, Uncoded 11/29/24 11:37 throat swelling FRESH FRUIT Allergy Unknown Uncoded 11/29/24 11:37 Exam Vital Signs (past 8 hours): - 11/30/24 10:01 Temperature 97.5 F L Pulse Rate 97 H Respiratory Rate 16 Blood Pressure 129/87 Pulse Oximetry 100 Oxygen Delivery Method Room Air Oxygen Delivery Method Room Air Narrative Exam Narrative: Oropharynx free of lesions Chest clear to auscultation percussion Cardiac exam reveals no S3 or murmur Assessment & Plan Assessment & Plan narrative: Follow-up colonoscopy previously negative. Risks, benefits, alternatives have been explained. Time-Based Coding :: [TOTAL MINUTES] spent with patient and on the chart (including review of chart, obtaining history, exam, reviewing outside data, placing orders, documenting exam and treatment plan, and counseling patient) on [DATE]. [employer] Document charge(s): No
--- NOTE | 2024-11-30 10:48 | PM.OP.COLON ---
Operative Date/Time/Diagnoses Date of procedure: 11/30/24 Pre-op diagnosis: See indication Procedure & Clinicians Study performed: Colonoscopy Same procedure as scheduled: Yes Indications: Follow-up screening colonoscopy Surgeon: Ervin Garcia Procedure Notes Procedure in detail: After informed consent was obtained the patient was placed in left lateral decubitus position. The video colonoscope was introduced the rectum slowly advanced cecum. Preparation was good. On slow withdrawal mucosa was carefully examined. The scope was removed. The patient tolerated procedure well. Blood loss none Complications none Sedation mac Findings 1. Extensive left-sided diverticulosis 2. Moderately poor prep with some diverticular debris. Able to reach cecum and cleansed the wall reasonably well. She should have follow-up colonoscopy in 1 year with a double dose prep
[2024-11-30 11:30] VITALS: BP 120/72; PULSE 81; RESP 12; TEMP 36.1; O2SAT 100
[2024-11-30 11:35] VITALS: BP 119/62; PULSE 78; RESP 12; O2SAT 100
[2024-11-30 11:39] VITALS: BP 111/67; PULSE 76; RESP 12; TEMP 36.2; O2SAT 100
[2024-11-30 11:43] VITALS: BP 115/63; PULSE 77; RESP 12; O2SAT 100
== END 2024-11-30 11:56 | disposition home or self-care (01) ==
PROVIDERS: Family Provider Registered Nurse Diabetes Educator; PCP Registered Nurse Diabetes Educator; Referring Provider Internal Medicine Gastroenterology; Visit Provider Internal Medicine Gastroenterology
PROC: 0DJD8ZZ Inspection of Lower Intestinal Tract, Via Natural or Artificial Opening Endoscopic (ICD-10-PCS; CPT 45378; principal; 2024-11-30 10:00)
DX: Z12.11 Encounter for screening for malignant neoplasm of colon (principal); K57.30 Diverticulosis of large intestine without perforation or abscess without bleeding
CPT/HCPCS: G0121; J2704

== ENCOUNTER → 2024-12-05 09:23 | Outpatient (CLI) | payer OTHER, SELFPAY ==
--- NOTE | 2024-12-05 09:24 | DI.US.S_ITS ---
PROCEDURE: US THYROID INDICATIONS: 1 yr f/u TECHNIQUE: Real-time scanning was performed of the thyroid gland, with image documentation. COMPARISON: [facility], US, US THYROID, 12/04/2023, 7:39. FINDINGS: Thyroid: Right lobe measures 5.0 x 1.3 x 1.6 cm. Left lobe measures 4.2 x 0.8 x 1.9 cm. Isthmus is 0.8 cm thick. Echotexture is homogeneous. Nodule number: 1 Location: Right inferior Size: 1.2 x 0.7 x 0.8 cm. Composition: Solid Echogenicity: Isoechoic Shape: wider than tall. Margins: Smooth Echogenic foci: Punctate Total points: 6 ACR TI-RADS category: TIRADS 4 (moderately suspicious) IMPRESSION: Redemonstration of 1.2 cm inferior right thyroid TIRADS 4 (moderately suspicious) nodule. This is not significantly changed. Recommend follow-up thyroid ultrasound in 1 year to document continued stability. ACR TI-RADS definitions and recommendations: TI-RADS 1 (benign): 0 points. FNA not needed. TI-RADS 2 (not suspicious): 2 points. FNA not needed. TI-RADS 3: 3 points. * FNA if 2.5 cm or larger, follow up if 1.5 cm or larger (at 1, 3, and 5 years). TI-RADS 4: 4-6 points. * FNA if 1.5 cm or larger, follow up if 1 cm or larger (at 1, 2, 3, and 5 years). TI-RADS 5: 7 points or more. * FNA if 1 cm or larger, follow up if 0.5 cm or larger (every year for 5 years). Dictated by: Anoop Perez M.D. on 12/05/2024 at 15:43 Approved by: Anoop Perez M.D. on 12/05/2024 at 15:47
== END ==
LOC: US 09:24
PROVIDERS: Family Provider Registered Nurse Diabetes Educator; PCP Registered Nurse Diabetes Educator; Referring Provider Registered Nurse Diabetes Educator; Visit Provider Registered Nurse Diabetes Educator
DX: E04.1 Nontoxic single thyroid nodule (principal)
CPT/HCPCS: 76536

== ENCOUNTER → 2025-02-27 12:20 | Outpatient (CLI) | payer OTHER, SELFPAY ==
--- NOTE | 2025-02-27 12:21 | DI.RAD.S_ITS ---
PROCEDURE: XR LUMBAR SPINE MIN 4V INDICATIONS: BACK PAIN TECHNIQUE: 5 views of the lumbar spine were acquired, including bilateral oblique views. COMPARISON: [facility], , XR LUMBAR SPINE MIN 4V, 01/22/2023, 13:34. FINDINGS: Bones: 5 non rib-bearing vertebrae are present. Post corpectomy and posterior fusion changes are noted from T11 through L3 levels unchanged from prior study. No obvious hardware loosening or failure. Alignment of lumbar spine is unchanged from prior study. No acute vertebral body compression fractures. Grade 1 retrolisthesis of L3 on L4 is seen. Degenerative endplate changes are noted throughout lumbar spine. No suspicious bony lesions. Soft tissues: Overlying bowel gas pattern is normal. No suspicious soft tissue calcifications. Oblique images: No pars defects. Bilateral bony foraminal stenosis at L4-5 and L5-S1 level is seen. IMPRESSION: Stable postsurgical changes at thoracolumbar junction. No gross hardware loosening or failure. No acute vertebral body compression fracture. [id number] degenerative disc disease throughout lumbar spine. No gross pars defects. Bilateral bony foraminal stenosis at L4-5 and L5-S1 levels. Dictated by: Ernie Lay M.D. on 02/27/2025 at 12:41 Approved by: Ernie Lay M.D. on 02/27/2025 at 12:42
--- NOTE | 2025-02-27 12:21 | DI.RAD.S_ITS ---
PROCEDURE: XR THORACIC SPINE 3V INDICATIONS: RIB PAIN TECHNIQUE: 3 views of the thoracic spine were acquired. COMPARISON: [facility], CR, XR THORACIC SPINE 3V, 05/20/2023, 11:46. FINDINGS: Bones: Mild dextroscoliosis of thoracic spine is again seen unchanged from prior study. Postsurgical changes are again seen at thoracolumbar junction. No gross hardware loosening or failure. No fractures or dislocations. Degenerative endplate changes are noted in mid to lower thoracic spine. No suspicious bony lesions. 12 pairs of ribs are noted, and appear intact where visualized. Soft tissues: No paravertebral stripe thickening. IMPRESSION: Postsurgical changes in thoracolumbar junction. Stable mild dextroscoliosis of thoracic spine. No acute fracture or dislocation. No gross hardware loosening or failure. Degenerative disc disease in mid to lower thoracic spine. Dictated by: Ernie Lay M.D. on 02/27/2025 at 12:39 Approved by: Ernie Lay M.D. on 02/27/2025 at 12:40
== END ==
PROVIDERS: PCP Registered Nurse Diabetes Educator; Referring Provider Physical Medicine & Rehabilitation; Visit Provider Physical Medicine & Rehabilitation
DX: M51.16 Intervertebral disc disorders with radiculopathy, lumbar region (principal); M48.061 Spinal stenosis, lumbar region without neurogenic claudication; M48.07 Spinal stenosis, lumbosacral region; M51.24 Other intervertebral disc displacement, thoracic region; M41.9 Scoliosis, unspecified; Z87.39 Personal history of other diseases of the musculoskeletal system and connective tissue; Z98.1 Arthrodesis status
CPT/HCPCS: 72072; 72110

== ENCOUNTER → 2025-03-07 15:56 | Outpatient (CLI) | payer OTHER, SELFPAY ==
--- NOTE | 2025-03-07 15:57 | DI.MG.S_ITS ---
MM screening mammo BI: 03/07/2025. BI-RADS: 1 CLINICAL: 54-year old female for bilateral screening mammogram. Tyrer-Cuzick lifetime risk of 9.7%. No personal or first-degree family history of breast cancer. PRIOR EXAMS 02/01/2024, 08/21/2023, 02/12/2023, 01/28/2023, 01/23/2022, 12/09/2021, 12/03/2020, 11/28/2019, 11/08/2018, 05/05/2018, 11/04/2017, 11/02/2017, 08/22/2016, 08/21/2015. MAMMOGRAPHY TECHNIQUE: 2D and 3D (tomosynthesis) digital mammographic views obtained, with additional images as needed for full coverage. Current study was also evaluated with a Computer Aided Detection (CAD) system. DENSITY B. There are scattered areas of fibroglandular density. MAMMOGRAPHY FINDINGS Bilateral: No suspicious mass, asymmetry, microcalcification, or other abnormality seen. No significant change from comparison. IMPRESSION: * No evidence of malignancy. RECOMMENDATIONS Bilateral * Annual screening mammography. OVERALL ASSESSMENT CATEGORY BI-RADS-1: Negative. The [employer] recommends annual screening mammography beginning at age 40 for women with average risk of breast cancer. ELECTRONICALLY SIGNED: Cheryle Aguirre M.D. on 03/11/2025 at 12:09:59 PM PT Interpreting Station ID: [id number]
== END ==
LOC: MAMMO 15:56
PROVIDERS: PCP Registered Nurse Diabetes Educator; Referring Provider Registered Nurse Diabetes Educator; Visit Provider Registered Nurse Diabetes Educator
DX: Z12.31 Encounter for screening mammogram for malignant neoplasm of breast (principal)
CPT/HCPCS: 77063; 77067

== ENCOUNTER 2025-03-28 08:09 | Outpatient (CLI) | payer OTHER, MEDICAID, SELFPAY ==
[2025-03-28] VITALS (11 sets, daily range): BP systolic 121–160; BP diastolic 67–85; PULSE 69–97; RESP 14–18; TEMP 36.2; O2SAT 96–100
[2025-03-28] MEDS: MIDAZOLAM 2 MG/2 ML VIAL IV (08:42)
[2025-03-28] MEDS: BUPIVACAINE 0.25% (PF) VIAL 2 ML INJ (08:48)
[2025-03-28] MEDS: DEXAMETHASONE 10 MG/ML VIAL 30 MG INJ (08:48)
--- NOTE | 2025-03-28 09:00 | PM.PROC.IR.1 ---
Date/Time/Diagnoses Date of procedure: 03/28/25 Time of procedure: 09:00 Pre-procedure diagnosis: Thoracic stenosis with HNP Post-procedure diagnosis: same Procedure Notes Procedure: Fluoroscopic guided, contrast controlled T10/11 translaminar epidural steroid injection with conscious sedation. Indications: Arabella is referred by RAYA Esparza for treatment of thoracic DDD/DJD with radiculopathy Physician: Jose Dyer Total Fluoroscopy time (seconds): 9 Total sedation minutes: 13 Complications: none Procedure in detail & Post-procedure care: DESCRIPTION OF PROCEDURE Fluoroscopic guided, contrast controlled T10/11 translaminar epidural steroid injection with conscious sedation. Following review of allergy review potential side effects and complications, including, but not necessarily limited to, infection, allergic reaction, local tissue breakdown, temporary as well as permanent nerve injury, stroke, paralysis and possible , the patient indicated that they understood and agreed to proceed. An informed consent document was signed by the patient, witnessed by the nurse, and placed in the patient's chart. Additionally other treatment options including modalities, medications and physical therapy were reviewed with the patient. After review of previous anaesthesic history and IV conscious sedation the patient was deemed safe to proceed with today's procedure with IV conscious sedation as ASA class II designation. Safety time-out was performed to confirm patient ID, procedure to be performed and site of procedure. IV sedation was accomplished with a combination of 2mg of Versed administered by the RN after DO order, titrated to patient comfort during the course of the procedure while the patient remained responsive to all verbal commands In the prone position, following sterile prep and drape of the thoracic region the T10/11 translaminar space was identified fluoroscopically. The skin was anesthetized via 25 gauge 1.5inch needle with 1% lidocaine solution. At this point a 22gauge epidural needle was atraumatically introduced and advanced under fluoroscopic guidance into the region of the T10/11 translaminar space depth was confirmed on lateral view. Radiographic data, including multiple fluoroscopic views of the thoracic spine, reveals spinal needle at the T10/11 translaminar space. Lateral views then showed the placement of the needle in the epidural space. Subsequent view show contrast material flowing superiorly and inferiorly in the epidural space. No vascular or intrathecal uptake is observed. At this point using loss of resistance technique with saline and the epidural space was entered. This was confirmed followed negative aspiration and injection of approximately 1.5cc of Isovue 200 showed excellent epidural flow without vascular or intrathecal uptake. At this point, 1cc of 0.25%marcaine solution was admitted as a test dose and the patient was observed for an appropriate period of time without signs or symptoms of complications, including abdominal pain, shortness of breath, bilateral upper and lower extremity weakness, nausea and vomiting, prior to steroid injection. Subsequently, 3cc or 30mg of dexamethasone was then injected without incident. The patient tolerated the procedure well without signs of complications and subsequently was transferred to the recovery room for further monitoring. The patient was then transferred to the recovery area with their observed for an appropriate time after the injection. Patient reported a VAS score of 7 prior to the procedure and post-procedure VAS of 1.
== END 2025-03-28 09:25 | disposition home or self-care (01) ==
LOC: RAD 08:09
PROVIDERS: PCP Registered Nurse Diabetes Educator; Referring Provider Physical Medicine & Rehabilitation; Visit Provider Physical Medicine & Rehabilitation
DX: M48.04 Spinal stenosis, thoracic region (principal); M51.14 Intervertebral disc disorders with radiculopathy, thoracic region; M47.24 Other spondylosis with radiculopathy, thoracic region
CPT/HCPCS: 62321; 99152; J1100; J2250